=== PATIENT | male | born 1950 | race Caucasian/White ===

== ENCOUNTER 2020-04-05 08:02 | Inpatient (IN) | payer MEDICARE ==
[2020-04-05] MEDS ORDERED: FUROSEMIDE 10 MG/ML 4 ML VIAL IV STA (08:34)
--- NOTE | 2020-04-05 08:48 | ED ---
General Adult HPI - General Chief complaint: Shortness of Breath Stated complaint: poss pneumonia Time Seen by Provider: 04/05/20 08:18 Source: patient, RN notes reviewed, old records reviewed Mode of arrival: ambulatory Limitations: no limitations - History of Present Illness Initial comments: Patient 70-year-old male with a history of coronary disease CABG in 2012. Patient reportedly is having more shortness of breath for the past few weeks. Patient was seen by his primary care doctor who did a chest x-ray showing pleural effusion. They report they try to manage this with Lasix at home but Patient states that it is difficult for him to lay down at night with breathing and outpatient management has not been sufficient. He denies any significant productive cough. Does cough there is a white frothy fluid. Patient reports no fevers or chills. - Related Data Home Medications Medication Instructions Recorded Confirmed Atorvastatin [Lipitor] 10 mg PO HS 09/03/15 04/05/20 Clopidogrel Bisulfate [Plavix] 75 mg PO DAILY 09/03/15 04/05/20 Spironolactone [Aldactone] 25 mg PO DAILY 09/03/15 04/05/20 Furosemide [Lasix] 20 mg PO BID 04/05/20 04/05/20 Losartan Potassium [Cozaar] 12.5 mg PO DAILY 04/05/20 04/05/20 Potassium Chloride ER [K-Dur 10] 10 meq PO BID 04/05/20 04/05/20 Allergies Allergy/AdvReac Type Severity Reaction Status Date / Time No Known Allergies Allergy Verified 04/05/20 09:46 Review of Systems ROS Statement: Those systems with pertinent positive or pertinent negative responses have been documented in the HPI. ROS Other: All systems not noted in ROS Statement are negative. Past Medical History Past Medical History: Heart Failure, Diabetes Mellitus, Hyperlipidemia, Hypertension, Myocardial Infarction (CT) Last Myocardial Infarction Date:: 2012 History of Any Multi-Drug Resistant Organisms: None Reported Past Surgical History: Coronary Bypass/CABG Past Anesthesia/Blood Transfusion Reactions: No Reported Reaction Past Psychological History: No Psychological Hx Reported Smoking Status: Never smoker Past Alcohol Use History: None Reported Past Drug Use History: None Reported General Exam - General Exam Comments Initial Comments: 70-year-old female. No distress. Limitations: no limitations General appearance: alert, in no apparent distress Head exam: Present: atraumatic, normocephalic, normal inspection Eye exam: Present: normal appearance, PERRL, EOMI. Absent: scleral icterus, conjunctival injection, periorbital swelling ENT exam: Present: normal exam, mucous membranes moist Neck exam: Present: normal inspection. Absent: tenderness, meningismus, lymphadenopathy Respiratory exam: Present: decreased breath sounds. Absent: normal lung sounds bilaterally, respiratory distress, wheezes, rales, rhonchi, stridor Cardiovascular Exam: Present: regular rate, normal rhythm, normal heart sounds. Absent: systolic murmur, diastolic murmur, rubs, gallop, clicks GI/Abdominal exam: Present: soft, normal bowel sounds. Absent: distended, tenderness, guarding, rebound, rigid Extremities exam: Present: normal inspection, full ROM, normal capillary refill. Absent: tenderness, pedal edema, joint swelling, calf tenderness Back exam: Present: normal inspection Neurological exam: Present: alert, oriented X3, CN II-XII intact Psychiatric exam: Present: normal affect, normal mood Skin exam: Present: warm, dry, intact, normal color. Absent: rash Course Vital Signs 04/05/20 04/05/20 08:05 10:00 Temperature 97.6 F Pulse Rate 108 H 91 Respiratory 20 18 Rate Blood Pressure 115/68 110/70 O2 Sat by Pulse 98 96 Oximetry EKG Findings - EKG Comments: EKG Findings:: EKG shows sinus tachycardia left ventricular hypertrophy with repolarization and really. Abnormal EKG. Ventricular rate of 104 bpm. Verbal is 180 ms. QS duration is 92 ms. QT QTc is 350/460 ms. Medical Decision Making - Medical Decision Making is a 70-year-old male presents emergency department today for evaluation for difficulty breathing for the past 6 weeks. He was seen by PCP and started on Lasix reportimprovement. Patient complains orthopnea. Patient has history of coronary artery disease and had bypass surgery 2013. His front end technician is Dr. Avendano. Patient reports that he has no current chest pain at this time. Patient has diminished lung sounds. Chest x-ray shows evidence of a right pleural effusion and also increased infiltrates concern for CHF cannot exclude pneumonia. He reports that his cough is with white frothy sputum no fevers or chills. Discussed low concern for pneumonia at this time. The patient's symp toms are more consistent with CHF and evidence of pleural effusion. Patient labs also showed a mildly elevated troponin of 0.036. Patient started on aspirin. He has no chest pain at this time. I discussed admission CHF protocol. Discussed the case with Dr. Abrams who discussed the case with Dr. Shaheed jay. - Lab Data Result diagrams: 04/05/20 08:38 04/05/20 08:38 Lab Results 04/05/20 04/05/20 04/05/20 Range/Units 08:38 08:38 08:38 WBC 8.8 (3.8-10.6) k/uL RBC 4.82 (4.30-5.90) m/uL Hgb 14.7 (13.0-17.5) gm/dL Hct 44.6 (39.0-53.0) % MCV 92.4 (80.0-100.0) fL MCH 30.5 (25.0-35.0) pg MCHC 33.0 (31.0-37.0) g/dL RDW 13.0 (11.5-15.5) % Plt Count 216 (150-450) k/uL Neutrophils % 81 % Lymphocytes % 7 % Monocytes % 9 % Eosinophils % 1 % Basophils % 1 % Neutrophils # 7.1 (1.3-7.7) k/uL Lymphocytes # 0.6 L (1.0-4.8) k/uL Monocytes # 0.8 (0-1.0) k/uL Eosinophils # 0.1 (0-0.7) k/uL Basophils # 0.1 (0-0.2) k/uL PT 10.8 (9.0-12.0) sec INR 1.0 (<1.2) APTT 25.4 (22.0-30.0) sec Sodium 137 (137-145) mmol/L Potassium 4.9 (3.5-5.1) mmol/L Chloride 100 (98-107) mmol/L Carbon Dioxide 29 (22-30) mmol/L Anion Gap 8 mmol/L BUN 24 H (9-20) mg/dL Creatinine 0.98 (0.66-1.25) mg/dL Est GFR (CKD-EPI)AfAm >90 (>60 ml/min/1.73 sqM) Est GFR (CKD-EPI)NonAf 79 (>60 ml/min/1.73 sqM) Glucose 176 H (74-99) mg/dL Plasma Lactic Acid Steve (0.7-2.0) mmol/L Calcium 9.7 (8.4-10.2) mg/dL Magnesium 2.0 (1.6-2.3) mg/dL Total Bilirubin 1.3 (0.2-1.3) mg/dL AST 27 (17-59) U/L ALT 22 (4-49) U/L Alkaline Phosphatase 107 (38-126) U/L Troponin I (0.000-0.034) ng/mL NT-Pro-B Natriuret Pep pg/mL Total Protein 7.6 (6.3-8.2) g/dL Albumin 4.2 (3.5-5.0) g/dL 04/05/20 04/05/20 04/05/20 Range/Units 08:38 08:38 08:38 WBC (3.8-10.6) k/uL RBC (4.30-5.90) m/uL Hgb (13.0-17.5) gm/dL Hct (39.0-53.0) % MCV (80.0-100.0) fL MCH (25.0-35.0) pg MCHC (31.0-37.0) g/dL RDW (11.5-15.5) % Plt Count (150-450) k/uL Neutrophils % % Lymphocytes % % Monocytes % % Eosinophils % % Basophils % % Neutrophils # (1.3-7.7) k/uL Lymphocytes # (1.0-4.8) k/uL Monocytes # (0-1.0) k/uL Eosinophils # (0-0.7) k/uL Basophils # (0-0.2) k/uL PT (9.0-12.0) sec INR (<1.2) APTT (22.0-30.0) sec Sodium (137-145) mmol/L Potassium (3.5-5.1) mmol/L Chloride (98-107) mmol/L Carbon Dioxide (22-30) mmol/L Anion Gap mmol/L BUN (9-20) mg/dL Creatinine (0.66-1.25) mg/dL Est GFR (CKD-EPI)AfAm (>60 ml/min/1.73 sqM) Est GFR (CKD-EPI)NonAf (>60 ml/min/1.73 sqM) Glucose (74-99) mg/dL Plasma Lactic Acid Steve 2.1 H* (0.7-2.0) mmol/L Calcium (8.4-10.2) mg/dL Magnesium (1.6-2.3) mg/dL Total Bilirubin (0.2-1.3) mg/dL AST (17-59) U/L ALT (4-49) U/L Alkaline Phosphatase (38-126) U/L Troponin I 0.036 H* (0.000-0.034) ng/mL NT-Pro-B Natriuret Pep 5630 pg/mL Total Protein (6.3-8.2) g/dL Albumin (3.5-5.0) g/dL - Radiology Data Radiology results: report reviewed Correlate for congestive heart failure with basilar effusions, associated edema or cyanosis, pneumonia not excluded. Disposition Clinical Impression: CHF (congestive heart failure), Elevated troponin, Pleural effusion Disposition: ADMITTED IP TO THIS [facility] Condition: Stable Is patient prescribed a controlled substance at d/c from ED?: No Referrals: Charlie Jc MD [Primary Care Provider] - 1-2 days Time of Disposition: 10:13
[2020-04-05 08:55] LABS: Basophils # (A) 0.1 k/uL (0-0.2); Basophils % (A) 1 %; Eosinophils # (A) 0.1 k/uL (0-0.7); Eosinophils % (A) 1 %; HCT 44.6 % (39.0-53.0); HGB 14.7 gm/dL (13.0-17.5); Lymphocytes # (A) 0.6 k/uL (1.0-4.8); Lymphocytes % (A) 7 %; MCH 30.5 pg (25.0-35.0); MCV 92.4 fL (80.0-100.0); Mean Platelet Volume 8.4; Monocytes # (A) 0.8 k/uL (0-1.0); Monocytes % (A) 9 %; Neutrophils # (A) 7.1 k/uL (1.3-7.7); Neutrophils % (A) 81 %; Platelet Count 216 k/uL (150-450); RBC 4.82 m/uL (4.30-5.90); WBC 8.8 k/uL (3.8-10.6)
[2020-04-05 09:08] LABS: ALT 22 U/L (4-49); AST 27 U/L (17-59); African American GFR (CKD) >90 (>60 ml/min/1.73 sqM); Albumin 4.2 g/dL (3.5-5.0); Alkaline Phosphatase 107 U/L (38-126); Anion Gap 8 mmol/L; Blood Urea Nitrogen 24 mg/dL (9-20); Calcium 9.7 mg/dL (8.4-10.2); Carbon Dioxide 29 mmol/L (22-30); Chloride 100 mmol/L (98-107); Glucose 176 mg/dL (74-99); Non-African American GFR(CKD) 79 (>60 ml/min/1.73 sqM); Potassium 4.9 mmol/L (3.5-5.1); Sodium 137 mmol/L (137-145); Total Bilirubin 1.3 mg/dL (0.2-1.3); Total Protein 7.6 g/dL (6.3-8.2)
[2020-04-05 09:11] LABS: Partial Thromboplastin Time 25.4 sec (22.0-30.0); Prothrombin Time 10.8 sec (9.0-12.0)
--- NOTE | 2020-04-05 09:31 | XR ---
EXAMINATION TYPE: XR chest 2V DATE OF EXAM: 04/05/2020 COMPARISON: Prior chest x-ray 09/04/2015 HISTORY: Difficulty breathing TECHNIQUE: Frontal and lateral views of the chest are obtained. FINDINGS: Patient is post median sternotomy. There is been interval development of blunting the cost ophrenic angles, increased basilar density obscuring the hemidiaphragms. No evident pneumothorax. Magdy tral vascularity and interstitium somewhat increased. Some persistent upper lobe scarring noted. IMPRESSION: Correlate for congestive heart failure with basilar effusions, associated edema versus a telectasis, pneumonia not excluded.
[2020-04-05] MEDS ORDERED: ASPIRIN 325 MG TAB PO STA (10:11)
[2020-04-05] MEDS ORDERED: NITROGLYCERIN OINT 1 INCH/GM PACKET TOPICAL STA (10:11)
--- NOTE | 2020-04-05 12:28 | P.HPIM ---
History of Present Illness H&P Date: 04/05/20 Chief Complaint: Shortness of breath This is a 70-year-old male patient of Dr. Jc and Dr. Avendano with a past medical history of congestive heart failure, diabetes on diet control, hyperlipidemia, hypertension, previous [place], coronary artery disease, status post coronary artery bypass graft, and history of pneumonia. Patient reports over the last 6-8 weeks he's had some shortness of breath. He has been seeing Dr. Jc who is treating him for congestive heart failure with oral diuretics. Per patient Dr. Pacheco recommended hospitalization but he was reluctant to go. P atient reports last night he was unable to sleep due to the shortness of breath so he decided to come to the emergency department. He has complaints of orthopnea, productive cough with white frothy sputum and exertional dyspnea, he denies any chest pain. Upon ER evaluation chest x-ray showed right pleural effusion and increased infiltrates concerning for congestive heart failure. Troponin is mildly elevated at 0.036, lactic acid 2.1, BUN 24, creatinine 0.98. He was started on IV Lasix 40 mg every 8 hours along with spironolactone 25 mg daily. Cardiology has been consulted, patient reports he had a recent echo with Dr. Avendano less than 3 months ago, will try to obtain recent echocardiogram. Review of Systems Constitutional: Reports fatigue, Denies anorexia, Denies chills, Denies fever, Denies malaise Eyes: denies diplopia, denies discharge, denies irritation, denies itching, denies photophobia Ears: deny: decreased hearing, ear discharge, earache, tinnitus Ears, nose, mouth and throat: Denies epistaxis, Denies headache, Denies hoarseness, Denies nasal congestion, Denies nasal discharge, Denies sinus pain, Denies sinus pressure, Denies sore throat Cardiovascular: Reports dyspnea on exertion, Reports orthopnea, Reports shortness of breath, Denies chest pain, Denies edema, Denies leg edema, Denies palpitations, Denies syncope Respiratory: Reports cough, Reports cough with sputum, Reports dyspnea, Denies congestion, Denies pleurisy, Denies respiratory infections, Denies sleep apnea Gastrointestinal: Denies constipation, Denies diarrhea, Denies melena, Denies nausea, Denies vomiting Genitourinary: Denies dysuria, Denies nocturia, Denies urinary hesitancy, Denies urinary retention Musculoskeletal: Denies atrophy, Denies fractures, Denies frequent falls, Denies muscle weakness Integumentary: Denies dryness, Denies growths, Denies lesions, Denies onychomycosis, Denies rash, Denies sores, Denies striae, Denies wounds Neurological: Denies confusion, Denies loss of vision, Denies memory loss, Denies numbness, Denies seizures, Denies syncope, Denies vertigo, Denies weakness Psychiatric: Denies anxiety, Denies confusion, Denies insomnia, Denies irritability Past Medical History Past Medical History: Heart Failure, Diabetes Mellitus, Hyperlipidemia, Hypertension, Myocardial Infarction (NC) Last Myocardial Infarction Date:: 2012 History of Any Multi-Drug Resistant Organisms: None Reported Past Surgical History: Coronary Bypass/CABG Past Anesthesia/Blood Transfusion Reactions: No Reported Reaction Past Psychological History: No Psychological Hx Reported Smoking Status: Never smoker Past Alcohol Use History: None Reported Past Drug Use History: None Reported - Past Family History Father Family Medical History: Cancer Additional Family Medical History / Comment(s): father at age 77 from prostate cancer Mother Family Medical History: Cancer (Mother at 83 from colon cancer) Medications and Allergies Home Medications Medication Instructions Recorded Confirmed Type Atorvastatin [Lipitor] 10 mg PO HS 09/03/15 04/05/20 History Clopidogrel Bisulfate [Plavix] 75 mg PO DAILY 09/03/15 04/05/20 History Spironolactone [Aldactone] 25 mg PO DAILY 09/03/15 04/05/20 History Furosemide [Lasix] 20 mg PO BID 04/05/20 04/05/20 History Losartan Potassium [Cozaar] 12.5 mg PO DAILY 04/05/20 04/05/20 History Potassium Chloride ER [K-Dur 10] 10 meq PO BID 04/05/20 04/05/20 History Allergies Allergy/AdvReac Type Severity Reaction Status Date / Time No Known Allergies Allergy Verified 04/05/20 09:46 Physical Exam Vitals: Vital Signs Temp Pulse Resp BP Pulse Ox 04/05/20 10:00 91 18 110/70 96 04/05/20 08:05 97.6 F 108 H 20 115/68 98 Intake and Output 04/04/20 04/05/20 04/05/20 22:59 06:59 14:59 Other: Weight 77.564 kg - Constitutional General appearance: average body habitus, cooperative, mild distress - EENT Eyes: EOMI, PERRLA, normal appearance - Neck Neck: no lymphadenopathy, normal ROM, no thyromegaly Thyroid: bilateral: normal size, negative: enlarged, firm, nodule - Respiratory Respiratory: right: diminished, bilateral: dullness, negative: rales, rhonchi, wheezing - Cardiovascular Rhythm: regular Heart sounds: normal: S1, S2 - Gastrointestinal General gastrointestinal: no distended, normal bowel sounds, no organomegaly, no tenderness - Integumentary Integumentary: no flushed, normal, no pale, no rash, no ulcer - Neurologic Neurologic: CNII-XII intact - Musculoskeletal Musculoskeletal: generalized weakness, strength equal bilaterally - Psychiatric Psychiatric: A&O x's 3, appropriate affect, intact judgment & insight Results CBC & Chem 7: 04/05/20 08:38 04/06/20 07:31 Labs: Abnormal Lab Results - Last 24 Hours (Table) 04/05/20 04/05/20 04/05/20 Range/Units 08:38 08:38 08:38 Lymphocytes # 0.6 L (1.0-4.8) k/uL BUN 24 H (9-20) mg/dL Glucose 176 H (74-99) mg/dL Plasma Lactic Acid Steve 2.1 H* (0.7-2.0) mmol/L Troponin I (0.000-0.034) ng/mL 04/05/20 Range/Units 08:38 Lymphocytes # (1.0-4.8) k/uL BUN (9-20) mg/dL Glucose (74-99) mg/dL Plasma Lactic Acid Steve (0.7-2.0) mmol/L Troponin I 0.036 H* (0.000-0.034) ng/mL Assessment and Plan Plan: 1. Shortness of breath secondary to congestive heart failure and right-sided pleural effusion. Cardiology consulted, will obtain echo, serial troponins, continue with Aldactone 25 mg daily along with furosemide 40 mg IV every 8 hours. 2. Pleural effusion. Continue with IV furosemide and Aldactone. 3. Elevated troponin. Cardiology on consult, serial troponins. 4. Elevated lactic acid. Will repeat 5. History of coronary artery disease status post CABG. Continue with Lipitor 10 mg, Plavix 75 mg, Aldactone 25 mg, Cozaar 12.5 mg daily. 6. Hyperlipidemia. Continue Lipitor 10 mg daily 7. Hypertension. Continue losartan and Aldactone 25 mg daily 8. Diabetes. On diet control 9. GI prophylaxis. PPI 10. DVT prophylaxis. The above impression and plan of care have been discussed and directed by signing physician. Bisi Thompson nurse practitioner acting as scribe for signing physician.
[2020-04-05] MEDS: NITROGLYCERIN OINT 1 INCH/GM PACKET TOPICAL SCH ×3 (13:33→20:37)
[2020-04-05] MEDS: FUROSEMIDE 10 MG/ML 4 ML VIAL IV SCH ×2 (15:27→22:35)
[2020-04-05] MEDS: ATORVASTATIN 10 MG TAB PO SCH (20:39)
[2020-04-05] MEDS: POTASSIUM CHLORIDE ER 10 MEQ TAB.ER.PRT PO SCH (20:39)
[2020-04-06 08:01] LABS: Calcium 9.6 mg/dL (8.4-10.2); Potassium 4.1 mmol/L (3.5-5.1)
[2020-04-06] MEDS: SPIRONOLACTONE 25 MG TAB PO SCH (08:28)
[2020-04-06] MEDS: FUROSEMIDE 10 MG/ML 4 ML VIAL IV SCH ×2 (08:28→21:20)
[2020-04-06] MEDS: CLOPIDOGREL 75 MG TAB PO SCH (08:28)
[2020-04-06] MEDS: LOSARTAN 25 MG TAB PO SCH (08:28)
[2020-04-06] MEDS: POTASSIUM CHLORIDE ER 10 MEQ TAB.ER.PRT PO SCH ×2 (08:29→21:11)
[2020-04-06] MEDS: METOPROLOL SUCCINATE (ER) 25 MG TAB.ER.24H PO SCH (08:32)
[2020-04-06] MEDS: ASPIRIN 81 MG PO SCH (08:32)
[2020-04-06] MEDS ORDERED: ASPIRIN 325 MG TAB PO SCH (09:00)
--- NOTE | 2020-04-06 09:41 | P.PN ---
Subjective This is a 70-year-old male patient of Dr. Jc and Dr. Avendano with a past medical history of congestive heart failure, diabetes on diet control, hype rlipidemia, hypertension, previous [place], coronary artery disease, status post coronary artery bypass graft, and history of pneumonia. Patient reports over the last 6-8 weeks he's had some shortness of breath. He has been seeing Dr. Jc who is treating him for congestive heart failure with oral diuretics. Per patient Dr. Pacheco recommended hospitalization but he was reluctant to go. Patient reports last night he was unable to sleep due to the shortness of breath so he decided to come to the emergency department. He has complaints of orthopnea, productive cough with white frothy sputum and exertional dyspnea, he denies any chest pain. Upon ER evaluation chest x-ray showed right pleural ef fusion and increased infiltrates concerning for congestive heart failure. Troponin is mildly elevated at 0.036, lactic acid 2.1, BUN 24, creatinine 0.98. He was started on IV Lasix 40 mg every 8 hours along with spironolactone 25 mg daily. Cardiology has been consulted, patient reports he had a recent echo with Dr. Avendano less than 3 months ago, will try to obtain recent echocardiogram. 04/06: Patient evaluated today, reports shortness of breath has improved significantly from yesterday. He continues on Aldactone 25 mg daily along with 40 mg IV push of Lasix every 8 hours. He is down 3.3 kg from yesterday. Serial troponins 0.036, 0.036, 0.047, cardiology is on consult. Lactic acid 1.0. Vital signs are stable he's afebrile 97.7, heart rate 102, respiratory rate 17, blood pressure 112/68, he is 94% on room air. Objective - Vital Signs Vital signs: Vital Signs Temp 97.9 F 04/06/20 04:03 Pulse 102 H 04/06/20 08:00 Resp 17 04/06/20 08:00 BP 112/68 04/06/20 08:00 Pulse Ox 90 L 04/06/20 08:00 Intake & Output 04/05/20 04/06/20 04/06/20 18:59 06:59 18:59 Intake Total 485 236 Output Total 800 1225 Balance -315 -1225 236 Weight 78.5 kg 75.2 kg Intake: IV 5 Invasive Line 1 5 Oral 480 236 Output: Urine 800 1225 Other: Voiding Method Urinal Urinal # Voids 2 3 1 - Exam - Constitutional General appearance: average body habitus, cooperative, mild distress - EENT Eyes: EOMI, PERRLA, normal appearance - Neck Neck: no lymphadenopathy, normal ROM, no thyromegaly Thyroid: bilateral: normal size, negative: enlarged, firm, nodule - Respiratory Respiratory: right: diminished, bilateral: dullness, negative: rales, rhonchi, wheezing - Cardiovascular Rhythm: regular Heart sounds: normal: S1, S2 - Gastrointestinal General gastrointestinal: no distended, normal bowel sounds, no organomegaly, no tenderness - Integumentary Integumentary: no flushed, normal, no pale, no rash, no ulcer - Neurologic Neurologic: CNII-XII intact - Musculoskeletal Musculoskeletal: generalized weakness, strength equal bilaterally - Psychiatric Psychiatric: A&O x's 3, appropriate affect, intact judgment & insight - Labs CBC & Chem 7: 04/05/20 08:38 04/06/20 07:31 Labs: Abnormal Lab Results - Last 24 Hours (Table) 04/05/20 04/05/20 04/05/20 Range/Units 08:38 11:42 14:50 Chloride (98-107) mmol/L Carbon Dioxide (22-30) mmol/L BUN (9-20) mg/dL Glucose (74-99) mg/dL Plasma Lactic Acid Steve 2.1 H* (0.7-2.0) mmol/L Troponin I 0.036 H* 0.047 H* (0.000-0.034) ng/mL 04/06/20 Range/Units 07:31 Chloride 96 L (98-107) mmol/L Carbon Dioxide 34 H (22-30) mmol/L BUN 23 H (9-20) mg/dL Glucose 142 H (74-99) mg/dL Plasma Lactic Acid Steve (0.7-2.0) mmol/L Troponin I (0.000-0.034) ng/mL Assessment and Plan Plan: 1. Shortness of breath secondary to congestive heart failure and right-sided pleural effusion. Cardiology consulted, will obtain echo, serial troponins, continue with Aldactone 25 mg daily along with furosemide 40 mg IV every 8 hours. 2. Pleural effusion. Continue with IV furosemide and Aldactone. 3. Elevated troponin. Cardiology on consult, serial troponins. 4. Elevated lactic acid. Repeat 1.0 5. History of coronary artery disease status post CABG. Continue with Lipitor 10 mg, Plavix 75 mg, Aldactone 25 mg, Cozaar 12.5 mg daily. 6. Hyperlipidemia. Continue Lipitor 10 mg daily 7. Hypertension. Continue losartan and Aldactone 25 mg daily 8. Diabetes. On diet control 9. GI prophylaxis. PPI 10. DVT prophylaxis. The above impression and plan of care have been discussed and directed by signing physician. Bisi Thompson nurse practitioner acting as scribe for sig maxine physician.
--- NOTE | 2020-04-06 11:02 | P.CRDCN ---
History of Present Illness Consult date: 04/06/20 Consult reason: congestive heart failure Chief complaint: Shortness of breath History of present illness: This is a pleasant 70-year-old gentleman who follows regularly with Dr. Avendano in the office. He has a documented history of hypertension, hyperlipidemia, diabetes, coronary artery disease with prior bypass surgery in 2012 at which time the patient underwent a VIVAS to the LAD, saphenous vein graft to the diagonal, saphenous vein graft to the ramus intermedius and saphenous vein graft to the PDA, he presents to the hospital with symptoms of progressively worsening shortness of breath over the past few weeks. Positive PND and orthopnea. His chest x-ray on presentation here showed congestive cardiac failure with bibasilar effusions. His most recent echocardiogram with Doppler study in the office was performed in January 2020 which revealed an ejection fraction of 30%, moderate AR, moderate to severe MR and moderate aortic stenosis. His EKG revealed a sinus tachycardia with LVH strain pattern and lateral T-wave inversion. Patient did have an echocardiogram with Doppler study performed in 2015 which revealed an ejection fraction of 30-35%, mild to moderate mitral regurgitation. He was initiated on IV Lasix in the emergency room and has had excellent urine output is weight is down significantly today. Blood pressure 100/60, heart rate 90, respirations 18, 94% on room air. White blood cell count 8.8 hemoglobin 14.7, platelet count 216. Sodium 139, potassium 4.1, BUN 23, creatinine 1.0. Troponin 0.03, 0.03, 0.04. Magnesium 2.0 and BNP level on presentation here 5630. At the time of my examination this morning, patient states he feels significantly better than he did on presentation here. He is able to lie flat and breathe. Current medications include aspirin 325 mg daily, Lipitor 10 mg daily, Plavix 75 mg daily, Lasix 40 mg IV every 8 hours, Aldactone 25 mg daily. We will decrease the aspirin to 81 mg daily, add metoprolol sesame to the patient's medication regime 12-1/2 mg daily, we will also decrease the dose of potassium the patient is receiving to once daily, he is also on Aldactone. We will obtain an echocardiogram with Doppler study and discontinue the Nitropaste. Continue to monitor the patient's intake and output along with daily weights and daily lytes BUN and creatinine. Past Medical History Past Medical History: Heart Failure, Diabetes Mellitus, Hyperlipidemia, Hypertension, Myocardial Infarction (ND) Additional Past Medical History / Comment(s): Pneumonia with sepsis, NIDDM type II-diet controlled now, neuropathy R foot, nephrolithiasis-pt passed stone on his own. Last Myocardial Infarction Date:: 2012 History of Any Multi-Drug Resistant Organisms: None Reported Past Surgical History: Coronary Bypass/CABG Additional Past Surgical History / Comment(s): 2012 CABG 6 vessel Past Anesthesia/Blood Transfusion Reactions: No Reported Reaction Past Psychological History: No Psychological Hx Reported Smoking Status: Never smoker Past Alcohol Use History: None Reported Past Drug Use History: None Reported - Past Family History Father Family Medical History: Cancer Additional Family Medical History / Comment(s): father at age 77 from prostate cancer Mother Family Medical History: Cancer (Mother at 83 from colon cancer) Additional Family Medical History / Comment(s): Mother had bowel cancer. Medications and Allergies Home Medications Medication Instructions Recorded Confirmed Type Atorvastatin [Lipitor] 10 mg PO HS 09/03/15 04/05/20 History Clopidogrel Bisulfate [Plavix] 75 mg PO DAILY 09/03/15 04/05/20 History Spironolactone [Aldactone] 25 mg PO DAILY 09/03/15 04/05/20 History Furosemide [Lasix] 20 mg PO BID 04/05/20 04/05/20 History Losartan Potassium [Cozaar] 12.5 mg PO DAILY 04/05/20 04/05/20 History Potassium Chloride ER [K-Dur 10] 10 meq PO BID 04/05/20 04/05/20 History Allergies Allergy/AdvReac Type Severity Reaction Status Date / Time No Known Allergies Allergy Verified 04/05/20 09:46 Physical Exam Vitals: Vital Signs Temp Pulse Resp BP BP Pulse Ox 04/06/20 08:00 102 H 17 112/68 90 L 04/06/20 04:03 97.9 F 92 16 99/59 94 L 04/05/20 22:35 96 18 105/65 95 04/05/20 20:21 96 15 89/52 97 04/05/20 17:10 91 107/66 04/05/20 17:09 98.1 F 92 17 94/51 97 04/05/20 14:57 96.5 F L 95 18 96/60 99/59 94 L Intake and Output 04/05/20 04/06/20 04/06/20 22:59 06:59 14:59 Intake Total 485 236 Output Total 1200 825 Balance -715 -825 236 Intake: IV 5 Invasive Line 1 5 Oral 480 236 Output: Urine 1200 825 Other: Voiding Method Urinal # Voids 2 3 1 Weight 75.2 kg PHYSICAL EXAMINATION: GENERAL: 70-year-old gentleman in no acute distress at the time of my examination HEENT: Head is atraumatic, normocephalic. Pupils equal, round. Sclera anicteric. Conjunctiva are clear. Mucous membranes of the mouth are moist. Neck is supple. There is no elevated jugular venous pressure. No carotid bruit is heard. HEART EXAMINATION: Heart S1 S2 1 systolic murmur is heard CHEST EXAMINATION: And circumflex clear with diminished air entry to the bases bilaterally ABDOMEN: Soft, nontender. Bowel sounds are heard. No organomegaly noted. EXTREMITIES: 2+ peripheral pulses with no evidence of peripheral edema and no calf tenderness noted. NEUROLOGIC patient is awake, alert and oriented 3. . Results 04/05/20 08:38 04/06/20 07:31 Cardiac Enzymes 04/05/20 04/05/20 Range/Units 11:42 14:50 Troponin I 0.036 H* 0.047 H* (0.000-0.034) ng/mL Comprehensive Metabolic Panel 04/06/20 Range/Units 07:31 Sodium 139 (137-145) mmol/L Potassium 4.1 (3.5-5.1) mmol/L Chloride 96 L (98-107) mmol/L Carbon Dioxide 34 H (22-30) mmol/L BUN 23 H (9-20) mg/dL Creatinine 1.06 (0.66-1.25) mg/dL Glucose 142 H (74-99) mg/dL Calcium 9.6 (8.4-10.2) mg/dL Current Medications Generic Name Dose Route Start Last Admin Trade Name Freq PRN Reason Stop Dose Admin Aspirin 81 mg 04/06/20 09:00 04/06/20 08:32 Aspirin 81 Mg PO 81 mg DAILY LIU Administration Atorvastatin Calcium 10 mg 04/05/20 21:00 04/05/20 20:39 Atorvastatin 10 Mg Tab PO 10 mg HS LIU Administration Clopidogrel Bisulfate 75 mg 04/06/20 09:00 04/06/20 08:28 Clopidogrel 75 Mg Tab PO 75 mg DAILY LIU Administration Furosemide 40 mg 04/05/20 16:00 04/06/20 08:28 Furosemide 10 Mg/Ml 4 Ml Vial IV 40 mg Q8HR LIU Administration Losartan Potassium 12.5 mg 04/06/20 09:00 04/06/20 08:28 Losartan 25 Mg Tab PO 12.5 mg DAILY LIU Administration Metoprolol Succinate 12.5 mg 04/06/20 09:00 04/06/20 08:32 Metoprolol Succinate (Er) 25 Mg Tab.Er.24h PO 12.5 mg DAILY LIU Administration Potassium Chloride 10 meq 04/05/20 21:00 04/06/20 08:29 Potassium Chloride Er 10 Meq Tab.Er.Prt PO 10 meq BID LIU Administration Spironolactone 25 mg 04/06/20 09:00 04/06/20 08:28 Spironolactone 25 Mg Tab PO 25 mg DAILY LIU Administration Intake and Output 04/05/20 04/06/20 04/06/20 22:59 06:59 14:59 Intake Total 485 236 Output Total 1200 825 Balance -715 -825 236 Intake: IV 5 Invasive Line 1 5 Oral 480 236 Output: Urine 1200 825 Other: Voiding Method Urinal # Voids 2 3 1 Weight 75.2 kg 04/05/20 08:38 04/06/20 07:31 EKG Interpretations (text) EKG shows a sinus tachycardia with LVH strain pattern and lateral T-wave inversion Assessment and Plan Plan: Assessment and plan #1 systolic congestive heart failure acute on chronic, most recent echo performed in the office was done in January of this year showed an ejection fraction of 30%, mild to moderate aortic regurg, severe aortic stenosis moderate to severe mitral regurgitation #2 history of coronary artery disease with prior bypass surgery in 2013 #3 hypertension #4 hyperlipidemia #5 diabetes Plan From cardiology's perspective, we'll continue current dose of IV Lasix. We will add a small dose of beta carlos enrique to the patient's medication regime, discontinue the Nitropaste, decrease aspirin to 81 mg daily and obtain an echocardiogram w ith Doppler study. DNP note has been reviewed, I agree with a documented findings and plan of care. Patient was seen and examined.
[2020-04-06 11:14] VITALS: BMI 23.1
--- NOTE | 2020-04-06 12:41 | ECHOF ---
Referral Reason:chf MEASUREMENTS -------- HEIGHT: 180.3 cm WEIGHT: 74.8 kg BP: 99/59 RVIDd: 4.9 cm (< 3.3) IVSd: 1.1 cm (0.6 - 1.1) LVIDd: 6.0 cm (3.9 - 5.3) LVPWd: 1.1 cm (0.6 - 1.1) IVSs: 1.2 cm LVIDs: 5.3 cm LVPWs: 1.5 cm LAESV Index (A-L): 31.81 ml/m Ao Diam: 3.6 cm (2.0 - 3.7) AV Cusp: 0.9 cm (1.5 - 2.6) MV EXCURSION: 14.703 mm (> 18.000) MV EF SLOPE: 64 mm/s (70 - 150) EPSS: 2.2 cm AV maxP.64 mmHg AV meanP.85 mmHg AR PHT: 261 ms FINDINGS -------- This was a technically adequate study. The left ventricle is mildly dilated. Left ventricular wall thickness is normal. There is severe global hypokinesis of LV . Overall left ventricular systolic function is severely impaired with, an EF between 20 - 25 %. Septal wall motion is delayed and consistent with prior cardiac surgery. The right ventricle is severely enlarged. LA is midly dilated 29-33ml/m2. The right atrium is mildly enlarged. Interatrial and interventricular septum intact. There is mild aortic regurgitation. There is [id number] aortic stenosis present. Peak/rhoda n gradient across the Aortic Valve is 40.64mmHg / 22.85mmHg. Moderate mitral regurgitation is present. Moderate to severe tricuspid regurgitation present. There is moderate to severe pulmonary hypertens ion. The right ventricular systolic pressure, as measured by Doppler, is {RVSP}. There is no pulmonic regurgitation present. The aortic root size is normal. Normal inferior vena cava with normal inspiratory collapse consistent with estimated right atrial pre ssure of 5 mmHg. There is no pericardial effusion. CONCLUSIONS -------- 1. The left ventricle is mildly dilated. 2. Left ventricular wall thickness is normal. 3. There is severe global hypokinesis of LV . 4. Overall left ventricular systolic function is severely impaired with, an EF between 20 - 25 %. 5. Septal wall motion is delayed and consistent with prior cardiac surgery. 6. The right ventricle is severely enlarged. 7. LA is midly dilated 29-33ml/m2. 8. The right atrium is mildly enlarged. 9. There is mild aortic regurgitation. 10. There is uflianzj-[id number]-avdggn aortic stenosis present. 11. Peak/mean gradient across the Aortic Valve is 40.64mmHg / 22.85mmHg. 12. Moderate mitral regurgitation is present. 13. Moderate to severe tricuspid regurgitation present. 14. There is moderate to severe pulmonary hypertension. 15. The right ventricular systolic pressure, as measured by Doppler, is {RVSP}. CAB WORKER: Brisa Euceda RDCS
[2020-04-06] MEDS: ATORVASTATIN 10 MG TAB PO SCH (21:11)
[2020-04-07] MEDS: FUROSEMIDE 10 MG/ML 4 ML VIAL IV SCH ×4 (00:22→23:27)
[2020-04-07 08:55] LABS: Basophils # (A) 0.1 k/uL (0-0.2); Basophils % (A) 1 %; Eosinophils # (A) 0.1 k/uL (0-0.7); Eosinophils % (A) 2 %; HCT 48.6 % (39.0-53.0); HGB 15.6 gm/dL (13.0-17.5); Lymphocytes # (A) 0.6 k/uL (1.0-4.8); Lymphocytes % (A) 7 %; MCHC 32.1 g/dL (31.0-37.0); MCV 93.5 fL (80.0-100.0); Mean Platelet Volume 8.1; Monocytes # (A) 0.7 k/uL (0-1.0); Monocytes % (A) 8 %; Neutrophils # (A) 6.7 k/uL (1.3-7.7); Neutrophils % (A) 81 %; Platelet Count 224 k/uL (150-450); RDW 13.2 % (11.5-15.5); WBC 8.3 k/uL (3.8-10.6)
[2020-04-07] MEDS: SPIRONOLACTONE 25 MG TAB PO SCH (08:57)
[2020-04-07] MEDS: CLOPIDOGREL 75 MG TAB PO SCH (08:57)
[2020-04-07] MEDS: LOSARTAN 25 MG TAB PO SCH (08:57)
[2020-04-07] MEDS: ASPIRIN 81 MG PO SCH (08:57)
[2020-04-07] MEDS: POTASSIUM CHLORIDE ER 10 MEQ TAB.ER.PRT PO SCH (08:57)
[2020-04-07] MEDS: METOPROLOL SUCCINATE (ER) 25 MG TAB.ER.24H PO SCH (08:58)
[2020-04-07 09:17] LABS: Albumin 4.1 g/dL (3.5-5.0); Calcium 9.6 mg/dL (8.4-10.2); Potassium 5.4 mmol/L (3.5-5.1); Total Bilirubin 1.7 mg/dL (0.2-1.3); Total Protein 7.5 g/dL (6.3-8.2)
--- NOTE | 2020-04-07 11:00 | P.PN ---
Subjective Progress Note Date: 04/07/20 HISTORY OF PRESENT ILLNESS This is a 70-year-old male patient of Dr. Jc and Dr. Avendano with a past medical history of congestive heart failure, diabetes on diet control, hyperlipi demia, hypertension, previous MT, coronary artery disease, status post coronary artery bypass graft, and history of pneumonia. Patient reports over the last 6- 8 weeks he's had some shortness of breath. He has been seeing Dr. Jc who is treating him for congestive heart failure with oral diuretics. Per patient Dr. Pacheco recommended hospitalization but he was reluctant to go. Patient reports l ast night he was unable to sleep due to the shortness of breath so he decided to come to the emergency department. He has complaints of orthopnea, productive cough with white frothy sputum and exertional dyspnea, he denies any chest pain. Upon ER evaluation chest x-ray showed right pleural effusion and increased infiltrates concerning for congestive heart failure. Troponin is mildly elevated at 0.036, lactic acid 2.1, BUN 24, creatinine 0.98. He was started on IV Lasix 40 mg every 8 hours along with spironolactone 25 mg daily. Cardiology has been consulted, patient reports he had a recent echo with Dr. Avendano less than 3 months ago, will try to obtain recent echocardiogram. 04/06: Patient evaluated today, reports shortness of breath has improved significantly from yesterday. He continues on Aldactone 25 mg daily along with 40 mg IV push of Lasix every 8 hours. He is down 3.3 kg from yesterday. Serial troponins 0.036, 0.036, 0.047, cardiology is on consult. Lactic acid 1.0. Vit al signs are stable he's afebrile 97.7, heart rate 102, respiratory rate 17, blood pressure 112/68, he is 94% on room air. 04/07: Patient has been afebrile, heart rate 94, blood pressure 104/58, pulse ox 97% on room air. 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 Repeat lab work reveals CBC unremarkable. Sodium 136, potassium 5.4, chloride 98, CO2 32, BUN 25 and creatinine 1.13. Blood sugar 226. Total bilirubin 1.7. Patient continues on Lasix 40 mg IV every 8 hours, potassium will be held for today. He is also on Aldactone 25 mg daily. Echocardiogram reveals EF of 20-25% with severe global hypokinesia of the LV, mild aortic regurgitation, moderate to severe aortic stenosis with gradient of 40.64. Moderate mitral regurgitation, moderate to severe tricuspid regurgitation, moderate to severe pulmonary hypertension. Patient has been seen and followed by cardiology. Anticipate probable discharge tomorrow. REVIEW OF SYSTEMS Constitutional: No fever, no chills, no night sweats. No weight change. Reports fatigue. EENT: No headache. No blurred vision. Lungs: Reports shortness of breath, no cough, no sputum production. No wheezing. Reports shortness of breath with exertion. Cardiovascular: No chest pain, no lower extremity edema. No palpitations. No paroxysmal nocturnal dyspnea. No orthopnea. No lightheadedness or dizziness. No syncopal episodes. Abdominal: No abdominal pain. No nausea, vomiting. No diarrhea. No constipation. No bloody or tarry stools.. No loss of appetite. Genitourinary: No dysuria, increased frequency, urgency. No urinary retention. Musculoskeletal: No myalgias. No muscle weakness, no gait dysfunction, no frequent falls. No back pain. No neck pain. Integumentary: No wounds, no lesions. No rash or pruritus. Neurologic: No aphasia. No facial droop. No change in mentation. No head injury. No headache. Psychiatric: No depression. No anxiety. Endocrine: Reports abnormal blood sugars. PHYSICAL EXAMINATION Gen: This is a 70-year-old male. Patient is sitting in a recliner and appears comfortable and in no acute distress. No respiratory distress noted. HEENT: Head is atraumatic, normocephalic. Pupils equal, round. Sclerae is anicteric. NECK: Supple. No JVD. No lymphadenopathy. No thyromegaly. LUNGS: Diminished to the bilateral bases. No wheezes or rhonchi. No intercostal retractions. HEART: Regular rate and rhythm. No murmur. ABDOMEN: Soft. Bowel sounds are present. No masses. No tenderness. EXTREMITIES: No pedal edema. No calf tenderness. Dorsalis pedis +2 bilaterally. NEUROLOGICAL: Patient is awake, alert and oriented x3. Cranial nerves 2 through 12 are grossly intact. ASSESSMENT AND PLAN 1. Acute on chronic systolic heart failure with severe cardiomyopathy most likely ischemic. Cardiology consulted, echo as above. Continue Aldactone 25 mg daily along with furosemide 40 mg IV every 8 hours. Discontinue potassium sup plementation. Continue I&O daily weights, monitor electrolytes and renal function. 2. Valvular heart disease with moderate to severe aortic stenosis, moderate mitral regurgitation, moderate to severe tricuspid regurgitation and moderate to severe pulmonary hypertension. 3. Elevated troponin, acute coronary syndrome ruled out by cardiology. Cardiology consult appreciated. 4. Elevated lactic acid. Repeat 1.0 5. History of coronary artery disease status post CABG. Continue with Lipitor 10 mg, Plavix 75 mg, Aldactone 25 mg, Cozaar 12.5 mg daily. 6. Hyperlipidemia. Continue Lipitor 10 mg daily 7. Hypertension. Continue losartan and Aldactone 25 mg daily 8. Diabetes mellitus type II, uncontrolled with hyperglycemia. Add NovoLog scale. On diet control. Obtain hemoglobin A1c. 9. History of coronary artery disease with prior CABG in 2012 10. GI prophylaxis. PPI 11. DVT prophylaxis. DISCHARGE PLAN Home on Saturday Impression and plan of care have been directed as dictated by the signing physician. Jolene Cotto nurse practitioner acting as scribe for signing physician. Objective - Vital Signs Vital signs: Vital Signs Temp 98.1 F 04/07/20 04:00 Pulse 88 04/07/20 04:00 Resp 16 04/07/20 04:00 BP 103/52 04/07/20 04:00 Pulse Ox 94 L 04/07/20 04:00 Intake & Output 04/06/20 04/07/20 04/07/20 18:59 06:59 18:59 Intake Total 694 Output Total 1340 400 Balance -646 -400 Weight 75.2 kg 75.1 kg Intake: Oral 694 Output: Urine 1340 400 Other: Voiding Method Urinal # Voids 1 - Labs CBC & Chem 7: 04/07/20 08:33 04/07/20 08:33 Labs: Microbiology - Last 24 Hours (Table) 04/05/20 08:38 Blood Culture - Preliminary Blood No Growth after 24 hours
[2020-04-07] MEDS ORDERED: INSULIN ASPART (NovoLOG) 100 UNIT/ML VIAL SQ SCH (12:30)
--- NOTE | 2020-04-07 12:49 | P.PN ---
Subjective Progress Note Date: 04/07/20 This is a pleasant 70-year-old gentleman who follows regularly with Dr. Avendano in the office. He has a documented history of hypertension, hyperlipidemia, diabetes, coronary artery disease with prior bypass surgery in 2012 at which time the patient underwent a VIVAS to the LAD, saphenous vein graft to the diagonal, saphenous vein graft to the ramus intermedius and saphenous vein graft to the PDA, he presents to the hospital with symptoms of progressively worsening shortness of breath over the past few weeks. Positive PND and orthopnea. His chest x-ray on presentation here showed congestive cardiac failure with bibasilar effusions. His most recent echocardiogram with Doppler study in the office was performed in January 2020 which revealed an ejection fraction of 30%, moderate AR, moderate to severe MR and moderate aortic stenosis. His EKG revealed a sinus tachycardia with LVH strain pattern and lateral T-wave inversion. Patient did have an echocardiogram with Doppler study performed in 2015 which revealed an ejection fraction of 30-35%, mild to moderate mitral regurgitation. He was initiated on IV Lasix in the emergency room and has had excellent urine output is weight is down significantly today. Blood pressure 100/60, heart rate 90, respirations 18, 94% on room air. White blood cell count 8.8 hemoglobin 14.7, platelet count 216. Sodium 139, potassium 4.1, BUN 23, creatinine 1.0. Troponin 0.03, 0.03, 0.04. Magnesium 2.0 and BNP level on presentation here 5630. At the time of my examination this morning, patient states he feels significantly better than he did on presentation here. He is able to lie flat and breathe. Current medications include aspirin 325 mg daily, Lipitor 10 mg daily, Plavix 75 mg daily, Lasix 40 mg IV every 8 hours, Aldactone 25 mg daily. We will decrease the aspirin to 81 mg daily, add metoprolol sesame to the patient's medication regime 12-1/2 mg daily, we will also decrease the dose of potassium the patient is receiving to once daily, he is also on Aldactone. We will obtain an echocardiogram with Doppler study and discontinue the Nitropaste. Continue to monitor the patient's intake and output along with daily weights and daily lytes BUN and creatinine. 04/07/2020 Patient seen and examined this morning, diuresed well through the night last night. His blood pressure was running on the low side through the night last night, 90 to 100 systolic, patient states he felt mildly lightheaded and therefore refuses to take his IV Lasix. He again refuses IV Lasix this morning, I did have a lengthy discussion with the patient this morning regarding his documented cardiomyopathy, and the importance of taking all of his medications as prescribed. I also spoke with the patient this morning regarding AICD, and the recommendation for placement for prevention of sudden cardiac . Patient states he does not want to have an AICD at any point in time. He has agreed to take his medications as prescribed. Overall he is feeling significantly better today. His blood pressure 104/60 with a heart rate in the 90s, 97% on room air. White blood cell count 8.3, hemoglobin 15.6, platelet count 224. Sodium 136, potassium 5.4, BUN 25, creatinine 1.1. Objective - Vital Signs Vital signs: Vital Signs Temp 98.4 F 04/07/20 08:00 Pulse 94 04/07/20 08:00 Resp 18 04/07/20 08:00 BP 104/58 04/07/20 08:00 Pulse Ox 97 04/07/20 08:00 Intake & Output 04/06/20 04/07/20 04/07/20 18:59 06:59 18:59 Intake Total 694 300 Output Total 1340 400 Balance -646 -400 300 Weight 75.2 kg 75.1 kg Intake: Oral 694 300 Output: Urine 1340 400 Other: Voiding Method Urinal # Voids 1 1 - Exam PHYSICAL EXAMINATION: GENERAL: 70-year-old gentleman in no acute distress at the time of my examination HEENT: Head is atraumatic, normocephalic. Pupils equal, round. Sclera anicteric. Conjunctiva are clear. Mucous membranes of the mouth are moist. Neck is supple. There is no elevated jugular venous pressure. No carotid bruit is heard. HEART EXAMINATION: Heart S1 S2 1 systolic murmur is heard CHEST EXAMINATION: Lungs are clear with diminished air entry to the bases bilaterally ABDOMEN: Soft, nontender. Bowel sounds are heard. No organomegaly noted. EXTREMITIES: 2+ peripheral pulses with no evidence of peripheral edema and no calf tenderness noted. NEUROLOGIC patient is awake, alert and oriented 3. - Labs CBC & Chem 7: 04/07/20 08:33 04/07/20 08:33 Labs: Abnormal Lab Results - Last 24 Hours (Table) 04/07/20 04/07/20 Range/Units 08:33 08:33 Lymphocytes # 0.6 L (1.0-4.8) k/uL Sodium 136 L (137-145) mmol/L Potassium 5.4 H (3.5-5.1) mmol/L Carbon Dioxide 32 H (22-30) mmol/L BUN 25 H (9-20) mg/dL Glucose 226 H (74-99) mg/dL Total Bilirubin 1.7 H (0.2-1.3) mg/dL Microbiology - Last 24 Hours (Table) 04/05/20 08:38 Blood Culture - Preliminary Blood No Growth after 48 hours Assessment and Plan Plan: Assessment and plan #1 systolic congestive heart failure acute on chronic, most recent echo performed in the office was done in January of this year showed an ejection fraction of 30%, mild to moderate aortic regurg, severe aortic stenosis moderate to severe mitral regurgitation. Echo with Doppler study performed here revealed an ejection fraction of 20-25%, severe global hypokinesia with moderate to severe tricuspid regurg, moderate mitral regurg, moderate to severe pulmonary hypertension and moderate to severe aortic stenosis. #2 history of coronary artery disease with prior bypass surgery in 2012 #3 hypertension #4 hyperlipidemia #5 diabetes #6 ischemic cardiomyopathy with documented ejection fraction of 20-25%. Patient refuses to have AICD placed. Plan From cardiology's perspective, we'll continue current dose of IV Lasix. Obtain a repeat chest x-ray. From tomorrow change the patient over to oral diuretics. Check lytes BUN and creatinine in the morning. DNP note has been reviewed, I agree with a documented findings and plan of care. Patient was seen and examined.
--- NOTE | 2020-04-07 13:46 | XR ---
EXAMINATION TYPE: XR chest 2V DATE OF EXAM: 04/07/2020 COMPARISON: 04/05/2020 TECHNIQUE: PA and lateral views submitted. HISTORY: Shortness of breath FINDINGS: Bilateral infiltrate and pleural effusion with diffuse interstitial pattern. Postoperative changes. N o sizable pneumothorax. Arthropathy of the shoulders. Calcification overlying the right lung may be r elated to granuloma. IMPRESSION: 1. Stable pattern most compatible with CHF. Underlying pneumonia not excluded.
[2020-04-07] MEDS: ATORVASTATIN 10 MG TAB PO SCH (20:18)
--- NOTE | 2020-04-08 09:00 | P.DS ---
Providers Date of admission: 04/05/20 10:25 Expected date of discharge: 04/08/20 Attending physician: Paramjit Raygoza Consults: 04/05/20 10:16 Consult Physician Stat Consulting Provider: Yuriy Contreras Consult Reason/Comments: CHF, pleural effusion, elevated trop Do you want consulting provider notified?: Yes Primary care physician: [facility] Course: HISTORY OF PRESENT ILLNESS This is a 70-year-old male patient of Dr. Jc and Dr. Avendano with a past medical history of congestive heart failure, diabetes on diet control, hyperlipidemia, hypertension, previous NC, coronary artery disease, status post coronary artery bypass graft, and history of pneumonia. Patient reports over the last 6-8 weeks he's had some shortness of breath. He has been seeing Dr. Jc who is treating him for congestive heart failure with oral diuretics. Per patient Dr. Pacheco recommended hospitalization but he was reluctant to go. Patient reports last night he was unable to sleep due to the shortness of breath so he decided to come to the emergency department. He has complaints of orthopnea, productive cough with white frothy sputum and exertional dyspnea, he denies any chest pain. Upon ER evaluation chest x-ray showed right pleural effusion and increased infiltrates concerning for congestive heart failure. Troponin is mildly elevated at 0.036, lactic acid 2.1, BUN 24, creatinine 0.98. He was started on IV Lasix 40 mg every 8 hours along with spironolactone 25 mg daily. Cardiology has been consulted, patient reports he had a recent echo with Dr. Avendano less than 3 months ago, will try to obtain recent echocardiogram. 04/06: Patient evaluated today, reports shortness of breath has improved significantly from yesterday. He continues on Aldactone 25 mg daily along with 40 mg IV push of Lasix every 8 hours. He is down 3.3 kg from yesterday. Serial troponins 0.036, 0.036, 0.047, cardiology is on consult. Lactic acid 1.0. Vital signs are stable he's afebrile 97.7, heart rate 102, respiratory rate 17, blood pressure 112/68, he is 94% on room air. 04/07: Patient has been afebrile, heart rate 94, blood pressure 104/58, pulse ox 97% on room air. desk monitor sinus rhythm. Repeat lab work reveals CBC unremarkable. Sodium 136, potassium 5.4, chloride 98, CO2 32, BUN 25 and creatinine 1.13. Blood sugar 226. Total bilirubin 1.7. Patient continues on Lasix 40 mg IV every 8 hours, potassium will be held for today. He is also on Aldactone 25 mg daily. Echocardiogram reveals EF of 20-25% with severe global hypokinesia of the LV, mild aortic regurgitation, moderate to severe aortic stenosis with gradient of 40.64. Moderate mitral regurgitation, moderate to severe tricuspid regurgitation, moderate to severe pulmonary hypertension. Patient has been seen and followed by cardiology. Anticipate probable discharge tomorrow. 04/08: Patient states that shortness of breath is improving actually each day. Patient has been afebrile, heart rate 95, blood pressure 9454, pulse ox 95% on room air. Sodium 133, potassium 4.8, chloride 94, CO2 30, BUN 29 creatinine 1.15. Blood sugar 255. Patient will be started on metformin and prescription provided for home. Chest x-ray from yesterday afternoon reveals stable pattern consistent with CHF, underlying pneumonia not excluded. Patient will be discharged home today in stable condition. Discharge diagnoses 1. Acute on chronic systolic heart failure with severe ischemic cardiomyopathy 2. Valvular heart disease with moderate to severe aortic stenosis, moderate mitral regurgitation, moderate to severe tricuspid regurgitation and moderate to severe pulmonary hypertension. 3. Elevated troponin, acute coronary syndrome ruled out by cardiology. 4. Elevated lactic acid. 5. History of coronary artery disease status post CABG. 6. Hyperlipidemia. 7. Hypertension. 8. Diabetes mellitus type II, uncontrolled with hyperglycemia. 9. History of coronary artery disease with prior CABG in 2012 DISCHARGE PLAN Home on Saturday Impression and plan of care have been directed as dictated by the signing physician. Jolene Cotto nurse practitioner acting as scribe for signing physician. Patient Condition at Discharge: Stable Plan - Discharge Summary Discharge Rx Participant: No New Discharge Prescriptions: New Aspirin 81 mg PO DAILY chew Furosemide [Lasix] 40 mg PO BID #60 tablet Metoprolol Succinate (ER) [Toprol XL] 12.5 mg PO DAILY #30 tab.er.24h metFORMIN HCL [Glucophage] 500 mg PO BID #60 tab Continue Spironolactone [Aldactone] 25 mg PO DAILY Atorvastatin [Lipitor] 10 mg PO HS Clopidogrel Bisulfate [Plavix] 75 mg PO DAILY Losartan Potassium [Cozaar] 12.5 mg PO DAILY Changed Potassium Chloride ER [K-Dur 10] 10 meq PO DAILY #0 Discontinued Furosemide [Lasix] 20 mg PO BID Discharge Medication List Atorvastatin [Lipitor] 10 mg PO HS 09/03/15 [History] Clopidogrel Bisulfate [Plavix] 75 mg PO DAILY 09/03/15 [History] Spironolactone [Aldactone] 25 mg PO DAILY 09/03/15 [History] Losartan Potassium [Cozaar] 12.5 mg PO DAILY 04/05/20 [History] Aspirin 81 mg PO DAILY chew 04/08/20 [Rx] Furosemide [Lasix] 40 mg PO BID #60 tablet 04/08/20 [Rx] Metoprolol Succinate (ER) [Toprol XL] 12.5 mg PO DAILY #30 tab.er.24h 04/08/20 [Rx] Potassium Chloride ER [K-Dur 10] 10 meq PO DAILY #0 04/08/20 [Rx] metFORMIN HCL [Glucophage] 500 mg PO BID #60 tab 04/08/20 [Rx] Follow up Appointment(s)/Referral(s): Yuriy Contreras MD [STAFF PHYSICIAN] - 04/18/20 10:45 am (Saturday) Charlie Jc MD [Primary Care Provider] - 1 Week (Office currently closed, please call to make follow up appointment. ) Patient Instructions/Handouts: Heart Failure (DC) Discharge Disposition: HOME SELF-CARE
[2020-04-08 09:09] LABS: Calcium 9.4 mg/dL (8.4-10.2); Potassium 4.8 mmol/L (3.5-5.1)
[2020-04-08 09:28] VITALS: RESP 16
[2020-04-08] MEDS: ASPIRIN 81 MG PO SCH (09:33)
[2020-04-08] MEDS: FUROSEMIDE 10 MG/ML 4 ML VIAL IV SCH (09:33)
[2020-04-08] MEDS: CLOPIDOGREL 75 MG TAB PO SCH (09:34)
[2020-04-08] MEDS: METOPROLOL SUCCINATE (ER) 25 MG TAB.ER.24H PO SCH (09:34)
[2020-04-08] MEDS: SPIRONOLACTONE 25 MG TAB PO SCH (09:34)
[2020-04-08] MEDS: LOSARTAN 25 MG TAB PO SCH (10:57)
[2020-04-08 11:00] VITALS: BP 88/60; PULSE 97; TEMP 98.5
[2020-04-08] MEDS ORDERED: metFORMIN 500 MG TAB PO SCH (12:45)
[2020-04-08 13:55] LABS: Hemoglobin A1C 6.9 % (4.0-6.0)
--- NOTE | 2020-04-08 14:49 | P.PN ---
Subjective Progress Note Date: 04/08/20 HISTORY OF PRESENT ILLNESS: Patient examined this morning at the bedside. He denies chest pain or pressure. Denies shortness of breath. He remains on IV Lasix. Blood pressure is on the lower side today. Patient is asymptomatic. PHYSICAL EXAM: VITAL SIGNS: Reviewed. GENERAL: Well-developed in no acute distress. NECK: Supple. No JVD or thyromegaly LUNGS: Respirations even and unlabored. Lungs diminished. HEART: Regular rate and rhythm. S1 and S2 heard. EXTREMITIES: Normal range of motion. No clubbing or cyanosis. Peripheral pulses intact. No lower extremity edema ASSESSMENT: #1 systolic congestive heart failure acute on chronic, most recent echo performed in the office was done in January of this year showed an ejection fraction of 30%, mild to moderate aortic regurg, severe aortic stenosis moderate to severe mitral regurgitation. Echo with Doppler study performed here revealed an ejection fraction of 20-25%, severe global hypokinesia with moderate to severe tricuspid regurg, moderate mitral regurg, moderate to severe pulmonary hypertension and moderate to severe aortic stenosis. #2 history of coronary artery disease with prior bypass surgery in 2012 #3 hypertension #4 hyperlipidemia #5 diabetes #6 ischemic cardiomyopathy with documented ejection fraction of 20-25%. Patient refuses to have AICD placed. PLAN: Patient continues to refuse AICD placement Continue current cardiac medications Patient may be discharged home today from a cardiac perspective. He is to follow up on an outpatient basis with Dr. Contreras Nurse practitioner note has been reviewed by physician. Signing provider agrees with the documented findings, assessment, and plan of care. Objective - Vital Signs Vital signs: Vital Signs Temp 98.5 F 04/08/20 10:59 Pulse 97 04/08/20 10:59 Resp 16 04/08/20 10:59 BP 88/60 04/08/20 10:59 Pulse Ox 95 04/08/20 10:59 Intake & Output 04/07/20 04/08/20 04/08/20 18:59 06:59 18:59 Intake Total 790 240 Output Total 9692 189 6093 Balance -210 -936 -196 Weight 74.8 kg Intake: Oral 790 240 Output: Urine 6832 766 1116 Other: Voiding Method Urinal # Voids 1 - Labs CBC & Chem 7: 04/07/20 08:33 04/08/20 08:24 Labs: Abnormal Lab Results - Last 24 Hours (Table) 04/08/20 04/08/20 Range/Units 08:24 08:24 Sodium 133 L (137-145) mmol/L Chloride 94 L (98-107) mmol/L BUN 29 H (9-20) mg/dL Glucose 255 H (74-99) mg/dL Hemoglobin A1c 6.9 H (4.0-6.0) % Microbiology - Last 24 Hours (Table) 04/05/20 08:38 Blood Culture - Preliminary Blood No Growth after 72 hours
--- NOTE | 2020-04-11 01:10 | CDI ---
Documentation Clarification Form Date: 04/11/2020 From: Christopher Mackey Phone: If you have a question about this query, please contact Connie Lewis, Lead Auditor at [phone] between 8am and 5pm. Admit Date: 04/07/2020 Discharge Date: 04/08/2020 Patient Name: Wily Naqvi Visit Number: [id number] ATTENTION: The Clinical Documentation Specialists (CDI) and [facility] Coding Staff appreciate your assistance in clarifying documentation. Please respond to the clarification below the line at the bottom and electronically sign. The CDI & [facility] Coding staff will review the response and follow-up if needed. Please note: Queries are made part of the Legal Health Record. If you have any questions, please contact the author of this message via ITS. Dear Jaret Arredondo MD., The documentation in the medical record included "Elevated Lactic Acid" Past medical history/Risk Factors:Cardiomyopathy, CHF Vital signs:Vital Signs temp 97.6 F Pulse Rate 108 H 91 Respiraory 20 18 Rate Blood Pressure 115/68 110/70 O2 Sat by Pulse 98 96 Oximetry Treatment:Conservative management. In your professional opinion, can you please clarify if the above clinical indicators and treatment signify any of the following? xxLactic Acidosis Metabolic Acidosis Unable to determine Other, please specify MTDD
== END 2020-04-08 12:52 | disposition home or self-care (01) | DRG 292 ==
LOC: EC 08:02 → 3SCARD 10:25 → 3NCARDOBS 22:47 → 3SCARD 22:47 → OBSVTOIN 04-07 10:23
PROVIDERS: ADMIT Internal Medicine Geriatric Medicine; ATTEND Internal Medicine Geriatric Medicine
DX: I11.0 Hypertensive heart disease with heart failure (principal); E87.2 Acidosis; I25.5 Ischemic cardiomyopathy; I50.23 Acute on chronic systolic (congestive) heart failure; E78.5 Hyperlipidemia, unspecified; I08.3 Combined rheumatic disorders of mitral, aortic and tricuspid valves; I25.10 Atherosclerotic heart disease of native coronary artery without angina pectoris; E11.65 Type 2 diabetes mellitus with hyperglycemia; I27.20 Pulmonary hypertension, unspecified; Z95.1 Presence of aortocoronary bypass graft; Z79.899 Other long term (current) drug therapy; Z79.82 Long term (current) use of aspirin; Z79.02 Long term (current) use of antithrombotics/antiplatelets; I25.2 Old myocardial infarction; Z87.01 Personal history of pneumonia (recurrent); Z87.442 Personal history of urinary calculi; Z80.0 Family history of malignant neoplasm of digestive organs; Z80.42 Family history of malignant neoplasm of prostate
CPT/HCPCS: 36415; 71046; 80048; 80053; 83036; 83605; 83735; 83880; 84484; 85025; 85610; 85730; 87040; 93005; 93306; 96374; 99285

== ENCOUNTER 2020-05-16 11:01 | Inpatient (IN) | payer MEDICARE ==
[2020-05-16 11:54] LABS: Basophils # (A) 0.1 k/uL (0-0.2); Basophils % (A) 0 %; Eosinophils # (A) 0.1 k/uL (0-0.7); Eosinophils % (A) 1 %; HCT 47.3 % (39.0-53.0); HGB 15.5 gm/dL (13.0-17.5); Lymphocytes # (A) 0.5 k/uL (1.0-4.8); Lymphocytes % (A) 4 %; MCH 29.4 pg (25.0-35.0); MCHC 32.7 g/dL (31.0-37.0); Mean Platelet Volume 8.5; Monocytes # (A) 0.6 k/uL (0-1.0); Monocytes % (A) 5 %; Neutrophils # (A) 11.9 k/uL (1.3-7.7); Neutrophils % (A) 89 %; Platelet Count 220 k/uL (150-450); RBC 5.26 m/uL (4.30-5.90); RDW 14.2 % (11.5-15.5); WBC 13.3 k/uL (3.8-10.6)
[2020-05-16 12:06] LABS: ALT 50 U/L (4-49); AST 41 U/L (17-59); African American GFR (CKD) >90 (>60 ml/min/1.73 sqM); Albumin 4.4 g/dL (3.5-5.0); Alkaline Phosphatase 149 U/L (38-126); Anion Gap 7 mmol/L; Blood Urea Nitrogen 28 mg/dL (9-20); Calcium 9.8 mg/dL (8.4-10.2); Carbon Dioxide 33 mmol/L (22-30); Chloride 91 mmol/L (98-107); Glucose 232 mg/dL (74-99); Non-African American GFR(CKD) 86 (>60 ml/min/1.73 sqM); Sodium 131 mmol/L (137-145); Total Bilirubin 1.6 mg/dL (0.2-1.3)
--- NOTE | 2020-05-16 12:06 | XR ---
EXAMINATION TYPE: XR chest 1V portable DATE OF EXAM: 05/16/2020 COMPARISON: 04/07/2020 HISTORY: Shortness of breath TECHNIQUE: Single frontal view of the chest is obtained. FINDINGS: Cardiomegaly with postoperative change and bilateral consolidation and pleural effusion. D iffuse interstitial pattern. No pneumothorax. Calcifications the right lung base on the prior exam is less well-seen on today's exam likely secondary to technique. Underlying COPD suspected. Arthropathy of the shoulders with diffuse osteopenia. IMPRESSION: 1. Correlate for CHF. Otherwise consider pneumonia.
--- NOTE | 2020-05-16 12:06 | ED ---
General Adult HPI - General Chief complaint: Shortness of Breath Stated complaint: fluid on lungs/CHF Time Seen by Provider: 05/16/20 11:24 Source: patient Mode of arrival: wheelchair Limitations: no limitations - History of Present Illness Initial comments: Dictation was produced using [employer] dictation software. please excuse any grammatical, word or spelling errors. This patient was cared for during a federal and state declared state of emerg ency secondary to Covid 19 Chief Complaint: 70-year-old male sent in from cardiology office for CHF exacerbation History of Present Illness: Is 70-year-old male who was sent to the emergency department for CHF exacerbation. Patient was seen by Dr. Contreras's loan and credit manager earlier today and was evaluated and was told to come to the emergency department. His Dr. Contreras who requested the patient be admitted for heart failure exacerbation. Patient states she's been dyspneic for several weeks. Denies any chest pain. Symptoms are more apparent with exertion. Patient denies any constitutional symptoms. He does have a history of heart failure with 20% ejection fraction. Denies any symptoms are noticeably worse with lying flat. The ROS documented in this emergency department record has been reviewed and confirmed by me. Those systems with pertinent positive or negative responses h ave been documented in the HPI. All other systems are other negative and/or noncontributory. PHYSICAL EXAM: General Impression: Alert and oriented x3, not in acute distress HEENT: Normocephalic atraumatic, extra-ocular movements intact, pupils equal and reactive to light bilaterally, mucous membranes moist. Cardiovascular: Heart regular rate and rhythm Chest: Able to complete full sentences, no retractions, no tachypnea, lungs clear to auscultation bilaterally Abdomen: abdomen soft, non-tender, non-distended, no organomegaly Musculoskeletal: Pulses present and equal in all extremities, no peripheral edema Motor: no focal deficits noted Neurological: CN II-XII grossly intact, no focal motor or sensory deficits noted Skin: Intact with no visualized rashes Psych: Normal affect and mood ED course: 70-year-old male presents with several days of dyspnea. He was sent here by his loan and credit manager for admission. Vital signs upon arrival are within acceptable limits. Laboratory evaluation obtained. Mild leukocytosis of 13.3, crit panel is negative. Metabolic panel shows sodium 131, potassium 5.4, BUN 20, DOESN'T 2.1, troponin 0.035 which is around his baseline. BNP of 9700 which is above his baseline. Rotavirus test is negative for chest x-ray shows heart failure. Patient be admitted for gentle diuresis. Case is discussed with Dr. Herrera who is willing to accept patients care. Cardiology will be consulted. EKG interpretation: Ventricular rate 103, sinus tachycardia,. Interval to 14, QRS 96, QTC 468. No SD prolongation, no QTC prolongation, no ST or T-wave changes noted. EKG compared to 04/05/2020 showing no changes. Overall, this EKG is unremarkable - Related Data Home Medications Medication Instructions Recorded Confirmed Atorvastatin [Lipitor] 10 mg PO HS 09/03/15 05/16/20 Clopidogrel Bisulfate [Plavix] 75 mg PO DAILY 09/03/15 05/16/20 Spironolactone [Aldactone] 25 mg PO DAILY 09/03/15 05/16/20 Losartan Potassium [Cozaar] 12.5 mg PO HS 04/05/20 05/16/20 Metoprolol Succinate (ER) [Toprol 12.5 mg PO HS 05/16/20 05/16/20 XL] Potassium Chloride ER [K-Dur 10] 10 meq PO BID 05/16/20 05/16/20 Previous Rx's Medication Instructions Recorded Furosemide [Lasix] 40 mg PO BID #60 tablet 04/08/20 Allergies Allergy/AdvReac Type Severity Reaction Status Date / Time No Known Allergies Allergy Verified 05/16/20 12:28 Review of Systems ROS Statement: Those systems with pertinent positive or pertinent negative responses have been documented in the HPI. ROS Other: All systems not noted in ROS Statement are negative. Past Medical History Past Medical History: Heart Failure, Diabetes Mellitus, Hyperlipidemia, Hypertension, Myocardial Infarction (CT) Additional Past Medical History / Comment(s): Pneumonia with sepsis, NIDDM type II-diet controlled now, neuropathy R foot, nephrolithiasis-pt passed stone on his own. Last Myocardial Infarction Date:: 2012 History of Any Multi-Drug Resistant Organisms: None Reported Past Surgical History: Coronary Bypass/CABG Additional Past Surgical History / Comment(s): 2012 CABG 6 vessel Past Anesthesia/Blood Transfusion Reactions: No Reported Reaction Past Psychological History: No Psychological Hx Reported Smoking Status: Never smoker Past Alcohol Use History: None Reported Past Drug Use History: None Reported - Past Family History Father Family Medical History: Cancer Additional Family Medical History / Comment(s): father at age 77 from prostate cancer Mother Family Medical History: Cancer (Mother at 83 from colon cancer) Additional Family Medical History / Comment(s): Mother had bowel cancer. General Exam Limitations: no limitations Course Vital Signs 05/16/20 05/16/20 11:21 13:25 Temperature 98.3 F Pulse Rate 106 H 93 Respiratory 20 Rate Blood Pressure 99/66 95/65 O2 Sat by Pulse 100 Oximetry Medical Decision Making - Lab Data Result diagrams: 05/16/20 11:33 05/16/20 11:33 Lab Results 05/16/20 05/16/20 05/16/20 Range/Units 11:33 11:33 11:33 WBC 13.3 H (3.8-10.6) k/uL RBC 5.26 (4.30-5.90) m/uL Hgb 15.5 (13.0-17.5) gm/dL Hct 47.3 (39.0-53.0) % MCV 90.0 (80.0-100.0) fL MCH 29.4 (25.0-35.0) pg MCHC 32.7 (31.0-37.0) g/dL RDW 14.2 (11.5-15.5) % Plt Count 220 (150-450) k/uL MPV 8.5 Neutrophils % 89 % Lymphocytes % 4 % Monocytes % 5 % Eosinophils % 1 % Basophils % 0 % Neutrophils # 11.9 H (1.3-7.7) k/uL Lymphocytes # 0.5 L (1.0-4.8) k/uL Monocytes # 0.6 (0-1.0) k/uL Eosinophils # 0.1 (0-0.7) k/uL Basophils # 0.1 (0-0.2) k/uL PT 11.1 (9.0-12.0) sec INR 1.1 (<1.2) APTT 25.0 (22.0-30.0) sec Sodium 131 L (137-145) mmol/L Potassium 5.4 H (3.5-5.1) mmol/L Chloride 91 L (98-107) mmol/L Carbon Dioxide 33 H (22-30) mmol/L Anion Gap 7 mmol/L BUN 28 H (9-20) mg/dL Creatinine 0.91 (0.66-1.25) mg/dL Est GFR (CKD-EPI)AfAm >90 (>60 ml/min/1.73 sqM) Est GFR (CKD-EPI)NonAf 86 (>60 ml/min/1.73 sqM) Glucose 232 H (74-99) mg/dL Plasma Lactic Acid Steve (0.7-2.0) mmol/L Calcium 9.8 (8.4-10.2) mg/dL Total Bilirubin 1.6 H (0.2-1.3) mg/dL AST 41 (17-59) U/L ALT 50 H (4-49) U/L Alkaline Phosphatase 149 H (38-126) U/L Troponin I (0.000-0.034) ng/mL NT-Pro-B Natriuret Pep pg/mL Total Protein 8.0 (6.3-8.2) g/dL Albumin 4.4 (3.5-5.0) g/dL Coronavirus (PCR) (Not Detectd) 05/16/20 05/16/20 05/16/20 Range/Units 11:33 11:33 11:33 WBC (3.8-10.6) k/uL RBC (4.30-5.90) m/uL Hgb (13.0-17.5) gm/dL Hct (39.0-53.0) % MCV (80.0-100.0) fL MCH (25.0-35.0) pg MCHC (31.0-37.0) g/dL RDW (11.5-15.5) % Plt Count (150-450) k/uL MPV Neutrophils % % Lymphocytes % % Monocytes % % Eosinophils % % Basophils % % Neutrophils # (1.3-7.7) k/uL Lymphocytes # (1.0-4.8) k/uL Monocytes # (0-1.0) k/uL Eosinophils # (0-0.7) k/uL Basophils # (0-0.2) k/uL PT (9.0-12.0) sec INR (<1.2) APTT (22.0-30.0) sec Sodium (137-145) mmol/L Potassium (3.5-5.1) mmol/L Chloride (98-107) mmol/L Carbon Dioxide (22-30) mmol/L Anion Gap mmol/L BUN (9-20) mg/dL Creatinine (0.66-1.25) mg/dL Est GFR (CKD-EPI)AfAm (>60 ml/min/1.73 sqM) Est GFR (CKD-EPI)NonAf (>60 ml/min/1.73 sqM) Glucose (74-99) mg/dL Plasma Lactic Acid Steve 2.1 H* (0.7-2.0) mmol/L Calcium (8.4-10.2) mg/dL Total Bilirubin (0.2-1.3) mg/dL AST (17-59) U/L ALT (4-49) U/L Alkaline Phosphatase (38-126) U/L Troponin I 0.035 H* (0.000-0.034) ng/mL NT-Pro-B Natriuret Pep 9730 pg/mL Total Protein (6.3-8.2) g/dL Albumin (3.5-5.0) g/dL Coronavirus (PCR) (Not Detectd) 05/16/20 Range/Units 11:33 WBC (3.8-10.6) k/uL RBC (4.30-5.90) m/uL Hgb (13.0-17.5) gm/dL Hct (39.0-53.0) % MCV (80.0-100.0) fL MCH (25.0-35.0) pg MCHC (31.0-37.0) g/dL RDW (11.5-15.5) % Plt Count (150-450) k/uL MPV Neutrophils % % Lymphocytes % % Monocytes % % Eosinophils % % Basophils % % Neutrophils # (1.3-7.7) k/uL Lymphocytes # (1.0-4.8) k/uL Monocytes # (0-1.0) k/uL Eosinophils # (0-0.7) k/uL Basophils # (0-0.2) k/uL PT (9.0-12.0) sec INR (<1.2) APTT (22.0-30.0) sec Sodium (137-145) mmol/L Potassium (3.5-5.1) mmol/L Chloride (98-107) mmol/L Carbon Dioxide (22-30) mmol/L Anion Gap mmol/L BUN (9-20) mg/dL Creatinine (0.66-1.25) mg/dL Est GFR (CKD-EPI)AfAm (>60 ml/min/1.73 sqM) Est GFR (CKD-EPI)NonAf (>60 ml/min/1.73 sqM) Glucose (74-99) mg/dL Plasma Lactic Acid Steve (0.7-2.0) mmol/L Calcium (8.4-10.2) mg/dL Total Bilirubin (0.2-1.3) mg/dL AST (17-59) U/L ALT (4-49) U/L Alkaline Phosphatase (38-126) U/L Troponin I (0.000-0.034) ng/mL NT-Pro-B Natriuret Pep pg/mL Total Protein (6.3-8.2) g/dL Albumin (3.5-5.0) g/dL Coronavirus (PCR) Not Detected (Not Detectd) Disposition Clinical Impression: CHF (congestive heart failure) Disposition: ADMITTED IP TO THIS HOSP Condition: Fair Referrals: Charlie Jc MD [Primary Care Provider] - 1-2 days Decision Time: 14:09
[2020-05-16 12:13] LABS: Potassium 5.4 mmol/L (3.5-5.1)
[2020-05-16 12:15] LABS: INR 1.1 (<1.2); Prothrombin Time 11.1 sec (9.0-12.0)
[2020-05-16] MEDS ORDERED: FUROSEMIDE 10 MG/ML 4 ML VIAL IV STA (13:31)
[2020-05-16] MEDS: FUROSEMIDE 10 MG/ML 4 ML VIAL IV SCH ×2 (14:10→20:45)
[2020-05-16] MEDS: SODIUM CHLORIDE 0.9% 1,000 ML IV SCH (15:18)
[2020-05-16 16:58] LABS: Glucose,Whole Blood 140 mg/dL (75-99)
[2020-05-16] MEDS: INSULIN ASPART (NovoLOG) 100 UNIT/ML VIAL SQ SCH ×2 (18:38→20:42)
[2020-05-16 20:11] LABS: Glucose,Whole Blood 200 mg/dL (75-99)
[2020-05-16] MEDS: LOSARTAN 25 MG TAB PO SCH (20:43)
[2020-05-16] MEDS: ATORVASTATIN 10 MG TAB PO SCH (20:44)
[2020-05-16] MEDS ORDERED: METOPROLOL SUCCINATE (ER) 25 MG TAB.ER.24H PO SCH (21:00)
--- NOTE | 2020-05-16 23:09 | P.HPIM ---
History of Present Illness H&P Date: 05/16/20 Chief Complaint: Severe dyspnea and shortness of breath, CHF exacerbation, known coronary ar 70-year-old male one of Dr. Pacheco patient with past medical history of CHF, COPD, type 2 diabetes, hypertension hyperlipidemia and previous history of [place] post bypass surgery with history of pneumonitis. Patient reported that over the last 6-8 weeks with worsening shortness of breath with minimum exertion become much worse lately and has been having significant PND and orthopnea not been able to lay down flat had slight fluid overload as well. Patient ended up coming to the emergency department where was seen and evaluated found in quite bed fluid overload Patient was started on Lasix IV with titrate dose higher try to diurese patient 10 pound extra fluid retention. Review of Systems CONSTITUTIONAL: Well-developed no acute respiratory distress. EYES: No icterus sclerae, no conjunctivitis. EARS, NOSE, MOUTH, THROAT, and FACE: No sore throat, lymphadenopathy, carotid bruits or deformity. RESPIRATORY: Positive shortness of breath cough wheezes. CARDIOVASCULAR: Mild palpitation with worsening dyspnea with minimum exertion along with her fluid retention. GASTROINTESTINAL: No Abd pain, Nausea or vomiting, no Diarrhea or constipation, No GI Bleed, no distention or masses. GENITOURINARY: Negative for Hematuria or UTI, no kidney stones. INTEGUMENT/BREAST: Negative for any muscular injury with mild osteoarthritis.. HEMATOLOGIC/LYMPHATIC: Negative for bleed or purpura. MUSCULOSKELTAL: Negative for Myalgia or arthralgia. Positive edema NEURLOGICAL: No LOC, Sz or syncope, blurred vision dizziness or abnormality.. BEHAVIORAL/PSYCH: Negative. ENDOCRINE: Negative.General Appearance: Alert, cooperative, no distress, appears stated age. Past Medical History Past Medical History: Heart Failure, Diabetes Mellitus, Hyperlipidemia, Hypertension, Myocardial Infarction ([place]) Additional Past Medical History / Comment(s): Pneumonia with sepsis, NIDDM type II-diet controlled now, neuropathy R foot, nephrolithiasis-pt passed stone on his own. Last Myocardial Infarction Date:: 2012 History of Any Multi-Drug Resistant Organisms: None Reported Past Surgical History: Coronary Bypass/CABG Additional Past Surgical History / Comment(s): 2012 CABG 6 vessel Past Anesthesia/Blood Transfusion Reactions: No Reported Reaction Past Psychological History: No Psychological Hx Reported Additional Psychological History / Comment(s): Pt resides with his spouse. He is independent. Smoking Status: Never smoker Past Alcohol Use History: None Reported Past Drug Use History: None Reported - Past Family History Father Family Medical History: Cancer Additional Family Medical History / Comment(s): father at age 77 from prostate cancer Mother Family Medical History: Cancer Additional Family Medical History / Comment(s): Mother had bowel cancer. Medications and Allergies Home Medications Medication Instructions Recorded Confirmed Type Atorvastatin [Lipitor] 10 mg PO HS 09/03/15 05/16/20 History Clopidogrel Bisulfate [Plavix] 75 mg PO DAILY 09/03/15 05/16/20 History Spironolactone [Aldactone] 25 mg PO DAILY 09/03/15 05/16/20 History Losartan Potassium [Cozaar] 12.5 mg PO HS 04/05/20 05/16/20 History Furosemide [Lasix] 40 mg PO BID #60 tablet 04/08/20 05/16/20 Rx Metoprolol Succinate (ER) [Toprol 12.5 mg PO HS 05/16/20 05/16/20 History XL] Potassium Chloride ER [K-Dur 10] 10 meq PO BID 05/16/20 05/16/20 History Allergies Allergy/AdvReac Type Severity Reaction Status Date / Time No Known Allergies Allergy Verified 05/16/20 12:28 Physical Exam Vitals: Vital Signs Temp Pulse Pulse Resp BP BP Pulse Ox 05/16/20 16:00 98.0 F 92 90/60 100 05/16/20 15:20 91 18 05/16/20 15:10 92 18 104/73 05/16/20 15:00 96 17 104/72 05/16/20 14:50 96 22 104/72 05/16/20 14:40 95 17 104/72 05/16/20 14:30 93 18 102/70 05/16/20 14:20 97 16 102/70 05/16/20 14:10 93 17 102/70 05/16/20 14:00 96 20 95/65 05/16/20 13:50 94 19 95/65 05/16/20 13:40 94 17 05/16/20 13:30 94 16 05/16/20 13:25 93 95/65 05/16/20 13:20 93 17 05/16/20 13:10 96 18 05/16/20 13:00 95 17 05/16/20 12:50 96 9 L 05/16/20 12:40 97 39 H 05/16/20 12:30 100 16 05/16/20 12:20 98 16 05/16/20 12:10 102 H 17 05/16/20 12:00 101 H 17 05/16/20 11:50 101 H 19 05/16/20 11:44 101 H 20 05/16/20 11:21 98.3 F 106 H 20 99/66 100 Intake and Output 05/16/20 05/16/20 05/16/20 06:59 14:59 22:59 Intake Total 240 Balance 240 Intake: Oral 240 Other: Weight 73.028 kg General Appearance: Alert, cooperative, no distress, appears stated age. Neck HEENT: Supple, no lymphadenopathy, no thyroid enlargement, no carotid bruits. Lungs: Decreased breath some bilaterally with fine rhonchi no crackles or wheezes slight decreased breath sound in the right lower lobe compared to the left side Chest Wall: Decrease expansion with deep inspiration no tenderness and no deformity was found on exam, no costochondral pain or discomfort. Heart: Regular rate and rhythm, S1, S2 positive history of systolic murmur in the apex Back: Symmetric, no curvature, ROM normal, no CVA tenderness. Abdomen: Soft, non-tender, bowel sounds active all four quadrants, no masses, no organomegaly. Extremities: Extremities normal, atraumatic, no cyanosis 1+ edema more in the left leg than the right side Pulses: 2+ and symmetric. Skin: Skin color, texture, tugor normal, no rashes or lesions. Neurologic: Alert oriented x3 cranial nerves II through XII intact, no motor deficit, no abnormal balance or gait. Results CBC & Chem 7: 05/17/20 06:12 05/17/20 06:12 Labs: Abnormal Lab Results - Last 24 Hours (Table) 05/16/20 05/16/20 05/16/20 Range/Units 11:33 11:33 11:33 WBC 13.3 H (3.8-10.6) k/uL Neutrophils # 11.9 H (1.3-7.7) k/uL Lymphocytes # 0.5 L (1.0-4.8) k/uL Sodium 131 L (137-145) mmol/L Potassium 5.4 H (3.5-5.1) mmol/L Chloride 91 L (98-107) mmol/L Carbon Dioxide 33 H (22-30) mmol/L BUN 28 H (9-20) mg/dL Glucose 232 H (74-99) mg/dL POC Glucose (mg/dL) (75-99) mg/dL Plasma Lactic Acid Steve 2.1 H* (0.7-2.0) mmol/L Total Bilirubin 1.6 H (0.2-1.3) mg/dL ALT 50 H (4-49) U/L Alkaline Phosphatase 149 H (38-126) U/L Troponin I (0.000-0.034) ng/mL 05/16/20 05/16/20 Range/Units 11:33 16:57 WBC (3.8-10.6) k/uL Neutrophils # (1.3-7.7) k/uL Lymphocytes # (1.0-4.8) k/uL Sodium (137-145) mmol/L Potassium (3.5-5.1) mmol/L Chloride (98-107) mmol/L Carbon Dioxide (22-30) mmol/L BUN (9-20) mg/dL Glucose (74-99) mg/dL POC Glucose (mg/dL) 140 H (75-99) mg/dL Plasma Lactic Acid Steve (0.7-2.0) mmol/L Total Bilirubin (0.2-1.3) mg/dL ALT (4-49) U/L Alkaline Phosphatase (38-126) U/L Troponin I 0.035 H* (0.000-0.034) ng/mL Thrombosis Risk Factor Assmnt - DVT/VTE Prophylaxis DVT/VTE Prophylaxis: Pharmacologic Prophylaxis ordered, Mechanical Prophylaxis ordered - Choose All That Apply Each Factor Represents 1 point: Heart failure (<1month) Each Risk Factor Represents 2 Points: Age 61-74 years Thrombosis Risk Factor Assessment Total Risk Factor Score: 3 Thrombosis Risk Factor Assessment Level: Moderate Risk Assessment and Plan Assessment: 1 CHF exacerbation: Acute on chronic mostly systolic dysfunction, despite being on Aldactone and Lasix patient is still having significant symptoms, admit patient to the hospital continue nitro continue IV Lasix every 6-8 hours we'll consult cardiology possible putting patient on Lasix drip eventually. also EF is at 20% and He refused AICD so far. Patient will be very good candidate to start Entresto still if agreeable by cardiology 2 hypertension: Remain on metoprolol and losartan. 3 hyperlipidemia: Remain on atorvastatin 10 mg a day. 4 history of coronary artery disease: Post CABG patient is seeing cardiology regularly and has been on medical management. 5 type 2 diabetes: Continue Accu-Chek sliding scales coverage. 6 Elevated troponin with possible NSTEMI: will see Cardiology and repeat Echo repeat Troponin as well 7 GI prophylaxis: Continue patient on Pepcid. 8 DVT prophylaxis: Patient remain on pantoprazole or is omeprazole daily. CODE STATUS: Full code. Admit patient to the inpatient service for more than 2 night stay.
[2020-05-17 06:05] LABS: Glucose,Whole Blood 123 mg/dL (75-99)
[2020-05-17] MEDS: FUROSEMIDE 10 MG/ML 4 ML VIAL IV SCH ×2 (06:12→20:34)
[2020-05-17 06:25] LABS: HCT 42.4 % (39.0-53.0); HGB 14.4 gm/dL (13.0-17.5); MCH 30.2 pg (25.0-35.0); MCHC 33.9 g/dL (31.0-37.0); MCV 89.1 fL (80.0-100.0); Mean Platelet Volume 7.8; Platelet Count 217 k/uL (150-450); RBC 4.75 m/uL (4.30-5.90); RDW 13.8 % (11.5-15.5); WBC 10.5 k/uL (3.8-10.6)
[2020-05-17] MEDS: INSULIN ASPART (NovoLOG) 100 UNIT/ML VIAL SQ SCH ×4 (06:28→20:35)
[2020-05-17 06:37] LABS: ALT 36 U/L (4-49); AST 25 U/L (17-59); African American GFR (CKD) >90 (>60 ml/min/1.73 sqM); Albumin 3.5 g/dL (3.5-5.0); Alkaline Phosphatase 124 U/L (38-126); Anion Gap 3 mmol/L; Blood Urea Nitrogen 25 mg/dL (9-20); Calcium 9.2 mg/dL (8.4-10.2); Carbon Dioxide 35 mmol/L (22-30); Chloride 94 mmol/L (98-107); Glucose 138 mg/dL (74-99); Non-African American GFR(CKD) 85 (>60 ml/min/1.73 sqM); Potassium 4.2 mmol/L (3.5-5.1); Sodium 132 mmol/L (137-145); Total Bilirubin 1.6 mg/dL (0.2-1.3); Total Protein 6.5 g/dL (6.3-8.2)
[2020-05-17] MEDS: CLOPIDOGREL 75 MG TAB PO SCH (09:06)
[2020-05-17] MEDS: SPIRONOLACTONE 25 MG TAB PO SCH (09:06)
[2020-05-17] MEDS: POTASSIUM CHLORIDE ER 10 MEQ TAB.ER.PRT PO SCH ×2 (09:06→20:34)
--- NOTE | 2020-05-17 10:54 | P.PN ---
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 Pacheco patient with past medical history of CHF, COPD, type 2 diabetes, hypertension hyperlipidemia and previous history of [place] post bypass surgery with history of pneumonitis. Patient reported that over the last 6-8 weeks with worsening shortness of breath with minimum exertion become much worse lately and has been having significant PND and orthopnea not been able to lay down flat had slight fluid overload as well. Patient ended up coming to the emergency department where was seen and evaluated found in quite bed fluid overload Patient was started on Lasix IV with titrate dose higher try to diurese patient 10 pound extra fluid retention. 05/17: Patient has been on Lasix 40 mg IV every 8 hours. His weight is down 1- 1/2 kg. Patient has been afebrile, heart rate 87, blood pressure 96/59, pulse ox 96% on room air. Repeat troponin 0.039. CBC is normal. Sodium 132, potassium 4.2, chloride 94, CO2 35, BUN 25, creatinine 0.92. On discussion with the patient regarding AICD and he is reluctant to have procedure. We'll await cardiology input regarding starting Entresto. Patient is still on losartan. REVIEW OF SYSTEMS CONSTITUTIONAL: Well-developed no acute respiratory distress. Denies fever. EYES: No icterus sclerae, no conjunctivitis. EARS, NOSE, MOUTH, THROAT, and FACE: No sore throat, lymphadenopathy, carotid bruits or deformity. RESPIRATORY: Positive shortness of breath cough wheezes. CARDIOVASCULAR: Mild palpitation with worsening dyspnea with minimum exertion along with her fluid retention. GASTROINTESTINAL: No Abd pain, Nausea or vomiting, no Diarrhea or constipation, No GI Bleed, no distention or masses. GENITOURINARY: Negative for Hematuria or UTI, no kidney stones. INTEGUMENT/BREAST: Negative for any muscular injury with mild osteoarthritis.. HEMATOLOGIC/LYMPHATIC: Negative for bleed or purpura. MUSCULOSKELTAL: Negative for Myalgia or arthralgia. Positive edema NEURLOGICAL: No LOC, Sz or syncope, blurred vision dizziness or abnormality.. BEHAVIORAL/PSYCH: Negative. ENDOCRINE: Negative.General Appearance: Alert, cooperative, no distress, appears stated age. PHYSICAL EXAMINATION General Appearance: Alert, cooperative, no distress, appears stated age. Neck HEENT: Supple, no lymphadenopathy, no thyroid enlargement, no carotid bruits. Lungs: Decreased breath some bilaterally with fine rhonchi no crackles or wheezes slight decreased breath sound in the right lower lobe compared to the left side Chest Wall: Decrease expansion with deep inspiration no tenderness and no deformity was found on exam, no costochondral pain or discomfort. Heart: Regular rate and rhythm, S1, S2 positive history of systolic murmur in the apex Back: Symmetric, no curvature, ROM normal, no CVA tenderness. Abdomen: Soft, non-tender, bowel sounds active all four quadrants, no masses, no organomegaly. Extremities: Extremities normal, atraumatic, no cyanosis 1+ edema more in the left leg than the right side. Pulses: 2+ and symmetric. Skin: Skin color, texture, tugor normal, no rashes or lesions. Neurologic: Alert oriented x3 cranial nerves II through XII intact, no motor deficit, no abnormal balance or gait. ASSESSMENT AND PLAN 1 acute on chronic systolic heart failure. Continue Lasix 40 mg IV every 8 hours, Aldactone 25 mg daily, I&O, daily weights, monitor electrolytes and renal function. Cardiology consult. Patient may benefit from Entresto to be determined by cardiology. 2 hypertension: Remain on metoprolol and losartan. 3 hyperlipidemia: Remain on atorvastatin 10 mg a day. 4 history of coronary artery disease: Post CABG patient is seeing cardiology regularly and has been on medical management. 5 type 2 diabetes: Continue Accu-Chek sliding scales coverage. 6 Elevated troponin with possible NSTEMI: will see Cardiology and repeat Echo repeat Troponin as well 7 GI prophylaxis: Continue patient on Pepcid. 8 DVT prophylaxis: Patient remain on pantoprazole or is omeprazole daily. CODE STATUS: Full code. DISCHARGE PLAN Most likely home with homecare. Impression and plan of care have been directed as dictated by the signing physician. Jolene Cotto nurse practitioner acting as scribe for signing physician. Objective - Vital Signs Vital signs: Vital Signs Temp 98.2 F 05/17/20 04:00 Pulse 87 05/17/20 04:00 Resp 17 05/17/20 04:00 BP 96/59 05/17/20 04:00 Pulse Ox 96 05/17/20 04:00 Intake & Output 05/16/20 05/17/20 05/17/20 18:59 06:59 18:59 Intake Total 240 80 Output Total 800 Balance 240 -720 Weight 73.028 kg 71.5 kg Intake: Intake, IV Titration 80 Amount Sodium Chloride 0.9% 1, 80 000 ml @ 20 mls/hr IV . Q24H [facility] Rx#:[id number] Oral 240 Output: Urine 800 - Labs CBC & Chem 7: 05/17/20 06:12 05/17/20 06:12 Labs: Abnormal Lab Results - Last 24 Hours (Table) 05/16/20 05/16/20 05/16/20 Range/Units 11:33 11:33 11:33 WBC 13.3 H (3.8-10.6) k/uL Neutrophils # 11.9 H (1.3-7.7) k/uL Lymphocytes # 0.5 L (1.0-4.8) k/uL Sodium 131 L (137-145) mmol/L Potassium 5.4 H (3.5-5.1) mmol/L Chloride 91 L (98-107) mmol/L Carbon Dioxide 33 H (22-30) mmol/L BUN 28 H (9-20) mg/dL Glucose 232 H (74-99) mg/dL POC Glucose (mg/dL) (75-99) mg/dL Plasma Lactic Acid Steve 2.1 H* (0.7-2.0) mmol/L Total Bilirubin 1.6 H (0.2-1.3) mg/dL ALT 50 H (4-49) U/L Alkaline Phosphatase 149 H (38-126) U/L Troponin I (0.000-0.034) ng/mL 05/16/20 05/16/20 05/16/20 Range/Units 11:33 16:57 20:07 WBC (3.8-10.6) k/uL Neutrophils # (1.3-7.7) k/uL Lymphocytes # (1.0-4.8) k/uL Sodium (137-145) mmol/L Potassium (3.5-5.1) mmol/L Chloride (98-107) mmol/L Carbon Dioxide (22-30) mmol/L BUN (9-20) mg/dL Glucose (74-99) mg/dL POC Glucose (mg/dL) 140 H 200 H (75-99) mg/dL Plasma Lactic Acid Steve (0.7-2.0) mmol/L Total Bilirubin (0.2-1.3) mg/dL ALT (4-49) U/L Alkaline Phosphatase (38-126) U/L Troponin I 0.035 H* (0.000-0.034) ng/mL 05/17/20 05/17/20 05/17/20 Range/Units 06:04 06:12 06:12 WBC (3.8-10.6) k/uL Neutrophils # (1.3-7.7) k/uL Lymphocytes # (1.0-4.8) k/uL Sodium 132 L (137-145) mmol/L Potassium (3.5-5.1) mmol/L Chloride 94 L (98-107) mmol/L Carbon Dioxide 35 H (22-30) mmol/L BUN 25 H (9-20) mg/dL Glucose 138 H (74-99) mg/dL POC Glucose (mg/dL) 123 H (75-99) mg/dL Plasma Lactic Acid Steve (0.7-2.0) mmol/L Total Bilirubin 1.6 H (0.2-1.3) mg/dL ALT (4-49) U/L Alkaline Phosphatase (38-126) U/L Troponin I 0.039 H* (0.000-0.034) ng/mL
[2020-05-17 11:03] LABS: Hemoglobin A1C 7.9 % (4.0-6.0)
[2020-05-17 11:39] LABS: Glucose,Whole Blood 181 mg/dL (75-99)
[2020-05-17] MEDS: carvediloL 3.125 MG TAB PO SCH ×2 (13:52→17:42)
[2020-05-17] MEDS: SODIUM CHLORIDE 0.9% 1,000 ML IV SCH (13:52)
--- NOTE | 2020-05-17 15:27 | P.PN ---
Subjective Progress Note Date: 05/17/20 Consult dictated yesterday by Dr. Contreras at his office. Consult will be scanned into the chart for review HISTORY OF PRESENT ILLNESS: Patient examined this morning at the bedside. Patient was admitted yesterday from Dr. Contreras's office secondary to shortness of breath. Patient states his shortness of breath is slightly improved from yesterday. He denies chest pain or pressure. He remains on IV lasix 40mg IV Q8 hours. Creatinine 0.92. BUN 25. Most recent echocardiogram completed in April 2020 reveals ejection fraction 20-25%, mild aortic regurgitation, moderate to severe aortic stenosis, moderate mitral regurgitation, moderate to severe tricuspid regurgitation, and moderate to severe pulmonary hypertension PHYSICAL EXAM: VITAL SIGNS: Reviewed. GENERAL: Well-developed in no acute distress. NECK: Supple. No JVD or thyromegaly LUNGS: Respirations even and unlabored. Lungs diminished. HEART: Regular rate and rhythm. S1 and S2 heard. EXTREMITIES: Normal range of motion. No clubbing or cyanosis. Peripheral pulses intact. No lower extremity edema ASSESSMENT: Acute exacerbation of chronic systolic heart failure, EF 20-25% Coronary artery disease with previous CABG in 2012 Valvular heart disease: mild aortic regurgitation, moderate to severe aortic stenosis, moderate mitral regurgitation, moderate to severe tricuspid regurgitation Moderate to severe pulmonary hypertension Hypertension Hyperlipidemia Diabetes mellitus, type II PLAN: Patient has been advised to undergo AICD in the past and continues to refuse Will decrease Lasix to 40mg IV q 12 hours Continue Aldactone Discontinue metoprolol. Will trial Coreg 3.125mg BID and see if blood pressure will tolerate. Further recommendations pending patient course Nurse practitioner note has been reviewed by physician. Signing provider agrees with the documented findings, assessment, and plan of care. Objective - Vital Signs Vital signs: Vital Signs Temp 98.6 F 05/17/20 08:00 Pulse 95 05/17/20 08:00 Resp 17 05/17/20 04:00 BP 92/58 05/17/20 08:00 Pulse Ox 96 05/17/20 08:00 Intake & Output 05/16/20 05/17/20 05/17/20 18:59 06:59 18:59 Intake Total 240 80 120 Output Total 800 400 Balance 240 -720 -280 Weight 73.028 kg 71.5 kg Intake: Intake, IV Titration 80 Amount Sodium Chloride 0.9% 1, 80 000 ml @ 20 mls/hr IV . Q24H [facility] Rx#:[id number] Oral 240 120 Output: Urine 800 400 - Labs CBC & Chem 7: 05/17/20 06:12 05/17/20 06:12 Labs: Abnormal Lab Results - Last 24 Hours (Table) 05/16/20 05/16/20 05/17/20 Range/Units 16:57 20:07 06:04 Sodium (137-145) mmol/L Chloride (98-107) mmol/L Carbon Dioxide (22-30) mmol/L BUN (9-20) mg/dL Glucose (74-99) mg/dL POC Glucose (mg/dL) 140 H 200 H 123 H (75-99) mg/dL Hemoglobin A1c (4.0-6.0) % Total Bilirubin (0.2-1.3) mg/dL Troponin I (0.000-0.034) ng/mL 05/17/20 05/17/20 05/17/20 Range/Units 06:12 06:12 06:12 Sodium 132 L (137-145) mmol/L Chloride 94 L (98-107) mmol/L Carbon Dioxide 35 H (22-30) mmol/L BUN 25 H (9-20) mg/dL Glucose 138 H (74-99) mg/dL POC Glucose (mg/dL) (75-99) mg/dL Hemoglobin A1c 7.9 H (4.0-6.0) % Total Bilirubin 1.6 H (0.2-1.3) mg/dL Troponin I 0.039 H* (0.000-0.034) ng/mL 05/17/20 Range/Units 11:29 Sodium (137-145) mmol/L Chloride (98-107) mmol/L Carbon Dioxide (22-30) mmol/L BUN (9-20) mg/dL Glucose (74-99) mg/dL POC Glucose (mg/dL) 181 H (75-99) mg/dL Hemoglobin A1c (4.0-6.0) % Total Bilirubin (0.2-1.3) mg/dL Troponin I (0.000-0.034) ng/mL
[2020-05-17 15:49] VITALS: BMI 21.9
[2020-05-17 17:10] LABS: Glucose,Whole Blood 210 mg/dL (75-99)
[2020-05-17] MEDS ORDERED: carvediloL 3.125 MG TAB PO SCH (17:30)
[2020-05-17] MEDS: ATORVASTATIN 10 MG TAB PO SCH (20:34)
[2020-05-17] MEDS: LOSARTAN 25 MG TAB PO SCH (20:35)
[2020-05-17 20:57] LABS: Glucose,Whole Blood 251 mg/dL (75-99)
[2020-05-18] MEDS: INSULIN ASPART (NovoLOG) 100 UNIT/ML VIAL SQ SCH ×4 (06:07→20:06)
[2020-05-18] MEDS: carvediloL 3.125 MG TAB PO SCH ×2 (06:55→17:07)
[2020-05-18] MEDS: CLOPIDOGREL 75 MG TAB PO SCH (08:00)
[2020-05-18] MEDS: POTASSIUM CHLORIDE ER 10 MEQ TAB.ER.PRT PO SCH (08:00)
[2020-05-18] MEDS: SPIRONOLACTONE 25 MG TAB PO SCH (08:00)
[2020-05-18] MEDS: FUROSEMIDE 10 MG/ML 4 ML VIAL IV SCH (08:00)
[2020-05-18 08:37] LABS: Calcium 9.7 mg/dL (8.4-10.2); Potassium 5.9 mmol/L (3.5-5.1)
--- NOTE | 2020-05-18 09:00 | P.DS ---
Providers Date of admission: 05/17/20 08:07 Expected date of discharge: 05/18/20 Attending physician: Paramjit Raygoza Consults: 05/16/20 13:31 Consult Physician Routine Consulting Provider: Yuriy Contreras Consult Reason/Comments: chf exacerbation Do you want consulting provider notified?: Yes Primary care physician: 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 Patient reported that over the last 6-8 weeks with worsening shortness of breath with minimum exertion become much worse lately and has been having significant PND and orthopnea not been able to lay down flat had slight fluid overload as well. Patient ended up coming to the emergency department where was seen and evaluated found in quite bed fluid overload Patient was started on Lasix IV with titrate dose higher try to diurese patient 10 pound extra fluid retention. 05/17: Patient has been on Lasix 40 mg IV every 8 hours. His weight is down 1- 1/2 kg. Patient has been afebrile, heart rate 87, blood pressure 96/59, pulse ox 96% on room air. Repeat troponin 0.039. CBC is normal. Sodium 132, potassium 4.2, chloride 94, CO2 35, BUN 25, creatinine 0.92. On discussion with the patient regarding AICD and he is reluctant to have procedure. We'll await cardiology input regarding starting Entresto. Patient is still on losartan. 05/18: ASSESSMENT AND PLAN 1 acute on chronic systolic heart failure. 2 hypertension 3 hyperlipidemia 4 history of coronary artery disease: Post CABG 5 type 2 diabetes 6 Elevated troponin with possible NSTEMI DISCHARGE PLAN Home Impression and plan of care have been directed as dictated by the signing physician. Jolene Cotto nurse practitioner acting as scribe for signing physician. Patient Condition at Discharge: Good Plan - Discharge Summary Discharge Rx Participant: Yes New Discharge Prescriptions: New carvediloL [Coreg] 3.125 mg PO BID-W/MEALS #60 tab Continue Spironolactone [Aldactone] 25 mg PO DAILY Atorvastatin [Lipitor] 10 mg PO HS Clopidogrel Bisulfate [Plavix] 75 mg PO DAILY Losartan Potassium [Cozaar] 12.5 mg PO HS Furosemide [Lasix] 40 mg PO BID #60 tablet Potassium Chloride ER [K-Dur 10] 10 meq PO BID Discontinued Metoprolol Succinate (ER) [Toprol XL] 12.5 mg PO HS Discharge Medication List Atorvastatin [Lipitor] 10 mg PO HS 09/03/15 [History] Clopidogrel Bisulfate [Plavix] 75 mg PO DAILY 09/03/15 [History] Spironolactone [Aldactone] 25 mg PO DAILY 09/03/15 [History] Losartan Potassium [Cozaar] 12.5 mg PO HS 04/05/20 [History] Furosemide [Lasix] 40 mg PO BID #60 tablet 04/08/20 [Rx] Potassium Chloride ER [K-Dur 10] 10 meq PO BID 05/16/20 [History] carvediloL [Coreg] 3.125 mg PO BID-W/MEALS #60 tab 05/18/20 [Rx] Follow up Appointment(s)/Referral(s): Charlie Jc MD [Primary Care Provider] - 1 Week Yuriy Contreras MD [STAFF PHYSICIAN] - 1 Week Discharge Disposition: HOME SELF-CARE
[2020-05-18] MEDS ORDERED: SODIUM POLYSTYRENE SULFONATE 15 GM/60 ML BOTTLE PO STA (09:54)
[2020-05-18] MEDS ORDERED: SACUBITRIL/VALSARTAN 24 MG-26 MG TABLET PO SCH (10:00)
--- NOTE | 2020-05-18 11:33 | P.PN ---
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 Patient reported that over the last 6-8 weeks with worsening shortness of breath with minimum exertion become much worse lately and has been having significant PND and orthopnea not been able to lay down flat had slight fluid overload as well. Patient ended up coming to the emergency department where was seen and evaluated found in quite bed fluid overload Patient was started on Lasix IV with titrate dose higher try to diurese patient 10 pound extra fluid retention. 05/17: Patient has been on Lasix 40 mg IV every 8 hours. His weight is down 1- 1/2 kg. Patient has been afebrile, heart rate 87, blood pressure 96/59, pulse ox 96% on room air. Repeat troponin 0.039. CBC is normal. Sodium 132, potassium 4.2, chloride 94, CO2 35, BUN 25, creatinine 0.92. On discussion with the patient regarding AICD and he is reluctant to have procedure. We'll await cardiology input regarding starting Entresto. Patient is still on losartan. 05/18: Patient denies any new complaints. He was seen yesterday by cardiology and Lopressor changed to Coreg. Lasix has been changed to twice daily at 40 mg IV. Plan is to start Entresto tomorrow and monitor overnight. He has been afebrile, heart rate 93, blood pressure 110/80, pulse ox 97% on room air. A repeat blood work reveals sodium 134, potassium 5.9, chloride 92, CO2 34, BUN 33 and creatinine 1.08. Blood sugars running in the low 200s. Potassium has been discontinued. Hemoglobin A1c 7.9. REVIEW OF SYSTEMS CONSTITUTIONAL: Well-developed no acute respiratory distress. Denies fever. Denies chills. EYES: No icterus sclerae, no conjunctivitis. EARS, NOSE, MOUTH, THROAT, and FACE: No sore throat, lymphadenopathy, carotid bruits or deformity. RESPIRATORY: Denies shortness of breath cough wheezes. CARDIOVASCULAR: Mild palpitation with worsening dyspnea with minimum exertion along with her fluid retention. GASTROINTESTINAL: No Abd pain, Nausea or vomiting, no Diarrhea or constipation, No GI Bleed, no distention or masses. GENITOURINARY: Negative for Hematuria or UTI, no kidney stones. INTEGUMENT/BREAST: Negative for any muscular injury with mild osteoarthritis.. HEMATOLOGIC/LYMPHATIC: Negative for bleed or purpura. MUSCULOSKELTAL: Negative for Myalgia or arthralgia. Positive edema NEURLOGICAL: No LOC, Sz or syncope, blurred vision dizziness or abnormality.. BEHAVIORAL/PSYCH: Negative. ENDOCRINE: Negative.General Appearance: Alert, cooperative, no distress, appears stated age. PHYSICAL EXAMINATION General Appearance: Alert, cooperative, no distress, appears stated age. Patient is resting comfortably in bed. Neck HEENT: Supple, no lymphadenopathy, no thyroid enlargement, no carotid bruits. Lungs: Decreased breath some bilaterally with fine rhonchi no crackles or wheezes slight decreased breath sound in the right lower lobe compared to the left side Chest Wall: Decrease expansion with deep inspiration no tenderness and no deformity was found on exam, no costochondral pain or discomfort. Heart: Regular rate and rhythm, S1, S2 positive history of systolic murmur in the apex Back: Symmetric, no curvature, ROM normal, no CVA tenderness. Abdomen: Soft, non-tender, bowel sounds active all four quadrants, no masses, no organomegaly. Extremities: Extremities normal, atraumatic, no cyanosis 1+ edema more in the left leg than the right side. Pulses: 2+ and symmetric. Skin: Skin color, texture, tugor normal, no rashes or lesions. Neurologic: Alert oriented x3 cranial nerves II through XII intact, no motor d eficit, no abnormal balance or gait. ASSESSMENT AND PLAN 1 acute on chronic systolic heart failure. Continue Lasix 40 mg IV every 12 hours, Aldactone 25 mg daily, I&O, daily weights, monitor electrolytes and renal function. Cardiology consult appreciated. Entresto started. 2 hypertension: Remain on metoprolol and Entresto. 3 hyperlipidemia: Remain on atorvastatin 10 mg a day. 4 history of coronary artery disease: Post CABG patient is seeing cardiology regularly and has been on medical management. 5 type 2 diabetes: Continue Accu-Chek sliding scales coverage. A1c 7.9. 6 Elevated troponin with possible NSTEMI: will see Cardiology and repeat Echo repeat Troponin as well 7 GI prophylaxis: Continue patient on Pepcid. 8 DVT prophylaxis: Patient remain on pantoprazole or is omeprazole daily. CODE STATUS: Full code. DISCHARGE PLAN Most likely home with homecare. Impression and plan of care have been directed as dictated by the signing physician. Jolene Cotto nurse practitioner acting as scribe for signing physi eric. Objective - Vital Signs Vital signs: Vital Signs Temp 97.4 F L 05/18/20 07:59 Pulse 93 05/18/20 07:59 Resp 18 05/18/20 07:59 BP 110/80 05/18/20 07:59 Pulse Ox 97 05/18/20 07:59 Intake & Output 05/17/20 05/18/20 05/18/20 18:59 06:59 18:59 Intake Total 480 400 Output Total 600 400 Balance -120 0 Weight 71.5 kg 72.3 kg Intake: Intake, IV Titration 160 Amount Sodium Chloride 0.9% 1, 160 000 ml @ 20 mls/hr IV . Q24H [facility] Rx#:[id number] Oral 480 240 Output: Urine 600 400 - Labs CBC & Chem 7: 05/17/20 06:12 05/18/20 07:11 Labs: Abnormal Lab Results - Last 24 Hours (Table) 05/17/20 05/17/20 05/17/20 Range/Units 06:12 11:29 16:55 Sodium (137-145) mmol/L Potassium (3.5-5.1) mmol/L Chloride (98-107) mmol/L Carbon Dioxide (22-30) mmol/L BUN (9-20) mg/dL Glucose (74-99) mg/dL POC Glucose (mg/dL) 181 H 210 H (75-99) mg/dL Hemoglobin A1c 7.9 H (4.0-6.0) % 05/17/20 05/18/20 Range/Units 20:54 07:11 Sodium 134 L (137-145) mmol/L Potassium 5.9 H (3.5-5.1) mmol/L Chloride 92 L (98-107) mmol/L Carbon Dioxide 34 H (22-30) mmol/L BUN 33 H (9-20) mg/dL Glucose 243 H (74-99) mg/dL POC Glucose (mg/dL) 251 H (75-99) mg/dL Hemoglobin A1c (4.0-6.0) %
[2020-05-18] MEDS: LINAGLIPTIN 5 MG TABLET PO SCH (12:46)
--- NOTE | 2020-05-18 15:35 | P.PN ---
Subjective Progress Note Date: 05/18/20 HISTORY OF PRESENT ILLNESS: Patient examined this morning at the bedside. Patient denies chest pain or pressure. He continues to report shortness of breath. However, he states it is improved since yesterday. Blood pressure 93/59. Heart rate in the 90s. Potassium 5.9. PHYSICAL EXAM: VITAL SIGNS: Reviewed. GENERAL: Well-developed in no acute distress. NECK: Supple. No JVD or thyromegaly LUNGS: Respirations even and unlabored. Lungs diminished. HEART: Regular rate and rhythm. S1 and S2 heard. EXTREMITIES: Normal range of motion. No clubbing or cyanosis. Peripheral pulses intact. No lower extremity edema ASSESSMENT: Acute exacerbation of chronic systolic heart failure, EF 20-25% Coronary artery disease with previous CABG in 2012 Valvular heart disease: mild aortic regurgitation, moderate to severe aortic stenosis, moderate mitral regurgitation, moderate to severe tricuspid regurgitation Moderate to severe pulmonary hypertension Hypertension Hyperlipidemia Diabetes mellitus, type II Hyperkalemia, secondary to potassium supplementation PLAN: Patient has been advised to undergo AICD in the past and continues to refuse Decrease Lasix to 40 mg IV daily Discontinue potassium supplementation Kayexalate 30 mg 1 dose Repeat potassium at 1400 Will begin Entresto. First dose to start tomorrow. Further recommendations pending patient course Nurse practitioner note has been reviewed by physician. Signing provider agrees with the documented findings, assessment, and plan of care. Objective - Vital Signs Vital signs: Vital Signs Temp 98.4 F 05/18/20 11:59 Pulse 93 05/18/20 07:59 Resp 18 05/18/20 14:00 BP 93/59 05/18/20 11:59 Pulse Ox 99 05/18/20 11:59 Intake & Output 05/17/20 05/18/20 05/18/20 18:59 06:59 18:59 Intake Total 480 400 540 Output Total 600 400 500 Balance -120 0 40 Weight 71.5 kg 72.3 kg Intake: IV 180 Sodium Chloride 0.9% 1, 180 000 ml @ 20 mls/hr IV . Q24H [facility] Rx#:[id number] Intake, IV Titration 160 Amount Sodium Chloride 0.9% 1, 160 000 ml @ 20 mls/hr IV . Q24H [facility] Rx#:[id number] Oral 480 240 360 Output: Urine 600 400 500 - Labs CBC & Chem 7: 05/17/20 06:12 05/18/20 14:33 Labs: Abnormal Lab Results - Last 24 Hours (Table) 05/17/20 05/17/20 05/18/20 Range/Units 16:55 20:54 07:11 Sodium 134 L (137-145) mmol/L Potassium 5.9 H (3.5-5.1) mmol/L Chloride 92 L (98-107) mmol/L Carbon Dioxide 34 H (22-30) mmol/L BUN 33 H (9-20) mg/dL Glucose 243 H (74-99) mg/dL POC Glucose (mg/dL) 210 H 251 H (75-99) mg/dL
[2020-05-18] MEDS: ATORVASTATIN 10 MG TAB PO SCH (20:16)
[2020-05-18] MEDS: ALPRAZolam 0.25 MG TAB PO PRN (20:16)
[2020-05-19] MEDS: INSULIN ASPART (NovoLOG) 100 UNIT/ML VIAL SQ SCH ×4 (06:04→21:53)
[2020-05-19] MEDS: carvediloL 3.125 MG TAB PO SCH ×2 (06:27→17:16)
[2020-05-19 08:20] LABS: African American GFR (CKD) >90 (>60 ml/min/1.73 sqM); Anion Gap 7 mmol/L; Blood Urea Nitrogen 34 mg/dL (9-20); Calcium 9.3 mg/dL (8.4-10.2); Carbon Dioxide 35 mmol/L (22-30); Chloride 93 mmol/L (98-107); Glucose 181 mg/dL (74-99); Non-African American GFR(CKD) 89 (>60 ml/min/1.73 sqM); Sodium 135 mmol/L (137-145)
[2020-05-19] MEDS: LINAGLIPTIN 5 MG TABLET PO SCH (10:00)
[2020-05-19] MEDS: SPIRONOLACTONE 25 MG TAB PO SCH (10:06)
[2020-05-19] MEDS: CLOPIDOGREL 75 MG TAB PO SCH (10:06)
[2020-05-19] MEDS: FUROSEMIDE 10 MG/ML 4 ML VIAL IV SCH (10:06)
[2020-05-19 11:26] LABS: Glucose,Whole Blood 318 mg/dL (75-99)
[2020-05-19 11:29] LABS: Glucose,Whole Blood 249 mg/dL (75-99)
[2020-05-19] MEDS: SACUBITRIL/VALSARTAN 24 MG-26 MG TABLET PO SCH ×2 (11:36→21:52)
--- NOTE | 2020-05-19 12:37 | P.PN ---
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 Patient reported that over the last 6-8 weeks with worsening shortness of breath with minimum exertion become much worse lately and has been having significant PND and orthopnea not been able to lay down flat had slight fluid overload as well. Patient ended up coming to the emergency department where was seen and evaluated found in quite bed fluid overload Patient was started on Lasix IV with titrate dose higher try to diurese patient 10 pound extra fluid retention. 05/17: Patient has been on Lasix 40 mg IV every 8 hours. His weight is down 1- 1/2 kg. Patient has been afebrile, heart rate 87, blood pressure 96/59, pulse ox 96% on room air. Repeat troponin 0.039. CBC is normal. Sodium 132, potassium 4.2, chloride 94, CO2 35, BUN 25, creatinine 0.92. On discussion with the patient regarding AICD and he is reluctant to have procedure. We'll await cardiology input regarding starting Entresto. Patient is still on losartan. 05/18: Patient denies any new complaints. He was seen yesterday by cardiology and Lopressor changed to Coreg. Lasix has been changed to twice daily at 40 mg IV. Plan is to start Entresto tomorrow and monitor overnight. He has been afebrile, heart rate 93, blood pressure 110/80, pulse ox 97% on room air. A repeat blood work reveals sodium 134, potassium 5.9, chloride 92, CO2 34, BUN 33 and creatinine 1.08. Blood sugars running in the low 200s. Potassium has been discontinued. Hemoglobin A1c 7.9. 05/19: Patient is scheduled to start Entresto today. Yesterday hemoglobin A1c came back at 7.9 and her gentle was started. Patient has refused to take as he states his blood sugars are normal at home. Patient advised that his blood sugars are running on average of 180 according to the A1c over the past 3 months but he continues to state that he has his blood sugar controlled and checks it 3 times a day. He is continuously due to refusing and arguing with the nurses regarding taking Tradjenta and this will be discontinued. Patient is also refusing NovoLog scale. Repeat lab work reveals sodium 135, potassium 5, chloride 93, CO2 35, BUN 34 and creatinine 0.86. Blood sugars are running b etween 249 and 318. Patient is been afebrile, heart rate 85, blood pressure 99/64, pulse ox 95% on room air. Plan to recheck electrolytes in the morning and discharge home tomorrow. REVIEW OF SYSTEMS CONSTITUTIONAL: Well-developed no acute respiratory distress. Denies fever. Denies chills. EYES: No icterus sclerae, no conjunctivitis. EARS, NOSE, MOUTH, THROAT, and FACE: No sore throat, lymphadenopathy, carotid bruits or deformity. RESPIRATORY: Denies shortness of breath cough wheezes. CARDIOVASCULAR: Mild palpitation with worsening dyspnea with minimum exertion al praveena with her fluid retention. GASTROINTESTINAL: No Abd pain, Nausea or vomiting, no Diarrhea or constipation, No GI Bleed, no distention or masses. GENITOURINARY: Negative for Hematuria or UTI, no kidney stones. INTEGUMENT/BREAST: Negative for any muscular injury with mild osteoarthritis.. HEMATOLOGIC/LYMPHATIC: Negative for bleed or purpura. MUSCULOSKELTAL: Negative for Myalgia or arthralgia. Positive edema NEURLOGICAL: No LOC, Sz or syncope, blurred vision dizziness or abnormality.. BEHAVIORAL/PSYCH: Negative. ENDOCRINE: Negative.General Appearance: Alert, cooperative, no distress, appears stated age. Abnormal blood sugars. PHYSICAL EXAMINATION General Appearance: Alert, cooperative, no distress, appears stated age. Patient is resting comfortably in bed. He is in no acute respiratory distress. Neck HEENT: Supple, no lymphadenopathy, no thyroid enlargement, no carotid bruits. Lungs: Decreased breath some bilaterally with fine rhonchi no crackles or wheezes slight decreased breath sound in the right lower lobe compared to the left side Chest Wall: Decrease expansion with deep inspiration no tenderness and no deformity was found on exam, no costochondral pain or discomfort. Heart: Regular rate and rhythm, S1, S2 positive history of systolic murmur in the apex Back: Symmetric, no curvature, ROM normal, no CVA tenderness. Abdomen: Soft, non-tender, bowel sounds active all four quadrants, no masses, no organomegaly. Extremities: Extremities normal, atraumatic, no cyanosis 1+ edema more in the left leg than the right side. Pulses: 2+ and symmetric. Skin: Skin color, texture, tugor normal, no rashes or lesions. Neurologic: Alert oriented x3 cranial nerves II through XII intact, no motor deficit, no abnormal balance or gait. ASSESSMENT AND PLAN 1 acute on chronic systolic heart failure. Continue Lasix 40 mg IV daily, Aldactone 25 mg daily, Entresto one twice daily starting today, I&O, daily weights, monitor electrolytes and renal function. Cardiology consult appreciated. 2 hypertension: Remain on metoprolol and Entresto. 3 hyperlipidemia: Remain on atorvastatin 10 mg a day. 4 history of coronary artery disease: Post CABG patient is seeing cardiology regularly and has been on medical management. 5 type 2 diabetes uncontrolled with hyperglycemia secondary to noncompliance: Continue Accu-Chek sliding scales coverage. A1c 7.9. Patient refuses to take Tradjenta and this will be discontinued. Patient is also refusing sliding NovoLog scale. 6 Elevated troponin with possible NSTEMI: will see Cardiology and repeat Echo repeat Troponin as well 7 GI prophylaxis: Continue patient on Pepcid. 8 DVT prophylaxis: Patient remain on pantoprazole or is omeprazole daily. CODE STATUS: Full code. DISCHARGE PLAN Home on Saturday. Impression and plan of care have been directed as dictated by the signing physician. Jolene Cotto nurse practitioner acting as scribe for signing physician. Objective - Vital Signs Vital signs: Vital Signs Temp 97.5 F L 05/18/20 23:44 Pulse 85 05/19/20 04:00 Resp 18 05/19/20 04:00 BP 99/64 05/19/20 04:00 Pulse Ox 95 05/19/20 04:00 Intake & Output 05/18/20 05/19/20 05/19/20 18:59 06:59 18:59 Intake Total 660 Output Total 500 250 Balance 160 -250 Weight 72.7 kg Intake: IV 180 Sodium Chloride 0.9% 1, 180 000 ml @ 20 mls/hr IV . Q24H [facility] Rx#:[id number] Oral 480 Output: Urine 500 250 - Labs CBC & Chem 7: 05/17/20 06:12 05/19/20 07:02 Labs: Abnormal Lab Results - Last 24 Hours (Table) 05/19/20 Range/Units 07:02 Sodium 135 L (137-145) mmol/L Chloride 93 L (98-107) mmol/L Carbon Dioxide 35 H (22-30) mmol/L BUN 34 H (9-20) mg/dL Glucose 181 H (74-99) mg/dL
--- NOTE | 2020-05-19 14:11 | P.PN ---
Subjective Progress Note Date: 05/19/20 HISTORY OF PRESENT ILLNESS: Patient examined this morning at the bedside. Patient denies chest pain or pressure. He denies shortness of breath. Blood pressure 109/72. Heart rate in the 80s. Potassium 5.0. PHYSICAL EXAM: VITAL SIGNS: Reviewed. GENERAL: Well-developed in no acute distress. NECK: Supple. No JVD or thyromegaly LUNGS: Respirations even and unlabored. Lungs diminished. HEART: Regular rate and rhythm. S1 and S2 heard. EXTREMITIES: Normal range of motion. No clubbing or cyanosis. Peripheral pulses intact. No lower extremity edema ASSESSMENT: Acute exacerbation of chronic systolic heart failure, EF 20-25% Coronary artery disease with previous CABG in 2013 Valvular heart disease: mild aortic regurgitation, moderate to severe aortic stenosis, moderate mitral regurgitation, moderate to severe tricuspid regurgita tion Moderate to severe pulmonary hypertension Hypertension Hyperlipidemia Diabetes mellitus, type II Hyperkalemia, secondary to potassium supplementation PLAN: Patient has been advised to undergo AICD in the past and continues to refuse Continue Lasix 40 mg IV daily 4 today. Transition to oral tomorrow Entresto started this a.m. Repeat BMP in a.m. Further recommendations pending patient course Nurse practitioner note has been reviewed by physician. Signing provider agrees with the documented findings, assessment, and plan of care. Objective - Vital Signs Vital signs: Vital Signs Temp 97.9 F 05/19/20 12:00 Pulse 84 05/19/20 12:00 Resp 17 05/19/20 12:00 BP 109/67 05/19/20 12:00 Pulse Ox 97 05/19/20 12:00 Intake & Output 05/18/20 05/19/20 05/19/20 18:59 06:59 18:59 Intake Total 660 Output Total 500 250 200 Balance 160 -250 -200 Weight 72.7 kg Intake: IV 180 Sodium Chloride 0.9% 1, 180 000 ml @ 20 mls/hr IV . Q24H [facility] Rx#:[id number] Oral 480 Output: Urine 500 250 200 Other: Voiding Method Toilet # Voids 1 - Labs CBC & Chem 7: 05/17/20 06:12 05/19/20 07:02 Labs: Abnormal Lab Results - Last 24 Hours (Table) 05/19/20 05/19/20 05/19/20 Range/Units 07:02 11:25 11:27 Sodium 135 L (137-145) mmol/L Chloride 93 L (98-107) mmol/L Carbon Dioxide 35 H (22-30) mmol/L BUN 34 H (9-20) mg/dL Glucose 181 H (74-99) mg/dL POC Glucose (mg/dL) 318 H 249 H (75-99) mg/dL
[2020-05-19] MEDS ORDERED: MELATONIN 5 MG TABLET PO PRN (15:57)
[2020-05-19] MEDS ORDERED: DOCUSATE 100 MG CAP PO PRN (15:58)
[2020-05-19] MEDS ORDERED: MIRTAZAPINE 15 MG TAB PO SCH (21:00)
[2020-05-19] MEDS: ATORVASTATIN 10 MG TAB PO SCH (21:48)
[2020-05-19] MEDS: ALPRAZolam 0.25 MG TAB PO PRN (21:53)
[2020-05-20] MEDS: INSULIN ASPART (NovoLOG) 100 UNIT/ML VIAL SQ SCH ×2 (06:11→12:11)
[2020-05-20] MEDS: carvediloL 3.125 MG TAB PO SCH (06:37)
[2020-05-20 08:23] LABS: African American GFR (CKD) >90 (>60 ml/min/1.73 sqM); Anion Gap 5 mmol/L; Blood Urea Nitrogen 33 mg/dL (9-20); Calcium 8.8 mg/dL (8.4-10.2); Carbon Dioxide 37 mmol/L (22-30); Chloride 91 mmol/L (98-107); Glucose 180 mg/dL (74-99); Non-African American GFR(CKD) >90 (>60 ml/min/1.73 sqM); Potassium 4.6 mmol/L (3.5-5.1); Sodium 133 mmol/L (137-145)
[2020-05-20] MEDS: SPIRONOLACTONE 25 MG TAB PO SCH (09:11)
[2020-05-20] MEDS: SACUBITRIL/VALSARTAN 24 MG-26 MG TABLET PO SCH (09:11)
[2020-05-20] MEDS: CLOPIDOGREL 75 MG TAB PO SCH (09:11)
[2020-05-20] MEDS: FUROSEMIDE 10 MG/ML 4 ML VIAL IV SCH (09:11)
[2020-05-20 09:37] VITALS: RESP 20
--- NOTE | 2020-05-20 10:36 | P.DS ---
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 Patient reported that over the last 6-8 weeks with worsening shortness of breath with minimum exertion become much worse lately and has been having significant PND and orthopnea not been able to lay down flat had slight fluid overload as well. Patient ended up coming to the emergency department where was seen and evaluated found in quite bed fluid overload Patient was started on Lasix IV with titrate dose higher try to diurese patient 10 pound extra fluid retention. 05/17: Patient has been on Lasix 40 mg IV every 8 hours. His weight is down 1- 1/2 kg. Patient has been afebrile, heart rate 87, blood pressure 96/59, pulse ox 96% on room air. Repeat troponin 0.039. CBC is normal. Sodium 132, potassium 4.2, chloride 94, CO2 35, BUN 25, creatinine 0.92. On discussion with the patient regarding AICD and he is reluctant to have procedure. We'll await cardiology input regarding starting Entresto. Patient is still on losartan. 05/18: Patient denies any new complaints. He was seen yesterday by cardiology and Lopressor changed to Coreg. Lasix has been changed to twice daily at 40 mg IV. Plan is to start Entresto tomorrow and monitor overnight. He has been afebrile, heart rate 93, blood pressure 110/80, pulse ox 97% on room air. A repeat blood work reveals sodium 134, potassium 5.9, chloride 92, CO2 34, BUN 33 and creatinine 1.08. Blood sugars running in the low 200s. Potassium has been discontinued. Hemoglobin A1c 7.9. 05/19: Patient is scheduled to start Entresto today. Yesterday hemoglobin A1c came back at 7.9 and her gentle was started. Patient has refused to take as he states his blood sugars are normal at home. Patient advised that his blood sugars are running on average of 180 according to the A1c over the past 3 months but he continues to state that he has his blood sugar controlled and checks it 3 times a day. He is continuously due to refusing and arguing with the nurses regarding taking Tradjenta and this will be discontinued. Patient is also refusing NovoLog scale. Repeat lab work reveals sodium 135, potassium 5, chloride 93, CO2 35, BUN 34 and creatinine 0.86. Blood sugars are running between 249 and 318. Patient is been afebrile, heart rate 85, blood pressure 99/64, pulse ox 95% on room air. Plan to recheck electrolytes in the morning and discharge home tomorrow. 05/20: Patient evaluated on morning rounds. Reports he is feeling well, Entresto was added yesterday, patient is tolerating well. Remeron was also added yesterday, patient reports his appetite is better this morning was able to eat breakfast. Labs show potassium 4.6, creatinine 0.76, BUN 33. Vital signs are stable, afebrile 97.9, heart rate 86, respiratory 20, blood pressure 92/56. Patient still refuses to take diabetic medication, glucose is running between 180s to 240s. Patient will be discharged home with follow-up with cardiology. Discharge Diagnoses: 1 acute on chronic systolic heart failure. 2 hypertension. 3 hyperlipidemia. 4 history of coronary artery disease. 5 type 2 diabetes uncontrolled with hyperglycemia secondary to noncompliance. A1c 7.9. Patient refuses to take Tradjenta and this will be discontinued. Patient is also refusing sliding NovoLog scale. 6 Elevated troponin with possible NSTEMI. The above impression and plan of care have been discussed and directed by signing physician. Bisi Thompson nurse practitioner acting as scribe for signing physician. Patient Condition at Discharge: Good Plan - Discharge Summary Discharge Rx Participant: Yes New Discharge Prescriptions: New carvediloL [Coreg] 3.125 mg PO BID-W/MEALS #60 tab Sacubitril/Valsartan [Entresto 24 mg-26 mg Tablet] 1 each PO BID #60 tablet Melatonin 5 mg PO HS PRN tablet PRN Reason: Insomnia Mirtazapine [Remeron] 15 mg PO HS #30 tab ALPRAZolam [Xanax] 0.25 mg PO HS PRN #12 tab PRN Reason: Insomnia Continue Spironolactone [Aldactone] 25 mg PO DAILY Atorvastatin [Lipitor] 10 mg PO HS Clopidogrel Bisulfate [Plavix] 75 mg PO DAILY Furosemide [Lasix] 40 mg PO BID #60 tablet Potassium Chloride ER [K-Dur 10] 10 meq PO BID Discontinued Losartan Potassium [Cozaar] 12.5 mg PO HS Metoprolol Succinate (ER) [Toprol XL] 12.5 mg PO HS Discharge Medication List Atorvastatin [Lipitor] 10 mg PO HS 09/03/15 [History] Clopidogrel Bisulfate [Plavix] 75 mg PO DAILY 09/03/15 [History] Spironolactone [Aldactone] 25 mg PO DAILY 09/03/15 [History] Furosemide [Lasix] 40 mg PO BID #60 tablet 04/08/20 [Rx] Potassium Chloride ER [K-Dur 10] 10 meq PO BID 05/16/20 [History] carvediloL [Coreg] 3.125 mg PO BID-W/MEALS #60 tab 05/18/20 [Rx] ALPRAZolam [Xanax] 0.25 mg PO HS PRN #12 tab 05/20/20 [Rx] Melatonin 5 mg PO HS PRN tablet 05/20/20 [Rx] Mirtazapine [Remeron] 15 mg PO HS #30 tab 05/20/20 [Rx] Sacubitril/Valsartan [Entresto 24 mg-26 mg Tablet] 1 each PO BID #60 tablet 05/20/20 [Rx] Follow up Appointment(s)/Referral(s): Yuriy Contreras MD [STAFF PHYSICIAN] - 1 Week Charlie Jc MD [Primary Care Provider] - 1 Week Discharge Disposition: HOME SELF-CARE
[2020-05-20 11:42] VITALS: BP 84/54; PULSE 77; TEMP 97.4
--- NOTE | 2020-05-20 11:57 | P.PN ---
Subjective Progress Note Date: 05/20/20 HISTORY OF PRESENT ILLNESS: Patient examined this morning at the bedside. Patient denies chest pain or pressure. He denies shortness of breath. Vital signs stable. He is anxious to be discharged home. PHYSICAL EXAM: VITAL SIGNS: Reviewed. GENERAL: Well-developed in no acute distress. NECK: Supple. No JVD or thyromegaly LUNGS: Respirations even and unlabored. Lungs diminished. HEART: Regular rate and rhythm. S1 and S2 heard. EXTREMITIES: Normal range of motion. No clubbing or cyanosis. Peripheral pulses intact. No lower extremity edema ASSESSMENT: Acute exacerbation of chronic systolic heart failure, EF 20-25% Coronary artery disease with previous CABG in 2013 Valvular heart disease: mild aortic regurgitation, moderate to severe aortic stenosis, moderate mitral regurgitation, moderate to severe tricuspid regurgitation Moderate to severe pulmonary hypertension Hypertension Hyperlipidemia Diabetes mellitus, type II Hyperkalemia, secondary to potassium supplementation PLAN: Continue current cardiac medications Patient may be discharged home from cardiac standpoint. He is to follow up outpatient with Dr. Contreras Nurse practitioner note has been reviewed by physician. Signing provider agrees with the documented findings, assessment, and plan of care. Objective - Vital Signs Vital signs: Vital Signs Temp 97.4 F L 05/20/20 11:41 Pulse 77 05/20/20 11:41 Resp 20 05/20/20 11:41 BP 84/54 05/20/20 11:41 Pulse Ox 98 05/20/20 11:41 Intake & Output 05/19/20 05/20/20 05/20/20 18:59 06:59 18:59 Intake Total 660 Output Total 200 1 500 Balance -200 -1 160 Weight 73 kg Intake: Oral 660 Output: Urine 200 1 500 Other: Voiding Method Toilet Toilet # Voids 2 1 # Bowel Movements 1 - Labs CBC & Chem 7: 05/17/20 06:12 05/20/20 06:39 Labs: Abnormal Lab Results - Last 24 Hours (Table) 05/20/20 Range/Units 06:39 Sodium 133 L (137-145) mmol/L Chloride 91 L (98-107) mmol/L Carbon Dioxide 37 H (22-30) mmol/L BUN 33 H (9-20) mg/dL Glucose 180 H (74-99) mg/dL
== END 2020-05-20 13:22 | disposition home or self-care (01) | DRG 282 ==
LOC: EC 11:01 → 3SCARD 13:53 → OBSVTOIN 05-17 08:07
PROVIDERS: ADMIT Internal Medicine Geriatric Medicine; ATTEND Internal Medicine Geriatric Medicine
DX: I11.0 Hypertensive heart disease with heart failure (principal); I21.4 Non-ST elevation (NSTEMI) myocardial infarction; I50.23 Acute on chronic systolic (congestive) heart failure; E87.5 Hyperkalemia; E11.65 Type 2 diabetes mellitus with hyperglycemia; E78.5 Hyperlipidemia, unspecified; I08.2 Rheumatic disorders of both aortic and tricuspid valves; I25.10 Atherosclerotic heart disease of native coronary artery without angina pectoris; I27.20 Pulmonary hypertension, unspecified; J44.9 Chronic obstructive pulmonary disease, unspecified; Z20.828 Contact with and (suspected) exposure to other viral communicable diseases; Z79.02 Long term (current) use of antithrombotics/antiplatelets; I25.2 Old myocardial infarction; Z79.899 Other long term (current) drug therapy; Z80.0 Family history of malignant neoplasm of digestive organs; Z80.42 Family history of malignant neoplasm of prostate; Z87.442 Personal history of urinary calculi; Z91.19 Patient's noncompliance with other medical treatment and regimen; Z95.1 Presence of aortocoronary bypass graft
CPT/HCPCS: 36415; 71045; 80048; 80053; 83036; 83605; 83880; 84132; 84484; 85025; 85027; 85610; 85730; 87635; 93005; 96374; 99285

== ENCOUNTER 2020-05-31 12:24 | Inpatient (IN) | payer MEDICARE ==
[2020-05-31] MEDS ORDERED: PIPERACILLIN-TAZOBACTAM 3.375 GM in SODIUM CHLORIDE 0.9% 100 ML IVPB STA (12:54)
[2020-05-31] MEDS ORDERED: VANCOMYCIN IV PER PHARMACY 1 EACH MISC MISCELLANE PRN (12:54)
[2020-05-31] MEDS: SODIUM CHLORIDE 0.9% 500 ML 500 ML IV SCH ×3 (13:01→13:21)
--- NOTE | 2020-05-31 13:03 | ED ---
General Adult HPI - General Chief complaint: Extremity Problem,Nontraumatic Stated complaint: circulation problems/foot Time Seen by Provider: 05/31/20 12:25 Source: patient, RN notes reviewed, old records reviewed Mode of arrival: wheelchair Limitations: no limitations - History of Present Illness Initial comments: This a 70-year-old male who presents emergency room complaining of left foot infection. Patient states been ongoing for weeks. Patient states the hospital twice before for similar. Patient states his fifth toe is purple and there is s ignificant redness and tenderness in the foot and up into the lower leg. Patient states she's also been short of breath over the last couple of weeks. Patient denies any chest pain or palpitations. Patient states he does not believe he is had a fever. Patient denies lightheadedness dizziness or near syncopal episode. Patient denies any abdominal pain patient as nausea vomiting diarrhea - Related Data Home Medications Medication Instructions Recorded Confirmed Atorvastatin [Lipitor] 10 mg PO HS 09/03/15 05/31/20 Clopidogrel Bisulfate [Plavix] 75 mg PO DAILY 09/03/15 05/31/20 Spironolactone [Aldactone] 25 mg PO DAILY 09/03/15 05/31/20 Potassium Chloride ER [K-Dur 10] 10 meq PO BID 05/16/20 05/31/20 Sacubitril/Valsartan [Entresto 24 1 tab PO BID 05/31/20 05/31/20 mg-26 mg Tablet] Previous Rx's Medication Instructions Recorded Furosemide [Lasix] 40 mg PO BID #60 tablet 04/08/20 carvediloL [Coreg] 3.125 mg PO BID-W/MEALS #60 tab 05/18/20 ALPRAZolam [Xanax] 0.25 mg PO HS PRN #12 tab 05/20/20 Melatonin 5 mg PO HS PRN tablet 05/20/20 Mirtazapine [Remeron] 15 mg PO HS #30 tab 05/20/20 Allergies Allergy/AdvReac Type Severity Reaction Status Date / Time No Known Allergies Allergy Verified 05/31/20 13:21 Review of Systems ROS Statement: Those systems with pertinent positive or pertinent negative responses have been documented in the HPI. ROS Other: All systems not noted in ROS Statement are negative. Past Medical History Past Medical History: Heart Failure, Diabetes Mellitus, Hyperlipidemia, Hypertension, Myocardial Infarction ([place]) Additional Past Medical History / Comment(s): Pneumonia with sepsis, NIDDM type II-diet controlled now, neuropathy R foot, nephrolithiasis-pt passed stone on his own. Last Myocardial Infarction Date:: 2012 History of Any Multi-Drug Resistant Organisms: None Reported Past Surgical History: Coronary Bypass/CABG Additional Past Surgical History / Comment(s): 2012 CABG 6 vessel Past Anesthesia/Blood Transfusion Reactions: No Reported Reaction Past Psychological History: No Psychological Hx Reported Smoking Status: Never smoker Past Alcohol Use History: None Reported Past Drug Use History: None Reported - Past Family History Father Family Medical History: Cancer Additional Family Medical History / Comment(s): father at age 77 from prostate cancer Mother Family Medical History: Cancer Additional Family Medical History / Comment(s): Mother had bowel cancer. General Exam - General Exam Comments Initial Comments: GENERAL: Patient is well-developed and well-nourished. Patient is nontoxic and well- hydrated and is in moderate distress. ENT: Neck is soft and supple. No significant lymphadenopathy is noted. Oropharynx is clear. Moist mucous membranes. Neck has full range of motion without eliciting any pain. EYES: The sclera were anicteric and conjunctiva were pink and moist. Extraocular movements were intact and pupils were equal round and reactive to light. Eyelids were unremarkable. PULMONARY: Unlabored respirations. Good breath sounds bilaterally. No audible rales rhonchi or wheezing was noted. CARDIOVASCULAR: There is a regular rate and rhythm without any murmurs gallops or rubs. ABDOMEN: Soft and nontender with normal bowel sounds. SKIN: Patient's fifth left toe is purple and patient has erythema of the anterior foot up into the lower leg. The foot and lower extremity tender to touch patient does not have any calf tenderness. NEUROLOGIC: Patient is alert and oriented x3. Cranial nerves II through XII are grossly intact. Motor and sensory are also intact. Normal speech, volume and content. Symmetrical smile. MUSCULOSKELETAL: Normal extremities with adequate strength and full range of motion. LYMPHATICS: No significant lymphadenopathy is noted PSYCHIATRIC: Normal psychiatric evaluation. Limitations: no limitations Course Vital Signs 05/31/20 05/31/20 05/31/20 12:25 13:34 13:47 Temperature 98.3 F Pulse Rate 79 77 75 Respiratory 20 18 18 Rate Blood Pressure 65/45 66/49 100/86 O2 Sat by Pulse 99 97 98 Oximetry 05/31/20 05/31/20 05/31/20 14:23 14:30 14:41 Temperature Pulse Rate 84 84 85 Respiratory 18 Rate Blood Pressure 85/69 O2 Sat by Pulse 98 Oximetry 05/31/20 05/31/20 15:09 15:56 Temperature Pulse Rate 87 82 Respiratory 18 18 Rate Blood Pressure 90/65 87/53 O2 Sat by Pulse 95 98 Oximetry Medical Decision Making - Medical Decision Making EKG shows normal sinus rhythm at 79 bpm IN interval 168 QRSs 102 QT interval 380 QTC is 435. Patient's EKG shows ST segment depression in II, III, and F aVF as well as V5 and V6. Patient was hyperkalemic at 7.2. Start the patient on calcium chloride and sodium bicarb. The patient a breathing treatment of albuterol and give the patient Kayexalate as well as D50 and 10 of regular insulin. X-ray of the foot shows osteoporosis of the fifth toe she was started on Zosyn and vancomycin. I spoke with Dr. Grande and he agreed to admit the patient admitted the patient wrote admitting orders - Lab Data Result diagrams: 05/31/20 12:58 05/31/20 13:53 Lab Results 05/31/20 05/31/20 05/31/20 Range/Units 12:58 12:58 12:58 WBC 14.8 H (3.8-10.6) k/uL RBC 4.73 (4.30-5.90) m/uL Hgb 14.6 (13.0-17.5) gm/dL Hct 42.9 (39.0-53.0) % MCV 90.9 (80.0-100.0) fL MCH 30.9 (25.0-35.0) pg MCHC 34.0 (31.0-37.0) g/dL RDW 14.7 (11.5-15.5) % Plt Count 157 (150-450) k/uL MPV 8.6 Neutrophils % 90 % Lymphocytes % 5 % Monocytes % 4 % Eosinophils % 0 % Basophils % 0 % Neutrophils # 13.2 H (1.3-7.7) k/uL Lymphocytes # 0.7 L (1.0-4.8) k/uL Monocytes # 0.6 (0-1.0) k/uL Eosinophils # 0.1 (0-0.7) k/uL Basophils # 0.1 (0-0.2) k/uL PT 11.1 (9.0-12.0) sec INR 1.1 (<1.2) APTT 26.3 (22.0-30.0) sec Sodium 130 L (137-145) mmol/L Potassium 7.2 H* (3.5-5.1) mmol/L Chloride 93 L (98-107) mmol/L Carbon Dioxide 30 (22-30) mmol/L Anion Gap 7 mmol/L BUN 51 H (9-20) mg/dL Creatinine 1.51 H (0.66-1.25) mg/dL Est GFR (CKD-EPI)AfAm 54 (>60 ml/min/1.73 sqM) Est GFR (CKD-EPI)NonAf 47 (>60 ml/min/1.73 sqM) Glucose 261 H (74-99) mg/dL POC Glucose (mg/dL) (75-99) mg/dL POC Glu [employer] Worker ID Plasma Lactic Acid Steve (0.7-2.0) mmol/L Calcium 9.1 (8.4-10.2) mg/dL Total Bilirubin 1.7 H (0.2-1.3) mg/dL AST 92 H (17-59) U/L ALT 94 H (4-49) U/L Alkaline Phosphatase 181 H (38-126) U/L Total Protein 6.7 (6.3-8.2) g/dL Albumin 3.5 (3.5-5.0) g/dL 05/31/20 05/31/20 05/31/20 Range/Units 12:58 13:53 14:56 WBC (3.8-10.6) k/uL RBC (4.30-5.90) m/uL Hgb (13.0-17.5) gm/dL Hct (39.0-53.0) % MCV (80.0-100.0) fL MCH (25.0-35.0) pg MCHC (31.0-37.0) g/dL RDW (11.5-15.5) % Plt Count (150-450) k/uL MPV Neutrophils % % Lymphocytes % % Monocytes % % Eosinophils % % Basophils % % Neutrophils # (1.3-7.7) k/uL Lymphocytes # (1.0-4.8) k/uL Monocytes # (0-1.0) k/uL Eosinophils # (0-0.7) k/uL Basophils # (0-0.2) k/uL PT (9.0-12.0) sec INR (<1.2) APTT (22.0-30.0) sec Sodium (137-145) mmol/L Potassium 6.4 H* (3.5-5.1) mmol/L Chloride (98-107) mmol/L Carbon Dioxide (22-30) mmol/L Anion Gap mmol/L BUN (9-20) mg/dL Creatinine (0.66-1.25) mg/dL Est GFR (CKD-EPI)AfAm (>60 ml/min/1.73 sqM) Est GFR (CKD-EPI)NonAf (>60 ml/min/1.73 sqM) Glucose (74-99) mg/dL POC Glucose (mg/dL) 216 H (75-99) mg/dL POC Glu [employer] Worker ID Jackie Simon Plasma Lactic Acid Steve 1.8 (0.7-2.0) mmol/L Calcium (8.4-10.2) mg/dL Total Bilirubin (0.2-1.3) mg/dL AST (17-59) U/L ALT (4-49) U/L Alkaline Phosphatase (38-126) U/L Total Protein (6.3-8.2) g/dL Albumin (3.5-5.0) g/dL Critical Care Time Critical Care Time: Yes Total Critical Care Time: 35 Disposition Clinical Impression: Osteomyelitis, Cellulitis of foot Disposition: ADMITTED IP TO THIS HOSP Referrals: Ish Townsend DO [Primary Care Provider] - 1-2 days Time of Disposition: 16:56
[2020-05-31 13:07] LABS: Basophils # (A) 0.1 k/uL (0-0.2); Basophils % (A) 0 %; Eosinophils # (A) 0.1 k/uL (0-0.7); Eosinophils % (A) 0 %; HCT 42.9 % (39.0-53.0); HGB 14.6 gm/dL (13.0-17.5); Lymphocytes # (A) 0.7 k/uL (1.0-4.8); Lymphocytes % (A) 5 %; MCH 30.9 pg (25.0-35.0); MCV 90.9 fL (80.0-100.0); Mean Platelet Volume 8.6; Monocytes # (A) 0.6 k/uL (0-1.0); Monocytes % (A) 4 %; Neutrophils # (A) 13.2 k/uL (1.3-7.7); Neutrophils % (A) 90 %; Platelet Count 157 k/uL (150-450); RBC 4.73 m/uL (4.30-5.90); RDW 14.7 % (11.5-15.5); WBC 14.8 k/uL (3.8-10.6)
[2020-05-31 13:18] LABS: Albumin 3.5 g/dL (3.5-5.0); Calcium 9.1 mg/dL (8.4-10.2); Total Bilirubin 1.7 mg/dL (0.2-1.3); Total Protein 6.7 g/dL (6.3-8.2)
[2020-05-31 13:43] LABS: Potassium 7.2 mmol/L (3.5-5.1)
[2020-05-31] MEDS ORDERED: HYDROCORTISONE SUCCINATE 100 MG/2 ML VIAL IV STA (13:45)
[2020-05-31] MEDS ORDERED: CALCIUM CHLORIDE 100 MG/ML 10 ML SYRINGE IVP STA (13:45)
[2020-05-31] MEDS ORDERED: DEXTROSE 50% SYRINGE 50 ML IVP STA (13:46)
[2020-05-31] MEDS ORDERED: INSULIN REGULAR 100 UNIT/ML VIAL IV ONE (13:46)
[2020-05-31] MEDS ORDERED: SODIUM BICARB 8.4% 50 ML SYR (1 MEQ/ML) IV STA (13:47)
[2020-05-31] MEDS ORDERED: IPRATROPIUM-ALBUTEROL 3 ML NEB INHALATION STA (13:47)
[2020-05-31] MEDS ORDERED: SODIUM POLYSTYRENE SULFONATE 15 GM/60 ML BOTTLE PO STA (13:47)
[2020-05-31] MEDS: VANCOMYCIN 1,500 MG in SODIUM CHLORIDE 0.9% 250 ML IVPB ONE ×2 (13:54→14:06)
[2020-05-31 14:41] LABS: INR 1.1 (<1.2)
[2020-05-31 14:42] LABS: Partial Thromboplastin Time 26.3 sec (22.0-30.0); Prothrombin Time 11.1 sec (9.0-12.0)
[2020-05-31 14:58] LABS: Glucose,Whole Blood 216 mg/dL (75-99)
--- NOTE | 2020-05-31 15:36 | XR ---
Left foot HISTORY: Infection, edema 2 views the left foot There is extensive subcutaneous emphysema, soft tissue swelling. Bone destruction is noted the distal fifth metatarsal, there is lucency present likely involving the metatarsophalangeal joint although t here is motion artifact present. Arthropathy change present at the metatarsophalangeal joint of the f irst digit, overhanging edges suggest underlying gout. There are dense vascular calcifications presen t, correlate for underlying diabetes, peripheral vascular occlusive disease. No evident periostitis. Questionable lucency involving the proximal aspect of the proximal phalanx of the fourth digit of lef t foot. Surgical clip present in the medial aspect of the distal leg. Osteoarthritic change present a t the intertarsal joints. IMPRESSION: Osteomyelitis fifth digit, possible fourth digit left foot.
[2020-05-31] MEDS ORDERED: SODIUM CHLORIDE 0.9% 1,000 ML IV ONE (16:56)
[2020-05-31 18:22] LABS: Glucose,Whole Blood 103 mg/dL (75-99)
[2020-05-31 20:33] LABS: Glucose,Whole Blood 217 mg/dL (75-99)
[2020-05-31 23:01] LABS: Glucose,Whole Blood 273 mg/dL (75-99)
[2020-05-31] MEDS: INSULIN ASPART (NovoLOG) 100 UNIT/ML VIAL SQ SCH (23:10)
[2020-05-31 23:27] LABS: Basophils % (A) 0 %; Eosinophils # (A) 0.1 k/uL (0-0.7); Eosinophils % (A) 1 %; HCT 40.6 % (39.0-53.0); HGB 12.5 gm/dL (13.0-17.5); Hypochromasia Slight; Lymphocytes # (A) 0.5 k/uL (1.0-4.8); Lymphocytes % (A) 3 %; MCH 29.5 pg (25.0-35.0); MCHC 30.9 g/dL (31.0-37.0); MCV 95.3 fL (80.0-100.0); Mean Platelet Volume 8.8; Monocytes # (A) 0.4 k/uL (0-1.0); Monocytes % (A) 3 %; Neutrophils # (A) 14.2 k/uL (1.3-7.7); Neutrophils % (A) 93 %; Platelet Count 178 k/uL (150-450); RBC 4.26 m/uL (4.30-5.90); RDW 14.9 % (11.5-15.5); WBC 15.3 k/uL (3.8-10.6)
[2020-05-31 23:42] LABS: Calcium 8.1 mg/dL (8.4-10.2); Potassium 5.1 mmol/L (3.5-5.1)
[2020-05-31] MEDS: VANCOMYCIN 1,250 MG in SODIUM CHLORIDE 0.9% 250 ML IVPB SCH (23:57)
[2020-05-31] MEDS: PIPERACILLIN-TAZOBACTAM 3.375 GM in SODIUM CHLORIDE 0.9% 100 ML IVPB SCH (23:57)
[2020-06-01 00:24] LABS: Appearance,Urine Clear (Clear); Bilirubin,Urine Negative (Negative); Blood,Urine Negative (Negative); Color,Urine Yellow; Glucose,Urine (UA) Negative (Negative); Ketones,Urine Negative (Negative); Leukocyte Esterase,Urine Negative (Negative); Nitrite,Urine Negative (Negative); Protein,Urine Negative (Negative); Specific Gravity,Urine 1.015 (1.001-1.035); Urobilinogen,Urine <2.0 mg/dL (<2.0)
[2020-06-01 06:11] LABS: Glucose,Whole Blood 171 mg/dL (75-99)
[2020-06-01] MEDS: INSULIN ASPART (NovoLOG) 100 UNIT/ML VIAL SQ SCH ×3 (07:02→21:16)
[2020-06-01 08:08] LABS: Basophils % (A) 0 %; Eosinophils % (A) 0 %; HCT 40.8 % (39.0-53.0); HGB 12.7 gm/dL (13.0-17.5); Hypochromasia Slight; Lymphocytes # (A) 0.8 k/uL (1.0-4.8); Lymphocytes % (A) 5 %; MCH 29.4 pg (25.0-35.0); MCHC 31.1 g/dL (31.0-37.0); MCV 94.3 fL (80.0-100.0); Monocytes # (A) 0.6 k/uL (0-1.0); Monocytes % (A) 4 %; Neutrophils # (A) 14.6 k/uL (1.3-7.7); Neutrophils % (A) 91 %; Platelet Count 166 k/uL (150-450); RBC 4.33 m/uL (4.30-5.90); WBC 16.1 k/uL (3.8-10.6)
--- NOTE | 2020-06-01 08:55 | P.GSCN ---
History of Present Illness Consult date: 06/01/20 History of present illness: Called for consult last evening regarding fifth toe osteomyelitis. The patient is a 70-year-old male with a past medical history ofDiabetes, hypertension, hyperlipidemia, history of HI, neuropathy, congestive heart failure and previous CABG presented for issues in his left fifth toe. He states that for the past 4-5 days he has been having increasing discoloration and pain which seemingly came on quickly and worsening quickly. He was seen by his primary care physician who recommended coming into the hospital for further evaluation. He denies any fevers, chills, nausea, vomiting or issues otherwise. He is noted to be hypotensive and overnight had an A Team called for she was given a bolus of fluids. Review of Systems 14 point review of systems performed. Pertinent positives and negatives per the HPI Past Medical History Past Medical History: Heart Failure, Diabetes Mellitus, Hyperlipidemia, Hypertension, Myocardial Infarction ([place]) Additional Past Medical History / Comment(s): Pneumonia with sepsis, NIDDM type II-diet controlled now, neuropathy R foot, nephrolithiasis-pt passed stone on his own. Last Myocardial Infarction Date:: 2012 History of Any Multi-Drug Resistant Organisms: None Reported Past Surgical History: Coronary Bypass/CABG Additional Past Surgical History / Comment(s): 2012 CABG 6 vessel Past Anesthesia/Blood Transfusion Reactions: No Reported Reaction Past Psychological History: No Psychological Hx Reported Additional Psychological History / Comment(s): Pt resides with his spouse. He is independent. Smoking Status: Never smoker Past Alcohol Use History: None Reported Past Drug Use History: None Reported - Past Family History Father Family Medical History: Cancer Additional Family Medical History / Comment(s): father at age 77 from prostate cancer Mother Family Medical History: Cancer Additional Family Medical History / Comment(s): Mother had bowel cancer. Medications and Allergies Home Medications Medication Instructions Recorded Confirmed Type Atorvastatin [Lipitor] 10 mg PO HS 09/03/15 05/31/20 History Clopidogrel Bisulfate [Plavix] 75 mg PO DAILY 09/03/15 05/31/20 History Spironolactone [Aldactone] 25 mg PO DAILY 09/03/15 05/31/20 History Furosemide [Lasix] 40 mg PO BID #60 tablet 04/08/20 05/31/20 Rx Potassium Chloride ER [K-Dur 10] 10 meq PO BID 05/16/20 05/31/20 History carvediloL [Coreg] 3.125 mg PO BID-W/MEALS #60 tab 05/18/20 05/31/20 Rx ALPRAZolam [Xanax] 0.25 mg PO HS PRN #12 tab 05/20/20 05/31/20 Rx Melatonin 5 mg PO HS PRN tablet 05/20/20 05/31/20 Rx Mirtazapine [Remeron] 15 mg PO HS #30 tab 05/20/20 05/31/20 Rx Sacubitril/Valsartan [Entresto 24 1 tab PO BID 05/31/20 05/31/20 History mg-26 mg Tablet] Allergies Allergy/AdvReac Type Severity Reaction Status Date / Time No Known Allergies Allergy Verified 05/31/20 13:21 Surgical - Exam Vital Signs Temp Pulse Resp BP Pulse Ox 98.3 F 79 20 65/45 99 05/31/20 12:25 05/31/20 12:25 05/31/20 12:25 05/31/20 12:25 05/31/20 12:25 Gen. is a pleasant and cooperative chronically ill-appearing male in no acute distress. HEENT is normocephalic, atraumatic, extraction motion intact. Wearing glasses and O2 per nasal cannula. Heart is regular. Lungs are clear bilaterally. Abdomen is soft. Extremity show no clubbing. Right lower extremity is no significant edema. He has trouble radial and femoral pulses bilaterally. Weakly biphasic right DP and PT. Monophasic left DP and PT. Fifth toe necrosis, sponge edema over the top and lateral portions of the foot. No obvious crepitus. Some erythema traveling up the medial portion of the leg as well as onto the dorsum of the ankle. Tenderness at the level of the ankle Results X-rays reviewed. Significant edema was some emphysema in the left foot. Ostium myelitis and bony degradation noted - Labs 06/01/20 07:16 05/31/20 23:14 Abnormal Lab Results - Last 24 Hours (Table) 05/31/20 05/31/20 05/31/20 Range/Units 12:40 12:58 12:58 WBC 14.8 H (3.8-10.6) k/uL RBC (4.30-5.90) m/uL Hgb (13.0-17.5) gm/dL MCHC (31.0-37.0) g/dL Neutrophils # 13.2 H (1.3-7.7) k/uL Lymphocytes # 0.7 L (1.0-4.8) k/uL Sodium 130 L (137-145) mmol/L Potassium 7.2 H* (3.5-5.1) mmol/L Chloride 93 L (98-107) mmol/L BUN 51 H (9-20) mg/dL Creatinine 1.51 H (0.66-1.25) mg/dL Glucose 261 H (74-99) mg/dL POC Glucose (mg/dL) (75-99) mg/dL Calcium (8.4-10.2) mg/dL Total Bilirubin 1.7 H (0.2-1.3) mg/dL AST 92 H (17-59) U/L ALT 94 H (4-49) U/L Alkaline Phosphatase 181 H (38-126) U/L Troponin I 0.042 H* (0.000-0.034) ng/mL 05/31/20 05/31/20 05/31/20 Range/Units 13:53 14:56 18:19 WBC (3.8-10.6) k/uL RBC (4.30-5.90) m/uL Hgb (13.0-17.5) gm/dL MCHC (31.0-37.0) g/dL Neutrophils # (1.3-7.7) k/uL Lymphocytes # (1.0-4.8) k/uL Sodium (137-145) mmol/L Potassium 6.4 H* (3.5-5.1) mmol/L Chloride (98-107) mmol/L BUN (9-20) mg/dL Creatinine (0.66-1.25) mg/dL Glucose (74-99) mg/dL POC Glucose (mg/dL) 216 H 103 H (75-99) mg/dL Calcium (8.4-10.2) mg/dL Total Bilirubin (0.2-1.3) mg/dL AST (17-59) U/L ALT (4-49) U/L Alkaline Phosphatase (38-126) U/L Troponin I (0.000-0.034) ng/mL 1205/31/20 05/31/20 Range/Units 20:28 22:59 23:14 WBC 15.3 H (3.8-10.6) k/uL RBC 4.26 L (4.30-5.90) m/uL Hgb 12.5 L (13.0-17.5) gm/dL MCHC 30.9 L (31.0-37.0) g/dL Neutrophils # 14.2 H (1.3-7.7) k/uL Lymphocytes # 0.5 L (1.0-4.8) k/uL Sodium (137-145) mmol/L Potassium (3.5-5.1) mmol/L Chloride (98-107) mmol/L BUN (9-20) mg/dL Creatinine (0.66-1.25) mg/dL Glucose (74-99) mg/dL POC Glucose (mg/dL) 217 H 273 H (75-99) mg/dL Calcium (8.4-10.2) mg/dL Total Bilirubin (0.2-1.3) mg/dL AST (17-59) U/L ALT (4-49) U/L Alkaline Phosphatase (38-126) U/L Troponin I (0.000-0.034) ng/mL 05/31/20 06/01/20 06/01/20 Range/Units 23:14 06:03 07:16 WBC 16.1 H (3.8-10.6) k/uL RBC (4.30-5.90) m/uL Hgb 12.7 L (13.0-17.5) gm/dL MCHC (31.0-37.0) g/dL Neutrophils # 14.6 H (1.3-7.7) k/uL Lymphocytes # 0.8 L (1.0-4.8) k/uL Sodium 132 L (137-145) mmol/L Potassium (3.5-5.1) mmol/L Chloride (98-107) mmol/L BUN 47 H (9-20) mg/dL Creatinine (0.66-1.25) mg/dL Glucose 308 H (74-99) mg/dL POC Glucose (mg/dL) 171 H (75-99) mg/dL Calcium 8.1 L (8.4-10.2) mg/dL Total Bilirubin (0.2-1.3) mg/dL AST (17-59) U/L ALT (4-49) U/L Alkaline Phosphatase (38-126) U/L Troponin I (0.000-0.034) ng/mL Diabetes panel 05/31/20 05/31/20 05/31/20 Range/Units 12:58 13:53 23:14 Sodium 130 L 132 L (137-145) mmol/L Potassium 7.2 H* 6.4 H* 5.1 (3.5-5.1) mmol/L Chloride 93 L 103 (98-107) mmol/L Carbon Dioxide 30 22 (22-30) mmol/L BUN 51 H 47 H (9-20) mg/dL Creatinine 1.51 H 1.15 (0.66-1.25) mg/dL Glucose 261 H 308 H (74-99) mg/dL Calcium 9.1 8.1 L (8.4-10.2) mg/dL AST 92 H (17-59) U/L ALT 94 H (4-49) U/L Alkaline Phosphatase 181 H (38-126) U/L Total Protein 6.7 (6.3-8.2) g/dL Albumin 3.5 (3.5-5.0) g/dL Calcium panel 05/31/20 05/31/20 Range/Units 12:58 23:14 Calcium 9.1 8.1 L (8.4-10.2) mg/dL Albumin 3.5 (3.5-5.0) g/dL Pituitary panel 05/31/20 05/31/20 05/31/20 Range/Units 12:58 13:53 23:14 Sodium 130 L 132 L (137-145) mmol/L Potassium 7.2 H* 6.4 H* 5.1 (3.5-5.1) mmol/L Chloride 93 L 103 (98-107) mmol/L Carbon Dioxide 30 22 (22-30) mmol/L BUN 51 H 47 H (9-20) mg/dL Creatinine 1.51 H 1.15 (0.66-1.25) mg/dL Glucose 261 H 308 H (74-99) mg/dL Calcium 9.1 8.1 L (8.4-10.2) mg/dL Adrenal panel 05/31/20 05/31/20 05/31/20 Range/Units 12:58 13:53 23:14 Sodium 130 L 132 L (137-145) mmol/L Potassium 7.2 H* 6.4 H* 5.1 (3.5-5.1) mmol/L Chloride 93 L 103 (98-107) mmol/L Carbon Dioxide 30 22 (22-30) mmol/L BUN 51 H 47 H (9-20) mg/dL Creatinine 1.51 H 1.15 (0.66-1.25) mg/dL Glucose 261 H 308 H (74-99) mg/dL Calcium 9.1 8.1 L (8.4-10.2) mg/dL Total Bilirubin 1.7 H (0.2-1.3) mg/dL AST 92 H (17-59) U/L ALT 94 H (4-49) U/L Alkaline Phosphatase 181 H (38-126) U/L Total Protein 6.7 (6.3-8.2) g/dL Albumin 3.5 (3.5-5.0) g/dL Assessment and Plan Assessment: #1 wet gangrene left fifth toe with osteomyelitis #2 possible necrotizing fasciitis with air noted on x-ray #3 diabetes mellitus #4 coronary artery disease status post CABG #5 congestive heart failure #6 hypertension, currently hypotensive Plan: Were notified of this consul there was no mention of the x-ray report or findings, this time upon my review I do believe is a more significant infection than just osteomyelitis of the fifth toe and given his clinical findings and exam would suspect significant infection rising more proximally into the level of the ankle. A long discussion was had with the patient and at this time we will plan taken from the operating room for a fourth and fifth toe amputation. We had a long discussion regarding the possibility of a need for further amputation and possible below-knee amputation and that at this time we'll do everything we can to save as much tissue as possible but if the infection itself ran significantly more proximally upon operative findings this would be necessary. The patient seemingly understood and is willing to proceed as such. He asked that he be the one to call his and discussed with her. I called Dr. Contreras to leave a message regarding my plans. Continue IV antibiotics. Continue fluid hydration and resuscitation.
[2020-06-01 09:09] LABS: Calcium 8.3 mg/dL (8.4-10.2); Potassium 4.5 mmol/L (3.5-5.1)
[2020-06-01] MEDS: PIPERACILLIN-TAZOBACTAM 3.375 GM in SODIUM CHLORIDE 0.9% 100 ML IVPB SCH ×3 (09:56→22:00)
[2020-06-01 12:04] LABS: Glucose,Whole Blood 133 mg/dL (75-99)
--- NOTE | 2020-06-01 12:55 | P.CRDCN ---
History of Present Illness Consult date: 06/01/20 Chief complaint: Left foot pain History of present illness: This is a very pleasant 70-year-old gentleman who is known to me very well with a past medical history very extensive consistent with coronary artery disease and prior coronary artery bypass grafting, severe ischemic cardiomyopathy, valvular heart disease, as well as diabetes and hypertension and dyslipidemia was admitted to the hospital with left foot discomfort and was diagnosed was a critical limb ischemia and also possible necrotizing fasciitis. The patient has been struggling with left foot discomfort for the last several weeks but yesterday he was seen by his primary care physician who advised the patient to go to the hospital for further evaluation. Subsequently the patient was seen by Dr. Lo who is going to take the patient to the OR today. Clinically the patient seems to be stable and he doesn't seems to be in any overt congestive heart failure at this point. He denies any symptoms of chest pain or chest discomfort but does have shortness of breath with exertion which has been stable. No dizziness or lightheadedness and no symptoms of heart racing or f luttering and no syncope. His pressure has been marginally low and because of that his present medications including the beta carlos enrique as well as [place] inhibitor where on hold at this point. The last echocardiogram showed severe cardiomyopathy which is consistent from before. From the cardiovascular standpoint overview, the patient can proceed with the surgery. I advised the surgery to be done not under general anesthesia because of his cardiovascular conditions. Past Medical History Past Medical History: Heart Failure, Diabetes Mellitus, Hyperlipidemia, Hypertension, Myocardial Infarction ([place]) Additional Past Medical History / Comment(s): Pneumonia with sepsis, NIDDM type II-diet controlled now, neuropathy R foot, nephrolithiasis-pt passed stone on his own. Last Myocardial Infarction Date:: 2012 History of Any Multi-Drug Resistant Organisms: None Reported Past Surgical History: Coronary Bypass/CABG Additional Past Surgical History / Comment(s): 2012 CABG 6 vessel Past Anesthesia/Blood Transfusion Reactions: No Reported Reaction Past Psychological History: No Psychological Hx Reported Additional Psychological History / Comment(s): Pt resides with his spouse. He is independent. Smoking Status: Never smoker Past Alcohol Use History: None Reported Past Drug Use History: None Reported - Past Family History Father Family Medical History: Cancer Additional Family Medical History / Comment(s): father at age 77 from prostate cancer Mother Family Medical History: Cancer Additional Family Medical History / Comment(s): Mother had bowel cancer. Medications and Allergies Home Medications Medication Instructions Recorded Confirmed Type Atorvastatin [Lipitor] 10 mg PO HS 09/03/15 05/31/20 History Clopidogrel Bisulfate [Plavix] 75 mg PO DAILY 09/03/15 05/31/20 History Spironolactone [Aldactone] 25 mg PO DAILY 09/03/15 05/31/20 History Furosemide [Lasix] 40 mg PO BID #60 tablet 04/08/20 05/31/20 Rx Potassium Chloride ER [K-Dur 10] 10 meq PO BID 05/16/20 05/31/20 History carvediloL [Coreg] 3.125 mg PO BID-W/MEALS #60 tab 05/18/20 05/31/20 Rx ALPRAZolam [Xanax] 0.25 mg PO HS PRN #12 tab 05/20/20 05/31/20 Rx Melatonin 5 mg PO HS PRN tablet 05/20/20 05/31/20 Rx Mirtazapine [Remeron] 15 mg PO HS #30 tab 05/20/20 05/31/20 Rx Sacubitril/Valsartan [Entresto 24 1 tab PO BID 05/31/20 05/31/20 History mg-26 mg Tablet] Allergies Allergy/AdvReac Type Severity Reaction Status Date / Time No Known Allergies Allergy Verified 05/31/20 13:21 Physical Exam Vitals: Vital Signs Temp Pulse Pulse Resp BP BP BP 06/01/20 08:00 97.7 F 63 16 91/54 06/01/20 05:32 84/54 06/01/20 04:00 98.2 F 73 19 80/52 06/01/20 03:19 98.2 F 73 19 79/53 06/01/20 02:00 73 19 05/31/20 23:24 96/61 05/31/20 23:16 05/31/20 23:14 82 16 78/50 05/31/20 23:07 79/48 05/31/20 23:06 82 75/47 05/31/20 20:00 97.7 F 80 18 86/56 05/31/20 18:25 97.6 F 77 18 93/54 05/31/20 17:09 76 18 83/51 05/31/20 15:56 82 18 87/53 05/31/20 15:09 87 18 90/65 05/31/20 14:41 85 18 85/69 05/31/20 14:30 84 05/31/20 14:23 84 05/31/20 13:47 75 18 100/86 05/31/20 13:34 77 18 66/49 Pulse Ox 06/01/20 08:00 92 L 06/01/20 05:32 06/01/20 04:00 99 06/01/20 03:19 99 06/01/20 02:00 05/31/20 23:24 05/31/20 23:16 97 05/31/20 23:14 98 05/31/20 23:07 05/31/20 23:06 05/31/20 20:00 98 05/31/20 18:25 93 L 05/31/20 17:09 98 05/31/20 15:56 98 05/31/20 15:09 95 05/31/20 14:41 98 05/31/20 14:30 05/31/20 14:23 05/31/20 13:47 98 05/31/20 13:34 97 Intake and Output 05/31/20 06/01/20 06/01/20 22:59 06:59 14:59 Intake Total 600 Output Total 475 Balance 125 Intake: Intake, IV Titration 500 Amount Sodium Chloride 0.9% 1, 500 000 ml @ 100 mls/hr IV . Q10H ONE Rx#:[id number] Oral 100 Output: Urine 475 Other: Voiding Method Toilet Toilet Toilet Urinal Urinal Urinal # Voids 1 Weight 75.296 kg - Constitutional General appearance: no acute distress - Respiratory Respiratory: bilateral: diminished - Cardiovascular Rhythm: regular Heart sounds: normal: S1, S2 Abnormal Heart Sounds: systolic murmur Results 06/01/20 07:16 06/01/20 07:16 Cardiac Enzymes 05/31/20 05/31/20 Range/Units 12:40 12:58 AST 92 H (17-59) U/L Troponin I 0.042 H* (0.000-0.034) ng/mL Coagulation 05/31/20 Range/Units 12:58 PT 11.1 (9.0-12.0) sec APTT 26.3 (22.0-30.0) sec CBC 05/31/20 05/31/20 06/01/20 Range/Units 12:58 23:14 07:16 WBC 14.8 H 15.3 H 16.1 H (3.8-10.6) k/uL RBC 4.73 4.26 L 4.33 (4.30-5.90) m/uL Hgb 14.6 12.5 L 12.7 L (13.0-17.5) gm/dL Hct 42.9 40.6 40.8 (39.0-53.0) % Plt Count 157 178 166 (150-450) k/uL Comprehensive Metabolic Panel 05/31/20 05/31/20 05/31/20 Range/Units 12:58 13:53 23:14 Sodium 130 L 132 L (137-145) mmol/L Potassium 7.2 H* 6.4 H* 5.1 (3.5-5.1) mmol/L Chloride 93 L 103 (98-107) mmol/L Carbon Dioxide 30 22 (22-30) mmol/L BUN 51 H 47 H (9-20) mg/dL Creatinine 1.51 H 1.15 (0.66-1.25) mg/dL Glucose 261 H 308 H (74-99) mg/dL Calcium 9.1 8.1 L (8.4-10.2) mg/dL AST 92 H (17-59) U/L ALT 94 H (4-49) U/L Alkaline Phosphatase 181 H (38-126) U/L Total Protein 6.7 (6.3-8.2) g/dL Albumin 3.5 (3.5-5.0) g/dL 06/01/20 Range/Units 07:16 Sodium 134 L (137-145) mmol/L Potassium 4.5 (3.5-5.1) mmol/L Chloride 101 (98-107) mmol/L Carbon Dioxide 28 (22-30) mmol/L BUN 44 H (9-20) mg/dL Creatinine 1.19 (0.66-1.25) mg/dL Glucose 162 H (74-99) mg/dL Calcium 8.3 L (8.4-10.2) mg/dL AST (17-59) U/L ALT (4-49) U/L Alkaline Phosphatase (38-126) U/L Total Protein (6.3-8.2) g/dL Albumin (3.5-5.0) g/dL Current Medications Generic Name Dose Route Start Last Admin Trade Name Jolanta PRN Reason Stop Dose Admin Vancomycin HCl 1,250 mg/ 250 mls @ 125 mls/hr 06/01/20 00:00 05/31/20 23:57 Sodium Chloride IVPB 125 mls/hr Q12H [facility] Administration Piperacillin Sod/Tazobactam 100 mls @ 25 mls/hr 06/01/20 00:00 06/01/20 09:56 Sod 3.375 gm/ Sodium Chloride IVPB 25 mls/hr Q8HR [facility] Administration Insulin Aspart 0 unit 05/31/20 22:53 06/01/20 07:02 Insulin Aspart (Novolog) 100 Unit/Ml Vial SQ 2 unit ACHS [facility] Administration Protocol Miscellaneous Information 1 each 06/02/20 11:00 Vancomycin Trough Due 1 Each Misc MISCELLANE 06/02/20 11:01 ONCE ONE Intake and Output 05/31/20 06/01/20 06/01/20 22:59 06:59 14:59 Intake Total 600 Output Total 475 Balance 125 Intake: Intake, IV Titration 500 Amount Sodium Chloride 0.9% 1, 500 000 ml @ 100 mls/hr IV . Q10H ONE Rx#:[id number] Oral 100 Output: Urine 475 Other: Voiding Method Toilet Toilet Toilet Urinal Urinal Urinal # Voids 1 Weight 75.296 kg 06/01/20 07:16 06/01/20 07:16 Assessment and Plan Assessment: Assessment #1 critical limb ischemia of the left foot #2 possible necrotizing fasciitis #3 severe coronary artery disease seems to be stable #4 severe ischemic cardiomyopathy #5 multiple comorbid conditions Plan #1 continue holding the blood pressure medications #2 the patient can proceed with the surgery #3 follow-up with the patient
[2020-06-01] MEDS: VANCOMYCIN 1,250 MG in SODIUM CHLORIDE 0.9% 250 ML IVPB SCH (13:17)
[2020-06-01 13:59] LABS: Glucose,Whole Blood 117 mg/dL (75-99)
[2020-06-01] MEDS ORDERED: IV FLUID CONTINUATION 150 ML IV ONE (14:18)
[2020-06-01] MEDS ORDERED: IV FLUID CONTINUATION 900 ML IV ONE (14:18)
[2020-06-01] MEDS ORDERED: ONDANSETRON 4 MG/2 ML VIAL ONE (14:22)
[2020-06-01] MEDS ORDERED: ONDANSETRON 4 MG/2 ML VIAL IVP ONE (14:25)
[2020-06-01] MEDS ORDERED: DEXAMETHASONE SOD PHOSPHATE 4 MG/ML 1 ML VIAL IVP ONE (14:26)
[2020-06-01] MEDS ORDERED: PHENYLEPHRINE 10 MG/ML VIAL ONE (14:40)
[2020-06-01] MEDS ORDERED: ROCURONIUM 10 MG/ML (10 ML VIAL) IV ONE (14:40)
[2020-06-01] MEDS ORDERED: fentaNYL (PF) 50 MCG/ML 2 ML AMP ONE (14:40)
[2020-06-01] MEDS ORDERED: PROPOFOL 10 MG/ML 20 ML VIAL IV ONE (14:40)
[2020-06-01] MEDS ORDERED: SUCCINYLCHOLINE CHLORIDE VIAL 200 MG/10 ML VIAL IV ONE (14:40)
[2020-06-01] MEDS ORDERED: GLYCOPYRROLATE 0.2 MG/ML 2 ML VIAL ONE (14:40)
[2020-06-01] MEDS ORDERED: ETOMIDATE 2 MG/ML 10 ML VIAL ONE (14:40)
[2020-06-01] MEDS ORDERED: NEOSTIGMINE 1 MG/ML 10 ML VIAL ONE (14:40)
[2020-06-01] MEDS ORDERED: LIDOCAINE 1% INJ 10MG/ML (20 ML MDV) ONE (14:40)
[2020-06-01] MEDS ORDERED: ePHEDrine SULFATE/0.9% NACL/PF 50 MG/5 ML SYRINGE IV ONE (14:40)
[2020-06-01] MEDS ORDERED: MIDAZOLAM 2 MG/2 ML VIAL ONE (14:40)
--- NOTE | 2020-06-01 15:02 | P.HPIM ---
History of Present Illness H&P Date: 06/01/20 Chief Complaint: Bluish Discoloration off left fifth toe This is a 70-year-old male who presented emergency department with symptoms of foot discomfort, which has been going on for several weeks, patient has been hospitalized in the past for similar problems, patient has noted left fifth toe is purple along with redness and tenderness up to the lower leg level, patient is being admitted into the hospital for vascular compromise with consultation with vascular surgery and infectious disease, past medical history significant for heart failure, diabetes mellitus, hypertension hypertensive cardiovascular disease patient does have a history of pneumonia in the past and Nephro-Faizan thesis, vascular surgery has evaluated the patient and cardiology has cleared the patient patient is going for surgery, patient overnight had the rapid response due to drop in blood pressure requiring fluid support, blood pressure did improve after bolus of the fluid, x-ray of the foot consistent with osteomyelitis and bony degeneration, potassium was 7.2 initially came down with rehydration last check was 5.1, Review of Systems All systems: negative Past Medical History Past Medical History: Heart Failure, Diabetes Mellitus, Hyperlipidemia, Hypertension, [place]ocardial Infarction ([place]) Additional Past Medical History / Comment(s): Pneumonia with sepsis, NIDDM type II-diet controlled now, neuropathy R foot, nephrolithiasis-pt passed stone on his own. Last Myocardial Infarction Date:: 2012 History of Any Multi-Drug Resistant Organisms: None Reported Past Surgical History: Coronary Bypass/CABG Additional Past Surgical History / Comment(s): 2012 CABG 6 vessel Past Anesthesia/Blood Transfusion Reactions: No Reported Reaction Past Psychological History: No Psychological Hx Reported Additional Psychological History / Comment(s): Pt resides with his spouse. He is independent. Smoking Status: Never smoker Past Alcohol Use History: None Reported Past Drug Use History: None Reported - Past Family History Father Family Medical History: Cancer Additional Family Medical History / Comment(s): father at age 77 from prostate cancer Mother Family Medical History: Cancer Additional Family Medical History / Comment(s): Mother had bowel cancer. Medications and Allergies Home Medications Medication Instructions Recorded Confirmed Type Atorvastatin [Lipitor] 10 mg PO HS 09/03/15 05/31/20 History Clopidogrel Bisulfate [Plavix] 75 mg PO DAILY 09/03/15 05/31/20 History Spironolactone [Aldactone] 25 mg PO DAILY 09/03/15 05/31/20 History Furosemide [Lasix] 40 mg PO BID #60 tablet 04/08/20 05/31/20 Rx Potassium Chloride ER [K-Dur 10] 10 meq PO BID 05/16/20 05/31/20 History carvediloL [Coreg] 3.125 mg PO BID-W/MEALS #60 tab 05/18/20 05/31/20 Rx ALPRAZolam [Xanax] 0.25 mg PO HS PRN #12 tab 05/20/20 05/31/20 Rx Melatonin 5 mg PO HS PRN tablet 05/20/20 05/31/20 Rx Mirtazapine [Remeron] 15 mg PO HS #30 tab 05/20/20 05/31/20 Rx Sacubitril/Valsartan [Entresto 24 1 tab PO BID 05/31/20 05/31/20 History mg-26 mg Tablet] Allergies Allergy/AdvReac Type Severity Reaction Status Date / Time No Known Allergies Allergy Verified 06/01/20 13:50 Physical Exam Vitals: Vital Signs Temp Pulse Pulse Resp BP BP BP 06/01/20 13:48 97.2 F L 82 16 100/60 06/01/20 13:34 80 16 06/01/20 12:00 97.7 F 80 16 93/54 06/01/20 08:00 97.7 F 63 16 91/54 06/01/20 06:54 97.7 F 80 16 93/54 06/01/20 05:32 84/54 06/01/20 04:00 98.2 F 73 19 80/52 06/01/20 03:19 98.2 F 73 19 79/53 06/01/20 02:00 73 19 05/31/20 23:24 96/61 05/31/20 23:16 05/31/20 23:14 82 16 78/50 05/31/20 23:07 79/48 05/31/20 23:06 82 75/47 05/31/20 20:00 97.7 F 80 18 86/56 05/31/20 18:25 97.6 F 77 18 93/54 05/31/20 17:09 76 18 83/51 05/31/20 15:56 82 18 87/53 05/31/20 15:09 87 18 90/65 Pulse Ox 06/01/20 13:48 93 L 06/01/20 13:34 06/01/20 12:00 94 L 06/01/20 08:00 92 L 06/01/20 06:54 96 06/01/20 05:32 06/01/20 04:00 99 06/01/20 03:19 99 06/01/20 02:00 05/31/20 23:24 05/31/20 23:16 97 05/31/20 23:14 98 05/31/20 23:07 05/31/20 23:06 05/31/20 20:00 98 05/31/20 18:25 93 L 05/31/20 17:09 98 05/31/20 15:56 98 05/31/20 15:09 95 Intake and Output 05/31/20 06/01/20 06/01/20 22:59 06:59 14:59 Intake Total 600 1250 Output Total 475 400 Balance 125 850 Intake: IV 100 Intake, IV Titration 500 1150 Amount Piperacillin-Tazobactam 3 100 .375 gm In Sodium Chloride 0.9% 100 ml @ 25 mls/hr IVPB Q8HR [facility] Rx# :[id number] Sodium Chloride 0.9% 1, 500 800 000 ml @ 100 mls/hr IV . Q10H ONE Rx#:[id number] Vancomycin 1,250 mg In 250 Sodium Chloride 0.9% 250 ml @ 125 mls/hr IVPB Q12H [facility] Rx#:[id number] Oral 100 Output: Urine 475 400 Other: Voiding Method Toilet Toilet Toilet Urinal Urinal Urinal # Voids 1 Weight 75.296 kg Please refer to detailed vascular exam by vascular surgery - Constitutional General appearance: average body habitus, cooperative, disheveled - EENT Eyes: PERRLA ENT: normal oropharynx Ears: bilateral: normal - Neck Carotids: bilateral: upstroke normal - Respiratory Respiratory: bilateral: CTA - Cardiovascular Rhythm: regular Heart sounds: normal: S1, S2 - Integumentary Integumentary: normal turgor - Neurologic Neurologic: CNII-XII intact - Musculoskeletal Musculoskeletal: generalized weakness - Psychiatric Psychiatric: A&O x's 3 Results CBC & Chem 7: 06/01/20 07:16 06/01/20 07:16 Labs: Abnormal Lab Results - Last 24 Hours (Table) 05/31/20 05/31/20 05/31/20 Range/Units 12:40 14:56 18:19 WBC (3.8-10.6) k/uL RBC (4.30-5.90) m/uL Hgb (13.0-17.5) gm/dL MCHC (31.0-37.0) g/dL Neutrophils # (1.3-7.7) k/uL Lymphocytes # (1.0-4.8) k/uL Sodium (137-145) mmol/L BUN (9-20) mg/dL Glucose (74-99) mg/dL POC Glucose (mg/dL) 216 H 103 H (75-99) mg/dL Calcium (8.4-10.2) mg/dL Troponin I 0.042 H* (0.000-0.034) ng/mL 05/31/20 05/31/20 05/31/20 Range/Units 20:28 22:59 23:14 WBC 15.3 H (3.8-10.6) k/uL RBC 4.26 L (4.30-5.90) m/uL Hgb 12.5 L (13.0-17.5) gm/dL MCHC 30.9 L (31.0-37.0) g/dL Neutrophils # 14.2 H (1.3-7.7) k/uL Lymphocytes # 0.5 L (1.0-4.8) k/uL Sodium (137-145) mmol/L BUN (9-20) mg/dL Glucose (74-99) mg/dL POC Glucose (mg/dL) 217 H 273 H (75-99) mg/dL Calcium (8.4-10.2) mg/dL Troponin I (0.000-0.034) ng/mL 05/31/20 06/01/20 06/01/20 Range/Units 23:14 06:03 07:16 WBC (3.8-10.6) k/uL RBC (4.30-5.90) m/uL Hgb (13.0-17.5) gm/dL MCHC (31.0-37.0) g/dL Neutrophils # (1.3-7.7) k/uL Lymphocytes # (1.0-4.8) k/uL Sodium 132 L 134 L (137-145) mmol/L BUN 47 H 44 H (9-20) mg/dL Glucose 308 H 162 H (74-99) mg/dL POC Glucose (mg/dL) 171 H (75-99) mg/dL Calcium 8.1 L 8.3 L (8.4-10.2) mg/dL Troponin I (0.000-0.034) ng/mL 06/01/20 06/01/20 06/01/20 Range/Units 07:16 11:53 13:58 WBC 16.1 H (3.8-10.6) k/uL RBC (4.30-5.90) m/uL Hgb 12.7 L (13.0-17.5) gm/dL MCHC (31.0-37.0) g/dL Neutrophils # 14.6 H (1.3-7.7) k/uL Lymphocytes # 0.8 L (1.0-4.8) k/uL Sodium (137-145) mmol/L BUN (9-20) mg/dL Glucose (74-99) mg/dL POC Glucose (mg/dL) 133 H 117 H (75-99) mg/dL Calcium (8.4-10.2) mg/dL Troponin I (0.000-0.034) ng/mL Comments: X-ray reviewed laboratory reviewed Thrombosis Risk Factor Assmnt - Choose All That Apply Each Factor Represents 1 point: Medical pt on bed rest Each Risk Factor Represents 2 Points: Age 61-74 years Other congenital or acquired thrombophilia - If yes, enter type in comment: No Thrombosis Risk Factor Assessment Total Risk Factor Score: 3 Thrombosis Risk Factor Assessment Level: Moderate Risk Assessment and Plan Assessment: Sepsis due to osteomyelitis Osteomyelitis of the left fifth toe Necrotizing fasciitis Acute kidney injury Diabetes mellitus Coronary artery disease, status post CABG Hypertensive cardiovascular disease Plan: Patient is going to OR for amputation Broad-spectrum antibiotics ID and vascular surgery and cardiology consultation Further plan of care as per clinical response of the patient Time with Patient: Greater than 30
--- NOTE | 2020-06-01 15:47 | P.OP ---
Date of Procedure: 06/01/20 Description of Procedure: Preoperative diagnosis: Wet gangrene left fifth toe, osteomyelitis Postoperative diagnosis: As above, Necrotizing fasciitis extending to the ankle and up the anterior compartment Procedure: [Left below knee guillotine amputation of the foot, deep space culture] Surgeon: Jenny Lo D.O. Anesthesia: Gen. endotracheal EBL: [15 mL] IV fluids: [See records] Urine output: [Not measured] Drains: [None] Complications: [None immediately apparent] Condition: [Stable to recovery] Operative indication and findings: [The patient is a 70-year-old male with significant past medical historyWith coronary artery disease, previous bypass graft, severe ischemic cardiomyopathy, valvular heart disease, diabetes, hypertension and dyslipidemia who presented for left fifth toe pain and discoloration over the past 4-5 days and rapid progression. He has erythema at the level of his ankle and some tracking up the leg. Imaging revealed osteomyelitis as well as some evidence of emphysema on the x-ray. After my evaluation of the patient is morning he was scheduled for urgent surgery and we discussed the opportunity of a possible fourth and fifth toe amputation versus the likelihood of needing a below-knee amputation, likely a guillotine. The patient seemingly understood and was willing to proceed as such. He is a no CODE STATUS but we did discuss the need to change to a full code during the procedure itself which can be returned to a status following the procedure] Procedure in detail: [Patient was taken to the operative suite and placed in supine position. Due to anesthesia concerns for possible coronavirus infection without the return of the rapid test at this point, precautions were taken and it was decided to intubate the patient for airway control rather than Mac anesthesia with a regional block. The left lower extremity was prepped and draped in usual sterile fashion. A preprocedure timeout was performed, all parties were in agreement. A circumferential incision was made around the fifth toe which immediately revealed a significant return of purulent drainage. This was bluntly dissected and traversed all the way to the level of the ankle. Given the significant tissue destruction from the infection it was decided at that point a guillotine amputation would be necessary. Circumferential incision was made at the level of the ankle and a Gigli saw was utilized. The ankle was transected through the tibia and fibula and the foot was passed off. Bleeding was controlled with hemostats and suture ligation with Vicryl. Probing was then performed and it did appear that the ease of dissection typical with necrotizing fasciitis did traverse up the anterior compartment. This was incised to the level at which no further dissection was easily performed. The area was then copiously irrigated. Dressing was placed. The patient was allowed awaken from anesthesia and transferred to recovery in stable condition. The patient will need return to the OR at some point for definitive below-knee closure. We will await seeing how he fares from the infection as well as the stress of general anesthesia and go forward with recommendations accordingly. At the time of the definitive procedure, I'm hoping we will be able to perform this under a regional block with monitored anesthesia rather than general anesthesia]
[2020-06-01 16:05] LABS: Hemoglobin A1C 8.3 % (4.0-6.0)
[2020-06-01 16:24] LABS: Glucose,Whole Blood 145 mg/dL (75-99)
[2020-06-01] MEDS: MIDAZOLAM 2 MG/2 ML VIAL IVP ONE ×4 (17:29→18:43)
[2020-06-01 18:03] LABS: ABG Base Excess -4.5 mmol/L; ABG HCO3 23 mmol/L (21-25); ABG Oxygen Saturation 94.9 % (94-97); ABG PCO2 53 mmHg (35-45); ABG PH 7.24 (7.35-7.45); ABG PO2 81 mmHg (83-108); ABG TCO2 24 mmol/L (19-24)
[2020-06-01] MEDS ORDERED: FUROSEMIDE 10 MG/ML 4 ML VIAL IVP ONE (18:13)
[2020-06-01] MEDS ORDERED: ALBUMIN HUMAN 5% (12.5gm) 250 ML BOTTLE IVPB ONE (18:22)
[2020-06-01] MEDS ORDERED: ALBUMIN HUMAN 5% 250 ML in EMPTY BAG 1 BAG IVPB ONE (18:30)
--- NOTE | 2020-06-01 18:39 | XR ---
EXAMINATION TYPE: XR chest 1V confirm line [facility] DATE OF EXAM: 06/01/2020 COMPARISON: 05/16/2020 HISTORY: Short of breath TECHNIQUE: FINDINGS: There is pulmonary vascular congestion. There is blunting of the costophrenic angles. Heart is enlarged. Endotracheal tube is 4 cm from the cailin. There are chest leads. There are sternal wires. IMPRESSION: Congestive heart failure with pleural effusions. No significant change compared to old ex am.
[2020-06-01] MEDS ORDERED: SODIUM CHLORIDE 0.9% 1,000 ML IV ONE (19:01)
[2020-06-01] MEDS: HYDROmorphone 0.5 MG/0.5 ML SYRINGE IVP ONE ×2 (19:48→20:22)
[2020-06-01 20:36] LABS: Glucose,Whole Blood 143 mg/dL (75-99)
[2020-06-01 21:10] LABS: ABG Base Excess -3.2 mmol/L; ABG HCO3 22 mmol/L (21-25); ABG Oxygen Saturation 97.8 % (94-97); ABG PCO2 40 mmHg (35-45); ABG PH 7.36 (7.35-7.45); ABG PO2 91 mmHg (83-108); ABG TCO2 24 mmol/L (19-24); Allen Test Performed? Yes
[2020-06-01] MEDS: LACTATED RINGERS 500 ML IV SCH ×2 (21:18→22:53)
[2020-06-01] MEDS: LACTATED RINGERS 1,000 ML IV SCH (21:18)
[2020-06-01 21:40] LABS: Basophils % (A) 0 %; Eosinophils % (A) 0 %; HGB 12.2 gm/dL (13.0-17.5); Lymphocytes # (A) 0.3 k/uL (1.0-4.8); Lymphocytes % (A) 3 %; MCH 29.6 pg (25.0-35.0); MCHC 32.2 g/dL (31.0-37.0); MCV 91.9 fL (80.0-100.0); Mean Platelet Volume 8.4; Monocytes # (A) 0.4 k/uL (0-1.0); Monocytes % (A) 3 %; Neutrophils # (A) 11.6 k/uL (1.3-7.7); Neutrophils % (A) 93 %; Platelet Count 150 k/uL (150-450); RBC 4.14 m/uL (4.30-5.90); RDW 14.7 % (11.5-15.5); WBC 12.4 k/uL (3.8-10.6)
[2020-06-01 21:49] LABS: ALT 55 U/L (4-49); AST 43 U/L (17-59); African American GFR (CKD) >90 (>60 ml/min/1.73 sqM); Albumin 2.4 g/dL (3.5-5.0); Alkaline Phosphatase 127 U/L (38-126); Anion Gap 6 mmol/L; Blood Urea Nitrogen 41 mg/dL (9-20); Calcium 7.8 mg/dL (8.4-10.2); Carbon Dioxide 24 mmol/L (22-30); Chloride 106 mmol/L (98-107); Glucose 154 mg/dL (74-99); Magnesium 1.9 mg/dL (1.6-2.3); Non-African American GFR(CKD) 84 (>60 ml/min/1.73 sqM); Potassium 4.8 mmol/L (3.5-5.1); Sodium 136 mmol/L (137-145); Total Bilirubin 1.2 mg/dL (0.2-1.3)
[2020-06-01] MEDS ORDERED: NALOXONE 0.4 MG/ML 1 ML VIAL IV PRN (21:58)
[2020-06-01] MEDS ORDERED: Magnesium Replacement Protocol 1 EACH MISC MISCELLANE PRN (22:25)
[2020-06-01 23:13] LABS: Appearance,Urine Cloudy (Clear); Bacteria,Urine Rare /hpf; Bilirubin,Urine Negative (Negative); Blood,Urine Negative (Negative); Color,Urine Yellow; Glucose,Urine (UA) Negative (Negative); Ketones,Urine Trace (Negative); Leukocyte Esterase,Urine Negative (Negative); Mucus,Urine Rare /hpf; Nitrite,Urine Negative (Negative); Protein,Urine Negative (Negative); RBC,Urine 1 /hpf (0-5); Specific Gravity,Urine 1.015 (1.001-1.035); Squamous Epithelial Cell,Urine <1 /hpf (0-4); Urobilinogen,Urine <2.0 mg/dL (<2.0); WBC,Urine 2 /hpf (0-5)
[2020-06-02 01:12] LABS: Glucose,Whole Blood 166 mg/dL (75-99)
[2020-06-02] MEDS: MAGNESIUM SULFATE-D5W PMX 1 GM in DEXTROSE/WATER 1 100ML.BAG IVPB SCH ×2 (01:17→02:32)
[2020-06-02] MEDS: INSULIN ASPART (NovoLOG) 100 UNIT/ML VIAL SQ SCH ×4 (01:18→17:40)
[2020-06-02] MEDS: VANCOMYCIN 1,250 MG in SODIUM CHLORIDE 0.9% 250 ML IVPB SCH ×2 (01:31→14:08)
[2020-06-02] MEDS: fentaNYL (PF) 50 MCG/ML 2 ML AMP IVP PRN ×2 (02:26→09:28)
[2020-06-02] MEDS ORDERED: LACTATED RINGERS 500 ML IV SCH (03:00)
[2020-06-02 05:28] LABS: ABG Base Excess -2.6 mmol/L; ABG HCO3 23 mmol/L (21-25); ABG Oxygen Saturation 99.1 % (94-97); ABG PCO2 40 mmHg (35-45); ABG PH 7.37 (7.35-7.45); ABG PO2 160 mmHg (83-108); ABG TCO2 24 mmol/L (19-24); Allen Test Performed? Yes
[2020-06-02 05:33] LABS: Basophils % (A) 0 %; Eosinophils % (A) 0 %; HCT 38.7 % (39.0-53.0); HGB 12.8 gm/dL (13.0-17.5); Lymphocytes # (A) 0.5 k/uL (1.0-4.8); Lymphocytes % (A) 4 %; MCH 30.1 pg (25.0-35.0); MCHC 32.9 g/dL (31.0-37.0); MCV 91.5 fL (80.0-100.0); Mean Platelet Volume 8.6; Monocytes # (A) 0.6 k/uL (0-1.0); Monocytes % (A) 4 %; Neutrophils # (A) 11.9 k/uL (1.3-7.7); Neutrophils % (A) 91 %; Platelet Count 159 k/uL (150-450); RBC 4.24 m/uL (4.30-5.90); RDW 14.9 % (11.5-15.5); WBC 13.1 k/uL (3.8-10.6)
[2020-06-02 05:41] LABS: African American GFR (CKD) >90 (>60 ml/min/1.73 sqM); Anion Gap 5 mmol/L; Blood Urea Nitrogen 36 mg/dL (9-20); Calcium 7.8 mg/dL (8.4-10.2); Carbon Dioxide 23 mmol/L (22-30); Chloride 108 mmol/L (98-107); Glucose 160 mg/dL (74-99); Non-African American GFR(CKD) >90 (>60 ml/min/1.73 sqM); Potassium 4.7 mmol/L (3.5-5.1); Sodium 136 mmol/L (137-145)
[2020-06-02 06:12] LABS: Glucose,Whole Blood 168 mg/dL (75-99)
[2020-06-02] MEDS: NOREPINEPHRINE 4 MG in SODIUM CHLORIDE 0.9% 250 ML IV SCH (06:23)
[2020-06-02] MEDS: LACTATED RINGERS 1,000 ML IV SCH ×2 (06:23→16:38)
--- NOTE | 2020-06-02 07:23 | P.PN ---
Subjective Progress Note Date: 06/02/20 Principal diagnosis: Critical limb ischemia/severe coronary artery disease/severe cardiomyopathy This is a 70-year-old gentleman with severe CAD and severe cardiomyopathy as well as valvular heart disease was diagnosed was critical limb ischemia of the left foot. He underwent yesterday left below the knee amputation. The patient was seen in the intensive care unit today June [id number]. Unfortunately he continues to be intubated but there is possible that he can be extubated today. He is hemodynamically unstable and requiring a small dose of norepinephrine. I'm going to wean him and hopefully we can stop the norepinephrine later on today. The patient is awake and he follow commands. Objective - Vital Signs Vital signs: Vital Signs Temp 96.3 F L 06/02/20 04:00 Pulse 55 L 06/02/20 06:00 Resp 14 06/02/20 06:00 BP 82/51 06/02/20 06:00 Pulse Ox 98 06/02/20 06:00 Intake & Output 06/01/20 06/02/20 06/02/20 18:59 06:59 18:59 Intake Total 2900 1474.020 7.179 Output Total 515 700 Balance 2385 774.020 7.179 Weight 59.5 kg Intake: IV 1750 1400 Lactated Ringers 500 ml 1400 bolus Intake, IV Titration 1150 74.020 7.179 Amount Norepinephrine 4 mg In 7.179 Sodium Chloride 0.9% 250 ml @ 0.05 MCG/KG/MIN 11. 335 mls/hr IV .[id number] [facility] Rx#:[id number] Piperacillin-Tazobactam 3 100 .375 gm In Sodium Chloride 0.9% 100 ml @ 25 mls/hr IVPB Q8HR [facility] Rx# :[id number] Sodium Chloride 0.9% 1, 800 000 ml @ 100 mls/hr IV . Q10H ONE Rx#:[id number] Vancomycin 1,250 mg In 250 Sodium Chloride 0.9% 250 ml @ 125 mls/hr IVPB Q12H [facility] Rx#:[id number] propofoL 1,000 mg In 74.020 Empty Bag 1 bag @ Titrate IV .Q0M [facility] Rx#: [id number] Oral 0 Output: Urine 500 700 Estimated Blood Loss 15 Other: Voiding Method Toilet Indwelling Catheter Urinal - Constitutional General appearance: Present: no acute distress - Respiratory Respiratory: bilateral: diminished - Cardiovascular Rhythm: regular Heart sounds: normal: S1, S2 - Labs CBC & Chem 7: 06/02/20 04:49 06/02/20 04:49 Labs: Abnormal Lab Results - Last 24 Hours (Table) 06/01/20 06/01/20 06/01/20 Range/Units 07:16 07:16 07:16 WBC 16.1 H (3.8-10.6) k/uL RBC (4.30-5.90) m/uL Hgb 12.7 L (13.0-17.5) gm/dL Hct (39.0-53.0) % Neutrophils # 14.6 H (1.3-7.7) k/uL Lymphocytes # 0.8 L (1.0-4.8) k/uL ABG pH (7.35-7.45) ABG pCO2 (35-45) mmHg ABG pO2 (83-108) mmHg ABG O2 Saturation (94-97) % Sodium 134 L (137-145) mmol/L Chloride (98-107) mmol/L BUN 44 H (9-20) mg/dL Glucose 162 H (74-99) mg/dL POC Glucose (mg/dL) (75-99) mg/dL Hemoglobin A1c 8.3 H (4.0-6.0) % Calcium 8.3 L (8.4-10.2) mg/dL ALT (4-49) U/L Alkaline Phosphatase (38-126) U/L Total Protein (6.3-8.2) g/dL Albumin (3.5-5.0) g/dL Urine Ketones (Negative) Urine Bacteria (None) /hpf Urine Mucus (None) /hpf 06/01/20 06/01/20 06/01/20 Range/Units 11:53 13:58 16:22 WBC (3.8-10.6) k/uL RBC (4.30-5.90) m/uL Hgb (13.0-17.5) gm/dL Hct (39.0-53.0) % Neutrophils # (1.3-7.7) k/uL Lymphocytes # (1.0-4.8) k/uL ABG pH (7.35-7.45) ABG pCO2 (35-45) mmHg ABG pO2 (83-108) mmHg ABG O2 Saturation (94-97) % Sodium (137-145) mmol/L Chloride (98-107) mmol/L BUN (9-20) mg/dL Glucose (74-99) mg/dL POC Glucose (mg/dL) 133 H 117 H 145 H (75-99) mg/dL Hemoglobin A1c (4.0-6.0) % Calcium (8.4-10.2) mg/dL ALT (4-49) U/L Alkaline Phosphatase (38-126) U/L Total Protein (6.3-8.2) g/dL Albumin (3.5-5.0) g/dL Urine Ketones (Negative) Urine Bacteria (None) /hpf Urine Mucus (None) /hpf 06/01/20 06/01/20 06/01/20 Range/Units 17:57 20:34 21:08 WBC (3.8-10.6) k/uL RBC (4.30-5.90) m/uL Hgb (13.0-17.5) gm/dL Hct (39.0-53.0) % Neutrophils # (1.3-7.7) k/uL Lymphocytes # (1.0-4.8) k/uL ABG pH 7.24 L (7.35-7.45) ABG pCO2 53 H (35-45) mmHg ABG pO2 81 L (83-108) mmHg ABG O2 Saturation 97.8 H (94-97) % Sodium (137-145) mmol/L Chloride (98-107) mmol/L BUN (9-20) mg/dL Glucose (74-99) mg/dL POC Glucose (mg/dL) 143 H (75-99) mg/dL Hemoglobin A1c (4.0-6.0) % Calcium (8.4-10.2) mg/dL ALT (4-49) U/L Alkaline Phosphatase (38-126) U/L Total Protein (6.3-8.2) g/dL Albumin (3.5-5.0) g/dL Urine Ketones (Negative) Urine Bacteria (None) /hpf Urine Mucus (None) /hpf 06/01/20 06/01/20 06/01/20 Range/Units 21:19 21:19 22:32 WBC 12.4 H (3.8-10.6) k/uL RBC 4.14 L (4.30-5.90) m/uL Hgb 12.2 L (13.0-17.5) gm/dL Hct 38.0 L (39.0-53.0) % Neutrophils # 11.6 H (1.3-7.7) k/uL Lymphocytes # 0.3 L (1.0-4.8) k/uL ABG pH (7.35-7.45) ABG pCO2 (35-45) mmHg ABG pO2 (83-108) mmHg ABG O2 Saturation (94-97) % Sodium 136 L (137-145) mmol/L Chloride (98-107) mmol/L BUN 41 H (9-20) mg/dL Glucose 154 H (74-99) mg/dL POC Glucose (mg/dL) (75-99) mg/dL Hemoglobin A1c (4.0-6.0) % Calcium 7.8 L (8.4-10.2) mg/dL ALT 55 H (4-49) U/L Alkaline Phosphatase 127 H (38-126) U/L Total Protein 5.0 L (6.3-8.2) g/dL Albumin 2.4 L (3.5-5.0) g/dL Urine Ketones Trace H (Negative) Urine Bacteria Rare H (None) /hpf Urine Mucus Rare H (None) /hpf 06/02/20 06/02/20 06/02/20 Range/Units 01:10 04:49 04:49 WBC 13.1 H (3.8-10.6) k/uL RBC 4.24 L (4.30-5.90) m/uL Hgb 12.8 L (13.0-17.5) gm/dL Hct 38.7 L (39.0-53.0) % Neutrophils # 11.9 H (1.3-7.7) k/uL Lymphocytes # 0.5 L (1.0-4.8) k/uL ABG pH (7.35-7.45) ABG pCO2 (35-45) mmHg ABG pO2 (83-108) mmHg ABG O2 Saturation (94-97) % Sodium 136 L (137-145) mmol/L Chloride 108 H (98-107) mmol/L BUN 36 H (9-20) mg/dL Glucose 160 H (74-99) mg/dL POC Glucose (mg/dL) 166 H (75-99) mg/dL Hemoglobin A1c (4.0-6.0) % Calcium 7.8 L (8.4-10.2) mg/dL ALT (4-49) U/L Alkaline Phosphatase (38-126) U/L Total Protein (6.3-8.2) g/dL Albumin (3.5-5.0) g/dL Urine Ketones (Negative) Urine Bacteria (None) /hpf Urine Mucus (None) /hpf 06/02/20 06/02/20 Range/Units 05:25 06:11 WBC (3.8-10.6) k/uL RBC (4.30-5.90) m/uL Hgb (13.0-17.5) gm/dL Hct (39.0-53.0) % Neutrophils # (1.3-7.7) k/uL Lymphocytes # (1.0-4.8) k/uL ABG pH (7.35-7.45) ABG pCO2 (35-45) mmHg ABG pO2 160 H (83-108) mmHg ABG O2 Saturation 99.1 H (94-97) % Sodium (137-145) mmol/L Chloride (98-107) mmol/L BUN (9-20) mg/dL Glucose (74-99) mg/dL POC Glucose (mg/dL) 168 H (75-99) mg/dL Hemoglobin A1c (4.0-6.0) % Calcium (8.4-10.2) mg/dL ALT (4-49) U/L Alkaline Phosphatase (38-126) U/L Total Protein (6.3-8.2) g/dL Albumin (3.5-5.0) g/dL Urine Ketones (Negative) Urine Bacteria (None) /hpf Urine Mucus (None) /hpf Microbiology - Last 24 Hours (Table) 06/01/20 15:35 Gram Stain - Preliminary Foot - Left Wound Culture - Preliminary 06/01/20 15:35 Anaerobic Culture - Preliminary Foot - Left 05/31/20 12:58 Blood Culture - Preliminary Blood No Growth after 24 hours 05/31/20 12:58 Blood Culture - Preliminary Blood No Growth after 24 hours Assessment and Plan Assessment: Assessment #1 status post left below the knee amputation #2 critical limb ischemia of the left leg #3 coronary artery disease #4 severe cardiomyopathy #5 valvular heart disease Plan #1 wean the patient from norepinephrine #2 hopefully extubation later on today #3 restart the cardiomyopathy medications once the pressure improved #4 follow-up with the patient
[2020-06-02] MEDS: PIPERACILLIN-TAZOBACTAM 3.375 GM in SODIUM CHLORIDE 0.9% 100 ML IVPB SCH ×2 (08:04→16:37)
--- NOTE | 2020-06-02 08:30 | XR ---
EXAMINATION TYPE: XR chest 1V portable DATE OF EXAM: 06/02/2020 COMPARISON: Chest x-ray 06/01/2020 HISTORY: Intubated TECHNIQUE: Single frontal view of the chest is obtained. FINDINGS: Endotracheal tube, NG tube are overlying appropriate positions. Patient is post median yamilet rnotomy. Cardiac mediastinal silhouette is stable. Bibasilar density persists. No evident pneumothora x. IMPRESSION: Pleural parenchymal changes are similar, correlate for pneumonia, edema and heart failur e, ARDS, associated effusions
[2020-06-02] MEDS: PANTOPRAZOLE 40 MG/10 ML VIAL IV SCH (09:13)
[2020-06-02] MEDS ORDERED: VANCOMYCIN TROUGH DUE 1 EACH MISC MISCELLANE ONE (11:00)
[2020-06-02] MEDS: CHLORHEXIDINE GLUCONATE 15 ML CUP MUCOUS MEM SCH ×2 (11:09→19:41)
[2020-06-02 12:03] LABS: Glucose,Whole Blood 146 mg/dL (75-99)
--- NOTE | 2020-06-02 12:31 | P.PN ---
Subjective Progress Note Date: 06/02/20 Patient seen and examined. Overnight events noted. Patient awake and alert on the ventilator. No complaints. Intubated. Awake and alert. No acute distress. Left lower extremity dressing is changed. No evidence of further necrosis or purulent drainage. Edematous. Rewrapped with wet-to-dry dressing and Coban. Gas gangrene left foot with infection up to ankle and anterior compartment Acute ventilator dependent respiratory failure This plan hopeful for weaning to extubation. I do believe this can be successful prior to any further surgeries. It was discussed at length with the as well as other care team that the patient will need formal below-knee amputation with closure definitively later on. There is no brock to this as the infection is drained and there is no evidence of current ongoing infection. Continue daily dressing changes. We will reevaluate him on a daily basis to peter perales when the best opportunity for amputation Objective - Vital Signs Vital signs: Vital Signs Temp 96.3 F L 06/02/20 08:00 Pulse 60 06/02/20 11:00 Resp 14 06/02/20 11:00 BP 90/57 06/02/20 11:00 Pulse Ox 98 06/02/20 11:00 Intake & Output 06/01/20 06/02/20 06/02/20 18:59 06:59 18:59 Intake Total 2900 1474.020 643.177 Output Total 515 700 225 Balance 2385 774.020 418.177 Weight 59.5 kg Intake: IV 1750 1400 500 Lactated Ringers 1,000 ml 400 @ 100 mls/hr IV .Q10H [facility] Rx#:[id number] Lactated Ringers 500 ml 1400 100 bolus Intake, IV Titration 1150 74.020 143.177 Amount Norepinephrine 4 mg In 7.179 Sodium Chloride 0.9% 250 ml @ 0.05 MCG/KG/MIN 11. 335 mls/hr IV .[id number] [facility] Rx#:[id number] Piperacillin-Tazobactam 3 100 100 .375 gm In Sodium Chloride 0.9% 100 ml @ 25 mls/hr IVPB Q8HR [facility] Rx# :[id number] Sodium Chloride 0.9% 1, 800 000 ml @ 100 mls/hr IV . Q10H ONE Rx#:[id number] Vancomycin 1,250 mg In 250 Sodium Chloride 0.9% 250 ml @ 125 mls/hr IVPB Q12H [facility] Rx#:[id number] propofoL 1,000 mg In 74.020 35.998 Empty Bag 1 bag @ Titrate IV .Q0M [facility] Rx#: [id number] Oral 0 Output: Urine 500 700 225 Estimated Blood Loss 15 Other: Voiding Method Toilet Indwelling Catheter Indwelling Catheter Urinal - Labs CBC & Chem 7: 06/02/20 04:49 06/02/20 04:49 Labs: Abnormal Lab Results - Last 24 Hours (Table) 06/01/20 06/01/20 06/01/20 Range/Units 07:16 13:58 16:22 WBC (3.8-10.6) k/uL RBC (4.30-5.90) m/uL Hgb (13.0-17.5) gm/dL Hct (39.0-53.0) % Neutrophils # (1.3-7.7) k/uL Lymphocytes # (1.0-4.8) k/uL ABG pH (7.35-7.45) ABG pCO2 (35-45) mmHg ABG pO2 (83-108) mmHg ABG O2 Saturation (94-97) % Sodium (137-145) mmol/L Chloride (98-107) mmol/L BUN (9-20) mg/dL Glucose (74-99) mg/dL POC Glucose (mg/dL) 117 H 145 H (75-99) mg/dL Hemoglobin A1c 8.3 H (4.0-6.0) % Calcium (8.4-10.2) mg/dL ALT (4-49) U/L Alkaline Phosphatase (38-126) U/L Total Protein (6.3-8.2) g/dL Albumin (3.5-5.0) g/dL Urine Ketones (Negative) Urine Bacteria (None) /hpf Urine Mucus (None) /hpf 06/01/20 06/01/20 06/01/20 Range/Units 17:57 20:34 21:08 WBC (3.8-10.6) k/uL RBC (4.30-5.90) m/uL Hgb (13.0-17.5) gm/dL Hct (39.0-53.0) % Neutrophils # (1.3-7.7) k/uL Lymphocytes # (1.0-4.8) k/uL ABG pH 7.24 L (7.35-7.45) ABG pCO2 53 H (35-45) mmHg ABG pO2 81 L (83-108) mmHg ABG O2 Saturation 97.8 H (94-97) % Sodium (137-145) mmol/L Chloride (98-107) mmol/L BUN (9-20) mg/dL Glucose (74-99) mg/dL POC Glucose (mg/dL) 143 H (75-99) mg/dL Hemoglobin A1c (4.0-6.0) % Calcium (8.4-10.2) mg/dL ALT (4-49) U/L Alkaline Phosphatase (38-126) U/L Total Protein (6.3-8.2) g/dL Albumin (3.5-5.0) g/dL Urine Ketones (Negative) Urine Bacteria (None) /hpf Urine Mucus (None) /hpf 06/01/20 06/01/20 06/01/20 Range/Units 21:19 21:19 22:32 WBC 12.4 H (3.8-10.6) k/uL RBC 4.14 L (4.30-5.90) m/uL Hgb 12.2 L (13.0-17.5) gm/dL Hct 38.0 L (39.0-53.0) % Neutrophils # 11.6 H (1.3-7.7) k/uL Lymphocytes # 0.3 L (1.0-4.8) k/uL ABG pH (7.35-7.45) ABG pCO2 (35-45) mmHg ABG pO2 (83-108) mmHg ABG O2 Saturation (94-97) % Sodium 136 L (137-145) mmol/L Chloride (98-107) mmol/L BUN 41 H (9-20) mg/dL Glucose 154 H (74-99) mg/dL POC Glucose (mg/dL) (75-99) mg/dL Hemoglobin A1c (4.0-6.0) % Calcium 7.8 L (8.4-10.2) mg/dL ALT 55 H (4-49) U/L Alkaline Phosphatase 127 H (38-126) U/L Total Protein 5.0 L (6.3-8.2) g/dL Albumin 2.4 L (3.5-5.0) g/dL Urine Ketones Trace H (Negative) Urine Bacteria Rare H (None) /hpf Urine Mucus Rare H (None) /hpf 06/02/20 06/02/20 06/02/20 Range/Units 01:10 04:49 04:49 WBC 13.1 H (3.8-10.6) k/uL RBC 4.24 L (4.30-5.90) m/uL Hgb 12.8 L (13.0-17.5) gm/dL Hct 38.7 L (39.0-53.0) % Neutrophils # 11.9 H (1.3-7.7) k/uL Lymphocytes # 0.5 L (1.0-4.8) k/uL ABG pH (7.35-7.45) ABG pCO2 (35-45) mmHg ABG pO2 (83-108) mmHg ABG O2 Saturation (94-97) % Sodium 136 L (137-145) mmol/L Chloride 108 H (98-107) mmol/L BUN 36 H (9-20) mg/dL Glucose 160 H (74-99) mg/dL POC Glucose (mg/dL) 166 H (75-99) mg/dL Hemoglobin A1c (4.0-6.0) % Calcium 7.8 L (8.4-10.2) mg/dL ALT (4-49) U/L Alkaline Phosphatase (38-126) U/L Total Protein (6.3-8.2) g/dL Albumin (3.5-5.0) g/dL Urine Ketones (Negative) Urine Bacteria (None) /hpf Urine Mucus (None) /hpf 06/02/20 06/02/20 06/02/20 Range/Units 05:25 06:11 12:01 WBC (3.8-10.6) k/uL RBC (4.30-5.90) m/uL Hgb (13.0-17.5) gm/dL Hct (39.0-53.0) % Neutrophils # (1.3-7.7) k/uL Lymphocytes # (1.0-4.8) k/uL ABG pH (7.35-7.45) ABG pCO2 (35-45) mmHg ABG pO2 160 H (83-108) mmHg ABG O2 Saturation 99.1 H (94-97) % Sodium (137-145) mmol/L Chloride (98-107) mmol/L BUN (9-20) mg/dL Glucose (74-99) mg/dL POC Glucose (mg/dL) 168 H 146 H (75-99) mg/dL Hemoglobin A1c (4.0-6.0) % Calcium (8.4-10.2) mg/dL ALT (4-49) U/L Alkaline Phosphatase (38-126) U/L Total Protein (6.3-8.2) g/dL Albumin (3.5-5.0) g/dL Urine Ketones (Negative) Urine Bacteria (None) /hpf Urine Mucus (None) /hpf Microbiology - Last 24 Hours (Table) 06/01/20 15:35 Gram Stain - Preliminary Foot - Left Wound Culture - Preliminary 06/01/20 15:35 Anaerobic Culture - Preliminary Foot - Left 05/31/20 12:58 Blood Culture - Preliminary Blood No Growth after 24 hours 05/31/20 12:58 Blood Culture - Preliminary Blood No Growth after 24 hours
[2020-06-02 13:04] LABS: ABG Base Excess 0.2 mmol/L; ABG HCO3 25 mmol/L (21-25); ABG PCO2 38 mmHg (35-45); ABG PH 7.42 (7.35-7.45); ABG PO2 99 mmHg (83-108); ABG TCO2 26 mmol/L (19-24); Allen Test Performed? Yes
[2020-06-02 17:40] LABS: Glucose,Whole Blood 108 mg/dL (75-99)
--- NOTE | 2020-06-02 23:24 | CONS ---
CONSULTATION DATE OF SERVICE: 06/02/2020. REASON FOR CONSULTATION: Left foot gangrene and necrotizing infection. HISTORY OF PRESENT ILLNESS: The patient is a 70 -year-old male who presented to the ER 2 days ago with left fifth toe pain, swelling, redness and discoloration. This patient's symptoms had been going on for a few days before presentation to hospital. The patient is complaining of pain to the left fifth toe as well as left foot area, more dull and aching to throbbing, 6 out of 10 and no radiation. The patient on presentation to the hospital was afebrile, and no fever has been recorded since then. The patient did have white count 14.8 17.3. Kidney function was normal. The patient has been diagnosed with left fifth toe wet gangrene with concern for spreading necrotizing infection to the left foot and anterior leg area. The patient was taken to the OR yesterday and the patient is status post left [id number] amputation. The patient did have local cultures obtained which are now showing Gram-negative. The patient is currently being treated with vancomycin and Zosyn. Infectious Disease was consulted today for further management of antibiotic therapy. Most of the information has been obtained from review of the chart and talking to the nursing staff, as the patient is currently intubated on the vent and is unable to provide any history. REVIEW OF SYSTEMS: Complete review could not be obtained. The positive points have been mentioned in the HPI. PAST MEDICAL HISTORY: Heart failure, diabetes mellitus, hypertension, hyperlipidemia, SC, and left foot . PAST SURGICAL HISTORY: Coronary artery bypass grafting. SOCIAL HISTORY: Denies smoking, drinking or drug use. FAMILY HISTORY: Father with history of cancer. ALLERGIES: NO KNOWN DRUG ALLERGIES. MEDICATIONS: The patient is currently on vancomycin, Pharmacy to dose. He is on Zosyn, NovoLog, Narcan, Protonix, propofol. PHYSICAL EXAMINATION: Blood pressure is 90/69, pulse 85, temperature 98.2. He is 98% on 40% FiO2. General description is an elderly male lying in bed in no distress. No tachypnea or accessory muscle of respiration use. HEENT: Examination shows slight pallor. The patient is orally intubated. NECK: Trachea is central. No thyromegaly. LUNGS: Unlabored breathing. Decreased breath sounds in the bases. No wheeze or crackle. HEART: S1, S2. Regular rate and rhythm. ABDOMEN: Soft. No tenderness. No guarding or rigidity. EXTREMITIES: Left BKA stump is currently dressed. No drainage on the dressing. NEUROLOGIC: The patient is awake, alert. Orientation could not be assessed, as the patient was on the vent at the time of evaluation. LABS: Hemoglobin is 12.8, white count 13.1, BUN of 36, creatinine 0.79. Draper PCR was negative. Blood culture so far negative. Local culture showing Gram-negative bacilli. DIAGNOSTIC IMPRESSION AND PLAN: Patient admitted to hospital with left fifth toe wet gangrene with necrotizing infection to the left foot and leg area in this patient who is status post left below- the-knee amputation. Local culture has been positive for Gram-negative. Blood culture has been negative so far. PLAN: 1. We will keep the patient on Zosyn 3.375 grams q.8 hours. 2. Discontinue the vancomycin. 3. Will follow his clinical condition and culture to further adjust medication if needed. Thank you for this consultation. Will follow this patient along with you. MMODL / IJN: [id number] /
[2020-06-03 00:20] LABS: Glucose,Whole Blood 164 mg/dL (75-99)
[2020-06-03] MEDS: PIPERACILLIN-TAZOBACTAM 3.375 GM in SODIUM CHLORIDE 0.9% 100 ML IVPB SCH ×3 (00:20→16:23)
[2020-06-03] MEDS: INSULIN ASPART (NovoLOG) 100 UNIT/ML VIAL SQ SCH ×5 (00:22→21:38)
[2020-06-03] MEDS: LACTATED RINGERS 1,000 ML IV SCH ×2 (00:40→16:23)
[2020-06-03] MEDS: fentaNYL (PF) 50 MCG/ML 2 ML AMP IVP PRN (02:54)
[2020-06-03 03:59] LABS: Basophils % (A) 0 %; Eosinophils % (A) 0 %; HCT 46.6 % (39.0-53.0); HGB 14.2 gm/dL (13.0-17.5); Hypochromasia Moderate; Lymphocytes # (A) 1.2 k/uL (1.0-4.8); Lymphocytes % (A) 7 %; MCH 28.8 pg (25.0-35.0); MCHC 30.6 g/dL (31.0-37.0); MCV 94.3 fL (80.0-100.0); Mean Platelet Volume 8.1; Monocytes # (A) 0.8 k/uL (0-1.0); Monocytes % (A) 5 %; Neutrophils # (A) 14.8 k/uL (1.3-7.7); Neutrophils % (A) 87 %; Platelet Count 250 k/uL (150-450); RBC 4.94 m/uL (4.30-5.90); RDW 15.1 % (11.5-15.5)
[2020-06-03 04:03] LABS: African American GFR (CKD) >90 (>60 ml/min/1.73 sqM); Anion Gap 3 mmol/L; Blood Urea Nitrogen 28 mg/dL (9-20); Calcium 8.4 mg/dL (8.4-10.2); Carbon Dioxide 25 mmol/L (22-30); Chloride 109 mmol/L (98-107); Glucose 121 mg/dL (74-99); Non-African American GFR(CKD) 90 (>60 ml/min/1.73 sqM); Sodium 137 mmol/L (137-145)
[2020-06-03 06:07] LABS: Glucose,Whole Blood 127 mg/dL (75-99)
[2020-06-03] MEDS: NOREPINEPHRINE 4 MG in SODIUM CHLORIDE 0.9% 250 ML IV SCH (06:33)
--- NOTE | 2020-06-03 06:53 | XR ---
EXAMINATION TYPE: XR chest 1V portable DATE OF EXAM: 06/03/2020 CLINICAL HISTORY: Difficulty breathing progress study. TECHNIQUE: Single AP portable upright view of the chest is obtained. COMPARISON: Chest x-ray from one day earlier and older studies. FINDINGS: Interval extubation with removal of endotracheal and orogastric tubes. Overlying sternal w ires and mediastinal clips are redemonstrated. Stable mild cardiomegaly with small to moderate sized right greater than left pleural fluid collections and [id number] interstitial edema. There is a ssociated compressive atelectasis. Upper lungs remain clear. Osseous structures are intact. IMPRESSION: Interval extubation. Other findings stable as there is mild cardiomegaly with small to mo derate sized right greater than left pleural effusions and [id number] interstitial edema along with associated bibasilar compressive atelectasis and/or infiltrates.
--- NOTE | 2020-06-03 08:40 | P.PN ---
Subjective Progress Note Date: 06/03/20 Patient seen and examined. Overnight events noted. Extubated overnight. Still remains on low-dose Levophed. No complaints. Awake and alert. No acute distress. Left lower extremity dressing clean, dry, intact Gas gangrene left foot with infection up to ankle and anterior compartment Necrotizing fasciitis Acute ventilator dependent respiratory failureresolved Continue daily dressing changes. We will reevaluate him on a daily basis to decide when the best opportunity for amputation. Continue supportive care. Hopeful for completion amputation in the early part of next week. Objective - Vital Signs Vital signs: Vital Signs Temp 98.2 F 06/03/20 00:00 Pulse 100 06/03/20 07:00 Resp 25 H 06/03/20 07:00 BP 114/75 06/03/20 07:00 Pulse Ox 97 06/03/20 07:00 Intake & Output 06/02/20 06/03/20 06/03/20 18:59 06:59 18:59 Intake Total 1499.094 9925.671 100 Output Total 575 655 100 Balance 786.918 872.671 0 Weight 56.5 kg Intake: IV 1200 1200 100 Lactated Ringers 1,000 ml 1100 1200 100 @ 100 mls/hr IV .Q10H [facility] Rx#:[id number] Lactated Ringers 500 ml 100 bolus Intake, IV Titration 161.918 127.671 Amount Norepinephrine 4 mg In 25.920 127.671 Sodium Chloride 0.9% 250 ml @ 0.05 MCG/KG/MIN 11. 335 mls/hr IV .[id number] [facility] Rx#:[id number] Piperacillin-Tazobactam 3 100 .375 gm In Sodium Chloride 0.9% 100 ml @ 25 mls/hr IVPB Q8HR [facility] Rx# :[id number] propofoL 1,000 mg In 35.998 Empty Bag 1 bag @ Titrate IV .Q0M [facility] Rx#: [id number] Oral 200 Output: Urine 575 655 100 Other: Voiding Method Indwelling Catheter Indwelling Catheter # Voids 1 # Bowel Movements 1 - Labs CBC & Chem 7: 06/03/20 03:34 06/03/20 03:34 Labs: Abnormal Lab Results - Last 24 Hours (Table) 06/02/20 06/02/20 06/02/20 Range/Units 12:01 12:42 17:37 WBC (3.8-10.6) k/uL MCHC (31.0-37.0) g/dL Neutrophils # (1.3-7.7) k/uL ABG Total CO2 26 H (19-24) mmol/L ABG O2 Saturation 99.0 H (94-97) % Chloride (98-107) mmol/L BUN (9-20) mg/dL Glucose (74-99) mg/dL POC Glucose (mg/dL) 146 H 108 H (75-99) mg/dL 06/03/20 06/03/20 06/03/20 Range/Units 00:18 03:34 03:34 WBC 17.0 H (3.8-10.6) k/uL MCHC 30.6 L (31.0-37.0) g/dL Neutrophils # 14.8 H (1.3-7.7) k/uL ABG Total CO2 (19-24) mmol/L ABG O2 Saturation (94-97) % Chloride 109 H (98-107) mmol/L BUN 28 H (9-20) mg/dL Glucose 121 H (74-99) mg/dL POC Glucose (mg/dL) 164 H (75-99) mg/dL 06/03/20 Range/Units 06:05 WBC (3.8-10.6) k/uL MCHC (31.0-37.0) g/dL Neutrophils # (1.3-7.7) k/uL ABG Total CO2 (19-24) mmol/L ABG O2 Saturation (94-97) % Chloride (98-107) mmol/L BUN (9-20) mg/dL Glucose (74-99) mg/dL POC Glucose (mg/dL) 127 H (75-99) mg/dL Microbiology - Last 24 Hours (Table) 06/01/20 15:35 Gram Stain - Preliminary Foot - Left Wound Culture - Preliminary Gram Neg Bacilli 05/31/20 12:58 Blood Culture - Preliminary Blood No Growth after 48 hours 05/31/20 12:58 Blood Culture - Preliminary Blood No Growth after 48 hours
[2020-06-03] MEDS: PANTOPRAZOLE 40 MG/10 ML VIAL IV SCH (08:58)
--- NOTE | 2020-06-03 10:51 | P.PN ---
Subjective Progress Note Date: 06/03/20 Principal diagnosis: Critical limb ischemia/severe coronary artery disease/severe cardiomyopathy This is a 70-year-old gentleman with severe CAD and severe cardiomyopathy as well as valvular heart disease was diagnosed was critical limb ischemia of the left foot. He underwent yesterday left below the knee amputation. The patient was seen today June 032020. He was extubated overnight. He continues to be he went directly unstable and requires small dose of norepineph rine. Because of that I would hold on starting the patient on any beta carlos enrique. I am going to start him back on statin with Lipitor. We need to restart the patient back on antiplatelet once we make sure he is not going to undergo any further surgical intervention. I will discuss the case with Dr. Lo. Objective - Vital Signs Vital signs: Vital Signs Temp 98.3 F 06/03/20 08:00 Pulse 105 H 06/03/20 10:15 Resp 18 06/03/20 10:15 BP 108/70 06/03/20 10:15 Pulse Ox 97 06/03/20 10:15 Intake & Output 06/02/20 06/03/20 06/03/20 18:59 06:59 18:59 Intake Total 1784.925 6300.671 300 Output Total 575 655 230 Balance 786.918 872.671 70 Weight 56.5 kg Intake: IV 1200 1200 300 Lactated Ringers 1,000 ml 1100 1200 300 @ 100 mls/hr IV .Q10H [facility] Rx#:[id number] Lactated Ringers 500 ml 100 bolus Intake, IV Titration 161.918 127.671 Amount Norepinephrine 4 mg In 25.920 127.671 Sodium Chloride 0.9% 250 ml @ 0.05 MCG/KG/MIN 11. 335 mls/hr IV .[id number] [facility] Rx#:[id number] Piperacillin-Tazobactam 3 100 .375 gm In Sodium Chloride 0.9% 100 ml @ 25 mls/hr IVPB Q8HR [facility] Rx# :[id number] propofoL 1,000 mg In 35.998 Empty Bag 1 bag @ Titrate IV .Q0M [facility] Rx#: [id number] Oral 200 Output: Urine 575 655 230 Other: Voiding Method Indwelling Catheter Indwelling Catheter Indwelling Catheter # Voids 1 # Bowel Movements 1 - Constitutional General appearance: Present: no acute distress - Respiratory Respiratory: bilateral: diminished - Cardiovascular Rhythm: regular Heart sounds: normal: S1, S2 - Labs CBC & Chem 7: 06/03/20 03:34 06/03/20 03:34 Labs: Abnormal Lab Results - Last 24 Hours (Table) 06/02/20 06/02/20 06/02/20 Range/Units 12:01 12:42 17:37 WBC (3.8-10.6) k/uL MCHC (31.0-37.0) g/dL Neutrophils # (1.3-7.7) k/uL ABG Total CO2 26 H (19-24) mmol/L ABG O2 Saturation 99.0 H (94-97) % Chloride (98-107) mmol/L BUN (9-20) mg/dL Glucose (74-99) mg/dL POC Glucose (mg/dL) 146 H 108 H (75-99) mg/dL 06/03/20 06/03/20 06/03/20 Range/Units 00:18 03:34 03:34 WBC 17.0 H (3.8-10.6) k/uL MCHC 30.6 L (31.0-37.0) g/dL Neutrophils # 14.8 H (1.3-7.7) k/uL ABG Total CO2 (19-24) mmol/L ABG O2 Saturation (94-97) % Chloride 109 H (98-107) mmol/L BUN 28 H (9-20) mg/dL Glucose 121 H (74-99) mg/dL POC Glucose (mg/dL) 164 H (75-99) mg/dL 06/03/20 Range/Units 06:05 WBC (3.8-10.6) k/uL MCHC (31.0-37.0) g/dL Neutrophils # (1.3-7.7) k/uL ABG Total CO2 (19-24) mmol/L ABG O2 Saturation (94-97) % Chloride (98-107) mmol/L BUN (9-20) mg/dL Glucose (74-99) mg/dL POC Glucose (mg/dL) 127 H (75-99) mg/dL Microbiology - Last 24 Hours (Table) 06/01/20 15:35 Gram Stain - Preliminary Foot - Left Wound Culture - Preliminary Gram Neg Bacilli 05/31/20 12:58 Blood Culture - Preliminary Blood No Growth after 48 hours 05/31/20 12:58 Blood Culture - Preliminary Blood No Growth after 48 hours Assessment and Plan Assessment: Assessment #1 status post left below the knee amputation #2 critical limb ischemia of the left leg #3 coronary artery disease #4 severe cardiomyopathy #5 valvular heart disease Plan #1 right wean the patient from norepinephrine #2 start the patient back on Lipitor #3 consider starting the patient on antiplatelet #4 follow-up with the patient
[2020-06-03 12:31] LABS: Glucose,Whole Blood 129 mg/dL (75-99)
--- NOTE | 2020-06-03 15:42 | P.PN ---
Subjective Progress Note Date: 06/02/20 (Critical care time 35 minutes) Principal diagnosis: Sepsis due to osteomyelitis status post amputation of left foot Necrotizing fasciitis Osteomyelitis of the left fifth toe Acute kidney injury Diabetes mellitus Coronary artery disease, status post CABG Hypertensive cardiovascular disease 06/02/2020, patient seen eval reexamined labs reviewed radiographic studies reviewed, patient has been on assist control mode unable to wean extubated in recovery area patient has been placed on pressure support with CPAP 5 and 5 arterial blood gas and weaning parameters have been reviewed and will proceed with extubation on 4 L oxygen however patient continue require a small amount of vasopressors, abs reviewed x-rays reviewed This is a 70-year-old male who presented emergency department with symptoms of foot discomfort, which has been going on for several weeks, patient has been hospitalized in the past for similar problems, patient has noted left fifth toe is purple along with redness and tenderness up to the lower leg level, patient is being admitted into the hospital for vascular compromise with consultation with vascular surgery and infectious disease, past medical history significant for heart failure, diabetes mellitus, hypertension hypertensive cardiovascular disease patient does have a history of pneumonia in the past and Nephro-Faizan thesis, vascular surgery has evaluated the patient and cardiology has cleared the patient patient is going for surgery, patient overnight had the rapid response due to drop in blood pressure requiring fluid support, blood pressure did improve after bolus of the fluid, x-ray of the foot consistent with osteomyelitis and bony degeneration, potassium was 7.2 initially came down with rehydration last check was 5.1, Objective - Vital Signs Vital signs: Vital Signs Temp 96.3 F L 06/02/20 08:00 Pulse 81 06/02/20 15:00 Resp 29 H 06/02/20 15:00 BP 83/53 06/02/20 15:00 Pulse Ox 99 06/02/20 15:00 Intake & Output 06/01/20 06/02/20 06/02/20 18:59 06:59 18:59 Intake Total 2900 4821.503 4054.918 Output Total 515 700 425 Balance 2385 774.020 636.918 Weight 59.5 kg Intake: IV 1750 1400 900 Lactated Ringers 1,000 ml 800 @ 100 mls/hr IV .Q10H [facility] Rx#:[id number] Lactated Ringers 500 ml 1400 100 bolus Intake, IV Titration 1150 74.020 161.918 Amount Norepinephrine 4 mg In 25.920 Sodium Chloride 0.9% 250 ml @ 0.05 MCG/KG/MIN 11. 335 mls/hr IV .[id number] [facility] Rx#:[id number] Piperacillin-Tazobactam 3 100 100 .375 gm In Sodium Chloride 0.9% 100 ml @ 25 mls/hr IVPB Q8HR [facility] Rx# :[id number] Sodium Chloride 0.9% 1, 800 000 ml @ 100 mls/hr IV . Q10H [facility] Rx#:[id number] Vancomycin 1,250 mg In 250 Sodium Chloride 0.9% 250 ml @ 125 mls/hr IVPB Q12H [facility] Rx#:[id number] propofoL 1,000 mg In 74.020 35.998 Empty Bag 1 bag @ Titrate IV .Q0M [facility] Rx#: [id number] Oral 0 Output: Urine 500 700 425 Estimated Blood Loss 15 Other: Voiding Method Toilet Indwelling Catheter Indwelling Catheter Urinal - Exam - Constitutional General appearance: average body habitus, cooperative, disheveled, intubated on full vent support sedated with propofol which is being tapered - EENT Eyes: PERRLA Ears: bilateral: normal - Neck Carotids: bilateral: upstroke normal - Respiratory Respiratory: bilateral: CTA - Cardiovascular Rhythm: regular Heart sounds: normal: S1, S2 - Integumentary Integumentary: normal turgor - Neurologic Neurologic: CNII-XII intact - Musculoskeletal Musculoskeletal: generalized weakness Left foot covered with dressing - Labs CBC & Chem 7: 06/03/20 03:34 06/03/20 03:34 Labs: Abnormal Lab Results - Last 24 Hours (Table) 06/01/20 06/01/20 06/01/20 Range/Units 07:16 16:22 17:57 WBC (3.8-10.6) k/uL RBC (4.30-5.90) m/uL Hgb (13.0-17.5) gm/dL Hct (39.0-53.0) % Neutrophils # (1.3-7.7) k/uL Lymphocytes # (1.0-4.8) k/uL ABG pH 7.24 L (7.35-7.45) ABG pCO2 53 H (35-45) mmHg ABG pO2 81 L (83-108) mmHg ABG Total CO2 (19-24) mmol/L ABG O2 Saturation (94-97) % Sodium (137-145) mmol/L Chloride (98-107) mmol/L BUN (9-20) mg/dL Glucose (74-99) mg/dL POC Glucose (mg/dL) 145 H (75-99) mg/dL Hemoglobin A1c 8.3 H (4.0-6.0) % Calcium (8.4-10.2) mg/dL ALT (4-49) U/L Alkaline Phosphatase (38-126) U/L Total Protein (6.3-8.2) g/dL Albumin (3.5-5.0) g/dL Urine Ketones (Negative) Urine Bacteria (None) /hpf Urine Mucus (None) /hpf 06/01/20 06/01/20 06/01/20 Range/Units 20:34 21:08 21:19 WBC 12.4 H (3.8-10.6) k/uL RBC 4.14 L (4.30-5.90) m/uL Hgb 12.2 L (13.0-17.5) gm/dL Hct 38.0 L (39.0-53.0) % Neutrophils # 11.6 H (1.3-7.7) k/uL Lymphocytes # 0.3 L (1.0-4.8) k/uL ABG pH (7.35-7.45) ABG pCO2 (35-45) mmHg ABG pO2 (83-108) mmHg ABG Total CO2 (19-24) mmol/L ABG O2 Saturation 97.8 H (94-97) % Sodium (137-145) mmol/L Chloride (98-107) mmol/L BUN (9-20) mg/dL Glucose (74-99) mg/dL POC Glucose (mg/dL) 143 H (75-99) mg/dL Hemoglobin A1c (4.0-6.0) % Calcium (8.4-10.2) mg/dL ALT (4-49) U/L Alkaline Phosphatase (38-126) U/L Total Protein (6.3-8.2) g/dL Albumin (3.5-5.0) g/dL Urine Ketones (Negative) Urine Bacteria (None) /hpf Urine Mucus (None) /hpf 06/01/20 06/01/20 06/02/20 Range/Units 21:19 22:32 01:10 WBC (3.8-10.6) k/uL RBC (4.30-5.90) m/uL Hgb (13.0-17.5) gm/dL Hct (39.0-53.0) % Neutrophils # (1.3-7.7) k/uL Lymphocytes # (1.0-4.8) k/uL ABG pH (7.35-7.45) ABG pCO2 (35-45) mmHg ABG pO2 (83-108) mmHg ABG Total CO2 (19-24) mmol/L ABG O2 Saturation (94-97) % Sodium 136 L (137-145) mmol/L Chloride (98-107) mmol/L BUN 41 H (9-20) mg/dL Glucose 154 H (74-99) mg/dL POC Glucose (mg/dL) 166 H (75-99) mg/dL Hemoglobin A1c (4.0-6.0) % Calcium 7.8 L (8.4-10.2) mg/dL ALT 55 H (4-49) U/L Alkaline Phosphatase 127 H (38-126) U/L Total Protein 5.0 L (6.3-8.2) g/dL Albumin 2.4 L (3.5-5.0) g/dL Urine Ketones Trace H (Negative) Urine Bacteria Rare H (None) /hpf Urine Mucus Rare H (None) /hpf 06/02/20 06/02/20 06/02/20 Range/Units 04:49 04:49 05:25 WBC 13.1 H (3.8-10.6) k/uL RBC 4.24 L (4.30-5.90) m/uL Hgb 12.8 L (13.0-17.5) gm/dL Hct 38.7 L (39.0-53.0) % Neutrophils # 11.9 H (1.3-7.7) k/uL Lymphocytes # 0.5 L (1.0-4.8) k/uL ABG pH (7.35-7.45) ABG pCO2 (35-45) mmHg ABG pO2 160 H (83-108) mmHg ABG Total CO2 (19-24) mmol/L ABG O2 Saturation 99.1 H (94-97) % Sodium 136 L (137-145) mmol/L Chloride 108 H (98-107) mmol/L BUN 36 H (9-20) mg/dL Glucose 160 H (74-99) mg/dL POC Glucose (mg/dL) (75-99) mg/dL Hemoglobin A1c (4.0-6.0) % Calcium 7.8 L (8.4-10.2) mg/dL ALT (4-49) U/L Alkaline Phosphatase (38-126) U/L Total Protein (6.3-8.2) g/dL Albumin (3.5-5.0) g/dL Urine Ketones (Negative) Urine Bacteria (None) /hpf Urine Mucus (None) /hpf 06/02/20 06/02/20 06/02/20 Range/Units 06:11 12:01 12:42 WBC (3.8-10.6) k/uL RBC (4.30-5.90) m/uL Hgb (13.0-17.5) gm/dL Hct (39.0-53.0) % Neutrophils # (1.3-7.7) k/uL Lymphocytes # (1.0-4.8) k/uL ABG pH (7.35-7.45) ABG pCO2 (35-45) mmHg ABG pO2 (83-108) mmHg ABG Total CO2 26 H (19-24) mmol/L ABG O2 Saturation 99.0 H (94-97) % Sodium (137-145) mmol/L Chloride (98-107) mmol/L BUN (9-20) mg/dL Glucose (74-99) mg/dL POC Glucose (mg/dL) 168 H 146 H (75-99) mg/dL Hemoglobin A1c (4.0-6.0) % Calcium (8.4-10.2) mg/dL ALT (4-49) U/L Alkaline Phosphatase (38-126) U/L Total Protein (6.3-8.2) g/dL Albumin (3.5-5.0) g/dL Urine Ketones (Negative) Urine Bacteria (None) /hpf Urine Mucus (None) /hpf Microbiology - Last 24 Hours (Table) 05/31/20 12:58 Blood Culture - Preliminary Blood No Growth after 48 hours 05/31/20 12:58 Blood Culture - Preliminary Blood No Growth after 48 hours 06/01/20 15:35 Gram Stain - Preliminary Foot - Left Wound Culture - Preliminary 06/01/20 15:35 Anaerobic Culture - Preliminary Foot - Left Assessment and Plan Assessment: Sepsis due to osteomyelitis Osteomyelitis of the left fifth toe Necrotizing fasciitis Acute kidney injury Postop day #1 of amputation of left foot Diabetes mellitus Coronary artery disease, status post CABG Hypertensive cardiovascular disease Plan: Weaning as planned if tolerated well and blood gases remains stable we'll proceed with extubation Vasopressors as needed IV fluid boluses Broad-spectrum antibiotics ID and vascular surgery and cardiology consultation Further plan of care as per clinical response of the patient Time with Patient: Greater than 30
--- NOTE | 2020-06-03 15:45 | P.PN ---
Subjective Progress Note Date: 06/03/20 Principal diagnosis: Sepsis due to osteomyelitis status post amputation of left foot Necrotizing fasciitis Osteomyelitis of the left fifth toe Acute kidney injury Diabetes mellitus Coronary artery disease, status post CABG Hypertensive cardiovascular disease 06/03/2020, patient seen eval examined during the rounds labs reviewed medications reviewed care plan discussed with the staff at length, patient on room air breathing comfortably denies any chest pain has been on pain medicine as needed, left leg is covered with dressing, patient remains on vasopressors we'll give fluid boluses him to wean and taper and DC the pressors, good adequate urine output, 06/02/2020, patient seen eval reexamined labs reviewed radiographic studies reviewed, patient has been on assist control mode unable to wean extubated in recovery area patient has been placed on pressure support with CPAP 5 and 5 arterial blood gas and weaning parameters have been reviewed and will proceed with extubation on 4 L oxygen however patient continue require a small amount of vasopressors, abs reviewed x-rays reviewed This is a 70-year-old male who presented emergency department with symptoms of foot discomfort, which has been going on for several weeks, patient has been hospitalized in the past for similar problems, patient has noted left fifth toe is purple along with redness and tenderness up to the lower leg level, patient is being admitted into the hospital for vascular compromise with consultation with vascular surgery and infectious disease, past medical history significant for heart failure, diabetes mellitus, hypertension hypertensive cardiovascular disease patient does have a history of pneumonia in the past and Nephro-Faizan thesis, vascular surgery has evaluated the patient and cardiology has cleared the patient patient is going for surgery, patient overnight had the rapid response due to drop in blood pressure requiring fluid support, blood pressure did improve after bolus of the fluid, x-ray of the foot consistent with osteomyelitis and bony degeneration, potassium was 7.2 initially came down with rehydration last check was 5.1, Objective - Vital Signs Vital signs: Vital Signs Temp 98.3 F 06/03/20 12:00 Pulse 104 H 06/03/20 15:00 Resp 23 06/03/20 15:00 BP 113/72 06/03/20 15:00 Pulse Ox 97 06/03/20 15:00 Intake & Output 06/02/20 06/03/20 06/03/20 18:59 06:59 18:59 Intake Total 8885.666 3328.671 897.859 Output Total 575 655 505 Balance 786.918 872.671 392.859 Weight 56.5 kg Intake: IV 1200 1200 800 Lactated Ringers 1,000 ml 1100 1200 800 @ 100 mls/hr IV .Q10H [facility] Rx#:[id number] Lactated Ringers 500 ml 100 bolus Intake, IV Titration 161.918 127.671 97.859 Amount Norepinephrine 4 mg In 25.920 127.671 97.859 Sodium Chloride 0.9% 250 ml @ 0.05 MCG/KG/MIN 11. 335 mls/hr IV .[id number] [facility] Rx#:[id number] Piperacillin-Tazobactam 3 100 .375 gm In Sodium Chloride 0.9% 100 ml @ 25 mls/hr IVPB Q8HR [facility] Rx# :[id number] propofoL 1,000 mg In 35.998 Empty Bag 1 bag @ Titrate IV .Q0M [facility] Rx#: [id number] Oral 200 Output: Urine 575 655 505 Other: Voiding Method Indwelling Catheter Indwelling Catheter Indwelling Catheter # Voids 1 # Bowel Movements 1 - Exam - Constitutional General appearance: average body habitus, cooperative, disheveled, status post extubation awake and alert - EENT Eyes: PERRLA Ears: bilateral: normal - Neck Carotids: bilateral: upstroke normal - Respiratory Respiratory: bilateral: CTA - Cardiovascular Rhythm: regular Heart sounds: normal: S1, S2 - Integumentary Integumentary: normal turgor - Neurologic Neurologic: CNII-XII intact - Musculoskeletal Musculoskeletal: generalized weakness Left foot covered with dressing - Labs CBC & Chem 7: 06/03/20 03:34 06/03/20 03:34 Labs: Abnormal Lab Results - Last 24 Hours (Table) 06/02/20 06/03/20 06/03/20 Range/Units 17:37 00:18 03:34 WBC (3.8-10.6) k/uL MCHC (31.0-37.0) g/dL Neutrophils # (1.3-7.7) k/uL Chloride 109 H (98-107) mmol/L BUN 28 H (9-20) mg/dL Glucose 121 H (74-99) mg/dL POC Glucose (mg/dL) 108 H 164 H (75-99) mg/dL 06/03/20 06/03/20 06/03/20 Range/Units 03:34 06:05 12:29 WBC 17.0 H (3.8-10.6) k/uL MCHC 30.6 L (31.0-37.0) g/dL Neutrophils # 14.8 H (1.3-7.7) k/uL Chloride (98-107) mmol/L BUN (9-20) mg/dL Glucose (74-99) mg/dL POC Glucose (mg/dL) 127 H 129 H (75-99) mg/dL Microbiology - Last 24 Hours (Table) 05/31/20 12:58 Blood Culture - Preliminary Blood No Growth after 72 hours 05/31/20 12:58 Blood Culture - Preliminary Blood No Growth after 72 hours 06/01/20 15:35 Gram Stain - Preliminary Foot - Left Wound Culture - Preliminary Gram Neg Bacilli Assessment and Plan Assessment: Sepsis due to osteomyelitis Osteomyelitis of the left fifth toe Necrotizing fasciitis Acute kidney injury Postop day #2 of amputation of left foot Diabetes mellitus Coronary artery disease, status post CABG Hypertensive cardiovascular disease Plan: Vasopressors as needed IV fluid boluses taper and DC the levo fed Broad-spectrum antibiotics ID and vascular surgery and cardiology consultation Further plan of care as per clinical response of the patient Time with Patient: Greater than 30
--- NOTE | 2020-06-03 17:12 | PN ---
PROGRESS NOTE DATE OF SERVICE: 06/03/2020 REASON FOR FOLLOW UP: Left foot wet gangrene and necrotizing infection. INTERVAL HISTORY: Patient is currently afebrile. Patient has been extubated. The patient is breathing comfortably. Overall pain and discomfort to the left foot disarticulation site is currently controlled. Denies having any chest pain or shortness of breath. He did have some cough, not bringing up any sputum. No abdominal pain or diarrhea. PHYSICAL EXAMINATION: Blood pressure 106/57 with a pulse of 101. Temperature is 98.3. He is 96% on room air. General description: The patient is an elderly male lying in bed in no distress. Respiratory system: Unlabored breathing. Clear to auscultation anteriorly. Heart S1, S2. Regular rate and rhythm. Abdomen soft, no tenderness. LABS: Hemoglobin 14.8, white count 17,000, BUN of 28, creatinine 0.83. Left foot cultures with gram-negative blood culture so far negative. DIAGNOSTIC IMPRESSION AND PLAN: Patient with left diabetic foot wet gangrene with concern for infection in this patient who is status post left foot disarticulation. Culture showing gram-negative. Patient is covered with Zosyn. White count , monitored. Continue supportive care. MMODL / IJN: [id number] /
[2020-06-03] MEDS ORDERED: carvediloL 3.125 MG TAB PO SCH (17:30)
[2020-06-03 17:44] LABS: Glucose,Whole Blood 246 mg/dL (75-99)
[2020-06-03 20:47] LABS: Glucose,Whole Blood 222 mg/dL (75-99)
[2020-06-03] MEDS: ATORVASTATIN 10 MG TAB PO SCH (20:49)
[2020-06-03] MEDS: HYDROcodone/APAP 5-325MG 1 EACH TAB PO PRN (21:08)
[2020-06-03] MEDS: LACTATED RINGERS 500 ML IV SCH (21:38)
[2020-06-04] MEDS: LACTATED RINGERS 1,000 ML IV SCH ×2 (00:37→08:38)
[2020-06-04] MEDS: PIPERACILLIN-TAZOBACTAM 3.375 GM in SODIUM CHLORIDE 0.9% 100 ML IVPB SCH ×3 (01:16→16:17)
[2020-06-04 05:00] LABS: Basophils % (A) 0 %; Eosinophils # (A) 0.1 k/uL (0-0.7); Eosinophils % (A) 1 %; HCT 39.9 % (39.0-53.0); HGB 12.7 gm/dL (13.0-17.5); Hypochromasia Slight; Lymphocytes # (A) 0.9 k/uL (1.0-4.8); Lymphocytes % (A) 10 %; MCHC 31.9 g/dL (31.0-37.0); MCV 93.8 fL (80.0-100.0); Mean Platelet Volume 7.6; Monocytes # (A) 0.5 k/uL (0-1.0); Monocytes % (A) 6 %; Neutrophils # (A) 7.5 k/uL (1.3-7.7); Neutrophils % (A) 82 %; Platelet Count 190 k/uL (150-450); RBC 4.25 m/uL (4.30-5.90); RDW 14.8 % (11.5-15.5); WBC 9.1 k/uL (3.8-10.6)
[2020-06-04 05:14] LABS: ALT 47 U/L (4-49); AST 36 U/L (17-59); African American GFR (CKD) >90 (>60 ml/min/1.73 sqM); Albumin 2.5 g/dL (3.5-5.0); Alkaline Phosphatase 123 U/L (38-126); Anion Gap -1 mmol/L; Blood Urea Nitrogen 20 mg/dL (9-20); Calcium 8.2 mg/dL (8.4-10.2); Carbon Dioxide 29 mmol/L (22-30); Chloride 108 mmol/L (98-107); Glucose 131 mg/dL (74-99); Non-African American GFR(CKD) >90 (>60 ml/min/1.73 sqM); Potassium 4.8 mmol/L (3.5-5.1); Sodium 136 mmol/L (137-145); Total Bilirubin 0.8 mg/dL (0.2-1.3); Total Protein 5.2 g/dL (6.3-8.2)
[2020-06-04] MEDS: NOREPINEPHRINE 4 MG in SODIUM CHLORIDE 0.9% 250 ML IV SCH (05:32)
[2020-06-04 06:42] LABS: Glucose,Whole Blood 128 mg/dL (75-99)
--- NOTE | 2020-06-04 06:50 | XR ---
EXAMINATION TYPE: XR chest 1V portable DATE OF EXAM: 06/04/2020 CLINICAL HISTORY: Difficulty breathing progress study. TECHNIQUE: Single AP portable upright view of the chest is obtained. COMPARISON: Chest x-ray from one day earlier and older studies FINDINGS: Overlying sternal wires and mediastinal clips are redemonstrated. Stable cardiomegaly with small to moderate sized right greater than left pleural fluid collections and moderate alveolar and interstitial opacities bilaterally. There is associated bibasilar compressive atelectasis. Osseous s tructures are intact. IMPRESSION: There is cardiomegaly with small to moderate sized right greater than left pleural effusi ons and moderate bilateral alveolar and interstitial edema consistent with CHF exacerbation. Findings slightly worsened from one day earlier. Correlate clinically.
[2020-06-04] MEDS ORDERED: carvediloL 3.125 MG TAB PO SCH (08:15)
[2020-06-04 08:26] LABS: Glucose,Whole Blood 123 mg/dL (75-99)
[2020-06-04] MEDS ORDERED: ACETAMINOPHEN TAB 325 MG TAB PO PRN (08:26)
[2020-06-04] MEDS: INSULIN ASPART (NovoLOG) 100 UNIT/ML VIAL SQ SCH ×4 (08:31→21:04)
[2020-06-04] MEDS: SODIUM CHLORIDE 0.9% 500 ML 500 ML IV SCH (08:32)
[2020-06-04] MEDS: PANTOPRAZOLE 40 MG/10 ML VIAL IV SCH (08:38)
--- NOTE | 2020-06-04 08:43 | P.PN ---
Subjective Progress Note Date: 06/04/20 Principal diagnosis: Critical limb ischemia/severe coronary artery disease/severe cardiomyopathy this is a pleasant 70-year-old gentleman with severe coronary artery disease and also ischemic cardiomyopathy as well as valvular heart disease was admitted to the hospital and was diagnosed with critical limb ischemia and he underwent left below the knee amputation. He was monitored in the ICU because he was intubated and subsequently he was extubated the day before yesterday. The patient was seen this morning. He is feeling better. He is hemodynamically stable and not on any vasopressors anymore. On examination he does have bilateral expiratory wheezing and crackles in both lung britt and the chest x- ray seems to be slightly on the wet side. I'm going to start the patient on small dose of Lasix by mouth. Beside that I am going to restart the patient on his dose of Coreg 3.125 mg by mouth twice a day. Yesterday he was started on statin. From the cardiovascular standpoint of view, the patient can be transferred out of the ICU. Objective - Vital Signs Vital signs: Vital Signs Temp 98.3 F 06/04/20 04:00 Pulse 97 06/04/20 07:00 Resp 20 06/04/20 07:00 BP 95/60 06/04/20 07:00 Pulse Ox 98 06/04/20 07:00 Intake & Output 06/03/20 06/04/20 06/04/20 18:59 06:59 18:59 Intake Total 3074.615 1229 200 Output Total 780 1045 125 Balance 535.882 155 75 Weight 57.6 kg Intake: IV 1200 1200 200 Lactated Ringers 1,000 ml 1200 1200 200 @ 100 mls/hr IV .Q10H [facility] Rx#:[id number] Intake, IV Titration 115.882 Amount Norepinephrine 4 mg In 115.882 Sodium Chloride 0.9% 250 ml @ 0.05 MCG/KG/MIN 11. 335 mls/hr IV .[id number] [facility] Rx#:[id number] Output: Urine 780 1045 125 Other: Voiding Method Indwelling Catheter Indwelling Catheter - Constitutional General appearance: Present: no acute distress - Respiratory Respiratory: bilateral: rhonchi - Cardiovascular Rhythm: regular Heart sounds: normal: S1, S2 - Labs CBC & Chem 7: 06/04/20 04:44 06/04/20 04:44 Labs: Abnormal Lab Results - Last 24 Hours (Table) 06/03/20 06/03/20 06/03/20 Range/Units 12:29 17:43 20:46 RBC (4.30-5.90) m/uL Hgb (13.0-17.5) gm/dL Lymphocytes # (1.0-4.8) k/uL Sodium (137-145) mmol/L Chloride (98-107) mmol/L Glucose (74-99) mg/dL POC Glucose (mg/dL) 129 H 246 H 222 H (75-99) mg/dL Calcium (8.4-10.2) mg/dL Total Protein (6.3-8.2) g/dL Albumin (3.5-5.0) g/dL 06/04/20 06/04/20 06/04/20 Range/Units 04:44 04:44 06:40 RBC 4.25 L (4.30-5.90) m/uL Hgb 12.7 L (13.0-17.5) gm/dL Lymphocytes # 0.9 L (1.0-4.8) k/uL Sodium 136 L (137-145) mmol/L Chloride 108 H (98-107) mmol/L Glucose 131 H (74-99) mg/dL POC Glucose (mg/dL) 128 H (75-99) mg/dL Calcium 8.2 L (8.4-10.2) mg/dL Total Protein 5.2 L (6.3-8.2) g/dL Albumin 2.5 L (3.5-5.0) g/dL 06/04/20 Range/Units 08:24 RBC (4.30-5.90) m/uL Hgb (13.0-17.5) gm/dL Lymphocytes # (1.0-4.8) k/uL Sodium (137-145) mmol/L Chloride (98-107) mmol/L Glucose (74-99) mg/dL POC Glucose (mg/dL) 123 H (75-99) mg/dL Calcium (8.4-10.2) mg/dL Total Protein (6.3-8.2) g/dL Albumin (3.5-5.0) g/dL Microbiology - Last 24 Hours (Table) 06/01/20 15:35 Gram Stain - Final Foot - Left Wound Culture - Final Pseudomonas aeruginosa 05/31/20 12:58 Blood Culture - Preliminary Blood No Growth after 72 hours 05/31/20 12:58 Blood Culture - Preliminary Blood No Growth after 72 hours Assessment and Plan Assessment: Assessment #1 status post left below the knee amputation #2 critical limb ischemia of the left leg #3 coronary artery disease #4 severe cardiomyopathy #5 valvular heart disease Plan #1 restart the patient on Coreg #2 restart the patient on small dose of Lasix #3 the patient can be transferred out of the intensive care unit
[2020-06-04] MEDS ORDERED: FUROSEMIDE 20 MG TAB PO SCH (09:00)
--- NOTE | 2020-06-04 10:21 | P.PN ---
Subjective Progress Note Date: 06/04/20 Patient seen and examined. Overnight events noted. Extubated yesterday no longer on pressor support No complaints. Awake and alert. No acute distress. Left lower extremity dressing clean, dry, intact, changed. No evidence of purulent drainage discharge or erythema. Gas gangrene left foot with infection up to ankle and anterior compartment Acute ventilator dependent respiratory failureresolved Continue daily dressing changes. We will reevaluate him on a daily basis to decide when the best opportunity for amputation. Continue supportive care. Discussed with cardiology. Plan for amputation under sedation with regional block either Saturday the or Saturday. Objective - Vital Signs Vital signs: Vital Signs Temp 98.1 F 06/04/20 08:30 Pulse 112 H 06/04/20 09:00 Resp 36 H 06/04/20 09:00 BP 109/77 06/04/20 09:00 Pulse Ox 97 06/04/20 09:00 Intake & Output 06/03/20 06/04/20 06/04/20 18:59 06:59 18:59 Intake Total 5161.109 0273 220 Output Total 780 1045 155 Balance 535.882 155 65 Weight 57.6 kg 57.6 kg Intake: IV 1200 1200 220 Lactated Ringers 1,000 ml 1200 1200 200 @ 100 mls/hr IV .Q10H [facility] Rx#:[id number] Sodium Chloride 0.9% 500 20 ml 500 ml @ 20 mls/hr IV .Q24H [facility] Rx#:[id number] Intake, IV Titration 115.882 Amount Norepinephrine 4 mg In 115.882 Sodium Chloride 0.9% 250 ml @ 0.05 MCG/KG/MIN 11. 335 mls/hr IV .[id number] [facility] Rx#:[id number] Output: Urine 780 1045 155 Other: Voiding Method Indwelling Catheter Indwelling Catheter # Voids 1 - Labs CBC & Chem 7: 06/04/20 04:44 06/04/20 04:44 Labs: Abnormal Lab Results - Last 24 Hours (Table) 06/03/20 06/03/20 06/03/20 Range/Units 12:29 17:43 20:46 RBC (4.30-5.90) m/uL Hgb (13.0-17.5) gm/dL Lymphocytes # (1.0-4.8) k/uL Sodium (137-145) mmol/L Chloride (98-107) mmol/L Glucose (74-99) mg/dL POC Glucose (mg/dL) 129 H 246 H 222 H (75-99) mg/dL Calcium (8.4-10.2) mg/dL Total Protein (6.3-8.2) g/dL Albumin (3.5-5.0) g/dL 06/04/20 06/04/20 06/04/20 Range/Units 04:44 04:44 06:40 RBC 4.25 L (4.30-5.90) m/uL Hgb 12.7 L (13.0-17.5) gm/dL Lymphocytes # 0.9 L (1.0-4.8) k/uL Sodium 136 L (137-145) mmol/L Chloride 108 H (98-107) mmol/L Glucose 131 H (74-99) mg/dL POC Glucose (mg/dL) 128 H (75-99) mg/dL Calcium 8.2 L (8.4-10.2) mg/dL Total Protein 5.2 L (6.3-8.2) g/dL Albumin 2.5 L (3.5-5.0) g/dL 06/04/20 Range/Units 08:24 RBC (4.30-5.90) m/uL Hgb (13.0-17.5) gm/dL Lymphocytes # (1.0-4.8) k/uL Sodium (137-145) mmol/L Chloride (98-107) mmol/L Glucose (74-99) mg/dL POC Glucose (mg/dL) 123 H (75-99) mg/dL Calcium (8.4-10.2) mg/dL Total Protein (6.3-8.2) g/dL Albumin (3.5-5.0) g/dL Microbiology - Last 24 Hours (Table) 06/01/20 15:35 Gram Stain - Final Foot - Left Wound Culture - Final Pseudomonas aeruginosa 05/31/20 12:58 Blood Culture - Preliminary Blood No Growth after 72 hours 05/31/20 12:58 Blood Culture - Preliminary Blood No Growth after 72 hours
[2020-06-04] MEDS ORDERED: VANCOMYCIN TROUGH DUE 1 EACH MISC MISCELLANE ONE (11:00)
[2020-06-04 11:56] LABS: Glucose,Whole Blood 202 mg/dL (75-99)
--- NOTE | 2020-06-04 14:17 | P.PN ---
Subjective Progress Note Date: 06/04/20 Principal diagnosis: Sepsis due to osteomyelitis status post amputation of left foot Necrotizing fasciitis Osteomyelitis of the left fifth toe Acute kidney injury Diabetes mellitus Coronary artery disease, status post CABG Hypertensive cardiovascular disease 06/04/2020, patient seen eval reexamined labs reviewed medications reviewed, patient has been resumed on his home medications, blood pressure very labile fluctuating, patient ended up having levo fed drip, still in ICU not ready for transfer and took off of levo fed drip, medicine have been adjusted by cardiovascular services, 06/03/2020, patient seen eval examined during the rounds labs reviewed medications reviewed care plan discussed with the staff at length, patient on room air breathing comfortably denies any chest pain has been on pain medicine as needed, left leg is covered with dressing, patient remains on vasopressors we'll give fluid boluses him to wean and taper and DC the pressors, good adequ ate urine output, 06/02/2020, patient seen eval reexamined labs reviewed radiographic studies reviewed, patient has been on assist control mode unable to wean extubated in recovery area patient has been placed on pressure support with CPAP 5 and 5 arterial blood gas and weaning parameters have been reviewed and will proceed with extubation on 4 L oxygen however patient continue require a small amount of vasopressors, abs reviewed x-rays reviewed This is a 70-year-old male who presented emergency department with symptoms of foot discomfort, which has been going on for several weeks, patient has been hospitalized in the past for similar problems, patient has noted left fifth toe is purple along with redness and tenderness up to the lower leg level, patient is being admitted into the hospital for vascular compromise with consultation with vascular surgery and infectious disease, past medical history significant for heart failure, diabetes mellitus, hypertension hypertensive cardiovascular disease patient does have a history of pneumonia in the past and Nephro-Faizan thesis, vascular surgery has evaluated the patient and cardiology has cleared the patient patient is going for surgery, patient overnight had the rapid response due to drop in blood pressure requiring fluid support, blood pressure did improve after bolus of the fluid, x-ray of the foot consistent with osteomyelitis and bony degeneration, potassium was 7.2 initially came down with rehydration last check was 5.1, Objective - Vital Signs Vital signs: Vital Signs Temp 98 F 06/04/20 12:00 Pulse 86 06/04/20 13:15 Resp 19 06/04/20 13:15 BP 105/62 06/04/20 13:15 Pulse Ox 95 06/04/20 13:15 Intake & Output 06/03/20 06/04/20 06/04/20 18:59 06:59 18:59 Intake Total 3315.121 3010 504.496 Output Total 780 1045 615 Balance 535.882 155 -110.504 Weight 57.6 kg 57.6 kg Intake: IV 1200 1200 300 Lactated Ringers 1,000 ml 1200 1200 200 @ 100 mls/hr IV .Q10H [facility] Rx#:[id number] Sodium Chloride 0.9% 500 100 ml 500 ml @ 20 mls/hr IV .Q24H [facility] Rx#:[id number] Intake, IV Titration 115.882 4.496 Amount Norepinephrine 4 mg In 115.882 4.496 Sodium Chloride 0.9% 250 ml @ 0.05 MCG/KG/MIN 11. 335 mls/hr IV .[id number] [facility] Rx#:[id number] Oral 200 Output: Urine 780 1045 615 Other: Voiding Method Indwelling Catheter Indwelling Catheter Indwelling Catheter # Voids 1 - Exam - Constitutional General appearance: average body habitus, cooperative, disheveled, status post extubation awake and alert - EENT Eyes: PERRLA Ears: bilateral: normal - Neck Carotids: bilateral: upstroke normal - Respiratory Respiratory: bilateral: CTA - Cardiovascular Rhythm: regular Heart sounds: normal: S1, S2 - Integumentary Integumentary: normal turgor - Neurologic Neurologic: CNII-XII intact - Musculoskeletal Musculoskeletal: generalized weakness Left foot covered with dressing - Labs CBC & Chem 7: 06/04/20 04:44 06/04/20 04:44 Labs: Abnormal Lab Results - Last 24 Hours (Table) 06/03/20 06/03/20 06/04/20 Range/Units 17:43 20:46 04:44 RBC (4.30-5.90) m/uL Hgb (13.0-17.5) gm/dL Lymphocytes # (1.0-4.8) k/uL Sodium 136 L (137-145) mmol/L Chloride 108 H (98-107) mmol/L Glucose 131 H (74-99) mg/dL POC Glucose (mg/dL) 246 H 222 H (75-99) mg/dL Calcium 8.2 L (8.4-10.2) mg/dL Total Protein 5.2 L (6.3-8.2) g/dL Albumin 2.5 L (3.5-5.0) g/dL 06/04/20 06/04/20 06/04/20 Range/Units 04:44 06:40 08:24 RBC 4.25 L (4.30-5.90) m/uL Hgb 12.7 L (13.0-17.5) gm/dL Lymphocytes # 0.9 L (1.0-4.8) k/uL Sodium (137-145) mmol/L Chloride (98-107) mmol/L Glucose (74-99) mg/dL POC Glucose (mg/dL) 128 H 123 H (75-99) mg/dL Calcium (8.4-10.2) mg/dL Total Protein (6.3-8.2) g/dL Albumin (3.5-5.0) g/dL 06/04/20 Range/Units 11:55 RBC (4.30-5.90) m/uL Hgb (13.0-17.5) gm/dL Lymphocytes # (1.0-4.8) k/uL Sodium (137-145) mmol/L Chloride (98-107) mmol/L Glucose (74-99) mg/dL POC Glucose (mg/dL) 202 H (75-99) mg/dL Calcium (8.4-10.2) mg/dL Total Protein (6.3-8.2) g/dL Albumin (3.5-5.0) g/dL Microbiology - Last 24 Hours (Table) 06/01/20 15:35 Gram Stain - Final Foot - Left Wound Culture - Final Pseudomonas aeruginosa 05/31/20 12:58 Blood Culture - Preliminary Blood No Growth after 72 hours 05/31/20 12:58 Blood Culture - Preliminary Blood No Growth after 72 hours Assessment and Plan Assessment: Sepsis due to osteomyelitis Osteomyelitis of the left fifth toe Necrotizing fasciitis Acute kidney injury Postop day #2 of amputation of left foot Diabetes mellitus Coronary artery disease, status post CABG Hypertensive cardiovascular disease Plan: Vasopressors as needed IV fluid boluses taper and DC the levo fed Broad-spectrum antibiotics ID and vascular surgery and cardiology consultation Further plan of care as per clinical response of the patient Time with Patient: Greater than 30
[2020-06-04 16:33] LABS: Glucose,Whole Blood 180 mg/dL (75-99)
[2020-06-04] MEDS ORDERED: TERBUTALINE FOR EXTRAVASATION 1 MG/ML VIAL SQ STA (17:23)
[2020-06-04 20:47] LABS: Glucose,Whole Blood 185 mg/dL (75-99)
[2020-06-04] MEDS: ATORVASTATIN 10 MG TAB PO SCH (21:04)
[2020-06-04] MEDS: HYDROcodone/APAP 5-325MG 1 EACH TAB PO PRN (21:04)
--- NOTE | 2020-06-04 22:02 | PN ---
PROGRESS NOTE DATE OF SERVICE: 06/04/2020 REASON FOR FOLLOWUP: Left diabetic foot infection with gangrene and necrotizing infection. INTERVAL COURSE: The patient is currently afebrile. The patient is breathing comfortably. The patient denies having any chest pain, shortness of breath or cough. No nausea, no abdominal pain. Pain to the left leg is currently controlled. PHYSICAL EXAMINATION: Blood pressure 105/67, pulse of 99, temperature 98, he is 99% on 2 L nasal cannula. General description is an elderly male lying in bed in no distress. Respiratory system: Unlabored breathing, clear to auscultation anteriorly. Heart S1, S2. Regular rate and rhythm. Abdomen soft, no tenderness. Left leg disarticulation site is currently covered. No drainage on the dressing. LABS: Wound culture finalized with Pseudomonas. Blood culture negative. DIAGNOSTIC IMPRESSION AND PLAN: Patient with Pseudomonas left foot infection in this patient status post disarticulation waiting for the left [id number] amputation. The patient is currently on Zosyn and monitor clinical course closely. MMODL / IJN: [id number] /
[2020-06-05] MEDS: PIPERACILLIN-TAZOBACTAM 3.375 GM in SODIUM CHLORIDE 0.9% 100 ML IVPB SCH ×4 (01:08→22:51)
[2020-06-05] MEDS ORDERED: MENTHOL (NICE) LOZENGE MUCOUS MEM PRN (03:25)
[2020-06-05] MEDS: NOREPINEPHRINE 4 MG in SODIUM CHLORIDE 0.9% 250 ML IV SCH (03:43)
[2020-06-05 05:30] LABS: Basophils % (A) 0 %; Eosinophils # (A) 0.1 k/uL (0-0.7); Eosinophils % (A) 1 %; HCT 38.8 % (39.0-53.0); HGB 12.6 gm/dL (13.0-17.5); Hypochromasia Slight; Lymphocytes # (A) 0.5 k/uL (1.0-4.8); Lymphocytes % (A) 6 %; MCH 30.2 pg (25.0-35.0); MCHC 32.5 g/dL (31.0-37.0); MCV 92.9 fL (80.0-100.0); Mean Platelet Volume 7.9; Monocytes # (A) 0.6 k/uL (0-1.0); Monocytes % (A) 7 %; Neutrophils # (A) 7.4 k/uL (1.3-7.7); Neutrophils % (A) 84 %; Platelet Count 219 k/uL (150-450); RBC 4.18 m/uL (4.30-5.90); RDW 14.5 % (11.5-15.5); WBC 8.7 k/uL (3.8-10.6)
[2020-06-05 05:39] LABS: AST 36 U/L (17-59); African American GFR (CKD) >90 (>60 ml/min/1.73 sqM); Albumin 2.8 g/dL (3.5-5.0); Anion Gap 0 mmol/L; Blood Urea Nitrogen 17 mg/dL (9-20); Calcium 8.4 mg/dL (8.4-10.2); Carbon Dioxide 30 mmol/L (22-30); Chloride 105 mmol/L (98-107); Glucose 124 mg/dL (74-99); Non-African American GFR(CKD) >90 (>60 ml/min/1.73 sqM); Potassium 4.9 mmol/L (3.5-5.1); Sodium 135 mmol/L (137-145); Total Bilirubin 0.9 mg/dL (0.2-1.3); Total Protein 5.8 g/dL (6.3-8.2)
[2020-06-05 05:40] LABS: ALT 47 U/L (4-49); Alkaline Phosphatase 131 U/L (38-126)
[2020-06-05] MEDS ORDERED: BENZOCAINE/MENTHOL LOZENG 1 EACH LOZENGE MUCOUS MEM PRN (06:09)
[2020-06-05] MEDS: INSULIN ASPART (NovoLOG) 100 UNIT/ML VIAL SQ SCH ×4 (06:24→21:04)
[2020-06-05 06:25] LABS: Glucose,Whole Blood 135 mg/dL (75-99)
--- NOTE | 2020-06-05 07:16 | XR ---
EXAMINATION TYPE: XR chest 1V portable DATE OF EXAM: 06/05/2020 CLINICAL HISTORY: Difficulty breathing progress study. TECHNIQUE: Single AP portable semiupright view of the chest is obtained. COMPARISON: Chest x-ray from one day earlier and older studies FINDINGS: Overlying sternal wires and mediastinal clips are redemonstrated. Stable cardiomegaly with small to moderate sized right pleural fluid collection and bilateral mid to lower lung opacities . O sseous structures are intact. IMPRESSION: There is cardiomegaly with small to moderate sized right greater than left pleural effusi ons and moderate interstitial edema consistent with CHF exacerbation. Areas of underlying acute infil trate not excluded in the mid to lower lungs bilaterally. No significant change from most recent x-ra y.
[2020-06-05] MEDS: PANTOPRAZOLE 40 MG/10 ML VIAL IV SCH (08:31)
[2020-06-05] MEDS: FUROSEMIDE 10 MG/ML 4 ML VIAL IV SCH ×2 (08:31→21:03)
[2020-06-05] MEDS: SPIRONOLACTONE 25 MG TAB PO SCH (08:31)
--- NOTE | 2020-06-05 08:50 | P.PN ---
Subjective Progress Note Date: 06/05/20 Principal diagnosis: Critical limb ischemia/severe coronary artery disease/severe cardiomyopathy this is a pleasant 70-year-old gentleman with severe coronary artery disease and also ischemic cardiomyopathy as well as valvular heart disease was admitted to the hospital and was diagnosed with critical limb ischemia and he underwent left below the knee amputation. The patient was seen today in June [id number]. Overall he is not doing well. Clinically he is dyspneic and more short of breath today than yesterday. On examination he does have diminished breathing sounds bilaterally with bilateral rhonchi. The chest x-ray showed findings consistent with bilateral pleural effusion. I am going to obtain an ultrasound of the chest. Also the chest x- ray showed bilateral infiltrates. He is on antibiotic. He did require small dose of norepinephrine last night but he is off any vasopressors at this point. He was started also on Coreg which was stopped because of the low blood pressure. I'm going to start the patient on Lasix IV with continued monitoring the kidney function as well as electrolytes and continue watching the blood pressure very close the as well. His GFR is about 60. Also will obtain NT proBNP level. I would postpone any further surgical intervention on him at this point until the patient is more stable hemodynamically. Beside that and foremost we need to discuss with his family the overall poor prognosis from a cardiovascular standpoint overview. The patient does have severe coronary artery disease with prior revascularization and also severe cardiomyopathy and valvular heart disease. The patient is at end stage heart failure/ca rdiomyopathy. Objective - Vital Signs Vital signs: Vital Signs Temp 98.1 F 06/05/20 08:00 Pulse 105 H 06/05/20 08:00 Resp 31 H 06/05/20 08:00 BP 100/69 06/05/20 08:00 Pulse Ox 95 06/05/20 08:00 Intake & Output 06/04/20 06/05/20 06/05/20 18:59 06:59 18:59 Intake Total 814.194 283.924 140 Output Total 850 770 75 Balance -35.806 -486.076 65 Weight 57.6 kg 62.5 kg Intake: IV 400 240 140 Lactated Ringers 1,000 ml 200 @ 100 mls/hr IV .Q10H [facility] Rx#:[id number] Piperacillin-Tazobactam 3 100 .375 gm In Sodium Chloride 0.9% 100 ml @ 25 mls/hr IVPB Q8HR [facility] Rx# :[id number] Sodium Chloride 0.9% 500 200 240 40 ml 500 ml @ 20 mls/hr IV .Q24H [facility] Rx#:[id number] Intake, IV Titration 94.194 43.924 Amount Norepinephrine 4 mg In 94.194 43.924 Sodium Chloride 0.9% 250 ml @ 0.05 MCG/KG/MIN 11. 335 mls/hr IV .[id number] [facility] Rx#:[id number] Oral 320 Output: Urine 850 770 75 Other: Voiding Method Indwelling Catheter Indwelling Catheter # Voids 1 - Constitutional General appearance: Present: no acute distress - Respiratory Respiratory: bilateral: diminished, rhonchi - Cardiovascular Rhythm: regular Heart sounds: normal: S1, S2 - Labs CBC & Chem 7: 06/05/20 04:55 06/05/20 04:55 Labs: Abnormal Lab Results - Last 24 Hours (Table) 06/04/20 06/04/20 06/04/20 Range/Units 11:55 16:32 20:46 RBC (4.30-5.90) m/uL Hgb (13.0-17.5) gm/dL Hct (39.0-53.0) % Lymphocytes # (1.0-4.8) k/uL Sodium (137-145) mmol/L Glucose (74-99) mg/dL POC Glucose (mg/dL) 202 H 180 H 185 H (75-99) mg/dL Alkaline Phosphatase (38-126) U/L Total Protein (6.3-8.2) g/dL Albumin (3.5-5.0) g/dL 06/05/20 06/05/20 06/05/20 Range/Units 04:55 04:55 06:24 RBC 4.18 L (4.30-5.90) m/uL Hgb 12.6 L (13.0-17.5) gm/dL Hct 38.8 L (39.0-53.0) % Lymphocytes # 0.5 L (1.0-4.8) k/uL Sodium 135 L (137-145) mmol/L Glucose 124 H (74-99) mg/dL POC Glucose (mg/dL) 135 H (75-99) mg/dL Alkaline Phosphatase 131 H (38-126) U/L Total Protein 5.8 L (6.3-8.2) g/dL Albumin 2.8 L (3.5-5.0) g/dL Microbiology - Last 24 Hours (Table) 05/31/20 12:58 Blood Culture - Preliminary Blood No Growth after 96 hours 05/31/20 12:58 Blood Culture - Preliminary Blood No Growth after 96 hours Assessment and Plan Assessment: Assessment #1 status post left below the knee amputation #2 critical limb ischemia of the left leg #3 coronary artery disease #4 severe cardiomyopathy #5 valvular heart disease Plan #1 start the patient on Lasix at 40 mg IV twice a day #2 monitor the kidney function and electrolytes #3 monitor the blood pressure #4 postpone any further surgical intervention at this point #5 obtain an ultrasound of the chest bilaterally #6 follow-up with the patient
--- NOTE | 2020-06-05 11:00 | US ---
EXAMINATION TYPE: US chest DATE OF EXAM: 06/05/2020 COMPARISON: X-ray earlier today CLINICAL HISTORY: evaluate christina pulmonary effusions. TECHNIQUE: Targeted ultrasound of the posterior bilateral chest EXAM MEASUREMENTS: Right Pleural Effusion pocket size: 4.3 cm A/P Right skin surface to fluid distance: 2.8 cm A/P Left Pleural Effusion pocket size: 6.5 cm A/P with multiple isoechoic internal echoes noted througho ut fluid Left skin surface to fluid distance: 3.6 cm A/P Right side was marked for possible thoracentesis outside the dept. Left side was marked for possible thoracentesis outside the dept. Pulmonologists are able to review the images in the patient?s EMR. Bbsmi-bw-gawgggha sized bilateral pleural effusions or fluid collections are confirmed on images save d, left is not completely anechoic suggesting internal debris or possible blood product. IMPRESSIONS: As above.
[2020-06-05 11:18] LABS: Glucose,Whole Blood 132 mg/dL (75-99)
[2020-06-05 11:50] LABS: Glucose,Whole Blood 149 mg/dL (75-99)
--- NOTE | 2020-06-05 14:53 | P.PN ---
Subjective Progress Note Date: 06/05/20 Patient seen and examined. Overnight events noted. No complaints. Some shortness of breath Awake and alert. No acute distress. Left lower extremity dressing clean, dry, intact Gas gangrene left foot with infection up to ankle and anterior compartment Acute ventilator dependent respiratory failureresolved Continue daily dressing changes. We will reevaluate him on a daily basis to decide when the best opportunity for amputation. Appreciate cardio input. Continue supportive care. Discussed with cardiology. Plan for amputation under sedation with regional block either Saturday the or Saturday vs no surgery and dressing change with local wound care. From my standpoint, patient should be allowed as visitor given his overall poor prognosis. This will be arranged, especially in the event of patient going to OR at some point if that happens. Objective - Vital Signs Vital signs: Vital Signs Temp 98.1 F 06/05/20 08:00 Pulse 95 06/05/20 13:00 Resp 36 H 06/05/20 13:00 BP 103/83 06/05/20 13:00 Pulse Ox 97 06/05/20 13:00 Intake & Output 06/04/20 06/05/20 06/05/20 18:59 06:59 18:59 Intake Total 814.194 283.924 500 Output Total 167 478 3593 Balance -35.806 -486.076 -1700 Weight 57.6 kg 62.5 kg Intake: IV 400 240 260 Lactated Ringers 1,000 ml 200 @ 100 mls/hr IV .Q10H [facility] Rx#:[id number] Piperacillin-Tazobactam 3 100 .375 gm In Sodium Chloride 0.9% 100 ml @ 25 mls/hr IVPB Q8HR [facility] Rx# :[id number] Sodium Chloride 0.9% 500 200 240 160 ml 500 ml @ 20 mls/hr IV .Q24H [facility] Rx#:[id number] Intake, IV Titration 94.194 43.924 Amount Norepinephrine 4 mg In 94.194 43.924 Sodium Chloride 0.9% 250 ml @ 0.05 MCG/KG/MIN 11. 335 mls/hr IV .[id number] [facility] Rx#:[id number] Oral 320 240 Output: Urine 850 995 8524 Other: Voiding Method Indwelling Catheter Indwelling Catheter Indwelling Catheter # Voids 1 - Labs CBC & Chem 7: 06/05/20 04:55 06/05/20 04:55 Labs: Abnormal Lab Results - Last 24 Hours (Table) 06/04/20 06/04/20 06/05/20 Range/Units 16:32 20:46 04:55 RBC 4.18 L (4.30-5.90) m/uL Hgb 12.6 L (13.0-17.5) gm/dL Hct 38.8 L (39.0-53.0) % Lymphocytes # 0.5 L (1.0-4.8) k/uL Sodium (137-145) mmol/L Glucose (74-99) mg/dL POC Glucose (mg/dL) 180 H 185 H (75-99) mg/dL Alkaline Phosphatase (38-126) U/L Total Protein (6.3-8.2) g/dL Albumin (3.5-5.0) g/dL 06/05/20 06/05/20 06/05/20 Range/Units 04:55 06:24 11:16 RBC (4.30-5.90) m/uL Hgb (13.0-17.5) gm/dL Hct (39.0-53.0) % Lymphocytes # (1.0-4.8) k/uL Sodium 135 L (137-145) mmol/L Glucose 124 H (74-99) mg/dL POC Glucose (mg/dL) 135 H 132 H (75-99) mg/dL Alkaline Phosphatase 131 H (38-126) U/L Total Protein 5.8 L (6.3-8.2) g/dL Albumin 2.8 L (3.5-5.0) g/dL 06/05/20 Range/Units 11:49 RBC (4.30-5.90) m/uL Hgb (13.0-17.5) gm/dL Hct (39.0-53.0) % Lymphocytes # (1.0-4.8) k/uL Sodium (137-145) mmol/L Glucose (74-99) mg/dL POC Glucose (mg/dL) 149 H (75-99) mg/dL Alkaline Phosphatase (38-126) U/L Total Protein (6.3-8.2) g/dL Albumin (3.5-5.0) g/dL Microbiology - Last 24 Hours (Table) 05/31/20 12:58 Blood Culture - Preliminary Blood No Growth after 96 hours 05/31/20 12:58 Blood Culture - Preliminary Blood No Growth after 96 hours
--- NOTE | 2020-06-05 14:58 | P.PN ---
Subjective Progress Note Date: 06/05/20 Principal diagnosis: Sepsis due to osteomyelitis status post amputation of left foot Necrotizing fasciitis Osteomyelitis of the left fifth toe Acute kidney injury Diabetes mellitus Coronary artery disease, status post CABG Hypertensive cardiovascular disease 06/05/2020, patient seen eval reexamined during the rounds labs reviewed medications reviewed sitting upright in chair breathing comfortably, levo fed have been off, respiratory status remains stable, denies any chest pain, patient has issues with low blood pressure followed by fluid resuscitation for that as well as renal failure, as well as patient has some oxygen desaturation however improved with IV Lasix, patient is being optimized with cardiovascular medicine, discussed with cardiovascular services and vascular surgery plans for DKA subsequently in next 24-48, 06/04/2020, patient seen eval reexamined labs reviewed medications reviewed, patient has been resumed on his home medications, blood pressure very labile fluctuating, patient ended up having levo fed drip, still in ICU not ready for transfer and took off of levo fed drip, medicine have been adjusted by cardiovascular services, 06/03/2020, patient seen eval examined during the rounds labs reviewed medications reviewed care plan discussed with the staff at length, patient on room air breathing comfortably denies any chest pain has been on pain medicine as needed, left leg is covered with dressing, patient remains on vasopressors we'll give fluid boluses him to wean and taper and DC the pressors, good adequate urine output, 06/02/2020, patient seen eval reexamined labs reviewed radiographic studies reviewed, patient has been on assist control mode unable to wean extubated in recovery area patient has been placed on pressure support with CPAP 5 and 5 arterial blood gas and weaning parameters have been reviewed and will proceed with extubation on 4 L oxygen however patient continue require a small amount of vasopressors, abs reviewed x-rays reviewed This is a 70-year-old male who presented emergency department with symptoms of foot discomfort, which has been going on for several weeks, patient has been hospitalized in the past for similar problems, patient has noted left fifth toe is purple along with redness and tenderness up to the lower leg level, patient is being admitted into the hospital for vascular compromise with consultation with vascular surgery and infectious disease, past medical history significant for heart failure, diabetes mellitus, hypertension hypertensive cardiovascular disease patient does have a history of pneumonia in the past and Nephro-Faizan thesis, vascular surgery has evaluated the patient and cardiology has cleared the patient patient is going for surgery, patient overnight had the rapid response due to drop in blood pressure requiring fluid support, blood pressure did improve after bolus of the fluid, x-ray of the foot consistent with osteomyelitis and bony degeneration, potassium was 7.2 initially came down with rehydration last check was 5.1, Objective - Vital Signs Vital signs: Vital Signs Temp 98.1 F 06/05/20 08:00 Pulse 95 06/05/20 13:00 Resp 36 H 06/05/20 13:00 BP 103/83 06/05/20 13:00 Pulse Ox 97 06/05/20 13:00 Intake & Output 06/04/20 06/05/20 06/05/20 18:59 06:59 18:59 Intake Total 814.194 283.924 500 Output Total 907 430 5770 Balance -35.806 -486.076 -1700 Weight 57.6 kg 62.5 kg Intake: IV 400 240 260 Lactated Ringers 1,000 ml 200 @ 100 mls/hr IV .Q10H [facility] Rx#:[id number] Piperacillin-Tazobactam 3 100 .375 gm In Sodium Chloride 0.9% 100 ml @ 25 mls/hr IVPB Q8HR [facility] Rx# :[id number] Sodium Chloride 0.9% 500 200 240 160 ml 500 ml @ 20 mls/hr IV .Q24H [facility] Rx#:[id number] Intake, IV Titration 94.194 43.924 Amount Norepinephrine 4 mg In 94.194 43.924 Sodium Chloride 0.9% 250 ml @ 0.05 MCG/KG/MIN 11. 335 mls/hr IV .[id number] [facility] Rx#:[id number] Oral 320 240 Output: Urine 823 950 4524 Other: Voiding Method Indwelling Catheter Indwelling Catheter Indwelling Catheter # Voids 1 - Exam - Constitutional General appearance: average body habitus, cooperative, disheveled, status post extubation awake and alert - EENT Eyes: PERRLA Ears: bilateral: normal - Neck Carotids: bilateral: upstroke normal - Respiratory Respiratory: bilateral: CTA - Cardiovascular Rhythm: regular Heart sounds: normal: S1, S2 - Integumentary Integumentary: normal turgor - Neurologic Neurologic: CNII-XII intact - Musculoskeletal Musculoskeletal: generalized weakness Left foot covered with dressing - Labs CBC & Chem 7: 06/05/20 04:55 06/05/20 04:55 Labs: Abnormal Lab Results - Last 24 Hours (Table) 06/04/20 06/04/20 06/05/20 Range/Units 16:32 20:46 04:55 RBC 4.18 L (4.30-5.90) m/uL Hgb 12.6 L (13.0-17.5) gm/dL Hct 38.8 L (39.0-53.0) % Lymphocytes # 0.5 L (1.0-4.8) k/uL Sodium (137-145) mmol/L Glucose (74-99) mg/dL POC Glucose (mg/dL) 180 H 185 H (75-99) mg/dL Alkaline Phosphatase (38-126) U/L Total Protein (6.3-8.2) g/dL Albumin (3.5-5.0) g/dL 06/05/20 06/05/20 06/05/20 Range/Units 04:55 06:24 11:16 RBC (4.30-5.90) m/uL Hgb (13.0-17.5) gm/dL Hct (39.0-53.0) % Lymphocytes # (1.0-4.8) k/uL Sodium 135 L (137-145) mmol/L Glucose 124 H (74-99) mg/dL POC Glucose (mg/dL) 135 H 132 H (75-99) mg/dL Alkaline Phosphatase 131 H (38-126) U/L Total Protein 5.8 L (6.3-8.2) g/dL Albumin 2.8 L (3.5-5.0) g/dL 06/05/20 Range/Units 11:49 RBC (4.30-5.90) m/uL Hgb (13.0-17.5) gm/dL Hct (39.0-53.0) % Lymphocytes # (1.0-4.8) k/uL Sodium (137-145) mmol/L Glucose (74-99) mg/dL POC Glucose (mg/dL) 149 H (75-99) mg/dL Alkaline Phosphatase (38-126) U/L Total Protein (6.3-8.2) g/dL Albumin (3.5-5.0) g/dL Microbiology - Last 24 Hours (Table) 05/31/20 12:58 Blood Culture - Preliminary Blood No Growth after 96 hours 05/31/20 12:58 Blood Culture - Preliminary Blood No Growth after 96 hours Assessment and Plan Assessment: Sepsis due to osteomyelitis Osteomyelitis of the left fifth toe status post amputation of left foot Necrotizing fasciitis Acute kidney injury Acute on chronic systolic heart failure Postop day #2 of amputation of left foot Diabetes mellitus Coronary artery disease, status post CABG Hypertensive cardiovascular disease Plan: Optimize cardiovascular medicine Monitor renal functions are closed Vasopressors as needed Broad-spectrum antibiotics ID, renal and vascular surgery and cardiology consultation Further plan of care as per clinical response of the patient Time with Patient: Greater than 30
[2020-06-05 16:39] LABS: Glucose,Whole Blood 272 mg/dL (75-99)
[2020-06-05] MEDS: LACTATED RINGERS 500 ML IV SCH (18:20)
[2020-06-05 20:40] LABS: Glucose,Whole Blood 185 mg/dL (75-99)
[2020-06-05] MEDS: ATORVASTATIN 10 MG TAB PO SCH (21:03)
[2020-06-05] MEDS: HEPARIN SODIUM,PORCINE 5,000 UNIT/ML 1 ML VIAL SQ SCH (21:04)
[2020-06-05] MEDS: SODIUM CHLORIDE 0.9% 500 ML 500 ML IV SCH ×2 (21:27→21:29)
--- NOTE | 2020-06-05 22:14 | PN ---
PROGRESS NOTE DATE OF SERVICE: 06/05/2020 REASON FOR FOLLOWUP: Left diabetic foot infection with gangrene and necrotizing infection. INTERVAL HISTORY: Patient is currently afebrile. Patient is breathing comfortably. The patient did have occasional cough, not bringing up sputum. No nausea. No vomiting. No abdominal pain. No worsening pain to the left leg. EXAMINATION: Blood pressure 139/73 with a pulse of 72, temperature 98.5. He is 99% on 2 L nasal cannula. General description is an elderly male lying in bed in no distress. Respiratory system: Unlabored breathing, decreased breath sounds in the bases. No wheeze. Heart S1, S2. Regular rate and rhythm. ABDOMEN: Soft, no tenderness. LABS: Hemoglobin is 12.7, white count of 8.7, BUN of 17, creatinine 0.73. DIAGNOSTIC IMPRESSION AND PLAN: Patient with left diabetic foot infection with gangrenous and necrotizing infection status post disarticulation of the left ankle. Awaiting BKA. Patient is covered with Zosyn to continue and monitor clinical course closely. MMODL / IJN: [id number] /
[2020-06-06 06:04] LABS: Glucose,Whole Blood 138 mg/dL (75-99)
[2020-06-06] MEDS: INSULIN ASPART (NovoLOG) 100 UNIT/ML VIAL SQ SCH ×4 (06:14→21:37)
[2020-06-06] MEDS: SPIRONOLACTONE 25 MG TAB PO SCH (08:44)
[2020-06-06] MEDS: FUROSEMIDE 10 MG/ML 4 ML VIAL IV SCH ×2 (08:47→21:37)
[2020-06-06] MEDS: PANTOPRAZOLE 40 MG/10 ML VIAL IV SCH (08:47)
[2020-06-06] MEDS: HEPARIN SODIUM,PORCINE 5,000 UNIT/ML 1 ML VIAL SQ SCH ×2 (08:48→21:37)
[2020-06-06] MEDS: PIPERACILLIN-TAZOBACTAM 3.375 GM in SODIUM CHLORIDE 0.9% 100 ML IVPB SCH ×3 (08:48→23:37)
[2020-06-06 10:53] LABS: African American GFR (CKD) >90 (>60 ml/min/1.73 sqM); Anion Gap 3 mmol/L; Blood Urea Nitrogen 17 mg/dL (9-20); Calcium 8.2 mg/dL (8.4-10.2); Carbon Dioxide 36 mmol/L (22-30); Chloride 98 mmol/L (98-107); Glucose 212 mg/dL (74-99); Magnesium 1.7 mg/dL (1.6-2.3); Non-African American GFR(CKD) >90 (>60 ml/min/1.73 sqM); Potassium 4.2 mmol/L (3.5-5.1); Sodium 137 mmol/L (137-145)
[2020-06-06 11:21] LABS: Glucose,Whole Blood 208 mg/dL (75-99)
[2020-06-06] MEDS: METOPROLOL TARTRATE 25 MG TAB PO SCH ×2 (12:11→21:36)
--- NOTE | 2020-06-06 12:51 | CDI ---
Documentation Clarification Form Date: 06/06/2020 12:14:23 PM From: Elaine Harris RN, CCDS Admit Date: 05/31/2020 04:57:00 PM Patient Name: Wily Naqvi Visit Number: [id number] Discharge Date: ATTENTION: The Clinical Documentation Specialists (CDI) and [facility] Coding Staff appreciate your assistance in clarifying documentation. Please respond to the clarification below the line at the bottom and electronically sign. The CDI & [facility] Coding staff will review the response and follow-up if needed. Please note: Queries are made part of the Legal Health Record. If you have any questions, please contact the author of this message via ITS. Dr. Sergio Grande 06/02 acute ventilator dependent respiratory failure is documented in your progress note. On 07/04 acute ventilator depending respiratory failure-resolved. To accurately capture this diagnosis please render your opinion if this is expected or unexpected following the procedure. Patients Admitting Diagnosis: Sepsis due to osteomyelitis, necrotizing fasciitis Post-Operative Diagnosis: Necrotizing fasciitis extending to the ankle and up the anterior compartment Procedure performed: Left below knee guillotine amputation of the foot History/Risk Factors: Coronary artery disease, Diabetes, Hypertension Clinical Indicators: 70-year-old male present on 05/31 to ED with left fifth toe pain and discoloration over the past 4-5 days and rapid progression. He has erythema at the level of his ankle and some tracking up the leg. Imaging reveled osteomyelitis. 06/01 operative note indicate urgent surgery and due to anesthesia concerns for possible coronavirus infection without the return of the test, precautions were taken and it was decided to intubate the patient for airway control rather than Mac anesthesia with a regional block. 06/02 Assist control mode unable to wean extubate in recovery area placed on pressure support with CPAP 5 and 5 arterial blood gas and weaning parameters. 06/02 patient extubated at 13:15 wean to 5/L NC Treatment: 05/22-06/02 mechanical ventilation with pulmonary management 06/02 weaning as planned if tolerated well and blood gases IV fluid boluses Vasopressors as needed In order to accurately reflect this patients severity of illness, please clarify if the acute ventilator dependent respiratory failure: -is an expected outcome of the surgical procedure (Last Revision: July 2019) MTDD
--- NOTE | 2020-06-06 13:35 | P.PN ---
Subjective This is a pleasant 70-year-old male past medical history significant for coronary artery disease status post bypass grafting, ischemic car diomyopathy, valvular heart disease, diabetes mellitus, hypertension and dyslipidemia. He follows in the office with Dr. Contreras. He is seen and examined sitting up on the edge of the bed conversing with his . He is s/p left foot amputation. Dressings in place. Dr. Lo would like to further perform below the knee amputation Saturday. The patient is currently being treated for an acute exacerbation of systolic heart failure with b/l pleural effusions on IV diuretics. He states his breathing has improved to the previous 24 hours but not entirely back to baseline. His urine output is over 4000 mls. Blood pressure 108/63 heart rate 101 afebrile maintaining oxygen saturation on nasal cannula. Currently maintained on atorvastatin 10 mg daily, Lasix 40 mg IV twice a day and Aldactone 25 mg daily. Most recent echocardiogram obtained in April 2020 revealed severely impaired LV systolic function with ejection fraction 20-25%, moderate to severe aortic stenosis with a mean gradient of 22 mmHg, moderate mitral regurgitation, moderate to severe tricuspid regurgitation and moderate to severe pulmonary hypertension. GENERAL: Well-appearing, well-nourished and in no acute distress. NECK: Supple without JVD or thyromegaly. LUNGS: Breath sounds clear to auscultation bilaterally. Respiration equal and unlabored. Bibasilar rales, no wheezes or rhonchi. Diminished bilaterally. HEART: Regular rate and rhythm with systolic ejection murmur at the base, no rubs or gallops. S1 and S2 heard. EXTREMITIES: Normal range of motion, no edema. Left lower extremity dressing in place. ASSESSMENT Acute on chronic systolic heart failure Pleural effusions bilaterally left greater than right Critical limb ischemia of the left leg Ischemic cardiomyopathy Hypertension Coronary artery disease status post bypass grafting Aortic stenosis, severe Mitral regurgitation Tricuspid regurgitation Pulmonary hypertension PLAN Continue IV diuresis. Document accurate intake and output along with daily weights. Follow renal function and electrolytes in the morning. Initiate Lopressor 25 mg twice a day. Increase atorvastatin to 80 mg at bedtime. If blood pressure and renal function tolerate will consider resuming entresto tomorrow. Further recommendations to follow based on clinical course. Nurse Practitioner note has been reviewed, I agree with a documented findings and plan of care. Patient was seen and examined. Objective - Vital Signs Vital signs: Vital Signs Temp 97.7 F 01/04/21 03:55 Pulse 101 H 06/06/20 08:00 Resp 18 06/06/20 08:00 BP 108/63 06/06/20 08:00 Pulse Ox 98 06/06/20 08:00 Intake & Output 06/05/20 06/06/20 06/06/20 18:59 06:59 18:59 Intake Total 760 Output Total 9585 2400 Balance -1715 -2400 Weight 65.5 kg Intake: IV 320 Piperacillin-Tazobactam 3 100 .375 gm In Sodium Chloride 0.9% 100 ml @ 25 mls/hr IVPB Q8HR [facility] Rx# :[id number] Sodium Chloride 0.9% 500 220 ml 500 ml @ 20 mls/hr IV .Q24H [facility] Rx#:[id number] Oral 440 Output: Urine 5028 2400 Other: Voiding Method Indwelling Catheter Indwelling Catheter Indwelling Catheter - Labs CBC & Chem 7: 06/05/20 04:55 06/06/20 10:24 Labs: Abnormal Lab Results - Last 24 Hours (Table) 06/05/20 06/05/20 06/06/20 Range/Units 16:37 20:38 05:53 Carbon Dioxide (22-30) mmol/L Glucose (74-99) mg/dL POC Glucose (mg/dL) 272 H 185 H 138 H (75-99) mg/dL Calcium (8.4-10.2) mg/dL 06/06/20 06/06/20 Range/Units 10:24 11:19 Carbon Dioxide 36 H (22-30) mmol/L Glucose 212 H (74-99) mg/dL POC Glucose (mg/dL) 208 H (75-99) mg/dL Calcium 8.2 L (8.4-10.2) mg/dL Microbiology - Last 24 Hours (Table) 05/31/20 12:58 Blood Culture - Preliminary Blood No Growth after 120 hours 05/31/20 12:58 Blood Culture - Preliminary Blood No Growth after 120 hours
--- NOTE | 2020-06-06 13:53 | CDI ---
Documentation Clarification Form Date: 06/06/2020 01:15:29 PM From: Elaine Harris RN CCDS Admit Date: 05/31/2020 04:57:00 PM Patient Name: Wily Naqvi Visit Number: [id number] Discharge Date: ATTENTION: The Clinical Documentation Specialists (CDI) and [facility] Coding Staff appreciate your assistance in clarifying documentation. Please respond to the clarification below the line at the bottom and electronically sign. The CDI & [facility] Coding staff will review the response and follow-up if needed. Please note: Queries are made part of the Legal Health Record. If you have any questions, please contact the author of this message via ITS. Dr. Heriberto Grande The patient presented with significant redness and tenderness in the left foot, lower leg. H/P has documented sepsis. In ED admission vital signs blood pressure 64/45 pulse 79 respiratory rate 20 temperature 98.3. History/Risk Factors: Coronary artery disease, Diabetes Mellitus, Hypertension Clinical Indicators: 70-year-old male present on 05/31 to ED with left fifth toe pain and discoloration over the past 4-5 days and rapid progression. He has erythema at the level of his ankle and some tracking up the leg. Imaging reveled osteomyelitis. 06/01 progress note: Patient is going for surgery, patient overnight had a rapid response due to drop in blood pressure requiring fluid support. 06/01 at 03:19: vital signs 79/53 73 19 98.2 WBC 14.8, Neutrophils 13.2, Potassium 6.4, BUN 51, CR 1.51, Lactic acid 1.8, Total Bilirubin 1.7, AST 92, ALT 94, Alkaline phosphatase 181 05/31 Blood culture: pending no growth after 120 hours 06/01 Surgery consult: wet gangrene left fifth toe with osteomyelitis. 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 Vancomycin 1,500 MG IVPB ONCE (PTD) dc 06/03 Zosyn 3.375 GM IVPB ONCE then IV Q 8 HRS Levophed drip per orders .9 NS 1,000 IV Bolus In your professional opinion, please clarify if these findings of sepsis present on admission also indicate the following condition: Sepsis with Septic Shock present on admission Identify the (suspected) organism unknown Link or clarify if there is associated (due to/with): SIRS Criteria (2 or more of the following may indicate SIRS): -Temperature < 96.8F (36C) or > 101.0F (38.3C) -Heart Rate > 90 bpm -Respiratory Rate > 20 breaths/min or PaCO2 < 32 mmHg -White Blood Cell Count > 12,000 or < 4,000 cells/mm3 or > 10% bands -Lactate >2.0 mmol/L (>4.0 is equivalent to septic shock) (Last Revision: September 2017) MTDD
--- NOTE | 2020-06-06 15:42 | P.CONS ---
History of Present Illness - Chief Complaint Walking difficulty - History of Present Illness I had the opportunity to see patient for inpatient rehab consultation with regard to walking difficulty. He was admitted to [facility] May 31 with left foot gangrene. Evaluated by Dr. Lo and June 01 underwent left BKA. Seen medically by Dr. Contreras for known CAD and Dr. Grande. Chest x-rays followed for c ardiomegaly, effusions and CHF. Chest ultrasound done for purpose of thoracentesis. Patient started therapy. OT reports minimal assistance for upper dressing and toileting, maximal assistance for lower dressing and moderate assistance for bathing and functional mobility. PT reports minimal assistance gait 2 feet with roller walker. Previous functional history as elicited from patient: 70-year-old left-handed white male who is lives in one floor home with . Retired from his own business. generally does the cooking and laundry and it share the driving. Patient previously independent with standing shower and gait without device. PMD Dr. Townsend. Denies tobacco or alcohol. Family history father with cancer. Review of Systems Review of systems: ENT: Denies sneezes or discharge. Eyes: Denies discharge or photophobia. Cardiac: Denies chest pain or palpitation. Pulmonary: Denies cough or shortness of breath. Gastrointestinal: Denies nausea, emesis, constipation, diarrhea. Genitourinary: Denies discharge or frequency. Musculoskeletal: Some left lower leg discomfort. Neurologic: Denies motor or sensory change. Endocrine: Denies shakes or sweats. Oncology: Denies cancers. Dermatologic: Denies rash, itching, pruritus. ALLERGY/immunology: Denies sneezes, rashes. Past Medical History Past Medical History: Heart Failure, Diabetes Mellitus, Hyperlipidemia, Hypertension, Myocardial Infarction ([place]) Additional Past Medical History / Comment(s): Pneumonia with sepsis, NIDDM type II-diet controlled now, neuropathy R foot, nephrolithiasis-pt passed stone on his own. Last Myocardial Infarction Date:: 2012 History of Any Multi-Drug Resistant Organisms: None Reported Past Surgical History: Coronary Bypass/CABG Additional Past Surgical History / Comment(s): 2012 CABG 6 vessel Past Anesthesia/Blood Transfusion Reactions: No Reported Reaction Past Psychological History: No Psychological Hx Reported Additional Psychological History / Comment(s): Pt resides with his spouse. He is independent. Smoking Status: Never smoker Past Alcohol Use History: None Reported Past Drug Use History: None Reported - Past Family History Father Family Medical History: Cancer Additional Family Medical History / Comment(s): father at age 77 from prostate cancer Mother Family Medical History: Cancer Additional Family Medical History / Comment(s): Mother had bowel cancer. Medications and Allergies Home Medications Medication Instructions Recorded Confirmed Type Atorvastatin [Lipitor] 10 mg PO HS 09/03/15 05/31/20 History Clopidogrel Bisulfate [Plavix] 75 mg PO DAILY 09/03/15 05/31/20 History Spironolactone [Aldactone] 25 mg PO DAILY 09/03/15 05/31/20 History Furosemide [Lasix] 40 mg PO BID #60 tablet 04/08/20 05/31/20 Rx Potassium Chloride ER [K-Dur 10] 10 meq PO BID 05/16/20 05/31/20 History carvediloL [Coreg] 3.125 mg PO BID-W/MEALS #60 tab 05/18/20 05/31/20 Rx ALPRAZolam [Xanax] 0.25 mg PO HS PRN #12 tab 05/20/20 05/31/20 Rx Melatonin 5 mg PO HS PRN tablet 05/20/20 05/31/20 Rx Mirtazapine [Remeron] 15 mg PO HS #30 tab 05/20/20 05/31/20 Rx Sacubitril/Valsartan [Entresto 24 1 tab PO BID 05/31/20 05/31/20 History mg-26 mg Tablet] Allergies Allergy/AdvReac Type Severity Reaction Status Date / Time No Known Allergies Allergy Verified 06/01/20 13:50 Physical Exam Vitals: Vital Signs Temp Pulse Pulse Resp BP BP Pulse Ox 06/06/20 08:00 101 H 18 108/63 98 06/06/20 05:53 105/65 06/06/20 03:55 97.7 F 80 22 97/62 96 06/06/20 01:40 19 06/05/20 23:12 99.2 F 68 19 94/55 97 06/05/20 20:00 98.5 F 72 19 88/54 99 06/05/20 17:00 98 38 H 111/73 98 06/05/20 16:00 101 H 43 H 104/74 98 Intake and Output 0106/06/20 06/06/20 06:59 14:59 22:59 Intake Total 476 Output Total 2400 2250 Balance -2400 -1774 Intake: Oral 476 Output: Urine 2400 2250 Other: Voiding Method Indwelling Catheter Indwelling Catheter Weight 65.5 kg Skin: Mildly atrophic, intact. General: Medium build and comfortable appearance. Head: Normocephalic, atraumatic. Eyes: Symmetric. Pupils equal round. Ears: Symmetric. Hearing within normal limits. Mouth: Clear. Neck: Supple. Carotid without bruit. Cardiac: Regular rate and rhythm. Lungs: Clear anteriorly and posteriorly. Abdomen: Soft active nontender. Extremities: Normal tone. Long Left BKA currently clean and dressed. Neurological: Mental status: Alert, cooperative, pleasant. Cranial nerves: Symmetric facial tone and trapezius. Motor: Normal strength and isolation all 4 limbs. Sensation: Intact throughout. DTRs: Symmetric and equal throughout. Mobility: Sits and stands with assistance. Results CBC & Chem 7: 06/05/20 04:55 06/06/20 10:24 Labs: Abnormal Lab Results - Last 24 Hours (Table) 06/05/20 06/05/20 06/06/20 Range/Units 16:37 20:38 05:53 Carbon Dioxide (22-30) mmol/L Glucose (74-99) mg/dL POC Glucose (mg/dL) 272 H 185 H 138 H (75-99) mg/dL Calcium (8.4-10.2) mg/dL 06/06/20 06/06/20 Range/Units 10:24 11:19 Carbon Dioxide 36 H (22-30) mmol/L Glucose 212 H (74-99) mg/dL POC Glucose (mg/dL) 208 H (75-99) mg/dL Calcium 8.2 L (8.4-10.2) mg/dL Microbiology - Last 24 Hours (Table) 05/31/20 12:58 Blood Culture - Final Blood No Growth after 144 hours 05/31/20 12:58 Blood Culture - Final Blood No Growth after 144 hours Assessment and Plan (1) Cellulitis of foot Current Visit: Yes Status: Acute Code(s): L03.119 - CELLULITIS OF UNSPECIFIED PART OF LIMB SNOMED Code(s): 986367460 (2) CHF (congestive heart failure) Current Visit: No Status: Acute Code(s): I50.9 - HEART FAILURE, UNSPECIFIED SNOMED Code(s): 89403219 (3) Pleural effusion Current Visit: No Status: Acute Code(s): J90 - PLEURAL EFFUSION, NOT ELSEWHERE CLASSIFIED SNOMED Code(s): 06803060 Plan: Impression: 1. Walking really. 2. Left foot gangrene status post left BKA. 3. Pulmonary CHF and effusions. 4. Coronary disease with history of VA and CABG. 5. Hypertension. 6. Dyslipidemia. 7. Diabetes. Comments and plan: At this time PT and OT are ongoing. Safety concerns noted. Have discussed possible inpatient rehab with patient and he seems agreeable.
--- NOTE | 2020-06-06 16:19 | P.PN ---
Subjective Progress Note Date: 06/06/20 Principal diagnosis: Sepsis due to osteomyelitis status post amputation of left foot Necrotizing fasciitis Osteomyelitis of the left fifth toe Acute kidney injury Diabetes mellitus Coronary artery disease, status post CABG Hypertensive cardiovascular disease 06/06/2020, patient seen eval examined at room air breathing comfortably denies any chest pain, left lower extremity wound healing well, patient is being planned for BKA left side next 24-48 hours, remains on broad-spectrum antibiotics renal functions have improved significantly, 06/05/2020, patient seen eval reexamined during the rounds labs reviewed medications reviewed sitting upright in chair breathing comfortably, levo fed have been off, respiratory status remains stable, denies any chest pain, patient has issues with low blood pressure followed by fluid resuscitation for that as well as renal failure, as well as patient has some oxygen desaturation however improved with IV Lasix, patient is being optimized with cardiovascular medicine, discussed with cardiovascular services and vascular surgery plans for DKA subsequently in next 24-48, 06/04/2020, patient seen eval reexamined labs reviewed medications reviewed, patient has been resumed on his home medications, blood pressure very labile fluctuating, patient ended up having levo fed drip, still in ICU not ready for transfer and took off of levo fed drip, medicine have been adjusted by cardiovascular services, 06/03/2020, patient seen eval examined during the rounds labs reviewed medications reviewed care plan discussed with the staff at length, patient on room air breathing comfortably denies any chest pain has been on pain medicine as needed, left leg is covered with dressing, patient remains on vasopressors we'll give fluid boluses him to wean and taper and DC the pressors, good adequate urine output, 06/02/2020, patient seen eval reexamined labs reviewed radiographic studies reviewed, patient has been on assist control mode unable to wean extubated in recovery area patient has been placed on pressure support with CPAP 5 and 5 arterial blood gas and weaning parameters have been reviewed and will proceed with extubation on 4 L oxygen however patient continue require a small amount of vasopressors, abs reviewed x-rays reviewed This is a 70-year-old male who presented emergency department with symptoms of foot discomfort, which has been going on for several weeks, patient has been hospitalized in the past for similar problems, patient has noted left fifth toe is purple along with redness and tenderness up to the lower leg level, patient is being admitted into the hospital for vascular compromise with consultation with vascular surgery and infectious disease, past medical history significant for heart failure, diabetes mellitus, hypertension hypertensive cardiovascular disease patient does have a history of pneumonia in the past and Nephro-Faizan thesis, vascular surgery has evaluated the patient and cardiology has cleared the patient patient is going for surgery, patient overnight had the rapid response due to drop in blood pressure requiring fluid support, blood pressure did improve after bolus of the fluid, x-ray of the foot consistent with osteomyelitis and bony degeneration, potassium was 7.2 initially came down with rehydration last check was 5.1, Objective - Vital Signs Vital signs: Vital Signs Temp 97.7 F 06/06/20 03:55 Pulse 101 H 06/06/20 08:00 Resp 18 06/06/20 08:00 BP 108/63 06/06/20 08:00 Pulse Ox 98 06/06/20 08:00 Intake & Output 06/05/20 06/06/20 06/06/20 18:59 06:59 18:59 Intake Total 760 476 Output Total 2475 2400 2250 Balance -1715 -2400 -1774 Weight 65.5 kg Intake: IV 320 Piperacillin-Tazobactam 3 100 .375 gm In Sodium Chloride 0.9% 100 ml @ 25 mls/hr IVPB Q8HR [facility] Rx# :[id number] Sodium Chloride 0.9% 500 220 ml 500 ml @ 20 mls/hr IV .Q24H [facility] Rx#:[id number] Oral 440 476 Output: Urine 2475 2400 2250 Other: Voiding Method Indwelling Catheter Indwelling Catheter Indwelling Catheter - Exam - Constitutional General appearance: average body habitus, cooperative, disheveled, status post extubation awake and alert - EENT Eyes: PERRLA Ears: bilateral: normal - Neck Carotids: bilateral: upstroke normal - Respiratory Respiratory: bilateral: CTA - Cardiovascular Rhythm: regular Heart sounds: normal: S1, S2 - Integumentary Integumentary: normal turgor - Neurologic Neurologic: CNII-XII intact - Musculoskeletal Musculoskeletal: generalized weakness Left foot covered with dressing - Labs CBC & Chem 7: 06/05/20 04:55 06/06/20 10:24 Labs: Abnormal Lab Results - Last 24 Hours (Table) 06/05/20 06/05/20 06/06/20 Range/Units 16:37 20:38 05:53 Carbon Dioxide (22-30) mmol/L Glucose (74-99) mg/dL POC Glucose (mg/dL) 272 H 185 H 138 H (75-99) mg/dL Calcium (8.4-10.2) mg/dL 06/06/20 06/06/20 Range/Units 10:24 11:19 Carbon Dioxide 36 H (22-30) mmol/L Glucose 212 H (74-99) mg/dL POC Glucose (mg/dL) 208 H (75-99) mg/dL Calcium 8.2 L (8.4-10.2) mg/dL Microbiology - Last 24 Hours (Table) 05/31/20 12:58 Blood Culture - Final Blood No Growth after 144 hours 05/31/20 12:58 Blood Culture - Final Blood No Growth after 144 hours Assessment and Plan Assessment: Sepsis due to osteomyelitis Osteomyelitis of the left fifth toe status post amputation of left foot Necrotizing fasciitis Acute kidney injury Acute on chronic systolic heart failure Postop day #2 of amputation of left foot Diabetes mellitus Coronary artery disease, status post CABG Hypertensive cardiovascular disease Plan: Optimize cardiovascular medicine Monitor renal functions are closed Vasopressors as needed Broad-spectrum antibiotics ID, renal and vascular surgery and cardiology consultation Further plan of care as per clinical response of the patient Time with Patient: Greater than 30
--- NOTE | 2020-06-06 16:40 | P.PN ---
Subjective Progress Note Date: 06/06/20 The patient was seen and examined sitting up at the bedside. Left lower extremity dressing clean dry and intact. Patient denies any fevers or chills, any pain to the lower extremity. Patient is requesting consult for physical therapy, as well as case management regarding insurance questions. Patient is continued on IV Zosyn. Objective - Vital Signs Vital signs: Vital Signs Temp 97.7 F 06/06/20 03:55 Pulse 101 H 06/06/20 08:00 Resp 18 06/06/20 08:00 BP 108/63 06/06/20 08:00 Pulse Ox 98 06/06/20 08:00 Intake & Output 06/05/20 06/06/20 06/06/20 18:59 06:59 18:59 Intake Total 760 Output Total 2475 2400 Balance -1715 -2400 Weight 65.5 kg Intake: IV 320 Piperacillin-Tazobactam 3 100 .375 gm In Sodium Chloride 0.9% 100 ml @ 25 mls/hr IVPB Q8HR [facility] Rx# :[id number] Sodium Chloride 0.9% 500 220 ml 500 ml @ 20 mls/hr IV .Q24H [facility] Rx#:[id number] Oral 440 Output: Urine 2475 2400 Other: Voiding Method Indwelling Catheter Indwelling Catheter - Exam General appearance: The patient is alert, oriented, in no acute distress. HET: Head is normocephalic and atraumatic. Neck: Supple without lymphadenopathy. Trachea midline. Heart: S1 S2. Regular rate and rhythm. Lungs: Diminished, but CTA Extremities: Right lower extremity without any edema. Left lower extremity with dressing clean dry and intact. Neurological: No focal deficits. Strength and sensation are grossly intact. - Labs CBC & Chem 7: 06/05/20 04:55 06/06/20 10:24 Labs: Abnormal Lab Results - Last 24 Hours (Table) 06/05/20 06/05/20 06/05/20 Range/Units 11:16 11:49 16:37 POC Glucose (mg/dL) 132 H 149 H 272 H (75-99) mg/dL 06/05/20 06/06/20 Range/Units 20:38 05:53 POC Glucose (mg/dL) 185 H 138 H (75-99) mg/dL Microbiology - Last 24 Hours (Table) 05/31/20 12:58 Blood Culture - Preliminary Blood No Growth after 120 hours 05/31/20 12:58 Blood Culture - Preliminary Blood No Growth after 120 hours Assessment and Plan Assessment: 1. 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 Acute ventilator-dependent respiratory failure, resolved 3. Coronary artery disease 4. Pleural effusions Plan: 1. Continue daily dressing changes 2. Await recommendations from cardiology for surgical clearance 3. Patient tentatively scheduled for a left onrit-nij-lnsf amputation on Saturday with Dr. Lo 4. Continue IV antibiotics as ordered 5. We'll continue to follow The above dictated assessment and findings were discussed with Dr. Uriarte. The impression and plan of care have been directed as dictated.
[2020-06-06 16:43] LABS: Glucose,Whole Blood 249 mg/dL (75-99)
[2020-06-06 20:44] LABS: Glucose,Whole Blood 157 mg/dL (75-99)
[2020-06-06] MEDS: ATORVASTATIN 80 MG TAB PO SCH (21:36)
[2020-06-06] MEDS: HYDROcodone/APAP 5-325MG 1 EACH TAB PO PRN (21:36)
--- NOTE | 2020-06-06 23:26 | PN ---
PROGRESS NOTE DATE OF SERVICE: 06/06/2020 REASON FOR FOLLOWUP: Left foot gangrene and necrotizing infection. INTERVAL HISTORY: The patient is currently afebrile. The patient is breathing comfortably. Denies having any chest pain, shortness of breath. No cough. No abdominal pain. Pain to the left leg is currently controlled. PHYSICAL EXAMINATION: Blood pressure 97/53 with a pulse of 90, temperature 96. He is 98% on 2 L nasal cannula. General description is an elderly male lying in bed in no distress. Respiratory system: Unlabored breathing, clear to auscultation anteriorly. Heart S1, S2. Regular rate and rhythm. Abdomen soft, no tenderness. Leg leg wound is currently dressed. No obvious drainage on the dressing. LABS: BUN of 17, creatinine 0.68. DIAGNOSTIC IMPRESSION AND PLAN: Patient with left foot gangrene with concern for necrotizing infection status post disarticulation waiting for the BKA. Culture positive for Pseudomonas. Patient is covered with Zosyn to continue and monitor clinical course closely. MMODL / IJN: [id number] /
[2020-06-07 05:36] LABS: Glucose,Whole Blood 113 mg/dL (75-99)
[2020-06-07] MEDS: INSULIN ASPART (NovoLOG) 100 UNIT/ML VIAL SQ SCH ×4 (06:22→22:07)
[2020-06-07] MEDS: PANTOPRAZOLE 40 MG TABLET PO SCH (06:34)
[2020-06-07 08:01] LABS: African American GFR (CKD) >90 (>60 ml/min/1.73 sqM); Blood Urea Nitrogen 17 mg/dL (9-20); Calcium 8.3 mg/dL (8.4-10.2); Chloride 96 mmol/L (98-107); Glucose 122 mg/dL (74-99); Non-African American GFR(CKD) >90 (>60 ml/min/1.73 sqM); Potassium 4.1 mmol/L (3.5-5.1); Sodium 139 mmol/L (137-145)
[2020-06-07 08:24] LABS: Anion Gap 2 mmol/L
[2020-06-07 08:29] LABS: Carbon Dioxide 41 mmol/L (22-30)
[2020-06-07] MEDS: FUROSEMIDE 10 MG/ML 4 ML VIAL IV SCH (09:04)
[2020-06-07] MEDS: HEPARIN SODIUM,PORCINE 5,000 UNIT/ML 1 ML VIAL SQ SCH ×2 (09:04→22:04)
[2020-06-07] MEDS: METOPROLOL TARTRATE 25 MG TAB PO SCH ×2 (09:04→22:04)
[2020-06-07] MEDS: SPIRONOLACTONE 25 MG TAB PO SCH (09:04)
[2020-06-07] MEDS: PIPERACILLIN-TAZOBACTAM 3.375 GM in SODIUM CHLORIDE 0.9% 100 ML IVPB SCH ×3 (09:05→23:57)
[2020-06-07] MEDS: SODIUM CHLORIDE 0.9% 500 ML 500 ML IV SCH (09:16)
--- NOTE | 2020-06-07 09:43 | CDI ---
Documentation Clarification Form Date: 06/07/2020 09:20:40 AM From: Elaine Harris RN, CCDS Admit Date: 05/31/2020 04:57:00 PM Patient Name: Wily Naqvi Visit Number: [id number] Discharge Date: ATTENTION: The Clinical Documentation Specialists (CDI) and [facility] Coding Staff appreciate your assistance in clarifying documentation. Please respond to the clarification below the line at the bottom and electronically sign. The CDI & [facility] Coding staff will review the response and follow-up if needed. Please note: Queries are made part of the Legal Health Record. If you have any questions, please contact the author of this message via ITS. Dr. Jenny Lo Osteomyelitis has been documented in the ED clinical impression on 05/31, surgery consult and subsequent progress notes starting on 06/01/20. To accurately capture the diagnosis, please render your opinion on the acuity of the left fifth toe osteomyelitis. History/Risk Factors: Diabetes Mellitus, Coronary artery disease, Hypertension Clinical Indicators: 70-year-old male present on 05/31 to ED with left fifth toe pain and discoloration over the past 4-5 days and rapid progression. He has erythema at the level of his ankle and some tracking up the leg. Imaging reveled osteomyelitis. WBC 14.8, Neutrophils 13.2, Potassium 6.4, BUN 51, CR 1.51, Lactic acid 1.8, Total Bilirubin 1.7, AST 92, ALT 94, Alkaline phosphatase 181 05/31 Blood culture: pending no growth after 120 hours 06/01 Surgery consult: wet gangrene left fifth toe with osteomyelitis. 05/31 Left foot x-ray: There are sense vascular calcifications present, correlate for underlying diabetes, peripheral vascular occlusive disease. Osteomyelitis fifth digit, possible fourth digit left foot Treatment: CU Monitoring 06/01 Left below knee guillotine amputation of left foot Vancomycin 1,500 MG IVPB ONCE (PTD) dc 06/03 Zosyn 3.375 GM IVPB ONCE then IV Q 8 HRS Levophed drip per orders .9 NS 1,000 IV Bolus In your professional opinion, please specify the following for the left fifth toe osteomyelitis: Acuity: Chronic Cause: Unable to Determine Associated condition (if applicable): Diabetic Major osseous defect (specify site) Other (please specify): 5th toe (Last Revision: March 2017) MTDD
--- NOTE | 2020-06-07 10:24 | P.PN ---
Subjective This is a pleasant 70-year-old male past medical history significant for coronary artery disease status post bypass grafting, ischemic car diomyopathy, valvular heart disease, diabetes mellitus, hypertension and dyslipidemia. He follows in the office with Dr. Contreras. He is seen and examined sitting up on the edge of the bed conversing with his . He is s/p left foot amputation. Dressings in place. Dr. Lo would like to further perform below the knee amputation Saturday. The patient is currently being treated for an acute exacerbation of systolic heart failure with b/l pleural effusions on IV diuretics. He states his breathing has improved to the previous 24 hours but not entirely back to baseline. His urine output is over 4000 mls. Blood pressure 108/63 heart rate 101 afebrile maintaining oxygen saturation on nasal cannula. Currently maintained on atorvastatin 10 mg daily, Lasix 40 mg IV twice a day and Aldactone 25 mg daily. Most recent echocardiogram obtained in April 2020 revealed severely impaired LV systolic function with ejection fraction 20-25%, moderate to severe aortic stenosis with a mean gradient of 22 mmHg, moderate mitral regurgitation, moderate to severe tricuspid regurgitation and moderate to severe pulmonary hypertension. 06/07/2019 Patient is seen and examined standing up with physical therapy using a walker. He states his breathing is somewhat improved from yesterday but not back to b aseline. He denies chest pain, dizziness or palpitations. Blood pressure 98/53 heart rate 92 afebrile maintaining oxygen saturation on nasal cannula. Laboratory data reviewed, sodium 139, potassium 4.1, creatinine 0.81. Continues to have significant urine output with 4875 mL's in the previous 24 hours and 3770 mL since 7 AM today. He continues to be maintained on IV diuretics. GENERAL: Well-appearing, well-nourished and in no acute distress. NECK: Supple without JVD or thyromegaly. LUNGS: Breath sounds clear to auscultation bilaterally. Respiration equal and unlabored. Bibasilar rales, no wheezes or rhonchi. Diminished bilaterally. HEART: Regular rate and rhythm with systolic ejection murmur at the base, no rubs or gallops. S1 and S2 heard. EXTREMITIES: Normal range of motion, no edema. Left lower extremity dressing in place. ASSESSMENT Acute on chronic systolic heart failure Pleural effusions bilaterally left greater than right Critical limb ischemia of the left leg Ischemic cardiomyopathy Hypertension Coronary artery disease status post bypass grafting Aortic stenosis, severe Mitral regurgitation Tricuspid regurgitation Pulmonary hypertension PLAN Transition to oral diuretics. From a cardiac perspective recommend holding off on any elective procedures at this point. If further amputation can be delayed while his breathing and heart failure are optimized that would be ideal. Once discharged he can follow up with Dr. Contreras and make further recommendations regarding surgical intervention. Nurse Practitioner note has been reviewed, I agree with a documented findings and plan of care. Patient was seen and examined. Objective - Vital Signs Vital signs: Vital Signs Temp 99.1 F 06/07/20 00:00 Pulse 92 06/07/20 04:00 Resp 18 06/07/20 04:00 BP 98/53 06/07/20 04:00 Pulse Ox 100 06/07/20 04:00 Intake & Output 06/06/20 06/07/20 06/07/20 18:59 06:59 18:59 Intake Total 712 600 Output Total 2250 1520 Balance -1538 -1520 600 Intake: Oral 712 600 Output: Urine 2250 1520 Other: Voiding Method Indwelling Catheter Indwelling Catheter # Bowel Movements 1 - Labs CBC & Chem 7: 06/05/20 04:55 06/07/20 07:13 Labs: Abnormal Lab Results - Last 24 Hours (Table) 06/06/20 06/06/20 06/06/20 Range/Units 10:24 11:19 16:41 Chloride (98-107) mmol/L Carbon Dioxide 36 H (22-30) mmol/L Glucose 212 H (74-99) mg/dL POC Glucose (mg/dL) 208 H 249 H (75-99) mg/dL Calcium 8.2 L (8.4-10.2) mg/dL 06/06/20 06/07/20 06/07/20 Range/Units 20:42 05:34 07:13 Chloride 96 L (98-107) mmol/L Carbon Dioxide 41 H* (22-30) mmol/L Glucose 122 H (74-99) mg/dL POC Glucose (mg/dL) 157 H 113 H (75-99) mg/dL Calcium 8.3 L (8.4-10.2) mg/dL Microbiology - Last 24 Hours (Table) 06/01/20 15:35 Anaerobic Culture - Final Foot - Left Anaerobic Gm Negative Bacilli 05/31/20 12:58 Blood Culture - Final Blood No Growth after 144 hours 05/31/20 12:58 Blood Culture - Final Blood No Growth after 144 hours
--- NOTE | 2020-06-07 11:27 | P.PN ---
Subjective Progress Note Date: 06/07/20 Principal diagnosis: Sepsis due to osteomyelitis status post amputation of left foot Necrotizing fasciitis Osteomyelitis of the left fifth toe Acute kidney injury Diabetes mellitus Coronary artery disease, status post CABG Hypertensive cardiovascular disease 06/07/2020, patient seen eval examined during the rounds labs reviewed medications reviewed care plan discussed, respiratory status remains stable on 2 L oxygen denies any cough or sputum production cardiovascular service and evaluated the patient, hemodynamic status is marginal but improved last blood pressure 100/53 heart rate is 92, on 2 L oxygen, creatinine normal back to baseline, urine output is over 4.8 L tolerating diuretics very well, overall plan is to optimize cardiac status and diuresis, before elective surgery at a later date 06/06/2020, patient seen eval examined at room air breathing comfortably denies any chest pain, left lower extremity wound healing well, patient is being planned for BKA left side next 24-48 hours, remains on broad-spectrum antibiotics renal functions have improved significantly, 06/05/2020, patient seen eval reexamined during the rounds labs reviewed medications reviewed sitting upright in chair breathing comfortably, levo fed have been off, respiratory status remains stable, denies any chest pain, patient has issues with low blood pressure followed by fluid resuscitation for that as well as renal failure, as well as patient has some oxygen desaturation however improved with IV Lasix, patient is being optimized with cardiovascular medicine, discussed with cardiovascular services and vascular surgery plans for DKA subsequently in next 24-48, 06/04/2020, patient seen eval reexamined labs reviewed medications reviewed, patient has been resumed on his home medications, blood pressure very labile fluctuating, patient ended up having levo fed drip, still in ICU not ready for transfer and took off of levo fed drip, medicine have been adjusted by cardiova scular services, 06/03/2020, patient seen eval examined during the rounds labs reviewed medications reviewed care plan discussed with the staff at length, patient on room air breathing comfortably denies any chest pain has been on pain medicine as needed, left leg is covered with dressing, patient remains on vasopressors we'll give fluid boluses him to wean and taper and DC the pressors, good prosper quate urine output, 06/02/2020, patient seen eval reexamined labs reviewed radiographic studies rev iewed, patient has been on assist control mode unable to wean extubated in recovery area patient has been placed on pressure support with CPAP 5 and 5 arterial blood gas and weaning parameters have been reviewed and will proceed with extubation on 4 L oxygen however patient continue require a small amount of vasopressors, abs reviewed x-rays reviewed This is a 70-year-old male who presented emergency department with symptoms of foot discomfort, which has been going on for several weeks, patient has been hospitalized in the past for similar problems, patient has noted left fifth toe is purple along with redness and tenderness up to the lower leg level, patient is being admitted into the hospital for vascular compromise with consultation with vascular surgery and infectious disease, past medical history significant for heart failure, diabetes mellitus, hypertension hypertensive cardiovascular disease patient does have a history of pneumonia in the past and Nephro-Faizan thesis, vascular surgery has evaluated the patient and cardiology has cleared the patient patient is going for surgery, patient overnight had the rapid response due to drop in blood pressure requiring fluid support, blood pressure did improve after bolus of the fluid, x-ray of the foot consistent with osteomyelitis and bony degeneration, potassium was 7.2 initially came down with rehydration last check was 5.1, Objective - Vital Signs Vital signs: Vital Signs Temp 98.2 F 06/07/20 08:00 Pulse 92 06/07/20 08:00 Resp 16 06/07/20 08:00 BP 92/53 06/07/20 08:00 Pulse Ox 94 L 06/07/20 08:00 Intake & Output 06/06/20 06/07/20 06/07/20 18:59 06:59 18:59 Intake Total 712 600 Output Total 2250 1520 Balance -1538 -1520 600 Intake: Oral 712 600 Output: Urine 2250 1520 Other: Voiding Method Indwelling Catheter Indwelling Catheter # Bowel Movements 1 - Exam - Constitutional General appearance: average body habitus, cooperative, disheveled, status post extubation awake and alert - EENT Eyes: PERRLA Ears: bilateral: normal - Neck Carotids: bilateral: upstroke normal - Respiratory Respiratory: bilateral: CTA - Cardiovascular Rhythm: regular Heart sounds: normal: S1, S2 - Integumentary Integumentary: normal turgor - Neurologic Neurologic: CNII-XII intact - Musculoskeletal Musculoskeletal: generalized weakness Left foot covered with dressing - Labs CBC & Chem 7: 06/05/20 04:55 06/07/20 07:13 Labs: Abnormal Lab Results - Last 24 Hours (Table) 06/06/20 06/06/20 06/07/20 Range/Units 16:41 20:42 05:34 Chloride (98-107) mmol/L Carbon Dioxide (22-30) mmol/L Glucose (74-99) mg/dL POC Glucose (mg/dL) 249 H 157 H 113 H (75-99) mg/dL Calcium (8.4-10.2) mg/dL 06/07/20 Range/Units 07:13 Chloride 96 L (98-107) mmol/L Carbon Dioxide 41 H* (22-30) mmol/L Glucose 122 H (74-99) mg/dL POC Glucose (mg/dL) (75-99) mg/dL Calcium 8.3 L (8.4-10.2) mg/dL Microbiology - Last 24 Hours (Table) 06/01/20 15:35 Anaerobic Culture - Final Foot - Left Anaerobic Gm Negative Bacilli 05/31/20 12:58 Blood Culture - Final Blood No Growth after 144 hours 05/31/20 12:58 Blood Culture - Final Blood No Growth after 144 hours Assessment and Plan Assessment: Acute on systolic heart failure Pulmonary edema and bilateral pleural effusion Sepsis due to osteomyelitis Osteomyelitis of the left fifth toe status post amputation of left foot Necrotizing fasciitis Acute kidney injury Acute on chronic systolic heart failure Postop day #2 of amputation of left foot Diabetes mellitus Coronary artery disease, status post CABG Hypertensive cardiovascular disease Plan: Continue diuresis Optimize cardiovascular medicine Monitor renal functions are closed It appears that the BKA will be delayed at a later date Broad-spectrum antibiotics ID, renal and vascular surgery and cardiology consultation Further plan of care as per clinical response of the patient Time with Patient: Greater than 30
[2020-06-07 12:05] LABS: Glucose,Whole Blood 231 mg/dL (75-99)
--- NOTE | 2020-06-07 13:31 | P.CONS ---
History of Present Illness - Reason for Consult Consult date: 06/07/20 wound care - History of Present Illness This is a 70-year-old patient being seen on 3 S. to a below the knee amputation with bone exposure. Patient had wet gangrene of the fifth toe and ostial myelitis. Necrotizing fasciitis extending to the ankle and up to the anterior compartment. Patient underwent left below the knee guillotine amputation of the foot. Deep space culture was performed. Patient's past medical history significant for coronary artery disease, previous bypass, severe ischemic cardiomyopathy, valvular disease, diabetes, hypertension and dyslipidemia. His erythema was at the level of the ankle and tracking of the leg. Imaging did reveal ostial myelitis. Review of Systems Review Of Systems: Constitutional: No fever, no chills, no night sweats. No weight change. No weakness, fatigue or lethargy. No daytime sleepiness. Integumentary:reports wounds, no lesions. No rash or pruritus. No unusual bruising. No change in hair or nails. Past Medical History Past Medical History: Heart Failure, Diabetes Mellitus, Hyperlipidemia, Hypertension, Myocardial Infarction ([place]) Additional Past Medical History / Comment(s): Pneumonia with sepsis, NIDDM type II-diet controlled now, neuropathy R foot, nephrolithiasis-pt passed stone on his own. Last Myocardial Infarction Date:: 2012 History of Any Multi-Drug Resistant Organisms: None Reported Past Surgical History: Coronary Bypass/CABG Additional Past Surgical History / Comment(s): 2012 CABG 6 vessel Past Anesthesia/Blood Transfusion Reactions: No Reported Reaction Past Psychological History: No Psychological Hx Reported Additional Psychological History / Comment(s): Pt resides with his spouse. He is independent. Smoking Status: Never smoker Past Alcohol Use History: None Reported Past Drug Use History: None Reported - Past Family History Father Family Medical History: Cancer Additional Family Medical History / Comment(s): father at age 77 from prostate cancer Mother Family Medical History: Cancer Additional Family Medical History / Comment(s): Mother had bowel cancer. Medications and Allergies Home Medications Medication Instructions Recorded Confirmed Type Atorvastatin [Lipitor] 10 mg PO HS 09/03/15 05/31/20 History Clopidogrel Bisulfate [Plavix] 75 mg PO DAILY 09/03/15 05/31/20 History Spironolactone [Aldactone] 25 mg PO DAILY 09/03/15 05/31/20 History Furosemide [Lasix] 40 mg PO BID #60 tablet 04/08/20 05/31/20 Rx Potassium Chloride ER [K-Dur 10] 10 meq PO BID 05/16/20 05/31/20 History carvediloL [Coreg] 3.125 mg PO BID-W/MEALS #60 tab 05/18/20 05/31/20 Rx ALPRAZolam [Xanax] 0.25 mg PO HS PRN #12 tab 05/20/20 05/31/20 Rx Melatonin 5 mg PO HS PRN tablet 05/20/20 05/31/20 Rx Mirtazapine [Remeron] 15 mg PO HS #30 tab 05/20/20 05/31/20 Rx Sacubitril/Valsartan [Entresto 24 1 tab PO BID 05/31/20 05/31/20 History mg-26 mg Tablet] Allergies Allergy/AdvReac Type Severity Reaction Status Date / Time No Known Allergies Allergy Verified 06/01/20 13:50 Physical Exam Vitals: Vital Signs Temp Pulse Resp BP BP Pulse Ox 06/07/20 08:00 98.2 F 92 16 92/53 94 L 06/07/20 04:00 92 18 98/53 100 06/07/20 01:23 95 18 06/07/20 00:00 99.1 F 95 18 91/52 97 06/06/20 20:00 98.3 F 101 H 18 100/58 92 L 06/06/20 16:00 96 F L 98 16 97/53 98 06/06/20 14:00 16 Intake and Output 06/06/20 06/07/20 06/07/20 22:59 06:59 14:59 Intake Total 236 600 Output Total 1520 Balance 236 -1520 600 Intake: Oral 236 600 Output: Urine 1520 Other: Voiding Method Indwelling Catheter Indwelling Catheter Indwelling Catheter # Bowel Movements 1 Physical exam: General Appearance: Alert, cooperative, no distress, appears stated age. Skin: See HPI all other Skin color, texture, tugor normal, no rashes or lesions. Neurologic: Alert oriented x3 Results CBC & Chem 7: 06/05/20 04:55 06/07/20 07:13 Labs: Abnormal Lab Results - Last 24 Hours (Table) 06/06/20 06/06/20 06/07/20 Range/Units 16:41 20:42 05:34 Chloride (98-107) mmol/L Carbon Dioxide (22-30) mmol/L Glucose (74-99) mg/dL POC Glucose (mg/dL) 249 H 157 H 113 H (75-99) mg/dL Calcium (8.4-10.2) mg/dL 06/07/20 06/07/20 Range/Units 07:13 11:43 Chloride 96 L (98-107) mmol/L Carbon Dioxide 41 H* (22-30) mmol/L Glucose 122 H (74-99) mg/dL POC Glucose (mg/dL) 231 H (75-99) mg/dL Calcium 8.3 L (8.4-10.2) mg/dL Microbiology - Last 24 Hours (Table) 06/01/20 15:35 Anaerobic Culture - Final Foot - Left Anaerobic Gm Negative Bacilli 05/31/20 12:58 Blood Culture - Final Blood No Growth after 144 hours 05/31/20 12:58 Blood Culture - Final Blood No Growth after 144 hours Assessment and Plan (1) 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 Change 3 times a week. Patient is discharged may apply absorptive silver doing moistened gauze, dry gauze rolled gauze and secure with paper tape. The absorptive silver may stay in place until home care can come in with the wound VAC. Patient will continue to follow-up with Dr. Lo. Thank you for the consultation any questions with Wound care center DNP note has been reviewed and discussed with Dr. Dencklau and the impression and plan of care has been directed as dictated.
--- NOTE | 2020-06-07 13:53 | P.PN ---
Subjective Progress Note Date: 06/07/20 The patient was seen and examined sitting up at the bedside. Left lower extremity dressing clean dry and intact, was changed yesterday evening. Patient denies any fevers or chills, any pain to the lower extremity. Dr. Lo had a discussion with the patient, and plan is to apply wound VAC and discharged home with home care with close follow-up. Objective - Vital Signs Vital signs: Vital Signs Temp 98.2 F 06/07/20 08:00 Pulse 92 06/07/20 08:00 Resp 16 06/07/20 08:00 BP 92/53 06/07/20 08:00 Pulse Ox 94 L 06/07/20 08:00 Intake & Output 06/06/20 06/07/20 06/07/20 18:59 06:59 18:59 Intake Total 712 600 Output Total 2250 1520 Balance -1538 -1520 600 Intake: Oral 712 600 Output: Urine 2250 1520 Other: Voiding Method Indwelling Catheter Indwelling Catheter Indwelling Catheter # Bowel Movements 1 - Exam General appearance: The patient is alert, oriented, in no acute distress. HET: Head is normocephalic and atraumatic. Neck: Supple without lymphadenopathy. Trachea midline. Heart: S1 S2. Regular rate and rhythm. Lungs: Diminished, but CTA Extremities: Right lower extremity without any edema. Left lower extremity with dressing clean dry and intact. Neurological: No focal deficits. Strength and sensation are grossly intact. - Labs CBC & Chem 7: 06/05/20 04:55 06/07/20 07:13 Labs: Abnormal Lab Results - Last 24 Hours (Table) 06/06/20 06/06/20 06/07/20 Range/Units 16:41 20:42 05:34 Chloride (98-107) mmol/L Carbon Dioxide (22-30) mmol/L Glucose (74-99) mg/dL POC Glucose (mg/dL) 249 H 157 H 113 H (75-99) mg/dL Calcium (8.4-10.2) mg/dL 06/07/20 06/07/20 Range/Units 07:13 11:43 Chloride 96 L (98-107) mmol/L Carbon Dioxide 41 H* (22-30) mmol/L Glucose 122 H (74-99) mg/dL POC Glucose (mg/dL) 231 H (75-99) mg/dL Calcium 8.3 L (8.4-10.2) mg/dL Microbiology - Last 24 Hours (Table) 06/01/20 15:35 Anaerobic Culture - Final Foot - Left Anaerobic Gm Negative Bacilli 05/31/20 12:58 Blood Culture - Final Blood No Growth after 144 hours 05/31/20 12:58 Blood Culture - Final Blood No Growth after 144 hours Assessment and Plan Assessment: 1. 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 Acute ventilator-dependent respiratory failure, resolved 4. Coronary artery disease 5. Pleural effusions Plan: 1. Continue daily dressing changes 2. Consult to wound care for wound VAC application 3. Apply wound vac to left lower extremity for discharge with home care follow- up 4. Antibiotics per recommendation from infectious disease 5. Patient may be discharged home from a vascular surgical standpoint with follow-up with Dr. Lo in one week 6. Continue medical management The above dictated assessment and findings were discussed with Dr. Lo. The impression and plan of care have been directed as dictated. .
[2020-06-07 14:43] VITALS: BMI 20.1
[2020-06-07 17:07] LABS: Glucose,Whole Blood 217 mg/dL (75-99)
[2020-06-07 21:01] LABS: Glucose,Whole Blood 231 mg/dL (75-99)
[2020-06-07] MEDS: ATORVASTATIN 80 MG TAB PO SCH (22:04)
[2020-06-07] MEDS: TEMAZEPAM 15 MG CAP PO PRN (22:04)
[2020-06-07] MEDS: FUROSEMIDE 40 MG TAB PO SCH (22:04)
--- NOTE | 2020-06-07 23:06 | PN ---
PROGRESS NOTE DATE OF SERVICE: 06/07/2020 REASON FOR FOLLOWUP: Left foot gangrene INTERVAL HISTORY: The patient is currently afebrile. The patient is breathing comfortably. The patient's left [id number] amputation has been postponed because of his cardiac issue. The patient denies having any chest pain or cough. No nausea, no vomiting, no abdominal pain or diarrhea. PHYSICAL EXAMINATION: Blood pressure 102/69 with a pulse of 94, temperature 98. He is 99% on room air. General description is an elderly male lying in bed in no distress. RESPIRATORY SYSTEM: Unlabored breathing. Clear to auscultation anteriorly. HEART: S1, S2. Regular rate and rhythm. ABDOMEN: Soft. No tenderness. Left foot is currently dressed. No obvious drainage on the dressing. LABS: No new labs have been obtained today. DIAGNOSTIC IMPRESSION AND PLAN: Patient with a left diabetic foot infection with gangrene and necrotizing infection, status post disarticulation. Culture grew Pseudomonas and anaerobic Gram-negative. Patient is covered with Zosyn; to continue. Will repeat his inflammatory markers and reevaluate the wound tomorrow to determine discharge antibiotics. Continue with supportive care. MMODL / IJN: [id number] /
[2020-06-08 06:00] LABS: Glucose,Whole Blood 148 mg/dL (75-99)
[2020-06-08] MEDS: PANTOPRAZOLE 40 MG TABLET PO SCH (06:25)
[2020-06-08] MEDS: INSULIN ASPART (NovoLOG) 100 UNIT/ML VIAL SQ SCH ×4 (06:25→21:50)
[2020-06-08 07:34] LABS: Basophils % (A) 0 %; Eosinophils # (A) 0.1 k/uL (0-0.7); Eosinophils % (A) 1 %; HCT 38.5 % (39.0-53.0); HGB 11.6 gm/dL (13.0-17.5); Hypochromasia Slight; Lymphocytes # (A) 0.7 k/uL (1.0-4.8); Lymphocytes % (A) 10 %; MCH 28.5 pg (25.0-35.0); MCHC 30.3 g/dL (31.0-37.0); Mean Platelet Volume 7.7; Monocytes # (A) 0.2 k/uL (0-1.0); Monocytes % (A) 3 %; Neutrophils # (A) 5.9 k/uL (1.3-7.7); Neutrophils % (A) 85 %; Platelet Count 217 k/uL (150-450); RBC 4.09 m/uL (4.30-5.90); RDW 15.3 % (11.5-15.5)
[2020-06-08 07:43] LABS: African American GFR (CKD) >90 (>60 ml/min/1.73 sqM); Anion Gap 5 mmol/L; Blood Urea Nitrogen 18 mg/dL (9-20); Calcium 8.3 mg/dL (8.4-10.2); Chloride 95 mmol/L (98-107); Glucose 149 mg/dL (74-99); Non-African American GFR(CKD) >90 (>60 ml/min/1.73 sqM); Potassium 4.3 mmol/L (3.5-5.1); Sodium 140 mmol/L (137-145)
[2020-06-08] MEDS ORDERED: HYDROmorphone 0.5 MG/0.5 ML SYRINGE IVP PRN (07:57)
[2020-06-08] MEDS ORDERED: DEXAMETHASONE SOD PHOSPHATE 4 MG/ML 1 ML VIAL IV ONE (07:57)
[2020-06-08] MEDS ORDERED: ONDANSETRON 4 MG/2 ML VIAL IVP ONE (07:57)
[2020-06-08 08:01] LABS: Carbon Dioxide 44 mmol/L (22-30)
[2020-06-08] MEDS: LACTATED RINGERS 1,000 ML IV SCH (08:09)
[2020-06-08 08:41] LABS: C Reactive Protein 26.9 mg/L (<10.0)
[2020-06-08] MEDS: FUROSEMIDE 40 MG TAB PO SCH ×2 (08:43→21:49)
[2020-06-08] MEDS: SPIRONOLACTONE 25 MG TAB PO SCH (08:43)
[2020-06-08] MEDS: HEPARIN SODIUM,PORCINE 5,000 UNIT/ML 1 ML VIAL SQ SCH ×2 (08:43→21:50)
[2020-06-08] MEDS: METOPROLOL TARTRATE 25 MG TAB PO SCH ×2 (08:43→21:49)
[2020-06-08] MEDS: SODIUM CHLORIDE 0.9% 500 ML 500 ML IV SCH (08:45)
[2020-06-08 09:08] LABS: Erythrocyte Sedimentation Rate 30 mm/hr (0-15)
--- NOTE | 2020-06-08 09:48 | P.PN ---
Subjective Progress Note Date: 06/08/20 Principal diagnosis: Sepsis due to osteomyelitis status post amputation of left foot Necrotizing fasciitis Osteomyelitis of the left fifth toe Acute kidney injury Diabetes mellitus Coronary artery disease, status post CABG Hypertensive cardiovascular disease 06/08/2020, patient seen eval reexamined during the rounds labs reviewed medications reviewed, patient has been doing well on room air breathing comfortably denies any chest pain, diuresing very well, CO2 up to 44 likely related to metabolic alkalosis, patient is not erythematous will hold on Diamox, however we'll cut down the diuresis as though continued to optimize cardiac care, patient is being arranged for wound VAC further surgery has been canceled patient will be discharged most likely tomorrow with wound VAC and home health and home care to follow 06/07/2020, patient seen eval examined during the rounds labs reviewed medications reviewed care plan discussed, respiratory status remains stable on 2 L oxygen denies any cough or sputum production cardiovascular service and evaluated the patient, hemodynamic status is marginal but improved last blood pressure 100/53 heart rate is 92, on 2 L oxygen, creatinine normal back to baseline, urine output is over 4.8 L tolerating diuretics very well, overall plan is to optimize cardiac status and diuresis, before elective surgery at a later date 06/06/2020, patient seen eval examined at room air breathing comfortably denies any chest pain, left lower extremity wound healing well, patient is being planned for BKA left side next 24-48 hours, remains on broad-spectrum antibiotics renal functions have improved significantly, 06/05/2020, patient seen eval reexamined during the rounds labs reviewed medications reviewed sitting upright in chair breathing comfortably, levo fed have been off, respiratory status remains stable, denies any chest pain, patient has issues with low blood pressure followed by fluid resuscitation for that as well as renal failure, as well as patient has some oxygen desaturation however improved with IV Lasix, patient is being optimized with cardiovascular medicine, discussed with cardiovascular services and vascular surgery plans for DKA subsequently in next 24-48, 06/04/2020, patient seen eval reexamined labs reviewed medications reviewed, patient has been resumed on his home medications, blood pressure very labile fluctuating, patient ended up having levo fed drip, still in ICU not ready for transfer and took off of levo fed drip, medicine have been adjusted by cardiovascular services, 06/03/2020, patient seen eval examined during the rounds labs reviewed medications reviewed care plan discussed with the staff at length, patient on room air breathing comfortably denies any chest pain has been on pain medicine as needed, left leg is covered with dressing, patient remains on vasopressors we'll give fluid boluses him to wean and taper and DC the pressors, good adequate urine output, 06/02/2020, patient seen eval reexamined labs reviewed radiographic studies reviewed, patient has been on assist control mode unable to wean extubated in recovery area patient has been placed on pressure support with CPAP 5 and 5 arterial blood gas and weaning parameters have been reviewed and will proceed with extubation on 4 L oxygen however patient continue require a small amount of vasopressors, abs reviewed x-rays reviewed This is a 70-year-old male who presented emergency department with symptoms of foot discomfort, which has been going on for several weeks, patient has been hospitalized in the past for similar problems, patient has noted left fifth toe is purple along with redness and tenderness up to the lower leg level, patient is being admitted into the hospital for vascular compromise with consultation with vascular surgery and infectious disease, past medical history significant for heart failure, diabetes mellitus, hypertension hypertensive cardiovascular disease patient does have a history of pneumonia in the past and Nephro-Faizan thesis, vascular surgery has evaluated the patient and cardiology has cleared the patient patient is going for surgery, patient overnight had the rapid resp onse due to drop in blood pressure requiring fluid support, blood pressure did improve after bolus of the fluid, x-ray of the foot consistent with osteomyelitis and bony degeneration, potassium was 7.2 initially came down with rehydration last check was 5.1, Objective - Vital Signs Vital signs: Vital Signs Temp 98.1 F 06/08/20 00:00 Pulse 94 06/08/20 04:00 Resp 20 06/08/20 04:00 BP 93/58 06/08/20 04:00 Pulse Ox 94 L 06/08/20 04:00 Intake & Output 06/07/20 06/08/20 06/08/20 18:59 06:59 18:59 Intake Total 1560 480 490 Output Total 1350 700 600 Balance 210 -220 -110 Weight 65.5 kg 67.5 kg Intake: IV 10 Invasive Line 4 10 Oral 1560 480 480 Output: Urine 1350 700 600 Other: Voiding Method Indwelling Catheter Indwelling Catheter Indwelling Catheter - Exam - Constitutional General appearance: average body habitus, cooperative, disheveled, status post extubation awake and alert - EENT Eyes: PERRLA Ears: bilateral: normal - Neck Carotids: bilateral: upstroke normal - Respiratory Respiratory: bilateral: CTA - Cardiovascular Rhythm: regular Heart sounds: normal: S1, S2 - Integumentary Integumentary: normal turgor - Neurologic Neurologic: CNII-XII intact - Musculoskeletal Musculoskeletal: generalized weakness Left foot covered with dressing - Labs CBC & Chem 7: 06/08/20 06:53 06/08/20 06:53 Labs: Abnormal Lab Results - Last 24 Hours (Table) 06/07/20 06/07/20 06/07/20 Range/Units 11:43 16:49 20:54 RBC (4.30-5.90) m/uL Hgb (13.0-17.5) gm/dL Hct (39.0-53.0) % MCHC (31.0-37.0) g/dL Lymphocytes # (1.0-4.8) k/uL ESR (0-15) mm/hr Chloride (98-107) mmol/L Carbon Dioxide (22-30) mmol/L Glucose (74-99) mg/dL POC Glucose (mg/dL) 231 H 217 H 231 H (75-99) mg/dL Calcium (8.4-10.2) mg/dL C-Reactive Protein (<10.0) mg/L 06/08/20 06/08/20 06/08/20 Range/Units 05:52 06:53 06:53 RBC 4.09 L (4.30-5.90) m/uL Hgb 11.6 L (13.0-17.5) gm/dL Hct 38.5 L (39.0-53.0) % MCHC 30.3 L (31.0-37.0) g/dL Lymphocytes # 0.7 L (1.0-4.8) k/uL ESR 30 H (0-15) mm/hr Chloride 95 L (98-107) mmol/L Carbon Dioxide 44 H* (22-30) mmol/L Glucose 149 H (74-99) mg/dL POC Glucose (mg/dL) 148 H (75-99) mg/dL Calcium 8.3 L (8.4-10.2) mg/dL C-Reactive Protein 26.9 H (<10.0) mg/L Assessment and Plan Assessment: Acute on systolic heart failure Pulmonary edema and bilateral pleural effusion Sepsis due to osteomyelitis Osteomyelitis of the left fifth toe status post amputation of left foot Necrotizing fasciitis Acute kidney injury Acute on chronic systolic heart failure Postop day #2 of amputation of left foot Diabetes mellitus Coronary artery disease, status post CABG Hypertensive cardiovascular disease Plan: Continue diuresis per cardiovascular services Higher range wound VAC Possible discharge in next 24 hours Optimize cardiovascular medicine Monitor renal functions are closed It appears that the BKA will be delayed at a later date Broad-spectrum antibiotics ID, renal and vascular surgery and cardiology consultation Further plan of care as per clinical response of the patient Time with Patient: Greater than 30
[2020-06-08 12:09] LABS: Glucose,Whole Blood >600 mg/dL (75-99)
[2020-06-08 12:09] LABS: Glucose,Whole Blood 395 mg/dL (75-99)
--- NOTE | 2020-06-08 12:45 | P.PN ---
Subjective This is a pleasant 70-year-old male past medical history significant for coronary artery disease status post bypass grafting, ischemic car diomyopathy, valvular heart disease, diabetes mellitus, hypertension and dyslipidemia. He follows in the office with Dr. Contreras. He is seen and examined sitting up in bed undergoing left lower extremity dressing change. His breathing is stable. He denies worsening shortness of breath. No chest pain, dizziness or palpitations. Overall he is quite upset regarding his current health and amputation. Blood pressure 92/61 heart rate 97 afebrile maintaining oxygen saturation on nasal cannula. Laboratory data reviewed, WBC 7, hemoglobin 11.6, platelets 217, sodium 140, potassium 4.3, carbon dioxide 44, creatinine 0.74, C- reactive protein 26.9. Currently maintained on oral diuretics. GENERAL: Well-appearing, well-nourished and in no acute distress. NECK: Supple without JVD or thyromegaly. LUNGS: Breath sounds clear to auscultation bilaterally. Respiration equal and unlabored. Bibasilar rales, no wheezes or rhonchi. Diminished bilaterally. HEART: Regular rate and rhythm with systolic ejection murmur at the base, no rubs or gallops. S1 and S2 heard. EXTREMITIES: Normal range of motion, no edema. Left lower extremity dressing in place. ASSESSMENT Acute on chronic systolic heart failure Pleural effusions bilaterally left greater than right Critical limb ischemia of the left leg Ischemic cardiomyopathy Hypertension Coronary artery disease status post bypass grafting Aortic stenosis, severe Mitral regurgitation Tricuspid regurgitation Pulmonary hypertension PLAN Continue current medical regimen. Follow BMP in the morning, consider adding diamox if CO2 continues to elevate. Nurse Practitioner note has been reviewed, I agree with a documented findings and plan of care. Patient was seen and examined. Objective - Vital Signs Vital signs: Vital Signs Temp 98.2 F 06/08/20 08:00 Pulse 97 06/08/20 08:00 Resp 20 06/08/20 08:00 BP 92/61 06/08/20 08:00 Pulse Ox 94 L 06/08/20 08:00 Intake & Output 06/07/20 06/08/20 06/08/20 18:59 06:59 18:59 Intake Total 1560 480 490 Output Total 1350 700 600 Balance 210 -220 -110 Weight 65.5 kg 67.5 kg Intake: IV 10 Invasive Line 4 10 Oral 1560 480 480 Output: Urine 1350 700 600 Other: Voiding Method Indwelling Catheter Indwelling Catheter Indwelling Catheter - Labs CBC & Chem 7: 06/08/20 06:53 06/08/20 06:53 Labs: Abnormal Lab Results - Last 24 Hours (Table) 06/07/20 06/07/20 06/08/20 Range/Units 16:49 20:54 05:52 RBC (4.30-5.90) m/uL Hgb (13.0-17.5) gm/dL Hct (39.0-53.0) % MCHC (31.0-37.0) g/dL Lymphocytes # (1.0-4.8) k/uL ESR (0-15) mm/hr Chloride (98-107) mmol/L Carbon Dioxide (22-30) mmol/L Glucose (74-99) mg/dL POC Glucose (mg/dL) 217 H 231 H 148 H (75-99) mg/dL Calcium (8.4-10.2) mg/dL C-Reactive Protein (<10.0) mg/L 06/08/20 06/08/20 06/08/20 Range/Units 06:53 06:53 11:53 RBC 4.09 L (4.30-5.90) m/uL Hgb 11.6 L (13.0-17.5) gm/dL Hct 38.5 L (39.0-53.0) % MCHC 30.3 L (31.0-37.0) g/dL Lymphocytes # 0.7 L (1.0-4.8) k/uL ESR 30 H (0-15) mm/hr Chloride 95 L (98-107) mmol/L Carbon Dioxide 44 H* (22-30) mmol/L Glucose 149 H (74-99) mg/dL POC Glucose (mg/dL) >600 H (75-99) mg/dL Calcium 8.3 L (8.4-10.2) mg/dL C-Reactive Protein 26.9 H (<10.0) mg/L 06/08/20 Range/Units 12:01 RBC (4.30-5.90) m/uL Hgb (13.0-17.5) gm/dL Hct (39.0-53.0) % MCHC (31.0-37.0) g/dL Lymphocytes # (1.0-4.8) k/uL ESR (0-15) mm/hr Chloride (98-107) mmol/L Carbon Dioxide (22-30) mmol/L Glucose (74-99) mg/dL POC Glucose (mg/dL) 395 H (75-99) mg/dL Calcium (8.4-10.2) mg/dL C-Reactive Protein (<10.0) mg/L
[2020-06-08] MEDS: metroNIDAZOLE 500 MG TAB PO SCH ×2 (12:46→21:49)
--- NOTE | 2020-06-08 12:54 | P.PN ---
Subjective Progress Note Date: 06/08/20 The patient was seen and examined sitting up at the bedside. Left lower extremity dressing clean dry and intact. Patient denies any fevers or chills, any pain to the lower extremity. Outpatient wound VAC ordered. Patient is impending discharged home with home care. Objective - Vital Signs Vital signs: Vital Signs Temp 98.2 F 06/08/20 08:00 Pulse 97 06/08/20 08:00 Resp 20 06/08/20 08:00 BP 92/61 06/08/20 08:00 Pulse Ox 94 L 06/08/20 08:00 Intake & Output 06/07/20 06/08/20 06/08/20 18:59 06:59 18:59 Intake Total 1560 480 490 Output Total 1350 700 600 Balance 210 -220 -110 Weight 65.5 kg 67.5 kg Intake: IV 10 Invasive Line 4 10 Oral 1560 480 480 Output: Urine 1350 700 600 Other: Voiding Method Indwelling Catheter Indwelling Catheter Indwelling Catheter - Exam General appearance: The patient is alert, oriented, in no acute distress. HET: Head is normocephalic and atraumatic. Neck: Supple without lymphadenopathy. Trachea midline. Heart: S1 S2. Regular rate and rhythm. Lungs: Diminished, but CTA Extremities: Right lower extremity without any edema. Left lower extremity with dressing clean dry and intact. Wound measurement 8 cm x 16cm x 0.2 cm. Neurological: No focal deficits. Strength and sensation are grossly intact. - Labs CBC & Chem 7: 06/08/20 06:53 06/08/20 06:53 Labs: Abnormal Lab Results - Last 24 Hours (Table) 06/07/20 06/07/20 06/08/20 Range/Units 16:49 20:54 05:52 RBC (4.30-5.90) m/uL Hgb (13.0-17.5) gm/dL Hct (39.0-53.0) % MCHC (31.0-37.0) g/dL Lymphocytes # (1.0-4.8) k/uL ESR (0-15) mm/hr Chloride (98-107) mmol/L Carbon Dioxide (22-30) mmol/L Glucose (74-99) mg/dL POC Glucose (mg/dL) 217 H 231 H 148 H (75-99) mg/dL Calcium (8.4-10.2) mg/dL C-Reactive Protein (<10.0) mg/L 06/08/20 06/08/20 06/08/20 Range/Units 06:53 06:53 11:53 RBC 4.09 L (4.30-5.90) m/uL Hgb 11.6 L (13.0-17.5) gm/dL Hct 38.5 L (39.0-53.0) % MCHC 30.3 L (31.0-37.0) g/dL Lymphocytes # 0.7 L (1.0-4.8) k/uL ESR 30 H (0-15) mm/hr Chloride 95 L (98-107) mmol/L Carbon Dioxide 44 H* (22-30) mmol/L Glucose 149 H (74-99) mg/dL POC Glucose (mg/dL) >600 H (75-99) mg/dL Calcium 8.3 L (8.4-10.2) mg/dL C-Reactive Protein 26.9 H (<10.0) mg/L 06/08/20 Range/Units 12:01 RBC (4.30-5.90) m/uL Hgb (13.0-17.5) gm/dL Hct (39.0-53.0) % MCHC (31.0-37.0) g/dL Lymphocytes # (1.0-4.8) k/uL ESR (0-15) mm/hr Chloride (98-107) mmol/L Carbon Dioxide (22-30) mmol/L Glucose (74-99) mg/dL POC Glucose (mg/dL) 395 H (75-99) mg/dL Calcium (8.4-10.2) mg/dL C-Reactive Protein (<10.0) mg/L Assessment and Plan Assessment: 1. 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 Acute ventilator-dependent respiratory failure, resolved 4. Coronary artery disease 5. Pleural effusions Plan: 1. Continue daily dressing changes 2. Consult to wound care for wound VAC application 3. Apply wound vac to left lower extremity for discharge with home care follow- up measurements 8 cm x 16 cm x 0.2 cm 4. Antibiotics per recommendation from infectious disease 5. Patient may be discharged home from a vascular surgical standpoint with follow-up with Dr. Lo in one week 6. Continue medical management The impression and plan of care has been dictated as directed. Dr. Lo I performed a history and examination of this patient, discussed the same with the dictator. I agree with the dictator's note ,documented as a scribe. Any additional findings or plans will be noted. .
[2020-06-08] MEDS: CEFEPIME 2 GM in SODIUM CHLORIDE 0.9% 100 ML IVPB SCH ×2 (15:43→21:48)
[2020-06-08 17:13] LABS: Glucose,Whole Blood 175 mg/dL (75-99)
[2020-06-08 20:30] LABS: Glucose,Whole Blood 191 mg/dL (75-99)
[2020-06-08] MEDS: TEMAZEPAM 15 MG CAP PO PRN (21:48)
[2020-06-08] MEDS: ATORVASTATIN 80 MG TAB PO SCH (21:49)
--- NOTE | 2020-06-08 23:14 | PN ---
PROGRESS NOTE DATE OF SERVICE: 06/08/2020 REASON FOR FOLLOWUP: Left foot gangrene with necrotizing infection, Pseudomonas. INTERVAL HISTORY: The patient is currently afebrile. The patient is breathing comfortably. Denies having any chest pain or shortness of breath. Occasional cough. No abdominal pain. Pain to the left foot site is currently controlled. PHYSICAL EXAMINATION: Blood pressure 97/66, pulse of 98, temperature 98.4. He is 100% on 2 L nasal cannula. General description is an elderly male lying in bed in no distress. RESPIRATORY SYSTEM: Unlabored breathing. Clear to auscultation anteriorly. HEART: S1, S2. Regular rate and rhythm. ABDOMEN: Soft. No tenderness. EXAMINATION OF LEFT LEG: Did have a wound post debridement for the necrotizing infection. No significant redness or drainage. 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 BKA has been postponed until his cardiac condition stabilizes. With view of the inflammatory changes post debridement and the culture positive for Pseudomonas and anaerobes, will give him cefepime 2 grams q.12 hours for about 2 weeks along with oral Flagyl. Local wound care per the vascular team. Continue with supportive care. MMODL / IJN: [id number] /
[2020-06-09 03:58] LABS: Glucose,Whole Blood 130 mg/dL (75-99)
[2020-06-09 04:10] VITALS: RESP 20
[2020-06-09 04:34] LABS: Glucose,Whole Blood 138 mg/dL (75-99)
[2020-06-09 04:52] LABS: ABG Base Excess 14.4 mmol/L; ABG Oxygen Saturation 99.5 % (94-97); ABG PH 7.32 (7.35-7.45); ABG PO2 123 mmHg (83-108); ABG TCO2 43 mmol/L (19-24); Allen Test Performed? Yes
[2020-06-09 04:58] LABS: ABG HCO3 41 mmol/L (21-25); ABG PCO2 79 mmHg (35-45)
[2020-06-09 06:12] LABS: Glucose,Whole Blood 144 mg/dL (75-99)
[2020-06-09] MEDS: PANTOPRAZOLE 40 MG TABLET PO SCH (06:39)
[2020-06-09] MEDS: INSULIN ASPART (NovoLOG) 100 UNIT/ML VIAL SQ SCH ×3 (06:39→18:27)
[2020-06-09] MEDS: metroNIDAZOLE 500 MG TAB PO SCH ×2 (09:03→17:15)
[2020-06-09] MEDS: CEFEPIME 2 GM in SODIUM CHLORIDE 0.9% 100 ML IVPB SCH (09:03)
[2020-06-09] MEDS: HEPARIN SODIUM,PORCINE 5,000 UNIT/ML 1 ML VIAL SQ SCH (09:03)
[2020-06-09] MEDS: SPIRONOLACTONE 25 MG TAB PO SCH (09:03)
[2020-06-09] MEDS: FUROSEMIDE 40 MG TAB PO SCH (09:03)
[2020-06-09] MEDS: METOPROLOL TARTRATE 25 MG TAB PO SCH (09:03)
[2020-06-09] MEDS: SODIUM CHLORIDE 0.9% 500 ML 500 ML IV SCH (09:05)
[2020-06-09] MEDS: LACTATED RINGERS 1,000 ML IV SCH (09:05)
[2020-06-09 09:28] LABS: Basophils % (A) 2 %; Eosinophils % (A) 1 %; HCT 39.7 % (39.0-53.0); HGB 12.9 gm/dL (13.0-17.5); Lymphocytes # (A) 0.6 k/uL (1.0-4.8); Lymphocytes % (A) 7 %; MCH 30.2 pg (25.0-35.0); MCHC 32.6 g/dL (31.0-37.0); MCV 92.6 fL (80.0-100.0); Mean Platelet Volume 9.4; Monocytes # (A) 0.5 k/uL (0-1.0); Monocytes % (A) 5 %; Neutrophils # (A) 7.4 k/uL (1.3-7.7); Neutrophils % (A) 84 %; Platelet Count 197 k/uL (150-450); RBC 4.29 m/uL (4.30-5.90); RDW 15.2 % (11.5-15.5); WBC 8.8 k/uL (3.8-10.6)
[2020-06-09 09:29] LABS: Basophils # (A) 0.1 k/uL (0-0.2)
[2020-06-09 09:34] LABS: ALT 44 U/L (4-49); AST 48 U/L (17-59); African American GFR (CKD) >90 (>60 ml/min/1.73 sqM); Albumin 3.3 g/dL (3.5-5.0); Alkaline Phosphatase 122 U/L (38-126); Anion Gap 5 mmol/L; Blood Urea Nitrogen 20 mg/dL (9-20); Calcium 8.5 mg/dL (8.4-10.2); Carbon Dioxide 38 mmol/L (22-30); Chloride 96 mmol/L (98-107); Glucose 161 mg/dL (74-99); Non-African American GFR(CKD) >90 (>60 ml/min/1.73 sqM); Sodium 139 mmol/L (137-145); Total Bilirubin 0.9 mg/dL (0.2-1.3); Total Protein 6.5 g/dL (6.3-8.2)
[2020-06-09 09:35] LABS: Potassium 4.6 mmol/L (3.5-5.1)
--- NOTE | 2020-06-09 11:01 | P.CNNES ---
History of Present Illness Consult date: 06/09/19 Requesting physician: Heriberto Grande Reason for Consult: altered mental status History of Present Illness: This is a 70-year-old gentleman with medical history of diabetes mellitus, neuropathy hyperlipidemia, hypertension, dyslipidemia, CAD s/p CABG (2012), severe ischemic cardiomyopathy who presented to the hospital on 05/31/2020 complaining of left foot infection for weeks. He has singnificant redness of left foot up to leg. He has fifth toe that is purple. Neurology is consulted because of episode of confusion that happened overnight. Per the patient he was sleeping and he got a new sleeping medication and all of a sudden while being awoken overnight he was told he was confused. He stated he was confused because he is on a new sleeping medication (was given Temazepam 15mg on 06/08/2020 at around 21:48) which she's never on sleeping medication. Per the patient's nurse he refuses to get that CT of the head. An ABG was done on 06/09/2020 at around 447 and it shows that at [facility] was 7.32, CO2 was 79 and a bicarb was 41. The patient is refusing to wear CPAP machine. Upon seeing him he stated that he is doing well and he was to leave home today. During this admission patient had left wet gangrene of fifth toe and osteomyleitis as well as necrotizing fascitis extending to ankle and up to anterior compartment and as result went below left knee amputation on 06/01/2020. ID is on board and the patient is on cefepime every 12 hours as well as the patient is on metronidazole. Patient is on Pace 5/325 every 6 hours as needed. Patient is also on Dilaudid 0.5 mg every 5 minutes as needed. As well is on fentanyl 25 g every 2hrs PRN. Upon checking I don't think the patient received any of the pain medication. Social during hospital stay the patient has primary demand bilateral pleural effusion. He has been afebril during hospital stay. Blood pressure has been in the range of systolic of 80s to 100 and tends predominantly. And diastolic is been in the range of 1240s to 80s. On initial presentation his wbc was 13.1 and now its 8.8. Patient sugar on 06/08/2020 is more than 600 the repeat his 385 and the latest is 144 POC glucose. Hemoglobin A1c is 8.3. On initial presentation the patient's AST is 92 and the ALT was 94. On repeated AST of 36 and ALT of 47. Initial presentation the patient potassium was 7.2. And since then the that's resolved. On initial presentation the patient that creatinine was 1.51 but that also has resolved and it's back to normal. Review of Systems Review of system is limited but the per positive and negative as per HPI. Past Medical History Past Medical History: Heart Failure, Diabetes Mellitus, Hyperlipidemia, Hypertension, Myocardial Infarction ([place]) Additional Past Medical History / Comment(s): Pneumonia with sepsis, NIDDM type II-diet controlled now, neuropathy R foot, nephrolithiasis-pt passed stone on his own. Last Myocardial Infarction Date:: 2012 History of Any Multi-Drug Resistant Organisms: None Reported Past Surgical History: Coronary Bypass/CABG Additional Past Surgical History / Comment(s): 2012 CABG 6 vessel Past Anesthesia/Blood Transfusion Reactions: No Reported Reaction Past Psychological History: No Psychological Hx Reported Additional Psychological History / Comment(s): Pt resides with his spouse. He is independent. Smoking Status: Never smoker Past Alcohol Use History: None Reported Past Drug Use History: None Reported - Past Family History Father Family Medical History: Cancer Additional Family Medical History / Comment(s): father at age 77 from prostate cancer Mother Family Medical History: Cancer Additional Family Medical History / Comment(s): Mother had bowel cancer. Medications and Allergies Home Medications Medication Instructions Recorded Confirmed Type Atorvastatin [Lipitor] 10 mg PO HS 09/03/15 05/31/20 History Clopidogrel Bisulfate [Plavix] 75 mg PO DAILY 09/03/15 05/31/20 History Spironolactone [Aldactone] 25 mg PO DAILY 09/03/15 05/31/20 History Furosemide [Lasix] 40 mg PO BID #60 tablet 04/08/20 05/31/20 Rx Potassium Chloride ER [K-Dur 10] 10 meq PO BID 05/16/20 05/31/20 History carvediloL [Coreg] 3.125 mg PO BID-W/MEALS #60 tab 05/18/20 05/31/20 Rx ALPRAZolam [Xanax] 0.25 mg PO HS PRN #12 tab 05/20/20 05/31/20 Rx Melatonin 5 mg PO HS PRN tablet 05/20/20 05/31/20 Rx Mirtazapine [Remeron] 15 mg PO HS #30 tab 05/20/20 05/31/20 Rx Sacubitril/Valsartan [Entresto 24 1 tab PO BID 05/31/20 05/31/20 History mg-26 mg Tablet] Allergies Allergy/AdvReac Type Severity Reaction Status Date / Time No Known Allergies Allergy Verified 06/01/20 13:50 Physical Examination - Vital Signs Vital Signs: Vital Signs Temp Pulse Resp BP BP Pulse Ox 06/09/20 08:05 20 96 06/09/20 08:00 98.0 F 114 H 20 104/66 84 L 06/09/20 04:00 98.4 F 96 20 101/61 94 L 06/09/20 02:00 16 06/09/20 00:00 98.6 F 100 16 95/52 100 06/08/20 20:00 98 18 06/08/20 19:34 98.4 F 98 18 97/56 100 06/08/20 15:48 98.1 F 80 20 84/53 98 06/08/20 12:00 98.4 F 94 20 80/50 100 Intake and Output 06/08/20 06/09/20 06/09/20 22:59 06:59 14:59 Intake Total 447 Output Total 200 560 Balance 247 -560 Intake: IV 10 Invasive Line 5 10 Oral 437 Output: Urine 200 560 Other: Voiding Method Urinal Urinal # Voids 1 Weight 74 kg GENERAL: The patient is lying in bed and is not in acute distress. CHEST: The heart rate is regular rate rhythm. No murmurs to auscultation. LUNG: Clear to auscultation bilaterally no wheezing noted throughout. Not labored breathing. ABDOMEN/GI: Bowel sounds present in all 4 quadrants. No tenderness to palpation throughout. NEUROLOGICAL: Higher mental function: The patient is awake, alert, oriented to self, place and time. Patient is following commands. No aphasia and no neglect. Cranial nerves: The pupils are round, equal and reactive to light and accommodation. Visual britt are full to confrontation throughout. Extraocular movement is intact no nystagmus is noted. Facial sensation is normal to touch throughout. The facial strength is normal throughout. Hearing is normal bilaterally to hand rub. Tongue is midline and moved [id number] without any difficulty. No dysarthria is noted. Shoulder shrug is normal bilaterally. Motor: Gait is deferred. The strength is 5/5 throughout. He has below left knee amputation. Normal tone and bulk. Cerebellum: Normal finger to nose bilaterally. Sensation: Sensation is normal to touch throughout. Reflexes (right/left): 2+ throughout except right ankle is 1+ (left ankle is amputated) Plantar: Right is downgoing. Results - Laboratory Findings CBC and BMP: 06/09/20 08:23 06/09/20 08:23 Abnormal Lab Findings: Abnormal Labs 05/31/20 05/31/20 05/31/20 12:40 12:58 12:58 WBC 14.8 H RBC Hgb Hct MCHC Neutrophils # 13.2 H Lymphocytes # 0.7 L ESR ABG pH ABG pCO2 ABG pO2 ABG HCO3 ABG Total CO2 ABG O2 Saturation Sodium 130 L Potassium 7.2 H* Chloride 93 L Carbon Dioxide BUN 51 H Creatinine 1.51 H Glucose 261 H POC Glucose (mg/dL) Hemoglobin A1c Calcium Total Bilirubin 1.7 H AST 92 H ALT 94 H Alkaline Phosphatase 181 H Troponin I 0.042 H* C-Reactive Protein Total Protein Albumin Urine Ketones Urine Bacteria Urine Mucus 05/31/20 05/31/20 05/31/20 13:53 14:56 18:19 WBC RBC Hgb Hct MCHC Neutrophils # Lymphocytes # ESR ABG pH ABG pCO2 ABG pO2 ABG HCO3 ABG Total CO2 ABG O2 Saturation Sodium Potassium 6.4 H* Chloride Carbon Dioxide BUN Creatinine Glucose POC Glucose (mg/dL) 216 H 103 H Hemoglobin A1c Calcium Total Bilirubin AST ALT Alkaline Phosphatase Troponin I C-Reactive Protein Total Protein Albumin Urine Ketones Urine Bacteria Urine Mucus 05/31/20 05/31/20 05/31/20 20:28 22:59 23:14 WBC 15.3 H RBC 4.26 L Hgb 12.5 L Hct MCHC 30.9 L Neutrophils # 14.2 H Lymphocytes # 0.5 L ESR ABG pH ABG pCO2 ABG pO2 ABG HCO3 ABG Total CO2 ABG O2 Saturation Sodium Potassium Chloride Carbon Dioxide BUN Creatinine Glucose POC Glucose (mg/dL) 217 H 273 H Hemoglobin A1c Calcium Total Bilirubin AST ALT Alkaline Phosphatase Troponin I C-Reactive Protein Total Protein Albumin Urine Ketones Urine Bacteria Urine Mucus 05/31/20 06/01/2020 23:14 06:03 07:16 WBC RBC Hgb Hct MCHC Neutrophils # Lymphocytes # ESR ABG pH ABG pCO2 ABG pO2 ABG HCO3 ABG Total CO2 ABG O2 Saturation Sodium 132 L 134 L Potassium Chloride Carbon Dioxide BUN 47 H 44 H Creatinine Glucose 308 H 162 H POC Glucose (mg/dL) 171 H Hemoglobin A1c Calcium 8.1 L 8.3 L Total Bilirubin AST ALT Alkaline Phosphatase Troponin I C-Reactive Protein Total Protein Albumin Urine Ketones Urine Bacteria Urine Mucus 06/01/20 06/01/20 06/01/20 07:16 07:16 11:53 WBC 16.1 H RBC Hgb 12.7 L Hct MCHC Neutrophils # 14.6 H Lymphocytes # 0.8 L ESR ABG pH ABG pCO2 ABG pO2 ABG HCO3 ABG Total CO2 ABG O2 Saturation Sodium Potassium Chloride Carbon Dioxide BUN Creatinine Glucose POC Glucose (mg/dL) 133 H Hemoglobin A1c 8.3 H Calcium Total Bilirubin AST ALT Alkaline Phosphatase Troponin I C-Reactive Protein Total Protein Albumin Urine Ketones Urine Bacteria Urine Mucus 06/01/20 06/01/20 06/01/20 13:58 16:22 17:57 WBC RBC Hgb Hct MCHC Neutrophils # Lymphocytes # ESR ABG pH 7.24 L ABG pCO2 53 H ABG pO2 81 L ABG HCO3 ABG Total CO2 ABG O2 Saturation Sodium Potassium Chloride Carbon Dioxide BUN Creatinine Glucose POC Glucose (mg/dL) 117 H 145 H Hemoglobin A1c Calcium Total Bilirubin AST ALT Alkaline Phosphatase Troponin I C-Reactive Protein Total Protein Albumin Urine Ketones Urine Bacteria Urine Mucus 06/01/20 06/01/20 06/01/20 20:34 21:08 21:19 WBC 12.4 H RBC 4.14 L Hgb 12.2 L Hct 38.0 L MCHC Neutrophils # 11.6 H Lymphocytes # 0.3 L ESR ABG pH ABG pCO2 ABG pO2 ABG HCO3 ABG Total CO2 ABG O2 Saturation 97.8 H Sodium Potassium Chloride Carbon Dioxide BUN Creatinine Glucose POC Glucose (mg/dL) 143 H Hemoglobin A1c Calcium Total Bilirubin AST ALT Alkaline Phosphatase Troponin I C-Reactive Protein Total Protein Albumin Urine Ketones Urine Bacteria Urine Mucus 06/01/20 06/01/20 06/02/20 21:19 22:32 01:10 WBC RBC Hgb Hct MCHC Neutrophils # Lymphocytes # ESR ABG pH ABG pCO2 ABG pO2 ABG HCO3 ABG Total CO2 ABG O2 Saturation Sodium 136 L Potassium Chloride Carbon Dioxide BUN 41 H Creatinine Glucose 154 H POC Glucose (mg/dL) 166 H Hemoglobin A1c Calcium 7.8 L Total Bilirubin AST ALT 55 H Alkaline Phosphatase 127 H Troponin I C-Reactive Protein Total Protein 5.0 L Albumin 2.4 L Urine Ketones Trace H Urine Bacteria Rare H Urine Mucus Rare H 06/02/20 06/02/20 06/02/20 04:49 04:49 05:25 WBC 13.1 H RBC 4.24 L Hgb 12.8 L Hct 38.7 L MCHC Neutrophils # 11.9 H Lymphocytes # 0.5 L ESR ABG pH ABG pCO2 ABG pO2 160 H ABG HCO3 ABG Total CO2 ABG O2 Saturation 99.1 H Sodium 136 L Potassium Chloride 108 H Carbon Dioxide BUN 36 H Creatinine Glucose 160 H POC Glucose (mg/dL) Hemoglobin A1c Calcium 7.8 L Total Bilirubin AST ALT Alkaline Phosphatase Troponin I C-Reactive Protein Total Protein Albumin Urine Ketones Urine Bacteria Urine Mucus 06/02/20 06/02/20 06/02/20 06:11 12:01 12:42 WBC RBC Hgb Hct MCHC Neutrophils # Lymphocytes # ESR ABG pH ABG pCO2 ABG pO2 ABG HCO3 ABG Total CO2 26 H ABG O2 Saturation 99.0 H Sodium Potassium Chloride Carbon Dioxide BUN Creatinine Glucose POC Glucose (mg/dL) 168 H 146 H Hemoglobin A1c Calcium Total Bilirubin AST ALT Alkaline Phosphatase Troponin I C-Reactive Protein Total Protein Albumin Urine Ketones Urine Bacteria Urine Mucus 06/02/20 06/03/20 06/03/20 17:37 00:18 03:34 WBC RBC Hgb Hct MCHC Neutrophils # Lymphocytes # ESR ABG pH ABG pCO2 ABG pO2 ABG HCO3 ABG Total CO2 ABG O2 Saturation Sodium Potassium Chloride 109 H Carbon Dioxide BUN 28 H Creatinine Glucose 121 H POC Glucose (mg/dL) 108 H 164 H Hemoglobin A1c Calcium Total Bilirubin AST ALT Alkaline Phosphatase Troponin I C-Reactive Protein Total Protein Albumin Urine Ketones Urine Bacteria Urine Mucus 06/03/20 06/03/20 06/03/20 03:34 06:05 12:29 WBC 17.0 H RBC Hgb Hct MCHC 30.6 L Neutrophils # 14.8 H Lymphocytes # ESR ABG pH ABG pCO2 ABG pO2 ABG HCO3 ABG Total CO2 ABG O2 Saturation Sodium Potassium Chloride Carbon Dioxide BUN Creatinine Glucose POC Glucose (mg/dL) 127 H 129 H Hemoglobin A1c Calcium Total Bilirubin AST ALT Alkaline Phosphatase Troponin I C-Reactive Protein Total Protein Albumin Urine Ketones Urine Bacteria Urine Mucus 06/03/20 06/03/20 06/04/20 17:43 20:46 04:44 WBC RBC Hgb Hct MCHC Neutrophils # Lymphocytes # ESR ABG pH ABG pCO2 ABG pO2 ABG HCO3 ABG Total CO2 ABG O2 Saturation Sodium 136 L Potassium Chloride 108 H Carbon Dioxide BUN Creatinine Glucose 131 H POC Glucose (mg/dL) 246 H 222 H Hemoglobin A1c Calcium 8.2 L Total Bilirubin AST ALT Alkaline Phosphatase Troponin I C-Reactive Protein Total Protein 5.2 L Albumin 2.5 L Urine Ketones Urine Bacteria Urine Mucus 06/04/20 06/04/20 06/04/20 04:44 06:40 08:24 WBC RBC 4.25 L Hgb 12.7 L Hct MCHC Neutrophils # Lymphocytes # 0.9 L ESR ABG pH ABG pCO2 ABG pO2 ABG HCO3 ABG Total CO2 ABG O2 Saturation Sodium Potassium Chloride Carbon Dioxide BUN Creatinine Glucose POC Glucose (mg/dL) 128 H 123 H Hemoglobin A1c Calcium Total Bilirubin AST ALT Alkaline Phosphatase Troponin I C-Reactive Protein Total Protein Albumin Urine Ketones Urine Bacteria Urine Mucus 06/04/20 06/04/20 06/04/20 11:55 16:32 20:46 WBC RBC Hgb Hct MCHC Neutrophils # Lymphocytes # ESR ABG pH ABG pCO2 ABG pO2 ABG HCO3 ABG Total CO2 ABG O2 Saturation Sodium Potassium Chloride Carbon Dioxide BUN Creatinine Glucose POC Glucose (mg/dL) 202 H 180 H 185 H Hemoglobin A1c Calcium Total Bilirubin AST ALT Alkaline Phosphatase Troponin I C-Reactive Protein Total Protein Albumin Urine Ketones Urine Bacteria Urine Mucus 06/05/20 06/05/20 06/05/20 04:55 04:55 06:24 WBC RBC 4.18 L Hgb 12.6 L Hct 38.8 L MCHC Neutrophils # Lymphocytes # 0.5 L ESR ABG pH ABG pCO2 ABG pO2 ABG HCO3 ABG Total CO2 ABG O2 Saturation Sodium 135 L Potassium Chloride Carbon Dioxide BUN Creatinine Glucose 124 H POC Glucose (mg/dL) 135 H Hemoglobin A1c Calcium Total Bilirubin AST ALT Alkaline Phosphatase 131 H Troponin I C-Reactive Protein Total Protein 5.8 L Albumin 2.8 L Urine Ketones Urine Bacteria Urine Mucus 06/05/20 06/05/20 06/05/20 11:16 11:49 16:37 WBC RBC Hgb Hct MCHC Neutrophils # Lymphocytes # ESR ABG pH ABG pCO2 ABG pO2 ABG HCO3 ABG Total CO2 ABG O2 Saturation Sodium Potassium Chloride Carbon Dioxide BUN Creatinine Glucose POC Glucose (mg/dL) 132 H 149 H 272 H Hemoglobin A1c Calcium Total Bilirubin AST ALT Alkaline Phosphatase Troponin I C-Reactive Protein Total Protein Albumin Urine Ketones Urine Bacteria Urine Mucus 06/05/20 06/06/20 06/06/20 20:38 05:53 10:24 WBC RBC Hgb Hct MCHC Neutrophils # Lymphocytes # ESR ABG pH ABG pCO2 ABG pO2 ABG HCO3 ABG Total CO2 ABG O2 Saturation Sodium Potassium Chloride Carbon Dioxide 36 H BUN Creatinine Glucose 212 H POC Glucose (mg/dL) 185 H 138 H Hemoglobin A1c Calcium 8.2 L Total Bilirubin AST ALT Alkaline Phosphatase Troponin I C-Reactive Protein Total Protein Albumin Urine Ketones Urine Bacteria Urine Mucus 06/06/20 06/06/20 06/06/20 11:19 16:41 20:42 WBC RBC Hgb Hct MCHC Neutrophils # Lymphocytes # ESR ABG pH ABG pCO2 ABG pO2 ABG HCO3 ABG Total CO2 ABG O2 Saturation Sodium Potassium Chloride Carbon Dioxide BUN Creatinine Glucose POC Glucose (mg/dL) 208 H 249 H 157 H Hemoglobin A1c Calcium Total Bilirubin AST ALT Alkaline Phosphatase Troponin I C-Reactive Protein Total Protein Albumin Urine Ketones Urine Bacteria Urine Mucus 06/07/20 06/07/20 06/07/20 05:34 07:13 11:43 WBC RBC Hgb Hct MCHC Neutrophils # Lymphocytes # ESR ABG pH ABG pCO2 ABG pO2 ABG HCO3 ABG Total CO2 ABG O2 Saturation Sodium Potassium Chloride 96 L Carbon Dioxide 41 H* BUN Creatinine Glucose 122 H POC Glucose (mg/dL) 113 H 231 H Hemoglobin A1c Calcium 8.3 L Total Bilirubin AST ALT Alkaline Phosphatase Troponin I C-Reactive Protein Total Protein Albumin Urine Ketones Urine Bacteria Urine Mucus 06/07/20 06/07/20 06/08/20 16:49 20:54 05:52 WBC RBC Hgb Hct MCHC Neutrophils # Lymphocytes # ESR ABG pH ABG pCO2 ABG pO2 ABG HCO3 ABG Total CO2 ABG O2 Saturation Sodium Potassium Chloride Carbon Dioxide BUN Creatinine Glucose POC Glucose (mg/dL) 217 H 231 H 148 H Hemoglobin A1c Calcium Total Bilirubin AST ALT Alkaline Phosphatase Troponin I C-Reactive Protein Total Protein Albumin Urine Ketones Urine Bacteria Urine Mucus 06/08/20 06/08/20 06/08/20 06:53 06:53 11:53 WBC RBC 4.09 L Hgb 11.6 L Hct 38.5 L MCHC 30.3 L Neutrophils # Lymphocytes # 0.7 L ESR 30 H ABG pH ABG pCO2 ABG pO2 ABG HCO3 ABG Total CO2 ABG O2 Saturation Sodium Potassium Chloride 95 L Carbon Dioxide 44 H* BUN Creatinine Glucose 149 H POC Glucose (mg/dL) >600 H Hemoglobin A1c Calcium 8.3 L Total Bilirubin AST ALT Alkaline Phosphatase Troponin I C-Reactive Protein 26.9 H Total Protein Albumin Urine Ketones Urine Bacteria Urine Mucus 06/08/20 06/08/20 06/08/20 12:01 12:39 16:51 WBC RBC Hgb Hct MCHC Neutrophils # Lymphocytes # ESR ABG pH ABG pCO2 ABG pO2 ABG HCO3 ABG Total CO2 ABG O2 Saturation Sodium Potassium Chloride Carbon Dioxide BUN Creatinine Glucose 301 H POC Glucose (mg/dL) 395 H 175 H Hemoglobin A1c Calcium Total Bilirubin AST ALT Alkaline Phosphatase Troponin I C-Reactive Protein Total Protein Albumin Urine Ketones Urine Bacteria Urine Mucus 06/08/20 06/09/20 06/09/20 20:30 03:54 04:32 WBC RBC Hgb Hct MCHC Neutrophils # Lymphocytes # ESR ABG pH ABG pCO2 ABG pO2 ABG HCO3 ABG Total CO2 ABG O2 Saturation Sodium Potassium Chloride Carbon Dioxide BUN Creatinine Glucose POC Glucose (mg/dL) 191 H 130 H 138 H Hemoglobin A1c Calcium Total Bilirubin AST ALT Alkaline Phosphatase Troponin I C-Reactive Protein Total Protein Albumin Urine Ketones Urine Bacteria Urine Mucus 06/09/20 06/09/20 06/09/20 04:47 06:11 08:23 WBC RBC 4.29 L Hgb 12.9 L Hct MCHC Neutrophils # Lymphocytes # 0.6 L ESR ABG pH 7.32 L ABG pCO2 79 H* ABG pO2 123 H ABG HCO3 41 H* ABG Total CO2 43 H ABG O2 Saturation 99.5 H Sodium Potassium Chloride Carbon Dioxide BUN Creatinine Glucose POC Glucose (mg/dL) 144 H Hemoglobin A1c Calcium Total Bilirubin AST ALT Alkaline Phosphatase Troponin I C-Reactive Protein Total Protein Albumin Urine Ketones Urine Bacteria Urine Mucus 06/09/20 08:23 WBC RBC Hgb Hct MCHC Neutrophils # Lymphocytes # ESR ABG pH ABG pCO2 ABG pO2 ABG HCO3 ABG Total CO2 ABG O2 Saturation Sodium Potassium Chloride 96 L Carbon Dioxide 38 H BUN Creatinine 0.64 L Glucose 161 H POC Glucose (mg/dL) Hemoglobin A1c Calcium Total Bilirubin AST ALT Alkaline Phosphatase Troponin I C-Reactive Protein Total Protein Albumin 3.3 L Urine Ketones Urine Bacteria Urine Mucus Assessment and Plan Assessment: This is a 70-year-old gentleman with multiple medical problem that presented to the emergency department on the 05 31 2020 for left foot osteomyelitis. During hospital stay patient had left wet gangrene of fifth toe and osteomyleitis as well as necrotizing fascitis extending to ankle and up to anterior compartment and as result went below left knee amputation on 06/01/2020. Encephalopathy due to multifactorial: Toxic metabolic encephalopathy (hypercapnia, elevated sugar), medication effect--resolved Gangrene of left foot with osteomyleitis up to ankle with anterior comparment of left lower extremity s/p left below knee amputation on 06/01/2020 Elevated sugar Pulmonary edema and bilateral pleural effusion Acute kidney injury--resolved Elevated liver function---resolved Diabetes mellitus Neuropathy (likely peripheral neuropathy) Coronary artery disease status post CABG in 2013 Severe ischemic cardiomyopathy Hypertension Hyperlipidemia Plan: Is refusing the CT of the head or any further blood tests or any further investigation regarding his episode of altered mentation. Please avoid the narcotic or sedated of that would affect the patient's men tation. We'll defer the rest of the medical management to the infection disease as well as the primary team. The plan was discussed with the patient's nurse. Thank you for the consultation. Luis Ford MD Neuro-hospitalist. Time with Patient: Greater than 30
[2020-06-09 11:54] LABS: Glucose,Whole Blood 227 mg/dL (75-99)
--- NOTE | 2020-06-09 13:22 | P.PN ---
Subjective This is a pleasant 70-year-old male past medical history significant for coronary artery disease status post bypass grafting, ischemic car diomyopathy, valvular heart disease, diabetes mellitus, hypertension and dyslipidemia. He follows in the office with Dr. Contreras. He is seen and examined sitting up in bed in no acute distress. Through the night he was quite confused prompting ABG revealing pCO2 of 79. Brain CT and BiPAP ordered however the patient was initially refusing. He is agreeable to BiPAP this morning but no CT. He is quite adamant that he is being discharged home today. He denies symptoms of chest pain, dizziness or palpitations. Blood pressure 104/66 heart rate of 114 oxygen saturation 84% on room air. Laboratory data reviewed, WBC 8.8, hemoglobin 12.9, platelets 197, sodium 139, potassium 4.6, creatinine 0.64. Currently maintained on atorvastatin 80 mg at bedtime, Lasix 40 mg by mouth twice a day, Lopressor 25 mg twice a day and Aldactone 25 mg daily. GENERAL: Well-appearing, well-nourished and in no acute distress. NECK: Supple without JVD or thyromegaly. LUNGS: Breath sounds clear to auscultation bilaterally. Respiration equal and unlabored. Bibasilar rales, no wheezes or rhonchi. Diminished bilaterally. HEART: Regular rate and rhythm with systolic ejection murmur at the base, no rubs or gallops. S1 and S2 heard. EXTREMITIES: Normal range of motion, no edema. Left lower extremity dressing in place. ASSESSMENT Acute on chronic systolic heart failure Pleural effusions bilaterally left greater than right Critical limb ischemia of the left leg Ischemic cardiomyopathy Hypertension Coronary artery disease status post bypass grafting Aortic stenosis, severe Mitral regurgitation Tricuspid regurgitation Pulmonary hypertension PLAN Continue current medical regimen. Pt currently agreeing to bipap, follow up BMP in the morning. Nurse Practitioner note has been reviewed, I agree with a documented findings and plan of care. Patient was seen and examined. Objective - Vital Signs Vital signs: Vital Signs Temp 98.0 F 06/09/20 08:00 Pulse 114 H 06/09/20 08:00 Resp 20 06/09/20 08:05 BP 104/66 06/09/20 08:00 Pulse Ox 96 06/09/20 08:05 Intake & Output 06/08/20 06/09/20 06/09/20 18:59 06:59 18:59 Intake Total 1484 Output Total 600 760 Balance 884 -760 Weight 74 kg Intake: IV 30 Invasive Line 4 20 Invasive Line 5 10 Oral 1454 Output: Urine 600 760 Other: Voiding Method Indwelling Catheter Urinal # Voids 1 - Labs CBC & Chem 7: 06/09/20 08:23 06/09/20 08:23 Labs: Abnormal Lab Results - Last 24 Hours (Table) 06/08/20 06/08/20 06/08/20 Range/Units 06:53 06:53 11:53 ESR 30 H (0-15) mm/hr ABG pH (7.35-7.45) ABG pCO2 (35-45) mmHg ABG pO2 (83-108) mmHg ABG HCO3 (21-25) mmol/L ABG Total CO2 (19-24) mmol/L ABG O2 Saturation (94-97) % Glucose (74-99) mg/dL POC Glucose (mg/dL) >600 H (75-99) mg/dL C-Reactive Protein 26.9 H (<10.0) mg/L 06/08/20 06/08/20 06/08/20 Range/Units 12:01 12:39 16:51 ESR (0-15) mm/hr ABG pH (7.35-7.45) ABG pCO2 (35-45) mmHg ABG pO2 (83-108) mmHg ABG HCO3 (21-25) mmol/L ABG Total CO2 (19-24) mmol/L ABG O2 Saturation (94-97) % Glucose 301 H (74-99) mg/dL POC Glucose (mg/dL) 395 H 175 H (75-99) mg/dL C-Reactive Protein (<10.0) mg/L 06/08/20 06/09/20 06/09/20 Range/Units 20:30 03:54 04:32 ESR (0-15) mm/hr ABG pH (7.35-7.45) ABG pCO2 (35-45) mmHg ABG pO2 (83-108) mmHg ABG HCO3 (21-25) mmol/L ABG Total CO2 (19-24) mmol/L ABG O2 Saturation (94-97) % Glucose (74-99) mg/dL POC Glucose (mg/dL) 191 H 130 H 138 H (75-99) mg/dL C-Reactive Protein (<10.0) mg/L 06/09/20 06/09/20 Range/Units 04:47 06:11 ESR (0-15) mm/hr ABG pH 7.32 L (7.35-7.45) ABG pCO2 79 H* (35-45) mmHg ABG pO2 123 H (83-108) mmHg ABG HCO3 41 H* (21-25) mmol/L ABG Total CO2 43 H (19-24) mmol/L ABG O2 Saturation 99.5 H (94-97) % Glucose (74-99) mg/dL POC Glucose (mg/dL) 144 H (75-99) mg/dL C-Reactive Protein (<10.0) mg/L
[2020-06-09 13:50] VITALS: BP 89/52; PULSE 97; TEMP 98.2
--- NOTE | 2020-06-09 14:21 | P.PN ---
Subjective Progress Note Date: 06/09/20 The patient was seen and examined sitting up at the bedside. Left lower extremity dressing clean dry and intact. Patient denies any fevers or chills, any pain to the lower extremity. Outpatient wound VAC ordered for home care. Midline placed yesterday for outpatient IV antibiotics. The A team was called around 0300 as patient reportedly seemed confused and disoriented. Patient was given Restoril yesterday evening, he states he feels it was related to that. Neurology consult has been ordered. The patient is alert and oriented 3. Patient is impending discharged home with home care. Objective - Vital Signs Vital signs: Vital Signs Temp 98.0 F 06/09/20 08:00 Pulse 114 H 06/09/20 08:00 Resp 20 06/09/20 08:05 BP 104/66 06/09/20 08:00 Pulse Ox 96 06/09/20 08:05 Intake & Output 06/08/20 06/09/20 06/09/20 18:59 06:59 18:59 Intake Total 1484 120 Output Total 600 760 300 Balance 884 -760 -180 Weight 74 kg Intake: IV 30 Invasive Line 4 20 Invasive Line 5 10 Oral 1454 120 Output: Urine 600 760 300 Other: Voiding Method Indwelling Catheter Urinal # Voids 1 - Exam General appearance: The patient is alert, oriented, in no acute distress. HET: Head is normocephalic and atraumatic. Neck: Supple without lymphadenopathy. Trachea midline. Heart: S1 S2. Regular rate and rhythm. Lungs: Diminished, but CTA Extremities: Right lower extremity without any edema. Left lower extremity with dressing clean dry and intact. Neurological: No focal deficits. Strength and sensation are grossly intact. - Labs CBC & Chem 7: 06/09/20 08:23 06/09/20 08:23 Labs: Abnormal Lab Results - Last 24 Hours (Table) 06/08/20 06/08/20 06/08/20 Range/Units 11:53 12:01 12:39 RBC (4.30-5.90) m/uL Hgb (13.0-17.5) gm/dL Lymphocytes # (1.0-4.8) k/uL ABG pH (7.35-7.45) ABG pCO2 (35-45) mmHg ABG pO2 (83-108) mmHg ABG HCO3 (21-25) mmol/L ABG Total CO2 (19-24) mmol/L ABG O2 Saturation (94-97) % Chloride (98-107) mmol/L Carbon Dioxide (22-30) mmol/L Creatinine (0.66-1.25) mg/dL Glucose 301 H (74-99) mg/dL POC Glucose (mg/dL) >600 H 395 H (75-99) mg/dL Albumin (3.5-5.0) g/dL 06/08/20 06/08/20 06/09/20 Range/Units 16:51 20:30 03:54 RBC (4.30-5.90) m/uL Hgb (13.0-17.5) gm/dL Lymphocytes # (1.0-4.8) k/uL ABG pH (7.35-7.45) ABG pCO2 (35-45) mmHg ABG pO2 (83-108) mmHg ABG HCO3 (21-25) mmol/L ABG Total CO2 (19-24) mmol/L ABG O2 Saturation (94-97) % Chloride (98-107) mmol/L Carbon Dioxide (22-30) mmol/L Creatinine (0.66-1.25) mg/dL Glucose (74-99) mg/dL POC Glucose (mg/dL) 175 H 191 H 130 H (75-99) mg/dL Albumin (3.5-5.0) g/dL 06/09/20 06/09/20 06/09/20 Range/Units 04:32 04:47 06:11 RBC (4.30-5.90) m/uL Hgb (13.0-17.5) gm/dL Lymphocytes # (1.0-4.8) k/uL ABG pH 7.32 L (7.35-7.45) ABG pCO2 79 H* (35-45) mmHg ABG pO2 123 H (83-108) mmHg ABG HCO3 41 H* (21-25) mmol/L ABG Total CO2 43 H (19-24) mmol/L ABG O2 Saturation 99.5 H (94-97) % Chloride (98-107) mmol/L Carbon Dioxide (22-30) mmol/L Creatinine (0.66-1.25) mg/dL Glucose (74-99) mg/dL POC Glucose (mg/dL) 138 H 144 H (75-99) mg/dL Albumin (3.5-5.0) g/dL 06/09/20 06/09/20 Range/Units 08:23 08:23 RBC 4.29 L (4.30-5.90) m/uL Hgb 12.9 L (13.0-17.5) gm/dL Lymphocytes # 0.6 L (1.0-4.8) k/uL ABG pH (7.35-7.45) ABG pCO2 (35-45) mmHg ABG pO2 (83-108) mmHg ABG HCO3 (21-25) mmol/L ABG Total CO2 (19-24) mmol/L ABG O2 Saturation (94-97) % Chloride 96 L (98-107) mmol/L Carbon Dioxide 38 H (22-30) mmol/L Creatinine 0.64 L (0.66-1.25) mg/dL Glucose 161 H (74-99) mg/dL POC Glucose (mg/dL) (75-99) mg/dL Albumin 3.3 L (3.5-5.0) g/dL Assessment and Plan Assessment: 1. 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 Acute ventilator-dependent respiratory failure, resolved 4. Coronary artery disease 5. Pleural effusions Plan: 1. Continue daily wet to dry dressing changes 2. Consult to wound care for wound VAC application for discharge 3. Antibiotics per recommendation from infectious disease 4. Patient may be discharged home from a vascular surgical standpoint with follow-up with Dr. Lo in one week 5. Continue medical management The impression and plan of care has been dictated as directed. Dr. Jerry I performed a history and examination of this patient, discussed the same with the dictator. I agree with the dictator's note ,documented as a scribe. Any additional findings or plans will be noted. .
--- NOTE | 2020-06-09 15:13 | P.DS ---
Providers Date of admission: 05/31/20 16:57 Expected date of discharge: 06/09/20 Attending physician: Heriberto Grande Consults: 05/31/20 16:56 Consult Physician Urgent Consulting Provider: Jenny Lo Consult Reason/Comments: Osteomyelitis left fifth toe Do you want consulting provider notified?: Yes 06/01/20 10:30 Consult Physician Urgent Consulting Provider: Yuriy Contreras Consult Reason/Comments: known pt, cardiomyopathy Do you want consulting provider notified?: Yes 06/02/20 12:38 Consult Physician Routine Consulting Provider: Carissa Quintana Consult Reason/Comments: gangrene to left foot Do you want consulting provider notified?: Already Contacted 06/06/20 14:35 Consult Physician Routine Consulting Provider: Diomedes German Consult Reason/Comments: evaluate for inpatient rehab Do you want consulting provider notified?: Yes 06/09/20 04:42 Consult Physician Urgent Consulting Provider: Luis Ford Consult Reason/Comments: AMS Do you want consulting provider notified?: Yes Primary care physician: [facility] Course: 06/09/2020, overall patient has been doing well he had a episode confusional arousal versus TIA this morning patient refused to get a computed tomography scan, diffuse the BiPAP some transient right upper extremity weakness is present but however resolved mental status improved, patient has been evaluated by neurology patient continued to refuse, we'll continue to provide supportive care and agree with discharge planning and placement, wound VAC have been arranged to discuss with social work 06/08/2020, patient seen eval reexamined during the rounds labs reviewed medications reviewed, patient has been doing well on room air breathing comfortably denies any chest pain, diuresing very well, CO2 up to 44 likely related to metabolic alkalosis, patient is not erythematous will hold on Diamox, however we'll cut down the diuresis as though continued to optimize cardiac care, patient is being arranged for wound VAC further surgery has been canceled patient will be discharged most likely tomorrow with wound VAC and home health and home care to follow 06/07/2020, patient seen eval examined during the rounds labs reviewed medications reviewed care plan discussed, respiratory status remains stable on 2 L oxygen denies any cough or sputum production cardiovascular service and evaluated the patient, hemodynamic status is marginal but improved last blood pressure 100/53 heart rate is 92, on 2 L oxygen, creatinine normal back to baseline, urine output is over 4.8 L tolerating diuretics very well, overall plan is to optimize cardiac status and diuresis, before elective surgery at a later date 06/06/2020, patient seen eval examined at room air breathing comfortably denies any chest pain, left lower extremity wound healing well, patient is being planned for BKA left side next 24-48 hours, remains on broad-spectrum antibiotics renal functions have improved significantly, 06/05/2020, patient seen eval reexamined during the rounds labs reviewed medications reviewed sitting upright in chair breathing comfortably, levo fed have been off, respiratory status remains stable, denies any chest pain, patient has issues with low blood pressure followed by fluid resuscitation for that as well as renal failure, as well as patient has some oxygen desaturation however improved with IV Lasix, patient is being optimized with cardiovascular medicine, discussed with cardiovascular services and vascular surgery plans for DKA subsequently in next 24-48, 06/04/2020, patient seen eval reexamined labs reviewed medications reviewed, patient has been resumed on his home medications, blood pressure very labile fluctuating, patient ended up having levo fed drip, still in ICU not ready for transfer and took off of levo fed drip, medicine have been adjusted by cardiovascular services, 06/03/2020, patient seen eval examined during the rounds labs reviewed medications reviewed care plan discussed with the staff at length, patient on room air breathing comfortably denies any chest pain has been on pain medicine as needed, left leg is covered with dressing, patient remains on vasopressors we'll give fluid boluses him to wean and taper and DC the pressors, good adequate urine output, 06/02/2020, patient seen eval reexamined labs reviewed radiographic studies reviewed, patient has been on assist control mode unable to wean extubated in recovery area patient has been placed on pressure support with CPAP 5 and 5 arterial blood gas and weaning parameters have been reviewed and will proceed with extubation on 4 L oxygen however patient continue require a small amount of vasopressors, abs reviewed x-rays reviewed This is a 70-year-old male who presented emergency department with symptoms of foot discomfort, which has been going on for several weeks, patient has been hospitalized in the past for similar problems, patient has noted left fifth toe is purple along with redness and tenderness up to the lower leg level, patient is being admitted into the hospital for vascular compromise with consultation with vascular surgery and infectious disease, past medical history significant for heart failure, diabetes mellitus, hypertension hypertensive cardiovascular disease patient does have a history of pneumonia in the past and Nephro-Faizan thesis, vascular surgery has evaluated the patient and cardiology has cleared the patient patient is going for surgery, patient overnight had the rapid response due to drop in blood pressure requiring fluid support, blood pressure did improve after bolus of the fluid, x-ray of the foot consistent with osteomyelitis and bony degeneration, potassium was 7.2 initially came down with rehydration last check was 5.1, Vital signs: Vital Signs Temp 98.1 F 06/08/20 00:00 Pulse 94 06/08/20 04:00 Resp 20 06/08/20 04:00 BP 93/58 06/08/20 04:00 Pulse Ox 94 L 06/08/20 04:00 Intake & Output 06/07/20 06/08/20 06/08/20 18:59 06:59 18:59 Intake Total 1560 480 490 Output Total 1350 700 600 Balance 210 -220 -110 Weight 65.5 kg 67.5 kg Intake: IV 10 Invasive Line 4 10 Oral 1560 480 480 Output: Urine 1350 700 600 Other: Voiding Method Indwelling Catheter Indwelling Catheter Indwelling Catheter - Exam - Constitutional General appearance: average body habitus, cooperative, disheveled, status post extubation awake and alert - EENT Eyes: PERRLA Ears: bilateral: normal - Neck Carotids: bilateral: upstroke normal - Respiratory Respiratory: bilateral: CTA - Cardiovascular Rhythm: regular Heart sounds: normal: S1, S2 - Integumentary Integumentary: normal turgor - Neurologic Neurologic: CNII-XII intact - Musculoskeletal Musculoskeletal: generalized weakness Left foot covered with dressing 06/08/20 06:53 Labs: Abnormal Lab Results - Last 24 Hours (Table) 06/07/20 06/07/20 06/07/20 Range/Units 11:43 16:49 20:54 RBC (4.30-5.90) m/uL Hgb (13.0-17.5) gm/dL Hct (39.0-53.0) % MCHC (31.0-37.0) g/dL Lymphocytes # (1.0-4.8) k/uL ESR (0-15) mm/hr Chloride (98-107) mmol/L Carbon Dioxide (22-30) mmol/L Glucose (74-99) mg/dL POC Glucose (mg/dL) 231 H 217 H 231 H (75-99) mg/dL Calcium (8.4-10.2) mg/dL C-Reactive Protein (<10.0) mg/L 06/08/20 06/08/20 06/08/20 Range/Units 05:52 06:53 06:53 RBC 4.09 L (4.30-5.90) m/uL Hgb 11.6 L (13.0-17.5) gm/dL Hct 38.5 L (39.0-53.0) % MCHC 30.3 L (31.0-37.0) g/dL Lymphocytes # 0.7 L (1.0-4.8) k/uL ESR 30 H (0-15) mm/hr Chloride 95 L (98-107) mmol/L Carbon Dioxide 44 H* (22-30) mmol/L Glucose 149 H (74-99) mg/dL POC Glucose (mg/dL) 148 H (75-99) mg/dL Calcium 8.3 L (8.4-10.2) mg/dL C-Reactive Protein 26.9 H (<10.0) mg/L Assessment: Acute on systolic heart failure Pulmonary edema and bilateral pleural effusion Sepsis due to osteomyelitis Osteomyelitis of the left fifth toe status post amputation of left foot Necrotizing fasciitis Acute kidney injury Acute on chronic systolic heart failure Postop amputation of left foot Diabetes mellitus Coronary artery disease, status post CABG Hypertensive cardiovascular disease Procedures: Amputation of left foot Patient Condition at Discharge: Fair Plan - Discharge Summary Discharge Rx Participant: No New Discharge Prescriptions: New Atorvastatin [Lipitor] 80 mg PO HS #30 tab Metoprolol Tartrate [Lopressor] 25 mg PO BID #60 tab HYDROcodone/APAP 5-325MG [[place] 5-325] 1 each PO Q6HR PRN #14 tab PRN Reason: Pain Continue Spironolactone [Aldactone] 25 mg PO DAILY Clopidogrel Bisulfate [Plavix] 75 mg PO DAILY Furosemide [Lasix] 40 mg PO BID #60 tablet Potassium Chloride ER [K-Dur 10] 10 meq PO BID carvediloL [Coreg] 3.125 mg PO BID-W/MEALS #60 tab Melatonin 5 mg PO HS PRN tablet PRN Reason: Insomnia Mirtazapine [Remeron] 15 mg PO HS #30 tab ALPRAZolam [Xanax] 0.25 mg PO HS PRN #12 tab PRN Reason: Insomnia Sacubitril/Valsartan [Entresto 24 mg-26 mg Tablet] 1 tab PO BID Discontinued Atorvastatin [Lipitor] 10 mg PO HS Discharge Medication List Clopidogrel Bisulfate [Plavix] 75 mg PO DAILY 09/03/15 [History] Spironolactone [Aldactone] 25 mg PO DAILY 09/03/15 [History] Furosemide [Lasix] 40 mg PO BID #60 tablet 04/08/20 [Rx] Potassium Chloride ER [K-Dur 10] 10 meq PO BID 05/16/20 [History] carvediloL [Coreg] 3.125 mg PO BID-W/MEALS #60 tab 05/18/20 [Rx] ALPRAZolam [Xanax] 0.25 mg PO HS PRN #12 tab 05/20/20 [Rx] Melatonin 5 mg PO HS PRN tablet 05/20/20 [Rx] Mirtazapine [Remeron] 15 mg PO HS #30 tab 05/20/20 [Rx] Sacubitril/Valsartan [Entresto 24 mg-26 mg Tablet] 1 tab PO BID 05/31/20 [History] Atorvastatin [Lipitor] 80 mg PO HS #30 tab 06/09/20 [Rx] HYDROcodone/APAP 5-325MG [[place] 5-325] 1 each PO Q6HR PRN #14 tab 06/09/20 [Rx] Metoprolol Tartrate [Lopressor] 25 mg PO BID #60 tab 06/09/20 [Rx] Follow up Appointment(s)/Referral(s): Ish Townsend DO [Primary Care Provider] - 1-2 days Jenny Lo DO [STAFF PHYSICIAN] - 1 Week [facility], [NON-STAFF] - [facility] [NON-STAFF] - Activity/Diet/Wound Care/Special Instructions: Patient requires a wheelchair at discharge to complete ADLs which cannot be done with a walker secondary to left foot amputation. Patient can self propel. Patient requires a hospital bed at discharge to keep hob elevated greater than 30 degrees most of the time to alleviate dyspnea from CHF Patient requires home oxygen at discharge secondary to hypoxia from CHF Wound Care instructions - Wound Vac - apply adaptic over exposed bone, black foam, negative pressure wound vac at 125mmHg continuous. Change three times per week. Discharge Disposition: HOME WITH HOME HEALTH SERVICES
--- NOTE | 2020-06-09 15:24 | PN ---
PROGRESS NOTE DATE OF SERVICE: 06/09/2020 REASON FOR FOLLOWUP: Left diabetic foot infection with necrotizing infection. INTERVAL HISTORY: The patient is currently afebrile. The patient is feeling better. Breathing comfortably. Denies having any chest pain. No shortness of breath or cough. No nausea. No vomiting. No abdominal pain. No worsening pain to the left foot disarticulation site. PHYSICAL EXAMINATION: Blood pressure 104/66, pulse of 114, temperature 98. He is 96% on 3 L nasal cannula. General description is an elderly male up in the chair in no distress. RESPIRATORY SYSTEM: Unlabored breathing, clear to auscultation anteriorly. HEART: S1, S2. Regular rate and rhythm. ABDOMEN: Soft, no tenderness. Left leg is currently dressed up. No obvious drainage on the dressing. LABS: Hemoglobin is 12.9, white count 8.8. BUN of 20, creatinine 0.64. DIAGNOSTIC IMPRESSION AND PLAN: Patient with left diabetic foot infection with evidence of necrotizing infection, status post disarticulation. Still has a wound to the left leg and some inflammatory changes for which the patient has been on cefepime and Flagyl, to continue for another 2 weeks and close outpatient followup. MMODL / IJN: [id number] /
[2020-06-09 17:08] LABS: Glucose,Whole Blood 182 mg/dL (75-99)
== END 2020-06-09 19:00 | disposition home health service (06) | DRG 853 ==
LOC: EC 12:24 → 4SSUR 16:57 → 3SCARD 17:42 → 2SICU 06-01 20:11 → 3SCARD 06-05 18:44
PROVIDERS: ADMIT Internal Medicine Sleep Medicine; ATTEND Internal Medicine Sleep Medicine
PROC: 5A1935Z Respiratory Ventilation, Less than 24 Consecutive Hours (ICD-10-PCS; 2020-06-01)
PROC: 0BH17EZ Insertion of Endotracheal Airway into Trachea, Via Natural or Artificial Opening (ICD-10-PCS; 2020-06-01)
PROC: 0Y6J0Z1 Detachment at Left Lower Leg, High, Open Approach (ICD-10-PCS; principal; 2020-06-01 14:30)
PROC: 5A09357 Assistance with Respiratory Ventilation, Less than 24 Consecutive Hours, Continuous Positive Airway Pressure (ICD-10-PCS; 2020-06-09)
DX: A41.9 Sepsis, unspecified organism (principal); I50.23 Acute on chronic systolic (congestive) heart failure; M72.6 Necrotizing fasciitis; A48.0 Gas gangrene; J96.00 Acute respiratory failure, unspecified whether with hypoxia or hypercapnia; G92 Toxic encephalopathy; E11.52 Type 2 diabetes mellitus with diabetic peripheral angiopathy with gangrene; N17.9 Acute kidney failure, unspecified; E87.3 Alkalosis; M86.172 Other acute osteomyelitis, left ankle and foot; L03.116 Cellulitis of left lower limb; E11.51 Type 2 diabetes mellitus with diabetic peripheral angiopathy without gangrene; E11.40 Type 2 diabetes mellitus with diabetic neuropathy, unspecified; Z20.822 Contact with and (suspected) exposure to COVID-19; E78.5 Hyperlipidemia, unspecified; I70.222 Atherosclerosis of native arteries of extremities with rest pain, left leg; E11.622 Type 2 diabetes mellitus with other skin ulcer; I25.10 Atherosclerotic heart disease of native coronary artery without angina pectoris; I11.0 Hypertensive heart disease with heart failure; I08.3 Combined rheumatic disorders of mitral, aortic and tricuspid valves; I25.5 Ischemic cardiomyopathy; I27.20 Pulmonary hypertension, unspecified; M81.0 Age-related osteoporosis without current pathological fracture; E87.5 Hyperkalemia; I25.2 Old myocardial infarction; Z95.1 Presence of aortocoronary bypass graft; Z87.442 Personal history of urinary calculi; Z87.01 Personal history of pneumonia (recurrent); Z80.42 Family history of malignant neoplasm of prostate; Z79.899 Other long term (current) drug therapy; Z79.02 Long term (current) use of antithrombotics/antiplatelets; Z80.0 Family history of malignant neoplasm of digestive organs
CPT/HCPCS: 36410; 36415; 36600; 71045; 76604; 76937; 80048; 80053; 80202; 81001; 81003; 82805; 82947; 83036; 83605; 83735; 83880; 84100; 84132; 84484; 85025; 85610; 85652; 85730; 86140; 87040; 87070; 87075; 87077; 87186; 87205; 87635; 93005; 94002; 94003; 94640; 94660; 96365; 96366; 96367; 96375; 99291